=== PATIENT | female | born 1940 | race Caucasian/White ===

== ENCOUNTER 2017-05-28 08:45 | Outpatient (CLI) | payer MEDICARE, OTHER ==
[~2017-05-28] VITALS: Ht 144.8 cm; Wt 45.4 kg
[~2017-05-28 08:45] MED LIST: ACHYD1T PO; CA C1TAB75 PO; DCS100C PO; GBPN100C PO; IBP800T PO; MELO-195 PO; NAPR-689 PO; OMEP20CA12 PO; SIMV20TA3 PO; SMV20T PO
[2017-05-28 08:55] VITALS: BP 135/74
[2017-05-28] MEDS ORDERED: CETI10TA17 PO (09:03)
[2017-05-28] MEDS ORDERED: MONT10TA24 PO (09:03)
[2017-05-28] MEDS ORDERED: LEVO25TA5 PO (09:03)
[2017-05-28 09:44] LABS: BASOPHILS # (AUTO) 0.1 10^3/uL (0.0-0.1); BASOPHILS % (AUTO) 1 % (0-10); EOSINOPHILS # (AUTO) 0.2 10^3/uL (0.0-0.3); EOSINOPHILS % (AUTO) 2 % (0-10); LYMPHOCYTES # (AUTO) 3.1 X 10^3 (1.0-4.0); LYMPHOCYTES % (AUTO) 31 % (12-44); MEAN CORPUSCULAR HEMOGLOBIN 30 PG (25-34); MEAN CORPUSCULAR HGB CONC 32 G/DL (32-36); MEAN CORPUSCULAR VOLUME 92 FL (80-99); MEAN PLATELET VOLUME 9.4 FL (7.4-10.4); MONOCYTES # (AUTO) 0.7 X 10^3 (0.0-1.0); MONOCYTES % (AUTO) 7 % (0-12); NEUTROPHILS % (AUTO) 60 % (42-75); PLATELET COUNT 308 10^3/uL (130-400); RED CELL DISTRIBUTION WIDTH 13.6 % (10.0-14.5)
[2017-05-28 09:55] LABS: BILIRUBIN,URINE NEGATIVE (NEGATIVE); KETONES,URINE NEGATIVE (NEGATIVE); LEUKOCYTE ESTERASE ,URINE NEGATIVE (NEGATIVE); NITRITE,URINE NEGATIVE (NEGATIVE); PH,URINE 6.5 (5-9); PROTEIN,URINE NEGATIVE (NEGATIVE); UROBILINOGEN,URINE NORMAL (NORMAL)
[2017-05-28 10:01] LABS: ANION GAP 12 MMOL/L (5-14); BLOOD UREA NITROGEN 13 MG/DL (7-18); BUN/CREATININE RATIO 17; CALCIUM 9.9 MG/DL (8.5-10.1); CARBON DIOXIDE 25 MMOL/L (21-32); CHLORIDE 104 MMOL/L (98-107); CREATININE SERUM 0.78 MG/DL (0.60-1.30); GFR ESTIMATED > 60; GLUCOSE 79 MG/DL (70-105); POTASSIUM 4.5 MMOL/L (3.6-5.0); SODIUM 141 MMOL/L (135-145)
[2017-05-28 10:08] LABS: SQUAMOUS EPITHELIAL CELL,UR 0-2 /HPF
[2017-05-28 10:26] LABS: PROTHROMBIN TIME PATIENT 13.6 SEC (12.2-14.7)
--- NOTE | 2017-05-28 10:40 | Diagnostic Imaging Report ---
INDICATION: Preop screening prior to hip arthroplasty. Comparison made with prior examination February 16, 2015. FINDINGS: The heart size is normal. There is some bibasilar atelectasis and/or pneumonitis left greater than right. There is no pleural effusion or pneumothorax. Mediastinum is unremarkable. IMPRESSION: Bibasilar scarring or atelectasis left greater than right. Unchanged scoliosis. Dictated by: Dictated on workstation # [id number]
== END 2017-05-28 09:45 | disposition home or self-care (01) ==
LOC: PREOP 08:45
PROVIDERS: ATTEND Orthopaedic Surgery
DX: Z01.812 Encounter for preprocedural laboratory examination (principal); Z01.811 Encounter for preprocedural respiratory examination; M16.11 Unilateral primary osteoarthritis, right hip; M79.661 Pain in right lower leg; R53.83 Other fatigue; Z22.322 Carrier or suspected carrier of Methicillin resistant Staphylococcus aureus; Z85.850 Personal history of malignant neoplasm of thyroid
CPT/HCPCS: 36415; 71020; 80048; 81000; 85025; 85610; 86850; 86900; 86901; 87081; 93005

== ENCOUNTER 2017-06-11 07:47 | Inpatient (IN) | payer MEDICARE, OTHER ==
[~2017-06-11] VITALS: Ht 147.3 cm; Wt 47.3 kg
[~2017-06-11 07:47] MED LIST changes: +CETI10TA17 PO; +LEVO25TA5 PO; +MONT10TA24 PO
[2017-06-11] MEDS ORDERED: ceFAZolin 2 GM/NS 50 ML IV ONE (08:00)
[2017-06-11] MEDS ORDERED: fentaNYL INJECTION 100 MCG/2 ML AMP ONE (08:17)
[2017-06-11] MEDS ORDERED: MIDAZOLAM 2 MG/2 ML (VERSED) VIAL ONE (08:18)
[2017-06-11] MEDS ORDERED: NEO/POLY/BAC (NEOSPORIN) OINT 15 GM TUBE ONE (08:23)
[2017-06-11] MEDS ORDERED: GENTAMICIN 40 MG/ML 2 ML INJ SDV ONE (08:23)
[2017-06-11] MEDS: LACTATED RINGERS 1,000 ML IV PRN ×2 (08:47→09:59)
[2017-06-11 08:58] VITALS: BP 140/87
--- NOTE | 2017-06-11 09:04 | Anesthesia-Peripheral Nerve Bl ---
Procedure Start/Stop Time Date of Procedure: Jun 11, 2017 Start Time: 08:40 Stop Time: 09:00 Peripheral Nerve Block Peripheral Nerve Blockade Risk/Benefits/Alternatives discussed, including IV injection leading to complications or seizures, nerve irritation or damage, pneumothorax, total spinal anesthesia, injection, and/or bleeding. Approach: femoral Side Confirmed: RIGHT Specifically requested for management of pain by: Patient Condition Patient Condition: Awake Procedure Prepartation: Chlorhexidine Position: Supine [place]: Short-bevel Needle (s) Size: 22g 2" Technique: Injection through needle If paresthesia, describe quali: quadricepts femoris response drop off at .6ma mA: 0.6 Depth (cm): 3 Sedation Given: Midazolam Dose (mg/mcg): 1 Injectate: ropivacaine Concentration %: 0.5 Volume (ml): 30 Narrative Injection was made incrementally with constant monitoring. Blood Aspirated: No Pain on injection noted: No Normal Resistance on injection: Yes Events Events: None:easy well tolerated Sucess: Full evaluation-pending Patient Conditon Post Peripheral Nerve Block Post Peripheral Nerve Block Vital Signs: Blood Pressure: Systolic Diastolic Heart Rate Blood Pressure Systolic: 140 Blood Pressure Diastolic: 87 Pulse Rate (adult): 101 NEEL CEDILLO CRNA Jun 11, 2017 09:04
[2017-06-11] MEDS ORDERED: TRANEXAMIC ACID 100 MG/ML 10 ML INJECTION IV ONE (09:44)
[2017-06-11] MEDS ORDERED: proPOfol 200 MG/20 ML (DIPRIVAN) VIAL IV ONE (09:45)
[2017-06-11] MEDS ORDERED: LACTATED RINGERS 2,000 ML IV ONE (09:45)
[2017-06-11] MEDS ORDERED: ONDANSETRON 4 MG/2 ML (SDV) Z0FRAN ONE (09:45)
[2017-06-11] MEDS ORDERED: LIDOCAINE PF 2% 5 ML (XYLOCAINE) VIAL ONE (09:45)
[2017-06-11] MEDS ORDERED: ROCURONIUM 50 MG/5 ML (ZEMURON) VIAL IV ONE (09:45)
[2017-06-11] MEDS ORDERED: SEVOFLURANE (ULTANE) 15 ML INHAL SOLN ONE ×2 (09:46→11:11)
[2017-06-11] MEDS ORDERED: PHENYLEPHRINE 100 MCG/ML 10 ML (ANESTHESIA) SYR ONE (10:12)
[2017-06-11] MEDS ORDERED: GLYCOPYRROLATE 0.2 MG/ML (ROBINUL) 2 ML VIAL ONE (11:10)
[2017-06-11] MEDS ORDERED: NEOSTIGMINE (BLOXIVERZ ) 1 MG/1ML 10 ML VIAL ONE (11:10)
[2017-06-11] MEDS ORDERED: morphine INJ 10 MG/ML 1ML (SYR OR VIAL) ONE (11:16)
--- NOTE | 2017-06-11 11:34 | Progress Note-Post Operative ---
Post-Operative Progess Note Surgeon (s)/Union Contract Representative (s) Surgeon DARIN WILEY DO Union Contract Representative: Misha Patel RESEARCH [employer] SUPERVISORJuan Pre-Operative Diagnosis Primary Osteoarthritis Right Hip Post-Operative Diagnosis same Procedure & Operative Findings Date of Procedure 06/11/17 Procedure Performed/Findings Right Total Hip Replacement Anesthesia Type General with femoral nerve block Estimated Blood Loss Estimated blood loss (mL): 100 ml Specimens/Packing Specimens Removed none DARIN WILEY DO Jun 11, 2017 11:34 am
[2017-06-11] MEDS: morphine INJ 10 MG/ML 1ML (SYR OR VIAL) IVP PRN ×3 (11:36→11:50)
[2017-06-11] MEDS ORDERED: BISACODYL 10 MG SUPP (DULCOLAX) PR PRN (11:45)
[2017-06-11] MEDS ORDERED: KETOROLAC 15 MG/ML VIAL IVP PRN (11:45)
[2017-06-11] MEDS ORDERED: ceFAZolin 2 GM/50 ML NS 50 ML IV SCH (11:45)
[2017-06-11] MEDS ORDERED: diphenhydrAMINE 50 MG/ML INJ (BENADRYL) IV PRN (11:45)
[2017-06-11] MEDS ORDERED: PROMETHAZINE INJ 25 MG/ML (PHENERGAN) AMP IVP PRN (11:45)
[2017-06-11 12:00] VITALS: BP 126/58
[2017-06-11] MEDS ORDERED: ONDANSETRON 4 MG/2 ML (SDV) Z0FRAN IVP PRN (12:15)
[2017-06-11] MEDS: ONDANSETRON 4 MG/2 ML (SDV) Z0FRAN IVP PRN ×2 (12:52→17:21)
--- NOTE | 2017-06-11 12:57 | Diagnostic Imaging Report ---
EXAMINATION: AP view of the pelvis. INDICATION: Postoperative baseline exam. FINDINGS: There is right hip replacement in good position. The left hip demonstrates mild degenerative change. IMPRESSION: Baseline post right hip replacement in good position. Dictated by: Dictated on workstation # [id number]
[2017-06-11] MEDS: BACLOFEN 10 MG (LIORESAL) TAB PO SCH ×2 (13:22→20:35)
[2017-06-11 13:30] VITALS: BP 126/58
[2017-06-11] MEDS ORDERED: OMEP20TA7 PO (14:25)
[2017-06-11] MEDS ORDERED: SIMV20TA3 PO (14:25)
[2017-06-11 16:00] VITALS: BP 126/59
[2017-06-11] MEDS: D5 1/2 NS 1000 ML IV SOLUTION 1,000 ML IV SCH (16:42)
[2017-06-11] MEDS: morphine INJ 4 MG/ML 1 ML (VIAL/SYRINGE) IVP PRN ×2 (17:16→20:35)
[2017-06-11] MEDS: ceFAZolin 2 GM/50 ML NS 50 ML IV SCH (17:23)
[2017-06-11 20:00] VITALS: BP 116/57
[2017-06-11] MEDS: HYDROcodone/APAP 10 MG/325 MG (LORTAB) TAB PO PRN (20:34)
[2017-06-11] MEDS: MONTELUKAST 10 MG (SINGULAIR) TAB PO SCH (20:35)
[2017-06-11 23:15] VITALS: BP 113/57
[2017-06-12] MEDS: ceFAZolin 2 GM/50 ML NS 50 ML IV SCH (00:42)
[2017-06-12] MEDS: morphine INJ 4 MG/ML 1 ML (VIAL/SYRINGE) IVP PRN (01:18)
[2017-06-12 04:42] VITALS: BP 129/60
[2017-06-12] MEDS: LEVOTHYROXINE 25 MCG (LEVOTHROID) TAB PO SCH (05:41)
[2017-06-12] MEDS: HYDROcodone/APAP 10 MG/325 MG (LORTAB) TAB PO PRN ×2 (05:42→09:21)
[2017-06-12] MEDS: D5 1/2 NS 1000 ML IV SOLUTION 1,000 ML IV SCH (05:45)
[2017-06-12 06:47] LABS: MEAN PLATELET VOLUME 9.4 FL (7.4-10.4); RED BLOOD COUNT 3.58 10^6/uL (4.35-5.85); RED CELL DISTRIBUTION WIDTH 13.7 % (10.0-14.5); WHITE BLOOD COUNT 13.9 10^3/uL (4.3-11.0)
[2017-06-12 07:10] LABS: ANION GAP 6 MMOL/L (5-14); BLOOD UREA NITROGEN 9 MG/DL (7-18); BUN/CREATININE RATIO 14; CALCIUM 8.2 MG/DL (8.5-10.1); CARBON DIOXIDE 24 MMOL/L (21-32); CHLORIDE 101 MMOL/L (98-107); CREATININE SERUM 0.66 MG/DL (0.60-1.30); GFR ESTIMATED > 60; GLUCOSE 127 MG/DL (70-105); POTASSIUM 3.7 MMOL/L (3.6-5.0); SODIUM 131 MMOL/L (135-145)
--- NOTE | 2017-06-12 07:30 | CONSULTATION REPORT ---
DATE OF SERVICE: 06/11/2017 PREOPERATIVE DIAGNOSIS: Primary osteoarthritis, right hip. POSTOPERATIVE DIAGNOSIS: Primary osteoarthritis, right hip. PROCEDURE: Right total hip arthroplasty. SURGEON: Drain Wiley DO ESTIMATOR: CAMELIA Whitlock. SURGICAL PANEL MONITOR DUTIES: Misha Patel surgical physician assistant was utilized throughout the entire procedure for patient positioning, retraction of soft tissues, placement of metallic implants, wound closure, dressing application and patient transfer. ANESTHESIA: General with femoral nerve block. INDICATIONS AND FINDINGS: The patient is a 76-year-old female seen with chief complaint of progressive right and left hip pain. She also has longstanding history of low back pain. She was actually treated with intraarticular steroid injections in both hips, both as a treatment and a test to determine her response to the injections. She had complete relief of her right hip pain with injections. She was taken to surgery where a total hip arthroplasty was performed on the right utilizing the Biomet Total Hip system with a 48 mm limited hole Regenerex Ringloc limited hole acetabular shell which was press fit into place, a 32 mm head, size 22 liner, size ArcomXL +3 High Wall Ringloc acetabular liner was utilized along with an 8 mm Taperloc porous coated press fit femoral stem, a -6 mm modular head component was utilized as well. This was 32 mm in diameter. This was performed without complication. ESTIMATED BLOOD LOSS: 100 mL. PROCEDURE IN DETAIL: The patient was seen by anesthesia preoperatively and under ultrasound guidance a femoral nerve block was performed on the right to decrease postop pain and decrease the amount of medication required during the surgical procedure. The patient was transported to the operating room where a general inhalation anesthetic was administered. The patient was placed in the left lateral decubitus position secured to the operating table with the peg board system. A ChloraPrep and sterile drape of the right hip and the right lower extremity was performed. A lateral longitudinal incision was then made over the right hip, centered over the greater trochanter and deepened through the iliotibial band. A Hardinge approach was then performed to the right hip with division of the vastus lateralis along with the gluteus medius and minimis tendons reflecting the capsule off the anterior aspect of the femoral head and neck. The hip was dislocated by external rotation and flexion. The acetabular minor was excised, acetabular retractors were placed, the acetabulum was reamed up to a 47 mm reaming. A 48 mm cup was then press fit into place and the provisional acetabular liner was inserted. The proximal femur was opened with a box chisel and a canal finder. The proximal femur was broached up to an 8 mm stem with the calcar reamed. The hip was reduced, taken through a range of motion with a -6 mm neck. The patient was noted to have balancing of the soft tissues at the hip with symmetric leg lengths. The provisional components were removed, the hip was irrigated extensively with normal saline solution and the ArcomXL High Wall liner was impacted into position with the buildup over the anterior superior aspect of the acetabular shell. The 8 mm Taperloc stem was impacted into position. The head was cold welded on the stem, the hip was reduced, taken through a range of motion and found to be stable. The vastus lateralis as well as the gluteus medius and minimis tendon were then closed with multiple interrupted [id number] sutures of #2 Ticron suture along with a running suture. The iliotibial band was closed with a running suture of #1 Vicryl. The subcutaneous tissues were closed with 0 and 2-0 Vicryl suture, the skin was closed with stainless steel sal and Adaptic, Neosporin and a bulky dressing was placed about the right hip. The patient was awakened, and was transported to the postop recovery with anesthesia personnel present, in satisfactory condition. Job ID: [id number] DocumentID: [id number] Dictated Date: 06/11/2017 15:39:51 Buckle Stringer Date: 06/12/2017 07:30:21 Dictated By: DARIN WILEY DO
[2017-06-12 08:00] VITALS: BP 115/65
[2017-06-12] MEDS: LORATADINE (CLARITIN) 10 MG TAB PO SCH (09:22)
[2017-06-12] MEDS: PANTOPRAZOLE 20 MG TABLET (PROTONIX) PO SCH (09:22)
[2017-06-12] MEDS: BACLOFEN 10 MG (LIORESAL) TAB PO SCH ×2 (09:22→14:58)
[2017-06-12] MEDS: ENOXAPARIN 40 MG/0.4 ML (LOVENOX) SYR SC SCH (09:22)
--- NOTE | 2017-06-12 09:25 | Physical Therapy Evaluation ---
PT Evaluation-General Medical Diagnosis Admission Date Jun 11, 2017 at 07:47 Medical Diagnosis: right VINOD Onset Date: Jun 11, 2017 Therapy Diagnosis Therapy Diagnosis: impaired mobility, strength, endurnace Height/Weight Height (Feet): 4 Height (Inches): 10.00 Weight (Pounds): 104 Weight (Ounces): 3.0 Precautions Precautions/Isolations: Fall Prevention, Standard Precautions Weight Bear Status Weight Bearing Restriction: Full Weight Bearing Location Restriction: R LE Referral Physician: Misha Patel APRN Reason for Referral: Evaluation/Treatment Medical History Pertinent Medical History: OA Additional Medical History surg (cataracts, ovarian cyst, right rotator cuff repair) Current History had right VINOD after longstanding OA Social History Home: Single Level Current Living Status: Spouse PT Steps Into Home: 1 Prior/Core FIM Prior Level of Function Functional [place] Measure 0=Not Assessed/NA 4=Minimal Assistance 1=Total Assistance 5=Supervision or Setup 2=Maximal Assistance 6=Modified [place] 3=Moderate Assistance 7=Complete [place] Bed Mobility: 7 Transfers (B,C,W/C) (FIM): 7 Gait: 7 PT Evaluation-Current Subjective Patient in bed pre tx, agrees to PT, has pain of 8/10 in right hip. Pt/Family Goals to be independent at home Objective Patient Orientation: Person, Place, Situation Attachments: Oxygen, Gentile Catheter, IV 2L of O2 nasal canula ROM/Strength ROM Lower Extremities NT due to recent surgery Strenght Lower Extremities NT due to recent surgery Integumentary/Posture Bladder Incontinence: Gentile Cath Sensory Vision: Functional Hearing: Functional Sensation Right Lower Extremit: Intact Sensation Left Lower Extremity: Intact Transfers Functional [place] Measure 0=Not Assessed/NA 4=Minimal Assistance 1=Total Assistance 5=Supervision or Setup 2=Maximal Assistance 6=Modified [place] 3=Moderate Assistance 7=Complete [place] Transfers (B, C, W/C) (FIM): 3 Scootin Rollin Supine to/from Sit: 3 Sit to/from Stand: 4 Patient performs bed mobility with mod assist, supine to sit with mod assist, sit to stand with min assist. Patient needs cues for safety and hand placement. Gait Mode of Locomotion: Walk Anticipated Mode of Locomotion: Walk Gait (FIM): 1 Distance: 3' Gait Level of Assist: 4 Gait Persons Needed: 1 Gait Assistive Device: FWW Comments/Gait Description Patient ambulated just a few feet from the bed to chair. Very antalgic, but she could advance her right leg well. Balance Sitting Static: Fair Sitting Dynamic: Fair Standing Static: Fair Standing Dynamic: Fair Treatment Right lower extremity exercises in a seated position x10 (AP, LAQ, GS) Assessment/Needs Patient has impaired mobility, strength, endurance, post right VINOD Rehab Potential: Fair PT Grain Spouter Goals Retirement Goals PT Retirement Goals Time Frame: Jun 19, 2017 Transfers (B,C,W/C) (FIM): 4 Gait (FIM): 2 Distance: 50' Gait Level of Assist: 4 Gait Assistive Device: FWW PT Plan Problem List Problem List: Activity Tolerance, Functional Strength, Safety, Balance, Gait, Transfer, Bed Mobility, ROM Treatment/Plan Treatment Plan: Continue Plan of Care Treatment Plan: Bed Mobility, Education, Functional Activity Samanta, Functional Strength, Gait, Therapeutic Exercise, Transfers Treatment Duration: Jun 19, 2017 Frequency: 11 times per week Estimated Hrs Per Day: .25 hour per day (15-30 min) Patient and/or Family Agrees t: Yes Safety Risks/Education Patient Education: Gait Training, Transfer Techniques, Reviewed Precautions, Correct Positioning, Safety Issues Teaching Recipient: Patient Teaching Methods: Demonstration, Discussion Response to Teaching: Reinforcement Needed Discharge Recommendations Plan Patient will perform bed mobility and transfer training, balance and endurance training, functional strengthening, stair training, gait training, and education , to improve functional mobility and independence at home. Therapy D/C Recommendations: Home w/ Family Support Time/GCodes Time In: 900 Time Out: 915 Total Billed Treatment Time: 15 Total Billed Treatment 1 visit AL 15' DELANEY HOUSTON PT Jun 12, 2017 09:25
--- NOTE | 2017-06-12 10:21 | Anesthesia-General Post-Op ---
General Patient Condition Mental Status/LOC: Same as Preop Cardiovascular: Satisfactory Nausea/Vomiting: Absent Respiratory: Satisfactory Pain: Controlled Complications: Absent Post Op Complications Complications None Follow Up Care/Instructions Patient Instructions None needed. Anesthesia/Patient Condition Patient Condition Patient is doing well, no complaints, stable vital signs, no apparent adverse anesthesia problems. Patient had good relief with FNB, no neuro-vascular complications. No complications reported per nursing. ELIZABETH TAVERAS CRNA Jun 12, 2017 10:21
--- NOTE | 2017-06-12 11:40 | Progress Note (SOAP) ---
Subjective Date Seen by Provider: Jun 12, 2017 Time Seen by Provider: 11:37 Subjective/Events-last exam c/o significant hip pain as well as nausea and vomiting. Escobar started this AM for urinary retention. Objective Exam Vital Signs Date Time Temp Pulse Resp B/P (MAP) Pulse Ox O2 Delivery O2 Flow Rate FiO2 06/12/17 08:25 98 Room Air 06/12/17 08:00 99.0 85 18 115/65 97 Room Air 06/12/17 04:42 99.0 102 16 129/60 97 Nasal Cannula 2.00 06/11/17 23:15 98.7 92 16 113/57 93 Room Air 06/11/17 20:00 97.2 92 20 116/57 96 Room Air 06/11/17 16:00 97.2 81 20 126/59 98 Room Air 06/11/17 13:32 Room Air 06/11/17 13:30 96.5 69 18 126/58 99 06/11/17 13:27 98 Room Air 06/11/17 12:00 96.5 69 18 126/58 Capillary Refill : Less Than 3 Seconds General Appearance: No Apparent Distress Extremity: Normal Capillary Refill, Normal Inspection, No Calf Tenderness, No Pedal Edema Neurologic/Psychiatric: Alert, Oriented x3, No Motor/Sensory Deficits, Normal Mood/Affect Skin: Normal Color, Warm/Dry (Dressing to right hip clean Dry and intact) Results Lab Laboratory Tests 06/12/17 06:30: White Blood Count 13.9H, Red Blood Count 3.58L, Hemoglobin 10.9L, Hematocrit 34L , Mean Corpuscular Volume 94, Mean Corpuscular Hemoglobin 30, Mean Corpuscular Hemoglobin Concent 33, Red Cell Distribution Width 13.7, Platelet Count 250, Mean Platelet Volume 9.4, Sodium Level 131L, Potassium Level 3.7, Chloride Level 101, Carbon Dioxide Level 24, Anion Gap 6, Blood Urea Nitrogen 9, Creatinine 0.66, Estimat Glomerular Filtration Rate > 60, BUN/Creatinine Ratio 14, Glucose Level 127H, Calcium Level 8.2L Assessment/Plan Assessment/Plan Assess & Plan/Chief Complaint A: s/p right VINOD, PONV, post op urinary retention, hyponatremia P: Zofran for nausea, DC hydrocodone and start percocet 5/325, start bladder training today and DC escobar this afternoon. increase activity level. May need admission to skilled swing or rehab. 1500cc fluid restriction. Sarah to manage IM issues. Clinical Quality Measures DVT/VTE Risk/Contraindication: Risk Factor Score Per Nursin RFS Level Per Nursing on Admit: 4+=Very High PATRICE CONNOR APRN Jun 12, 2017 11:39 am
[2017-06-12] MEDS: ONDANSETRON 4 MG/2 ML (SDV) Z0FRAN IVP PRN (11:50)
[2017-06-12 12:00] VITALS: BP 133/63
[2017-06-12] MEDS ORDERED: oxyCODONE/APAP 5/325MG (PERCOCET 5) TABLET PO PRN (12:15)
--- NOTE | 2017-06-12 13:08 | Occupational Therapy Eval ---
OT Evaluation-General/PLF Medical Diagnosis Admission Date Jun 11, 2017 at 07:47 Medical Diagnosis: right VINOD Onset Date: Jun 11, 2017 Therapy Diagnosis Therapy Diagnosis: Weakness, Decreased ADL skills Height/Weight Height (Feet): 4 Height (Inches): 10.00 Weight (Pounds): 104 Weight (Ounces): 3.0 Precautions Precautions/Isolations: Fall Prevention, Standard Precautions Safety Interventions: None Weight Bear Status Weight Bearing Restriction: Weight Bearing/Tolerated, Full Weight Bearing Location Restriction: R LE Referral Physician: Misha Patel APRN Referral Reason: Activity Tolerance, Self Care, Evaluation/Treatment, Strengthening/ROM Medical History Pertinent Medical History: OA Additional Medical History cataracts removed, Right RCR Reviewed History: Yes Social History Home: Single Level Current Living Status: Spouse Steps Into Home: 1 ADL-Prior Level of Function ADL PLOF Comments Pt. was independent with daily tasks previous to hip surgery. DME/Equipment: Tub/Shower Drive Self: Yes OT Current Status Subjective Pt. reports 10/10 pain in right hip. Pt. receives pain medication while OT in room. Appearance Pt. in midst of working with PT when OT walked in room. Assisted PT and pt. due to pt's fatigue level. See note below. Mental Status/Objective Patient Orientation: Person, Place Current Hand Dominance: Right Upper Extremity ROM WFL Upper Extremity Strength WFL ADL-Treatment Functional [place] Measure 0=Not Assessed/NA 4=Minimal Assistance 1=Total Assistance 5=Supervision or Setup 2=Maximal Assistance 6=Modified [place] 3=Moderate Assistance 7=Complete IndependenceIRFPAI Quality Coding Scale 6 Independent with activity with or without an assistive device 5 Patient requires set up or clean up by helper. Patient completes activity by themselves 4 Supervision or touching assist (CGA). [place] provide cues , steadying assist 3 The helper provides less than half the effort to complete the activity 2 The helper provides more than half the effort to complete the activity 1 Dependent. The helper does all the effort to complete an activity 7 Patient refused to complete or attempt activity 9 The patient did not perform the activity before the current illness or injury 88 Not attempted due to Medical conditions or safety concerns Lower Body Dressing (FIM): 1 (Pt. has hip precautions. Unable to reach feet.) Other Treatments Pt. required min assist x 2 for sit-stand from bed. Min x 1-2 people to transfer to chair with increased time. PT educated pt. on hip precautions and mobility and OT supported mobility assist and education regarding OT goals and ADLs with hip precautions. Pt. requires cues and encouragement. Once in chair , PT stepped out and OT took over. Completed education regarding hip precautions and OT goals. Pt. declines bathing at this time. OT to bring in AE tomorrow to educate pt. Education OT Patient Education: Correct positioning, Modified ADL techniques, Progress toward Goal/Update tx plan, Purpose of tx/functional activities, Reviewed precautions, Rehab process, Transfer techniques, Use of adapted equipment Teaching Recipient: Patient Teaching Methods: Demonstration, Discussion Response to Teaching: Verbalize Understanding, Return Demonstration OT Short Term Goals Short Term Goals Time Frame: Jun 19, 2017 Eating(FIM): 5 Grooming(FIM): 4 Bathing(FIM): 4 Upper Body Dressing(FIM): 5 Lower Body Dressing(FIM): 4 Toileting(FIM): 4 Transfers (B,C,W/C) (FIM): 4 Toilet/Commode Transfer(FIM): 4 Additional Short Term Goals: 1-Demonstrate ADL Tasks, 2-Verbalize Understanding , 3-ImproveStrength/Samanta 1=Demonstrate adherence to instructed precautions during ADL tasks. 2=Patient will verbalize/demonstrate understanding of assistive devices/ modifications for ADL. 3=Patient will improve strength/tolerance for activity to enable patient to perform ADL's. OT Sap Business Analyst Goals Sap Business Analyst Goals Time Frame: Jun 26, 2017 Eating (FIM): 6 Grooming(FIM): 6 Bathing(FIM): 5 Upper Body Dressing(FIM): 6 Lower Body Dressing(FIM): 6 Toileting(FIM): 6 Transfers (B,C,W/C) (FIM): 6 Toilet/Commode Transfer(FIM): 6 Shower Transfer(FIM): 5 Additional Goals: 1-Demonstrate ADL Tasks, 2-Verbalize Understanding, 3- ImproveStrength/Samanta 1=Demonstrate adherence to instructed precautions during ADL tasks. 2=Patient will verbalize/demonstrate understanding of assistive devices/ modifications for ADL. 3=Patient will improve strength/tolerance for activity to enable patient to perform ADL's. OT Education/Plan Problem List/Assessment Assessment: Decreased Activ Tolerance, Dependent Transfers, Impaired Bed Mobility, Impaired Funct Balance, Impaired I ADL's, Impaired Self-Care Skills Discharge Recommendations Plan/Recommendations: Continue POC Therapy D/C Recommendations: Home w/ Family Support, Occupational Therapy Home Care Equpiment Recommendations-D/C: Extended Bath Bench Target Placement Home with spouse assist. Treatment Plan/Plan of Care Treatment,Training & Education: Yes Patient would benefit from OT for education, treatment and training to promote independence in ADL's, mobility, safety and/or upper extremity function for ADL' s. Plan of Care: ADL Retraining Treatment Duration: Jun 26, 2017 Frequency: 5 times per week Estimated Hrs Per Day: .5 hour per day Agreement: Yes Rehab Potential: Good Time/GCodes Start Time: 09:05 Stop Time: 09:30 Total Time Billed (hr/min): 25 Billed Treatment Time 1, EVM x 10minutes, FA x 15minutes CHERYL ORO OT Jun 12, 2017 13:08
[2017-06-12] MEDS: ASPIRIN E.C. 325 MG (ECOTRIN) TABLET PO SCH (14:58)
--- NOTE | 2017-06-12 15:47 | Physical Therapy Daily Note ---
PT Daily Note-Current Subjective Pt asleep Supine in bed with Nurse present upon arrival. Pt agrees to PT. Pt receives pain med & muscle relaxer at beginning of tx. Pain Comment: Pt doesn't rate although displays facial grimace. Mental Status Patient Orientation: Person, Unable to Assess Attachments: Oxygen, Gentile Catheter Transfers Functional [place] Measure 0=Not Assessed/NA 4=Minimal Assistance 1=Total Assistance 5=Supervision or Setup 2=Maximal Assistance 6=Modified [place] 3=Moderate Assistance 7=Complete IndependenceIRFPAI Quality Coding Scale 6 Independent with activity with or without an assistive device 5 Patient requires set up or clean up by helper. Patient completes activity by themselves 4 Supervision or touching assist (CGA). [place] provide cues , steadying assist 3 The helper provides less than half the effort to complete the activity 2 The helper provides more than half the effort to complete the activity 1 Dependent. The helper does all the effort to complete an activity 7 Patient refused to complete or attempt activity 9 The patient did not perform the activity before the current illness or injury 88 Not attempted due to Medical conditions or safety concerns Scootin Rollin Supine to/from Sit: 3 Sit to/from Stand: 4 Weight Bearing Weight Bearing Restriction: Full Weight Bearing Location Restriction: LE Bilateral Gait Training Distance (FIM): 1=up to 49 ft Distance: 2' Gait Level of Assist: 3 Gait Persons Needed: 1 Gait Assistive Device: FWW Pt has difficulty staying awake during tx even with encouragement. PT tries to assist with physical cues. Pt returns to bed due to nausea and cannot stay awake. Exercises Supine Ex: Rolling Seated Therapy Exercises: Sit to stand Treatments Pt transfers from Supine to EOB at Mod A using bed pad then EOB to Standing using FWW at Min A. Pt ambulates just a few steps before returning to bed due to nausea and difficulty staying awake. Pt rests Supine in bed at end of tx with all needs met. Assessment Current Status: Fair Progress Pt has difficulty staying awake due to fatigue and meds given at beginning of tx. Sp reports that "it doesn't take much to put the pt to sleep". PT Short Term Goals Short Term Goals Transfers (B,C,W/C) (FIM): 4 PT Principal Software Architect Goals Senior Care Goals PT Principal Software Architect Goals Time Frame: Jun 19, 2017 Transfers (B,C,W/C) (FIM): 4 Gait (FIM): 2 Distance: 50' Gait Level of Assist: 4 Gait Assistive Device: FWW PT Plan Problem List Problem List: Activity Tolerance, Functional Strength, Safety, Balance, Gait, Transfer, Bed Mobility Treatment/Plan Treatment Plan: Continue Plan of Care Treatment Plan: Bed Mobility, Education, Functional Activity Samanta, Functional Strength, Gait, Therapeutic Exercise, Transfers Treatment Duration: Jun 19, 2017 Frequency: 11 times per week Estimated Hrs Per Day: .25 hour per day (15-30 min) Patient and/or Family Agrees t: Yes Safety Risks/Education Patient Education: Gait Training, Transfer Techniques, Correct Positioning, Safety Issues Teaching Recipient: Patient, Significant Other Teaching Methods: Discussion Response to Teaching: Verbalize Understanding, Reinforcement Needed Time/GCodes Time In: 1500 Time Out: 1525 Total Billed Treatment Time: 25 Total Billed Treatment visit, FA x2 (25m) SANTIAGO MENDES HIV/AIDS CARE NURSE Jun 12, 2017 15:47
[2017-06-12 16:45] VITALS: BP 125/66
--- NOTE | 2017-06-12 18:38 | Consultation ---
History of Present Illness History of Present Illness Patient Consulted On(carla/time) 06/12/17 18:33 Date Seen by Provider: Jun 12, 2017 Time Seen by Provider: 18:33 Reason for Visit: RIGHT HIP REPLACEMENT History of Present Illness PT IS A 76 Y/O FEMALE WHO IS KNOWN TO ME FROM CLINIC. SHE PRESENTED TO THE HOSPITAL FOR A HIP REPLACEMENT. DR. WILEY ADMITTED THE PATIENT FOR HIP REPLACEMENT PROCEDURE AND POST-OPERATIVE REHABILITATION. I HAVE BEEN CONSULTED MRS. LEE FOR MEDICAL MANAGEMENT. Allergies and Home Medications Allergies Coded Allergies: sulfamethoxazole (Verified Allergy, Unknown, RASH, 06/11/17) trimethoprim (Verified Allergy, Unknown, RASH, 06/11/17) Home Medications Aspirin 325 Mg Tablet., 325 MG PO DAILY, #30 Prescribed by: PATRICE CONNOR on 06/14/17 0708 Cetirizine HCl 10 Mg Tablet, 10 MG PO DAILY, (Reported) Levothyroxine Sodium 25 Mcg Tablet, 25 MCG PO DAILY, (Reported) Montelukast Sodium 10 Mg Tablet, 10 MG PO HS, (Reported) Omeprazole 20 Mg Tablet.dr, 20 MG PO DAILY, (Reported) Sennosides/Docusate Sodium 1 Each Tablet, 1 EA PO BID, #60 Prescribed by: PATRICE CONNOR on 06/14/17 0708 Simvastatin 20 Mg Tablet, 20 MG PO HS, (Reported) Tramadol HCl 50 Mg Tablet, 50 MG PO Q6H PRN for PAIN-MODERATE BREAKTHROUGH, #90 Prescribed by: PATRICE CONNOR on 06/14/17 0708 Past [id number] Hx Patient Social History Alcohol Use: Denies Use Recreational Drug Use: No Smoking Status: Never a Smoker Recent Foreign Travel: No Contact w/Someone Who Travel: No Recent Infectious Disease Expo: No Recent Hopitalizations: No Immunizations Up To Date Date of Influenza Vaccine: Jun 17, 2014 Seasonal Allergies Seasonal Allergies: Yes Surgeries History of Surgeries: Yes (ovarian cyst x2, R rotator cuff) Respiratory History of Respiratory Disorde: No Cardiovascular History of Cardiac Disorders: No Neurological History of Neurological Disord: No Reproductive System Hx Reproductive Disorders: Yes (VAGINAL PROLAPSE) Genitourinary History of Genitourinary Disor: No Gastrointestinal History of Gastrointestinal Di: No Musculoskeletal History of Musculoskeletal Dis: Yes Musculoskeletal Disorders: Arthritis, Scoliosis Endocrine History of Endocrine Disorders: Yes HEENT History of HEENT Disorders: Yes (cataracts removed) Cancer History of Cancer: No Psychosocial History of Psychiatric Problem: No Integumentary History of Skin or Integumenta: No Blood Transfusions History of Blood Disorders: No Reviewed Nursing Assessment Reviewed/Agree w Nursing PMH: Yes Family Medical History Significant Family History: Heart Disease, Stroke Family Medial History: Arthritis 19 MOTHER G8 BROTHER G8 SISTER Cardiovascular disease 19 MOTHER G8 BROTHER Completed stroke 19 MOTHER Dementia 19 MOTHER Review of Systems-General Constitutional: No chills, malaise, weakness Respiratory: No orthopnea, No short of breath, No wheezing Cardiovascular: No chest pain, No palpitations Gastrointestinal: No abdominal pain, No constipation, No diarrhea, No loss of appetite Genitourinary: incontinence Musculoskeletal: other (hip pain) Skin: no symptoms reported Psychiatric/Neurological: Denies Anxiety, Denies Depressed, Other (confusion) All Other Systems Reviewed Negative Unless Noted: Yes Physical Exam-General Problems Physical Exam Vital Signs Vital Sign - Last 12Hours 06/11/17 06/11/17 06/12/17 08:58 13:27 04:42 Temp 97.6 Pulse 101 Resp 18 B/P (MAP) 140/87 Pulse Ox 98 O2 Delivery Room Air O2 Flow Rate 2.00 Capillary Refill : Less Than 3 Seconds General Appearance: WD/WN, no apparent distress Eyes: Bilateral Eye Normal Inspection, Bilateral Eye PERRL, Bilateral Eye EOMI HEENT: PERRL/EOMI, pharynx normal Neck: non-tender, supple Respiratory: chest non-tender, lungs clear, normal breath sounds, no respiratory distress Cardiovascular: regular rate, rhythm, no edema Gastrointestinal: normal bowel sounds, non tender, soft, no organomegaly Rectal: deferred Back: normal inspection Extremities: normal inspection, no pedal edema, normal capillary refill 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 MILD LEUKOCYTOSIS - CHECK LABS IN MORNING - MAY BENEFIT FROM A URINALYSIS IF WHITE COUNT REMAINS SLIGHTLY ELEVATED. HYPONATREMIA - REPLACE WITH FLUID THROUGH IV AND MAY CONSIDER GATORADE WELL. HYPOTHYROID - -RESTART HOME MEDICATION. I APPRECIATE THE CONSULT Clinical Quality Measures DVT/VTE Risk/Contraindication: Risk Factor Score Per Nursin RFS Level Per Nursing on Admit: 4+=Very High CHERELLE HEIN MD Jun 12, 2017 18:38
[2017-06-12] MEDS ORDERED: DIAZEPAM 2 MG (VALIUM) TAB PO PRN (19:15)
[2017-06-12] MEDS ORDERED: diphenhydrAMINE 50 MG/ML INJ (BENADRYL) IV PRN (19:30)
[2017-06-12 20:15] VITALS: BP 121/62
[2017-06-12] MEDS: DICLOFENAC 1% GEL 100 GM (VOLTAREN) TUBE TOP SCH (21:03)
[2017-06-12] MEDS: NS IV 1000 ML 1,000 ML IV SCH (21:03)
[2017-06-12] MEDS: SIMvastatin 20 MG (ZOCOR) TAB PO SCH (21:07)
[2017-06-12] MEDS: MONTELUKAST 10 MG (SINGULAIR) TAB PO SCH (21:07)
[2017-06-12] MEDS: SENNA W/DOCUSATE (SENOKOT S) TABLET PO SCH (21:07)
[2017-06-13 00:23] VITALS: BP 146/65
[2017-06-13 04:00] VITALS: BP 118/59
[2017-06-13] MEDS: LEVOTHYROXINE 25 MCG (LEVOTHROID) TAB PO SCH (05:30)
[2017-06-13 06:17] LABS: MEAN PLATELET VOLUME 9.8 FL (7.4-10.4); RED BLOOD COUNT 3.67 10^6/uL (4.35-5.85); RED CELL DISTRIBUTION WIDTH 13.5 % (10.0-14.5); WHITE BLOOD COUNT 16.4 10^3/uL (4.3-11.0)
[2017-06-13 06:52] LABS: ALANINE AMINOTRANSFERASE 10 U/L (0-55); ALBUMIN 3.1 GM/DL (3.2-4.5); ANION GAP 9 MMOL/L (5-14); ASPARTATE AMINO TRANSFERASE 25 U/L (5-34); BILIRUBIN,TOTAL 0.6 MG/DL (0.1-1.0); BLOOD UREA NITROGEN 6 MG/DL (7-18); BUN/CREATININE RATIO 10; CALCIUM 8.7 MG/DL (8.5-10.1); CARBON DIOXIDE 24 MMOL/L (21-32); CHLORIDE 103 MMOL/L (98-107); GFR ESTIMATED > 60; GLUCOSE 112 MG/DL (70-105); MAGNESIUM 1.8 MG/DL (1.8-2.4); POTASSIUM 3.4 MMOL/L (3.6-5.0); SODIUM 136 MMOL/L (135-145); TOTAL PROTEIN 6.4 GM/DL (6.4-8.2)
--- NOTE | 2017-06-13 06:58 | Progress Note (SOAP) ---
Subjective Date Seen by Provider: Jun 13, 2017 Time Seen by Provider: 06:54 Subjective/Events-last exam Currently no complaints, very poor effort with physical therapy. Nurse reports she has been very drowsy all night and has not had any pain meds since yesterday. reports she has been slightly confused all night but states she acts this way at home sometimes as well. Objective Exam Vital Signs Date Time Temp Pulse Resp B/P (MAP) Pulse Ox O2 Delivery O2 Flow Rate FiO2 06/13/17 04:00 99.2 95 16 118/59 97 Nasal Cannula 1.00 06/13/17 00:23 98.2 102 16 146/65 92 Nasal Cannula 1.00 06/12/17 20:15 98.1 89 18 121/62 91 Room Air 06/12/17 20:00 Room Air 06/12/17 16:45 98.0 87 18 125/66 100 Nasal Cannula 1.00 06/12/17 12:00 98.4 86 20 133/63 100 Room Air 06/12/17 08:25 98 Room Air 06/12/17 08:00 99.0 85 18 115/65 97 Room Air Capillary Refill : Less Than 3 Seconds General Appearance: No Apparent Distress Peripheral Pulses: 2+ Dorsalis Pedis (R), 2+ Left Dors-Pedis (L) Extremity: Normal Capillary Refill, Normal Inspection, No Calf Tenderness Neurologic/Psychiatric: Alert, No Motor/Sensory Deficits, Abnormal Gait, Other (oriented to person and place, drowsy) Skin: Normal Color, Warm/Dry Results Lab Laboratory Tests 06/13/17 05:44: White Blood Count 16.4H, Red Blood Count 3.67L, Hemoglobin 11.0L, Hematocrit 34L , Mean Corpuscular Volume 93, Mean Corpuscular Hemoglobin 30, Mean Corpuscular Hemoglobin Concent 32, Red Cell Distribution Width 13.5, Platelet Count 272, Mean Platelet Volume 9.8, Sodium Level 136, Potassium Level 3.4L, Chloride Level 103, Carbon Dioxide Level 24, Anion Gap 9, Blood Urea Nitrogen 6L, Creatinine 0.60, Estimat Glomerular Filtration Rate > 60, BUN/Creatinine Ratio 10, Glucose Level 112H, Calcium Level 8.7, Magnesium Level 1.8, Total Bilirubin 0.6, Aspartate Amino Transf (AST/SGOT) 25, Alanine Aminotransferase (ALT/SGPT) 10, Alkaline Phosphatase 55, Total Protein 6.4, Albumin 3.1L Assessment/Plan Assessment/Plan Assess & Plan/Chief Complaint A: s/p right VINOD, dementia, resolving hyponatremia P: Plan for IRF tomorrow. Continue current treatment. Clinical Quality Measures DVT/VTE Risk/Contraindication: Risk Factor Score Per Nursin RFS Level Per Nursing on Admit: 4+=Very High PATRICE CONNOR APRN Jun 13, 2017 6:58 am
[2017-06-13 08:00] VITALS: BP 125/59
--- NOTE | 2017-06-13 08:19 | Progress Note (SOAP) ---
Subjective Date Seen by Provider: Jun 13, 2017 Time Seen by Provider: 08:16 Subjective/Events-last exam PT AND HER REPORT THAT SHE IS FEELING BETTER AND MUCH LESS CONFUSED THAN ON EVALUATION YESTERDAY EVENING.. PT REPORTS THAT SHE HAS BEEN UP WITH THERAPY AND FEELING STRONGER. Review of Systems General: Fatigue HEENT: No Head Aches Pulmonary: No Dyspnea, No Cough Cardiovascular: No: Chest Pain Gastrointestinal: No: Nausea, Abdominal Pain Musculoskeletal: leg pain Neurological: Weakness, No: Confusion Objective Exam Vital Signs Date Time Temp Pulse Resp B/P (MAP) Pulse Ox O2 Delivery O2 Flow Rate FiO2 06/13/17 04:00 99.2 95 16 118/59 97 Nasal Cannula 1.00 06/13/17 00:23 98.2 102 16 146/65 92 Nasal Cannula 1.00 06/12/17 20:15 98.1 89 18 121/62 91 Room Air 06/12/17 20:00 Room Air 06/12/17 16:45 98.0 87 18 125/66 100 Nasal Cannula 1.00 06/12/17 12:00 98.4 86 20 133/63 100 Room Air 06/12/17 08:25 98 Room Air Capillary Refill : Less Than 3 Seconds General Appearance: No Apparent Distress, WD/WN HEENT: PERRL/EOMI, Pharynx Normal Neck: Full Range of Motion, Supple Respiratory: Chest Non Tender, Lungs Clear, Normal Breath Sounds, No Accessory Muscle Use Cardiovascular: Regular Rate, Rhythm, No Edema Gastrointestinal: normal bowel sounds, non tender, soft Extremity: No Pedal Edema Neurologic/Psychiatric: Alert, Oriented x3, Normal Mood/Affect Skin: Warm/Dry Lymphatic: No Adenopathy Results Lab Laboratory Tests 06/13/17 05:44: White Blood Count 16.4H, Red Blood Count 3.67L, Hemoglobin 11.0L, Hematocrit 34L , Mean Corpuscular Volume 93, Mean Corpuscular Hemoglobin 30, Mean Corpuscular Hemoglobin Concent 32, Red Cell Distribution Width 13.5, Platelet Count 272, Mean Platelet Volume 9.8, Sodium Level 136, Potassium Level 3.4L, Chloride Level 103, Carbon Dioxide Level 24, Anion Gap 9, Blood Urea Nitrogen 6L, Creatinine 0.60, Estimat Glomerular Filtration Rate > 60, BUN/Creatinine Ratio 10, Glucose Level 112H, Calcium Level 8.7, Magnesium Level 1.8, Total Bilirubin 0.6, Aspartate Amino Transf (AST/SGOT) 25, Alanine Aminotransferase (ALT/SGPT) 10, Alkaline Phosphatase 55, Total Protein 6.4, Albumin 3.1L Assessment/Plan Assessment/Plan Assess & Plan/Chief Complaint RIGHT HIP REPLACEMENT MILD LEUKOCYTOSIS HYPONATREMIA HYPOTHYROIDISM RIGHT HIP REPLACEMENT - PHYSICAL THERAPY ORDERED - PT WOULD BENEFIT FROM AN INPATIENT REHAB STAY FOR STRENGTHENING AND THERAPY PRIOR TO PLANNED FURTHER REHAB AT HOME WITH HOME HEALTH VERSUS OUTPATIENT THERAPY. MILD LEUKOCYTOSIS - CHECK LABS IN MORNING -URINALYSIS ORDERED LAST NIGHT - HAS NOT YET BEEN COLLECTED. I HAVE DISCUSSED WITH STAFF AND INFORMED THEM OF NEED FOR UA STAT - AND CULTURE OF URINE. WE WILL START ROCEPHIN AFTER THE COLLECTION OF URINE HER WHITE COUNT WENT UP FROM 13 TO 16 THIS MORNING. HYPONATREMIA - REPLACE WITH FLUID THROUGH IV AND MAY CONSIDER GATORADE WELL. HYPOTHYROID - -RESTARTED HOME MEDICATION. CONFUSION IMPROVED LAST NIGHT - SLIGHTLY - BACLOFEN STOPPED LAST NIGHT DUE TO HER CONFUSION. I HAVE RECOMMENDED A LOW DOSE OF VALIUM IF NEEDED FOR MUSCLE SPASMS. I APPRECIATE THE CONSULT Clinical Quality Measures DVT/VTE Risk/Contraindication: Risk Factor Score Per Nursin RFS Level Per Nursing on Admit: 4+=Very High CHERELLE HEIN MD Jun 13, 2017 08:19
[2017-06-13 09:12] LABS: BILIRUBIN,URINE NEGATIVE (NEGATIVE); KETONES,URINE NEGATIVE (NEGATIVE); LEUKOCYTE ESTERASE ,URINE NEGATIVE (NEGATIVE); NITRITE,URINE NEGATIVE (NEGATIVE); PH,URINE 6 (5-9); PROTEIN,URINE NEGATIVE (NEGATIVE); UROBILINOGEN,URINE NORMAL (NORMAL)
[2017-06-13 09:20] LABS: WBC,URINE RARE /HPF
[2017-06-13] MEDS: cefTRIAXone INJECTION 1,000 MG in NS (IVPB) 50 ML IV SCH (10:31)
[2017-06-13] MEDS: ASPIRIN E.C. 325 MG (ECOTRIN) TABLET PO SCH (10:31)
[2017-06-13] MEDS: LORATADINE (CLARITIN) 10 MG TAB PO SCH (10:31)
[2017-06-13] MEDS: DICLOFENAC 1% GEL 100 GM (VOLTAREN) TUBE TOP SCH ×4 (10:32→20:25)
[2017-06-13] MEDS: SENNA W/DOCUSATE (SENOKOT S) TABLET PO SCH ×2 (10:32→20:25)
[2017-06-13] MEDS: PANTOPRAZOLE 20 MG TABLET (PROTONIX) PO SCH (10:32)
[2017-06-13] MEDS: ENOXAPARIN 40 MG/0.4 ML (LOVENOX) SYR SC SCH (10:32)
--- NOTE | 2017-06-13 11:29 | Physical Therapy Daily Note ---
PT Daily Note-Current Subjective Pt was sitting in chair prior to tx and agreeable to PT. Pt reports 4/10 pain in R hip. Pt was sitting in chair with nurse call, family in room, all needs met post tx. Pain Numeric Pain Scale: 4 Location Body Site: Hip (right) Pain Description: Ache Mental Status Patient Orientation: Normal For Age Transfers Functional [place] Measure 0=Not Assessed/NA 4=Minimal Assistance 1=Total Assistance 5=Supervision or Setup 2=Maximal Assistance 6=Modified [place] 3=Moderate Assistance 7=Complete IndependenceIRFPAI Quality Coding Scale 6 Independent with activity with or without an assistive device 5 Patient requires set up or clean up by helper. Patient completes activity by themselves 4 Supervision or touching assist (CGA). [place] provide cues , steadying assist 3 The helper provides less than half the effort to complete the activity 2 The helper provides more than half the effort to complete the activity 1 Dependent. The helper does all the effort to complete an activity 7 Patient refused to complete or attempt activity 9 The patient did not perform the activity before the current illness or injury 88 Not attempted due to Medical conditions or safety concerns Transfers (B, C, W/C) (FIM): 4 Sit to/from Stand: 4 Pt completes sit to stand with CGA for safety and verbal cues for hand placement. Weight Bearing Weight Bearing Restriction: Weight Bearing/Tolerated Location Restriction: R LE Gait Training Gait (FIM): 1 Distance (FIM): 1=up to 49 ft Distance: 8' Gait Level of Assist: 4 Gait Persons Needed: 1 Gait Assistive Device: FWW Pt ambulates 8' in room with FWW and CGA for safety. Exercises Seated Therapy Exercises: Ankle pumps, Long arc quads, Hamstring Curls, Glut set Seated Reps: 15 Treatments Pt completes gait training and seated exercises for functional mobility and strength training. Assessment Current Status: Fair Progress Pt is improving with mobility, slowly. PT Short Term Goals Short Term Goals Transfers (B,C,W/C) (FIM): 4 PT Hardwood Flooring Specialist Goals Hardwood Flooring Specialist Goals PT Longterm Goals Time Frame: Jun 19, 2017 Transfers (B,C,W/C) (FIM): 4 Gait (FIM): 2 Distance: 50' Gait Level of Assist: 4 Gait Assistive Device: FWW PT Plan Problem List Problem List: Activity Tolerance, Functional Strength, Safety, Balance, Gait, Transfer, Bed Mobility, ROM Treatment/Plan Treatment Plan: Continue Plan of Care Treatment Plan: Bed Mobility, Education, Functional Activity Samanta, Functional Strength, Gait, Therapeutic Exercise, Transfers Treatment Duration: Jun 19, 2017 Frequency: 11 times per week Estimated Hrs Per Day: .25 hour per day (15-30 min) Patient and/or Family Agrees t: Yes Safety Risks/Education Patient Education: Gait Training, Reviewed Precautions, Correct Positioning, Safety Issues Teaching Recipient: Patient Teaching Methods: Demonstration, Discussion Response to Teaching: Verbalize Understanding, Reinforcement Needed Time/GCodes Time In: 1100 Time Out: 1120 Total Billed Treatment Time: 20 Total Billed Treatment 1 visit 20 GT DELANEY HOUSTON PT Jun 13, 2017 11:29
[2017-06-13 12:00] VITALS: BP 125/62
--- NOTE | 2017-06-13 12:04 | Diagnostic Imaging Report ---
EXAMINATION: PA and lateral views of the chest. INDICATION: Shortness of breath. FINDINGS: The lungs demonstrate prominent interstitial thickening which appears to be chronic. No focal airspace consolidation. No effusion or pneumothorax. The heart size is at the upper limits of normal. The mediastinum and antionette appear unremarkable. IMPRESSION: Interstitial fibrotic changes seen with no focal consolidation. Dictated by: Dictated on workstation # [id number]
--- NOTE | 2017-06-13 14:47 | Physical Therapy Daily Note ---
PT Daily Note-Current Subjective Patient is alert and very agreeable to participate with PT. Pain Numeric Pain Scale: 5-Moderate Pain Location: Right Location Body Site: Hip Pain Description: Acute Mental Status Patient Orientation: Person, Place, Time, Situation Attachments: IV Transfers Functional [place] Measure 0=Not Assessed/NA 4=Minimal Assistance 1=Total Assistance 5=Supervision or Setup 2=Maximal Assistance 6=Modified [place] 3=Moderate Assistance 7=Complete IndependenceIRFPAI Quality Coding Scale 6 Independent with activity with or without an assistive device 5 Patient requires set up or clean up by helper. Patient completes activity by themselves 4 Supervision or touching assist (CGA). [place] provide cues , steadying assist 3 The helper provides less than half the effort to complete the activity 2 The helper provides more than half the effort to complete the activity 1 Dependent. The helper does all the effort to complete an activity 7 Patient refused to complete or attempt activity 9 The patient did not perform the activity before the current illness or injury 88 Not attempted due to Medical conditions or safety concerns Transfers (B, C, W/C) (FIM): 4 Scootin Rollin Supine to/from Sit: 4 Sit to/from Stand: 4 Weight Bearing Weight Bearing Restriction: Weight Bearing/Tolerated Location Restriction: R LE Gait Training Gait (FIM): 4 Distance (FIM): 3=150 ft Distance: 175' Gait Level of Assist: 4 Gait Persons Needed: 1 Gait Assistive Device: FWW steady, reciprocal pattern Exercises Supine Ex: Ankle pumps, Quad Set, Heel Slides Supine Reps: 15 Seated Therapy Exercises: Long arc quads Seated Reps: 25 Assessment Current Status: Excellent Progress Patient improving quickly with treatment plan. PT to increase activity as tolerated by patient. PT Short Term Goals Short Term Goals Transfers (B,C,W/C) (FIM): 4 PT Foundation Relations Manager Goals Foundation Relations Manager Goals PT Foundation Relations Manager Goals Time Frame: Jun 19, 2017 Transfers (B,C,W/C) (FIM): 4 Gait (FIM): 2 Distance: 50' Gait Level of Assist: 4 Gait Assistive Device: FWW PT Plan Treatment/Plan Treatment Plan: Continue Plan of Care Treatment Plan: Bed Mobility, Education, Functional Activity Samanta, Functional Strength, Gait, Therapeutic Exercise, Transfers Treatment Duration: Jun 19, 2017 Frequency: 11 times per week Estimated Hrs Per Day: .25 hour per day (15-30 min) Patient and/or Family Agrees t: Yes Time/GCodes Time In: 1420 Time Out: 1445 Total Billed Treatment Time: 25 Total Billed Treatment 1 visit EX 10 min GT 15 min CECIL HARRIS PT Jun 13, 2017 14:47
[2017-06-13 15:50] VITALS: BP 127/60
[2017-06-13] MEDS: NS IV 1000 ML 1,000 ML IV SCH (16:16)
--- NOTE | 2017-06-13 16:50 | Occupational Ther Daily Note ---
OT Current Status-Daily Note Subjective No pain reported. However, pt. states, "I am going to yell when it hurts." Appearance Pt. in bed. Agrees to work with OT. Has already had shower. Mental Status/Objective Patient Orientation: Person, Unable to Assess Functional [place] Measure 0=Not Assessed/NA 4=Minimal Assistance 1=Total Assistance 5=Supervision or Setup 2=Maximal Assistance 6=Modified [place] 3=Moderate Assistance 7=Complete [place] Once pt. was given skilled instruction, she seemed to have a difficult time following cues and return demonstrating. Attempted to put sock on foot that already had sock on it. Kept saying, "I just need to bend over" when she was instructed that she is not allowed to bend over at this time due to hip precautions. ADL-Treatment Lower Body Dressing (FIM): 2 (Pt. is educated on and instructed on use of adaptive equipment for LE dressing. Pt. demonstrated ability to doff/don socks using equipment with max cues and max assist.) Other Treatment Pt. required mod assist for supine to sit with increased time needed, and max assist for sit-supine with increased time needed. Education OT Patient Education: Correct positioning, Modified ADL techniques, Progress toward Goal/Update tx plan, Purpose of tx/functional activities, Reviewed precautions, Rehab process, Transfer techniques Teaching Recipient: Patient, Significant Other Teaching Methods: Demonstration, Discussion Response to Teaching: Verbalize Understanding, Return Demonstration OT Short Term Goals Short Term Goals Time Frame: Jun 19, 2017 Eating(FIM): 5 Grooming(FIM): 4 Bathing(FIM): 4 Upper Body Dressing(FIM): 5 Lower Body Dressing(FIM): 4 Toileting(FIM): 4 Transfers (B,C,W/C) (FIM): 4 Toilet/Commode Transfer(FIM): 4 Additional Short Term Goals: 1-Demonstrate ADL Tasks, 2-Verbalize Understanding , 3-ImproveStrength/Samanta 1=Demonstrate adherence to instructed precautions during ADL tasks. 2=Patient will verbalize/demonstrate understanding of assistive devices/ modifications for ADL. 3=Patient will improve strength/tolerance for activity to enable patient to perform ADL's. OT Longterm Goals Healthcare Administrative Assistant Goals Time Frame: Jun 26, 2017 Eating (FIM): 6 Grooming(FIM): 6 Bathing(FIM): 5 Upper Body Dressing(FIM): 6 Lower Body Dressing(FIM): 6 Toileting(FIM): 6 Transfers (B,C,W/C) (FIM): 6 Toilet/Commode Transfer(FIM): 6 Shower Transfer(FIM): 5 Additional Goals: 1-Demonstrate ADL Tasks, 2-Verbalize Understanding, 3- ImproveStrength/Samanta 1=Demonstrate adherence to instructed precautions during ADL tasks. 2=Patient will verbalize/demonstrate understanding of assistive devices/ modifications for ADL. 3=Patient will improve strength/tolerance for activity to enable patient to perform ADL's. OT Education/Plan Problem List/Assessment Assessment: Decreased Activ Tolerance, Decreased Safety Aware, Decreased UE Strength, Dependent Transfers, Impaired Bed Mobility, Impaired Cognition, Impaired Funct Balance, Impaired I ADL's, Impaired Self-Care Skills Discharge Recommendations Plan/Recommendations: Continue POC Therapy D/C Recommendations: Home w/ Family Support, Occupational Therapy Home Care Equpiment Recommendations-D/C: Hip Kit Treatment Plan/Plan of Care Treatment,Training & Education: Yes Patient would benefit from OT for education, treatment and training to promote independence in ADL's, mobility, safety and/or upper extremity function for ADL' s. Plan of Care: ADL Retraining Treatment Duration: Jun 26, 2017 Frequency: 5 times per week Estimated Hrs Per Day: .5 hour per day Agreement: Yes Rehab Potential: Good Time/GCodes Start Time: 13:35 Stop Time: 14:00 Total Time Billed (hr/min): 25 Billed Treatment Time 1, ADL x 2 CHERYL ORO OT Jun 13, 2017 16:50
[2017-06-13] MEDS ORDERED: ACETAMINOPHEN 500 MG TAB (TYLENOL) PO PRN (17:00)
[2017-06-13 19:15] VITALS: BP 107/53
[2017-06-13] MEDS: SIMvastatin 20 MG (ZOCOR) TAB PO SCH (20:25)
[2017-06-13] MEDS: MONTELUKAST 10 MG (SINGULAIR) TAB PO SCH (20:25)
[2017-06-14 00:20] VITALS: BP 113/64
[2017-06-14 04:26] VITALS: BP 109/51
[2017-06-14] MEDS: LEVOTHYROXINE 25 MCG (LEVOTHROID) TAB PO SCH (05:33)
--- NOTE | 2017-06-14 07:01 | Progress Note (SOAP) ---
Subjective Date Seen by Provider: Jun 14, 2017 Time Seen by Provider: 06:58 Subjective/Events-last exam No complaints. She is doing much better today. Setting up eating breakfast with Objective Exam Vital Signs Date Time Temp Pulse Resp B/P (MAP) Pulse Ox O2 Delivery O2 Flow Rate FiO2 06/14/17 04:26 98.2 88 18 109/51 99 Room Air 06/14/17 00:20 98.1 97 18 113/64 96 Room Air 06/13/17 20:00 Room Air 06/13/17 19:15 98.9 108 20 107/53 91 Room Air 06/13/17 15:50 99.1 105 22 127/60 94 Room Air 06/13/17 12:00 98.9 100 18 125/62 99 Room Air 06/13/17 08:00 98.9 107 20 125/59 96 Room Air 06/13/17 08:00 98 Room Air Capillary Refill : Less Than 3 Seconds General Appearance: No Apparent Distress Respiratory: Chest Non Tender, Lungs Clear Cardiovascular: Regular Rate, Rhythm, No Edema Gastrointestinal: non tender, soft Extremity: Normal Capillary Refill, Normal Inspection, No Calf Tenderness, No Pedal Edema Neurologic/Psychiatric: Alert, Oriented x3, No Motor/Sensory Deficits, Normal Mood/Affect Skin: Normal Color, Warm/Dry, Other (dressing CDI) Assessment/Plan Assessment/Plan Assess & Plan/Chief Complaint A: s/p right VINOD, dementia, post op urinary retention, resolved hyponatremia P: DC to IRF today Clinical Quality Measures DVT/VTE Risk/Contraindication: Risk Factor Score Per Nursin RFS Level Per Nursing on Admit: 4+=Very High PATRICE CONNOR APRN Jun 14, 2017 7:01 am
--- NOTE | 2017-06-14 07:05 | Discharge Inst-Skilled Nursing ---
Discharge Inst-Skilled NF Chief Complaint s/p right VINOD due to severe OA Patient Instructions Patient Problems: s/p right VINOD acute blood loss anemia urinary retention resolving hyponatremia dementia primary OA right hip Goal: improvement with ADL Patient Instructions: see Dr. Ariza's VINOD DC inst. Consult/Follow Up/Orders Follow Up Appt.: 2 weeks Skilled NF Admit to: Certification (SNF) I certify that SNF services are required to be given on an inpatient basis because of the above named patient's need for residential care on a continuing basis for the conditions(s) for which he/she was receiving inpatient hospital services prior to his/her transfer to the SNF. Care Home Facility Order: Physical Therapy-Evaluate & Treat Discharge Diet: No Restrictions New & Resume Previous Orders Other Instructions DC sal in 7 days and apply steri strips Patrice Connor Jun 14, 2017 07:03 Pneu Vac Indicated: Yes PATRICE CONNOR APRN Jun 14, 2017 7:05 am
[2017-06-14 07:06] LABS: MEAN PLATELET VOLUME 9.5 FL (7.4-10.4); RED BLOOD COUNT 3.45 10^6/uL (4.35-5.85); RED CELL DISTRIBUTION WIDTH 13.8 % (10.0-14.5); WHITE BLOOD COUNT 12.5 10^3/uL (4.3-11.0)
[2017-06-14] MEDS ORDERED: TRAM50TA2 PO (07:08)
[2017-06-14] MEDS ORDERED: SENN-20 PO (07:08)
[2017-06-14] MEDS ORDERED: ASPI325T32 PO (07:08)
--- NOTE | 2017-06-14 07:13 | Discharge Summary ---
Diagnosis/Chief Complaint Date of Admission Jun 11, 2017 at 07:47 Date of Discharge Discharge Date: Jun 14, 2017 Discharge Time: 1200 Admission Diagnosis Admission Diagnosis Primary OA right hip Discharge Diagnosis Primary OA right hip s/p right total hip arthroplasty hyponatremia acute blood loss anemia urinary retention dementia debility Reason Hospital Visit scheduled total hip arthroplasty Discharge Summary Procedures: Right Total Hip Arthroplasty Consultations Dr. Smith Discharge Physical Examination Allergies: Coded Allergies: sulfamethoxazole (Verified Allergy, Unknown, RASH, 06/11/17) trimethoprim (Verified Allergy, Unknown, RASH, 06/11/17) Vitals & I&Os Vital Signs Date Time Temp Pulse Resp B/P (MAP) Pulse Ox O2 Delivery O2 Flow Rate FiO2 06/14/17 04:26 98.2 88 18 109/51 99 Room Air 06/13/17 04:00 1.00 General Appearance: Alert, Oriented X3 HEENT: PERRLA Respiratory: Clear to Auscultation Cardiovascular: Regular Rate Abdominal: Soft, No Tenderness Extremities: No Clubbing Skin: No Rashes, Other (dressing right hip CDI) Neuro: Normal Tone Psych/Mental Status: Mental Status NL Hospital Course Patient was maintained on DVT prophylaxis as well as IV antibiotic prophylaxis after the VINOD. She had some issues with hyponatremia and urinary retention post op as well as confusion from medications and anesthesia. She was then Discharged to the IRF unit for further specialized therapy and care Pending Labs Laboratory Tests 06/14/17 06:40: Sodium Level [Pending], Potassium Level [Pending], Chloride Level [Pending], Carbon Dioxide Level [Pending], Anion Gap [Pending], Blood Urea Nitrogen [ Pending], Creatinine [Pending], BUN/Creatinine Ratio [Pending], Glucose Level [ Pending], Calcium Level [Pending] 06/14/17 06:55: White Blood Count 12.5, Red Blood Count 3.45, Hemoglobin 10.4, Hematocrit 32, Mean Corpuscular Volume 94, Mean Corpuscular Hemoglobin 30, Mean Corpuscular Hemoglobin Concent 32, Red Cell Distribution Width 13.8, Platelet Count 245, Mean Platelet Volume 9.5 Discharge Condition at discharge good Instructions to patient/family Please see electronic discharge instructions given to patient. Discharge Medications Reviewed and agree with Discharge Medication list on patient's Discharge Instruction sheet Clinical Quality Measures DVT/VTE Risk/Contraindication: Risk Factor Score Per Nursin RFS Level Per Nursing on Admit: 4+=Very High PATRICE CONNOR APRN Jun 14, 2017 07:13
[2017-06-14 07:31] LABS: ANION GAP 7 MMOL/L (5-14); BLOOD UREA NITROGEN 8 MG/DL (7-18); BUN/CREATININE RATIO 14; CALCIUM 8.5 MG/DL (8.5-10.1); CARBON DIOXIDE 26 MMOL/L (21-32); CHLORIDE 108 MMOL/L (98-107); CREATININE SERUM 0.56 MG/DL (0.60-1.30); GFR ESTIMATED > 60; GLUCOSE 90 MG/DL (70-105); SODIUM 141 MMOL/L (135-145)
[2017-06-14 08:33] VITALS: BP 113/60
[2017-06-14] MEDS: SENNA W/DOCUSATE (SENOKOT S) TABLET PO SCH (08:58)
[2017-06-14] MEDS: cefTRIAXone INJECTION 1,000 MG in NS (IVPB) 50 ML IV SCH (08:58)
[2017-06-14] MEDS: LORATADINE (CLARITIN) 10 MG TAB PO SCH (08:58)
[2017-06-14] MEDS: PANTOPRAZOLE 20 MG TABLET (PROTONIX) PO SCH (08:58)
[2017-06-14] MEDS: ASPIRIN E.C. 325 MG (ECOTRIN) TABLET PO SCH (08:58)
[2017-06-14] MEDS: ENOXAPARIN 40 MG/0.4 ML (LOVENOX) SYR SC SCH (08:59)
[2017-06-14] MEDS: DICLOFENAC 1% GEL 100 GM (VOLTAREN) TUBE TOP SCH (08:59)
--- NOTE | 2017-06-14 09:09 | Progress Note (SOAP) ---
Subjective Date Seen by Provider: Jun 14, 2017 Time Seen by Provider: 09:45 Subjective/Events-last exam PT REPORTS THAT SHE IS FEELING BETTER TODAY, HER THINKS THAT SHE IS COMPLETELY BACK TO NORMAL FROM A COGNITIVE STANDPOINT. PT REPORTS THAT SHE IS WALKING BETTER, HAS LESS PAIN THAN YESTERDAY. THERAPY IS WALKING HER DOWN TO GO TO THE INPATIENT REHAB UNIT. Review of Systems General: Fatigue HEENT: No Head Aches Pulmonary: No Dyspnea, No Cough Cardiovascular: No: Chest Pain, Edema Gastrointestinal: No: Nausea, Abdominal Pain Genitourinary: No Dysuria Musculoskeletal: leg pain Neurological: No: Weakness Objective Exam Vital Signs Date Time Temp Pulse Resp B/P (MAP) Pulse Ox O2 Delivery O2 Flow Rate FiO2 06/14/17 08:33 98.2 98 20 113/60 100 Room Air 06/14/17 04:26 98.2 88 18 109/51 99 Room Air 06/14/17 00:20 98.1 97 18 113/64 96 Room Air 06/13/17 20:00 Room Air 06/13/17 19:15 98.9 108 20 107/53 91 Room Air 06/13/17 15:50 99.1 105 22 127/60 94 Room Air 06/13/17 12:00 98.9 100 18 125/62 99 Room Air Capillary Refill : Less Than 3 Seconds General Appearance: No Apparent Distress, WD/WN HEENT: PERRL/EOMI, Pharynx Normal Neck: Full Range of Motion, Supple Respiratory: Chest Non Tender, Lungs Clear, Normal Breath Sounds, No Accessory Muscle Use Cardiovascular: Regular Rate, Rhythm, No Edema Gastrointestinal: normal bowel sounds, non tender, soft Extremity: No Pedal Edema Neurologic/Psychiatric: Alert, Oriented x3, No Motor/Sensory Deficits, Normal Mood/Affect Skin: Warm/Dry Lymphatic: No Adenopathy Results Lab Laboratory Tests 06/14/17 06:40: Sodium Level 141, Potassium Level 3.0L, Chloride Level 108H, Carbon Dioxide Level 26, Anion Gap 7, Blood Urea Nitrogen 8, Creatinine 0.56L, Estimat Glomerular Filtration Rate > 60, BUN/Creatinine Ratio 14, Glucose Level 90, Calcium Level 8.5 06/14/17 06:55: White Blood Count 12.5H, Red Blood Count 3.45L, Hemoglobin 10.4L, Hematocrit 32L , Mean Corpuscular Volume 94, Mean Corpuscular Hemoglobin 30, Mean Corpuscular Hemoglobin Concent 32, Red Cell Distribution Width 13.8, Platelet Count 245, Mean Platelet Volume 9.5 Assessment/Plan Assessment/Plan Assess & Plan/Chief Complaint RIGHT HIP REPLACEMENT MILD LEUKOCYTOSIS HYPONATREMIA HYPOTHYROIDISM RIGHT HIP REPLACEMENT - PHYSICAL THERAPY ORDERED - PT WOULD BENEFIT FROM AN INPATIENT REHAB STAY - TRANSFER TODAY - FOR STRENGTHENING AND THERAPY PRIOR TO PLANNED FURTHER REHAB AT HOME WITH HOME HEALTH VERSUS OUTPATIENT THERAPY. MILD LEUKOCYTOSIS - REPEAT LABS IMPROVED ON ANTIBIOTICS - WILL KEEP PATIENT ON IV ANTIBIOTICS X 5 TOTAL DAYS. HYPONATREMIA - IMPROVED - HYPOKALEMIA - START POTASSIUM 40MEQ DAILY X 2 DAYS. HYPOTHYROID - -RESTARTED HOME MEDICATION. CONFUSION IMPROVED LAST NIGHT - SLIGHTLY - BACLOFEN STOPPED DUE TO HER CONFUSION. I HAVE RECOMMENDED A LOW DOSE OF VALIUM IF NEEDED FOR MUSCLE SPASMS. I APPRECIATE THE CONSULT Clinical Quality Measures DVT/VTE Risk/Contraindication: Risk Factor Score Per Nursin RFS Level Per Nursing on Admit: 4+=Very High CHERELLE HEIN MD Jun 14, 2017 09:09
[2017-06-14] MEDS ORDERED: BETHANECHOL 10 MG (URECHOLINE) TAB PO NR (09:15)
[2017-06-14] MEDS ORDERED: BETHANECHOL 10 MG (URECHOLINE) TAB PO SCH (11:00)
[2017-06-14 11:47] VITALS: BP 113/60
[2017-06-18] MEDS ORDERED: BETH10TA PO (14:13)
[2017-06-18] MEDS ORDERED: ACET-77 PO (14:13)
[2017-06-18] MEDS ORDERED: ASPI325T32 PO (14:13)
== END 2017-06-14 09:25 | DRG 470 ==
LOC: 4TH 07:47 → SURG 07:48 → 4TH 13:18
PROVIDERS: ADMIT Orthopaedic Surgery; ATTEND Orthopaedic Surgery
PROC: 0SR902A Replacement of Right Hip Joint with Metal on Polyethylene Synthetic Substitute, Uncemented, Open Approach (ICD-10-PCS; principal; 2017-06-11 09:14)
DX: M16.11 Unilateral primary osteoarthritis, right hip (principal); R33.9 Retention of urine, unspecified; E87.1 Hypo-osmolality and hyponatremia; D62 Acute posthemorrhagic anemia; R11.2 Nausea with vomiting, unspecified; D72.829 Elevated white blood cell count, unspecified; E03.9 Hypothyroidism, unspecified; M41.9 Scoliosis, unspecified; J30.2 Other seasonal allergic rhinitis; N81.10 Cystocele, unspecified; F03.90 Unspecified dementia, unspecified severity, without behavioral disturbance, psychotic disturbance, mood disturbance, and anxiety; E78.5 Hyperlipidemia, unspecified; R41.0 Disorientation, unspecified; T42.8X5A Adverse effect of antiparkinsonism drugs and other central muscle-tone depressants, initial encounter; T41.205A Adverse effect of unspecified general anesthetics, initial encounter
CPT/HCPCS: 36415; 71020; 72170; 80048; 80053; 81000; 83735; 85027; 87040; 94664

== ENCOUNTER 2017-06-14 09:25 | Inpatient (IN) | payer MEDICARE, OTHER ==
[~2017-06-14] VITALS: Ht 142.2 cm; Wt 48.3 kg
[~2017-06-14 09:25] MED LIST changes: +ASPI325T32 PO; +OMEP20TA7 PO; +SENN-20 PO; +TRAM50TA2 PO
--- NOTE | 2017-06-14 10:18 | Physical Therapy Evaluation ---
PT Evaluation-General Medical Diagnosis Admission Date 06/14/17 Medical Diagnosis: OA right hip; post THR Onset Date: Jun 11, 2017 Therapy Diagnosis Therapy Diagnosis: weakness; abn gait Height/Weight Height (Feet): 4 Height (Inches): 10.00 Weight (Pounds): 104 Weight (Ounces): 3.0 Precautions Precautions/Isolations: Standard Precautions Weight Bear Status Weight Bearing Restriction: Weight Bearing/Tolerated Comments Right hip precautions. Referral Physician: Abhishek Reason for Referral: Evaluation/Treatment Medical History Pertinent Medical History: CABG, Dementia, OA Additional Medical History chronic LBP Current History Elective right THR after failed conservative treatment. Following surgery, has had light confusion and decreased urinary output. Both seem to be clearing. Reviewed History: Yes Social History Home: Single Level Current Living Status: Spouse Entry Into Home: Stairs With Railing Prior/Core FIM Prior Level of Function Functional [place] Measure 0=Not Assessed/NA 4=Minimal Assistance 1=Total Assistance 5=Supervision or Setup 2=Maximal Assistance 6=Modified [place] 3=Moderate Assistance 7=Complete [place] Bed Mobility: 7 Transfers (B,C,W/C) (FIM): 7 Gait: 7 community ambulator; still drives; active. PT Evaluation-Current Subjective Agreeable to PT. Reports she is anxious to get stronger and get home. Wants to transfer to ARU for continued therapy services. Pain Numeric Pain Scale: 0-No Pain Location: No Pain Reported Objective Patient Orientation: Person, Place, Time, Situation Problem Solving: Fair Attachments: IV ROM/Strength ROM Lower Extremities WFL; within confines of hip precautions right Strenght Lower Extremities Left LE grossly 4/5; right LE grossly 3/5 Integumentary/Posture Integumentary Refer to nursing notes. Bowel Incontinence: No Bladder Incontinence: No Posture Normal and symmetrical Neuromuscular (Tone, Coordination, Reflexes) WFL Sensory Vision: Functional Hearing: Functional Hand Dominance: Right Sensation Right Lower Extremit: Intact Sensation Left Lower Extremity: Intact Transfers Functional [place] Measure 0=Not Assessed/NA 4=Minimal Assistance 1=Total Assistance 5=Supervision or Setup 2=Maximal Assistance 6=Modified [place] 3=Moderate Assistance 7=Complete IndependenceIRFPAI Quality Coding Scale 6 Independent with activity with or without an assistive device 5 Patient requires set up or clean up by helper. Patient completes activity by themselves 4 Supervision or touching assist (CGA). [place] provide cues , steadying assist 3 The helper provides less than half the effort to complete the activity 2 The helper provides more than half the effort to complete the activity 1 Dependent. The helper does all the effort to complete an activity 7 Patient refused to complete or attempt activity 9 The patient did not perform the activity before the current illness or injury 88 Not attempted due to Medical conditions or safety concerns Transfers (B, C, W/C) (FIM): 3 Scootin Roll Left to Right (QC): 3 Supine to/from Sit: 3 (assist with both legs in and out of bed. ) Sit to/from Stand: 4 (skilled reminders for hand placement) Sit to Lying (QC): 3 Lying to Sitting/Side of Bed(Q: 3 Sit to Stand (QC): 4 Chair/[id number]-Ruwhz Xfer(QC): 4 Car Transfer (QC): 7 (does not feel ready to try) Requires extra time to complete transfer and to process the sequencing. Gait Does the Patient Walk?: Yes Mode of Locomotion: Walk Anticipated Mode of Locomotion: Walk Gait (FIM): 2 Distance (FIM): 1=730-21 ft Walk 10 feet (QC): 4 Walk 50 ft with 2 Turns(QC): 4 Walk 150 ft (QC): 88 Walking 10ft/uneven surface-QC: 4 Distance: 125 ft and 50 ft Gait Level of Assist: 4 Gait Assistive Device: FWW Comments/Gait Description Step to gait with the left foot; decreased speed and harmony with shortened step length. Wheelchair Training Does the Pt Use a Wheelchair?: No Stairs Plan to assess this pm Balance Sitting Static: Good Sitting Dynamic: Good Standing Static: Fair Standing Dynamic: Fair Picking up an Object (QC): 88 (hip precautions) Assessment/Needs Post elective right THR with limited functional mobility due to strength and balance deficits. she has decreased ability to transfer and ambulate at this time. She was indep at her PLOF and would beneift from skilled PT intervention to improve her functional mobility and return home at a mod [facility] level. Rehab Potential: Good PT Short Term Goals Short Term Goals Time Frame: Jun 21, 2017 Transfers (B,C,W/C) (FIM): 5 Gait (FIM): 5 PT Residential Goals Residential Goals PT Residential Goals Time Frame: Jun 28, 2017 Transfers (B,C,W/C) (FIM): 6 Sit to Lying (QC): 6 Lying-Sitting on Side/Bed(QC): 6 Sit to Stand (QC): 6 Roll Left to Right (QC): 6 Chair/Ujg-du-Qfutz Xfer(QC): 6 Car Transfer (QC): 5 Does the Patient Walk: Yes Gait (FIM): 6 Gait distance (FIM): 3=150 ft Walk 10 feet (QC): 6 Walk 10ft-Uneven Surface(QC): 6 Walk 50ft with 2 Turns (QC): 6 Walk 150 ft (QC): 6 Gait Assistive Device: FWW Does the Pt use WC or Scooter?: No Stairs (FIM): 5 (household) # of Steps: 8 1 Step (curb) (QC): 6 4 Steps (QC): 6 12 Steps (QC): 88 Picking up an Object (QC): 88 (hip precautions) All goals are set for pt to discharge home at a mod indep level and care for herself. PT Plan Problem List Problem List: Activity Tolerance, Functional Strength, Safety, Balance, Gait, Transfer, Bed Mobility Treatment/Plan Treatment Plan: Continue Plan of Care Treatment Plan: Bed Mobility, Education, Functional Activity Samanta, Functional Strength, Group Therapy, Gait, Safety, Therapeutic Exercise, Transfers Treatment Duration: Jun 28, 2017 Frequency: At least 5 of 7 days/Wk (IRF) Estimated Hrs Per Day: 1.5 hours per day Patient and/or Family Agrees t: Yes Safety Risks/Education Patient Education: Gait Training, Transfer Techniques, Safety Issues Teaching Recipient: Patient Teaching Methods: Demonstration, Discussion Response to Teaching: Reinforcement Needed Discharge Recommendations Therapy D/C Recommendations: Physical Therapy Home Care Time/GCodes Time In: 925 Time Out: 950 Total Billed Treatment Time: 25 Total Billed Treatment visit EVM 25 RUPA ROPER PT Jun 14, 2017 10:18
[2017-06-14] MEDS ORDERED: BISACODYL 10 MG SUPP (DULCOLAX) PR PRN (11:06)
[2017-06-14] MEDS ORDERED: DIAZEPAM 2 MG (VALIUM) TAB PO PRN (11:06)
[2017-06-14] MEDS: KCL 20 MEQ TAB (K-DUR) PO SCH (12:17)
--- NOTE | 2017-06-14 12:53 | ST Cognitive Linguistic Eval ---
Speech Evaluation-General Medical Diagnosis OA right hip; post THR Onset Date: Jun 11, 2017 Therapy Diagnosis Therapy Diagnosis: Cognitive Linguistic Skills Grossly WNL Precautions Precautions/Isolations: Standard Precautions Referral Referring Physician: Dr. Darryl Wiess Reason for Referral: Evaluation/Treatment Cognitive Evaluation Medical History Pertinent Medical History: CABG, Dementia, OA Reviewed History: Yes Social History Current Living Status: Spouse Speech PLF-Current Status Prior Level of Function The patient (and patient's who was present at bedside) denied prior challenges with cognition, speech, or languguage before hospitalization. Subjective The patient was recently admitted to [facility] Unit following a right hip procedure. The patient greeted the clinician appropriately and was agreeable to participation in the cognitive evaluation. Language Eval: Auditory Comprehends Simple Yes/No Ques: Functional Indent/Objects Multiple [place]: Functional Ident/Pics in Multiple [place]: Functional Follows 1-Step Commands: Functional Follows Complex Directions: Mild (Intermittent repetition was required for increased accuracy.) Follows General Conversations: Functional Language Eval: Verbal Language Completes Spontaneous Greeting: Functional Produces Auto, Serial Info: Functional Imitates Simple Words/Phrases: Functional Word Finding: Mild Requests Basic Needs: Functional States Basic Personal Info: Functional Expresses Complex Ideas: Functional Language Evaluation: Reading Comprehends Single Nouns: Functional Follows Simple Written Direct: Functional Cognitive Patient Orientation The patient was oriented to month, year, day of week, and date. Objective Cognitive Domain Attention: WNL Memory: Mild Problem Solving: Functional Objective Impression The patient displayed cognitive linguistic skills grossly within normal limits and appropriate for completion of ADL's. Communication/Social Cognition Comprehension: 5 Expression: 5 Social Interaction: 5 Problem Solvin Memory: 5 Speech Patient Assess Expression of Ideas/Wants: Expression (4) Understanding [place] Content: Understands (4) Brief Interview-Mental Status: Yes Repetition of Three Words: Three (3) Temporal Orientation: Year: Correct (3) Temporal Orientation: Month: Accurate within 5 days(2) Temporal Orientation: Day: Correct (1) Recall : Wear to say "Sock": Yes, no cue required (2) Recall : Color: Yes, no cue required (2) Recall : Bed: Yes, no cue required (2) Speech-Plan Treatment Plan Speech Therapy Treatment Plan: Discontinue ST Evaluation, only. Frequency: Modified Program (IRF) Estimated Hrs Per Day: Other Rehab Potential: Good Safety Risks/Education Teaching Recipient: Patient, Significant Other Teaching Methods: Discussion Response to Teaching: Verbalize Understanding Education Topics Provided: Results, Recommendations, Plan of Care Time Speech Therapy Time In: 11:49 Speech Therapy Time Out: 12:04 Total Billed Time: 15 Billed Treatment Time 1, GUICHO CISNEROS Jun 14, 2017 12:53
--- NOTE | 2017-06-14 13:00 | Occupational Therapy Eval ---
OT Evaluation-General/PLF Medical Diagnosis Admission Date Jun 14, 2017 at 09:25 Medical Diagnosis: OA right hip; post THR Onset Date: Jun 11, 2017 Therapy Diagnosis Therapy Diagnosis: decreased self care skills Height/Weight Height (Feet): 4 Height (Inches): 10.00 Weight (Pounds): 104 Weight (Ounces): 3.0 Precautions Precautions/Isolations: Standard Precautions Weight Bear Status Weight Bearing Restriction: Weight Bearing/Tolerated Referral Physician: Abhishek Medical History Pertinent Medical History: CABG, Dementia, OA Additional Medical History cataracts removed. right RCR Current History pt s/p right VINOD Reviewed History: Yes Social History Home: Single Level Current Living Status: Spouse Entry Into Home: Stairs With Railing Steps Into Home: 1 ADL-Prior Level of Function ADL PLOF Comments Pt reports being independent prior to surgery. Did not use any assistive devices for mobility. DME/Equipment: Tall Toilet, Tub/Shower OT Current Status Subjective Pt in bed, agrees to treatment. Pt reports pain in right hip,but doesn't rate. Mental Status/Objective Patient Orientation: Person, Place, Situation Current Glasses/Contacts: Yes Hearing Aids: No Dentures/Partials: No Hand Dominance: Right Upper Extremity ROM Grossly WFL Upper Extremity Coordination Intact Upper Extremity Sensation Intact per pt report Upper Extremity Strength Grossly 4/5 ADL-Treatment ADL-Current Pt supine to sit with assist for LE. Pt requests shower this morning. Sit to stand with minimal assistance. Gait to restroom with FWW and slow pace. Transfer to walk in shower with bench with minimal assistance and cues for safety. Pt able to wash/dry upper body with set up. Pt able to wash upper legs and chana area with SBA. Unable to wash lower legs and feet secondary to hip precautions. Pt was given a long handled sponge and was able to wash her feet. Pt stood with minimal assistance to wash buttocks. Don shirt with set up. Pt unable to reach feet to don underwear and pants secondary to hip precautions, assist for task. Pt stood with minimal assistance and was able to pull pants up over hips. Assist for socks secondary to precautions. Pt stood at sink for grooming tasks. Pt able to brush teeth with SBA. Pt transferred to toilet with minimal assistance. Pt able to pull pants down and complete toileting hygiene, but required assist to pull pants up. Washed hands at sink with SBA. Pt requires increased time for ADL tasks. Pt sitting EOB with PT and family present after session. Functional [place] Measure 0=Not Assessed/NA 4=Minimal Assistance 1=Total Assistance 5=Supervision or Setup 2=Maximal Assistance 6=Modified [place] 3=Moderate Assistance 7=Complete IndependenceIRFPAI Quality Coding Scale 6 Independent with activity with or without an assistive device 5 Patient requires set up or clean up by helper. Patient completes activity by themselves 4 Supervision or touching assist (CGA). [place] provide cues , steadying assist 3 The helper provides less than half the effort to complete the activity 2 The helper provides more than half the effort to complete the activity 1 Dependent. The helper does all the effort to complete an activity 7 Patient refused to complete or attempt activity 9 The patient did not perform the activity before the current illness or injury 88 Not attempted due to Medical conditions or safety concerns Eating (FIM): 5 (by report) Eating (QC): 5 Grooming (FIM): 5 Oral Hygiene (QC): 4 Bathing (FIM): 3 Bathing Location: L Arm, R Arm, L Upper Leg, R Upper Leg, Chest, Abdomen, Perineal Area Shower/Bathe Self (QC): 3 Upper Body Dressing (FIM): 5 Upper Body Dressing (QC): 4 Lower Body Dressing (FIM): 2 Lower Body Dressing (QC): 2 On/Off Footwear (QC): 1 Toileting (FIM): 3 Toileting Hygiene (QC): 3 Toilet/Commode Transfer (FIM): 4 Toilet Transfer (QC): 3 Shower Transfer (FIM): 4 Education OT Patient Education: Rehab process Teaching Recipient: Patient Teaching Methods: Discussion Response to Teaching: Verbalize Understanding, Reinforcement Needed OT Short Term Goals Short Term Goals Time Frame: Jun 21, 2017 Bathing(FIM): 4 Lower Body Dressing(FIM): 4 Toileting(FIM): 5 Toilet/Commode Transfer(FIM): 5 Additional Short Term Goals: 1-Demonstrate ADL Tasks, 2-Verbalize Understanding , 3-ImproveStrength/[place] 1=Demonstrate adherence to instructed precautions during ADL tasks. 2=Patient will verbalize/demonstrate understanding of assistive devices/ modifications for ADL. 3=Patient will improve strength/tolerance for activity to enable patient to perform ADL's. OT Molding And Trim Installer Goals Custodial Goals Time Frame: Jul 05, 2017 Eating (FIM): 6 Eating (QC): 6 Groomin Oral Hygiene (QC): 6 Bathing(FIM): 5 Shower/Bathe Self (QC): 5 Upper Body Dressing(FIM): 6 Upper Body Dressing (QC): 6 Lower Body Dressing(FIM): 5 Lower Body Dressing (QC): 5 On/Off Footwear (QC): 5 Toileting(FIM): 6 Toileting Hygiene (QC): 6 Toilet/Commode Transfer(FIM): 6 Toilet/Commode Transfer (QC): 6 Shower Transfer(FIM): 5 Additional Goals: 1-Demonstrate ADL Tasks, 2-Verbalize Understanding, 3- ImproveStrength/Samanta 1=Demonstrate adherence to instructed precautions during ADL tasks. 2=Patient will verbalize/demonstrate understanding of assistive devices/ modifications for ADL. 3=Patient will improve strength/tolerance for activity to enable patient to perform ADL's. OT Education/Plan Problem List/Assessment Assessment: Decreased Activ Tolerance, Decreased UE Strength, Dependent Transfers, Impaired Self-Care Skills Pt s/p right VINOD with decreased mobility, ADL functioning, strength, and activity tolerance. Pt to benefit from skilled OT intervention for ADL training , transfers, strengthening, adaptive equipment training, and home safety education to increase level of independence and allow safe return home with spouse. Discharge Recommendations Plan/Recommendations: Continue POC Treatment Plan/Plan of Care Treatment,Training & Education: Yes Patient would benefit from OT for education, treatment and training to promote independence in ADL's, mobility, safety and/or upper extremity function for ADL' s. Plan of Care: ADL Retraining, Functional Mobility, Group Exercise/Act as Ind, UE Funct Exercise/Act Treatment Duration: Jul 05, 2017 Frequency: At least 5 of 7 days/Wk (IRF) Estimated Hrs Per Day: 1.5 hours per day Agreement: Yes Rehab Potential: Good Time/GCodes Start Time: 10:00 Stop Time: 11:10 Total Time Billed (hr/min): 70 Billed Treatment Time 1 visit, EVM(15minutes), ADLx4(55minutes) MABEL WHITT OT Jun 14, 2017 13:00
[2017-06-14] MEDS: DICLOFENAC 1% GEL 100 GM (VOLTAREN) TUBE TOP SCH ×3 (13:05→20:24)
--- NOTE | 2017-06-14 14:18 | PM&R Post Admission Assessment ---
Post Admission Physician Asses The preadmission screen agrees with the post admission assessment that the patient is a good candidate for inpatient rehabilitation. The patient will have a comprehensive program of inpatient rehabilitation with a goal of maximizing level of functional independence prior to discharge home with spouse. The patient will have PT/OT ninety minutes per day, each discipline, five days a week for 2 weeks for gait, strengthening, conditioning , balance, ADLs, any patient/family/caregiver training as necessary. Speech therapy to do cognitive assessment and treat as indicated. Rehabilitation nursing to assist with bowel, bladder, skin, wound care, medication administration, pain management. [place] Skin Diver to assist with discharge planning, community reentry. SCD's for DVT prophylaxis. She appears to be well motivated to participate in three hours of therapy a day. She should be able to tolerate three hours of therapy a day from a medical and surgical standpoint. She should benefit from the three hours of therapy a day. She has a reasonable discharge plan, reasonable discharge rehabilitation goals and a supportive family. She has various comorbidities that need to be closely monitored with medications and treatments adjusted on a daily basis as needed. These include: Postop fever.postop urinary retention.postop anemia,postop electrolyte abnormality Barriers to discharge for this patient who had been independent prior to this are for her to be modified independent to supervision for ADLs and mobility skills prior to discharge home with spouse, so as to lessen the burden of the caregivers. Risks for this patient include: 1. Fall 2. Fracture 3. DVT 4. Pulmonary embolism 5. Wound infection 6. Skin breakdown 7. Contractures 8. Poorly controlled pain 9. Urinary retention 10. UTI 11. Respiratory infection 12. Aspiration 13, Recurrent fever 14. worsening electrolye abnormality Estimated Length of Stay: 14 days Prognosis: Rehab prognosis appears good for goal of discharge home with spouse modified independent to supervision for ADLs and mobility skills. BERNICE BLANCO MD Jun 14, 2017 14:18
--- NOTE | 2017-06-14 14:32 | HISTORY AND PHYSICAL ---
DATE OF SERVICE: 06/14/2017 CHIEF COMPLAINT: Difficulty walking. HISTORY OF PRESENT ILLNESS: The patient is a 76-year-old female who lives with family and has a longstanding history of low back and hip pain. She has developed increased pain in her right hip and x-ray showed peripheral osteophyte formation with narrowed joint space of the right hip. The patient elected for surgery intervention. On 06/11, the patient underwent right total hip arthroplasty with Dr. Ariza. Postoperatively she was admitted to the medical surgical unit. Her O2 sats dropped postoperatively. She was placed on O2 supplementation. She had urinary retention postoperatively, a Gentile catheter was placed. She had decline in her functional independence, therapies were begun. She was felt to be appropriate for inpatient rehabilitation. Her white count jumped to 16.4 and the patient was started on IV antibiotics for presumed UTI but urine culture was negative. Chest x-ray on 06/13 showed interstitial fibrotic changes with no local consolidation. The patient followed by Dr. Smith, PCP. The patient is now referred to inpatient rehabilitation unit for comprehensive orthopedic rehabilitation. She had been independent prior to this. Currently she requires assistance for ADLs and mobility skills.She is is setup for eating and grooming Min assist for Upper body dressing Mod assist for lower body dressing Min assist for bed mobility and transfers and gait with FWW PAST MEDICAL HISTORY: Hypothyroidism, arthritis. PAST SURGICAL HISTORY: As per above. She has had cataract extraction, ovarian cyst removal, right rotator cuff repair, hysterectomy and bladder surgery. ALLERGIES: SULFA. FAMILY HISTORY: Noncontributory. SOCIAL HISTORY: Lives with her spouse in [place], [place]. REVIEW OF SYSTEMS: A 10-point review of systems significant for hip pain, stress incontinence. MEDICATIONS: K-Dur 40 mEq p.o. b.i.d., Voltaren gel apply sparingly q.i.d., tramadol 50 mg p.o. q. 6 hours for moderate pain, Dulcolax suppository 10 mg p.r.n. constipation, Senokot S 1 tablet p.o. b.i.d., ASA 325 mg p.o. q. day, Synthroid 25 mcg p.o. q. day, Singulair 10 mg p.o. q. bedtime, Protonix 40 mg p.o. q. day, Claritin 10 mg p.o. q. day, simvastatin 20 mg p.o. q. bedtime, diazepam 0.5 mg p.o. t.i.d. and p.r.n. muscle spasm, ceftriaxone q. 24 hours IV, Tylenol 500 mg p.o. q. 4 hours p.r.n. mild pain or fever, urecholine 10 mg p.o. q.i.d. a.c. and bedtime for urinary retention. PHYSICAL EXAMINATION: GENERAL: Significant for a pleasant female appearing her stated age, lying in bed in no acute distress. VITAL SIGNS: Within normal limits. She is afebrile. LABS: Her serum sodium is 136 improved. She had been on a fluid restriction for hyponatremia. HEENT: Vision, speech, hearing grossly intact. No oral lesion is noted. NECK: Supple without mass. HEART: Regular rhythm. LUNGS: Clear. ABDOMEN: Soft, nontender. Bowel sounds present. EXTREMITIES: Right hip has island dressing clean and dry. Trace edema right ankle. No calf tenderness. MUSCULOSKELETAL: The patient has functional strength and active range of motion in both upper extremities and left lower extremity, right lower extremity limited to hip due to repair and some guarding. She is able to dorsi and plantar flex at the right ankle. Cognition grossly intact to touch. Sensation intact. IMPRESSION: 1. Ambulatory dysfunction secondary to osteoarthritis of the right hip status post right total hip replacement by Dr. Ariza, weightbearing as tolerated. 2. Postoperative urinary retention on medication. 3. Hyponatremia on fluid restriction, improved. 4. Postoperative respiratory insufficiency on O2 by nasal cannula. 5. Hypokalemia, replaced. 6. Hypothyroidism on replacement. 7. Hyperlipidemia. 8. Scoliosis. 9. Stress incontinence. PLAN: The patient will have a comprehensive program of inpatient orthopedic rehabilitation with goal of maximizing level of functional independence prior to discharge home with spouse. The patient will have PT and OT 90 minutes per day, each discipline 5 days a week for 2 weeks for gait, strengthening, conditioning, ADLs and patient and family care group training necessary, any adaptive equipment and training necessary. Speech therapy to do cognitive assessment, treat as indicated. Rehabilitation nursing to assist with bowel, bladder, skin, wound care, medication administration, pain management. oil well services field supervisor to assist with discharge planning, community reentry. Follow up with Dr. Smith and To as per their schedule. Estimated length of stay 7 days. PROGNOSIS: Rehab prognosis appears good for goal of discharging home with spouse, modified independent to supervision for ADLs and mobility skills with home health care to assist. DIET: Regular with fluid restriction. CODE STATUS: Full code. Job ID: [id number] DocumentID: [id number] Dictated Date: 06/14/2017 14:05:45 Acid Pumper Date: 06/14/2017 14:31:46 Dictated By: BERNICE BLANCO MD [facility]
--- NOTE | 2017-06-14 14:50 | Physical Therapy Daily Note ---
PT Daily Note-Current Subjective Pt was sitting at EOB, just finished with OT and agreeable to PT. Pt reports 4/ 10 pain in right hip. Pt was lying in bed with nurse call, phone, tray, all needs in reach post tx. Pain Numeric Pain Scale: 4 Location Body Site: Hip (right) Pain Description: Ache Mental Status Patient Orientation: Normal For Age Transfers Functional [place] Measure 0=Not Assessed/NA 4=Minimal Assistance 1=Total Assistance 5=Supervision or Setup 2=Maximal Assistance 6=Modified [place] 3=Moderate Assistance 7=Complete IndependenceIRFPAI Quality Coding Scale 6 Independent with activity with or without an assistive device 5 Patient requires set up or clean up by helper. Patient completes activity by themselves 4 Supervision or touching assist (CGA). [place] provide cues , steadying assist 3 The helper provides less than half the effort to complete the activity 2 The helper provides more than half the effort to complete the activity 1 Dependent. The helper does all the effort to complete an activity 7 Patient refused to complete or attempt activity 9 The patient did not perform the activity before the current illness or injury 88 Not attempted due to Medical conditions or safety concerns Transfers (B, C, W/C) (FIM): 4 Scootin Supine to/from Sit: 4 Sit to/from Stand: 4 Pt completes sit<>stand and sit<>supine with min assist. Gait Training Does the Patient Walk?: Yes Gait (FIM): 2 Distance (FIM): 5=427-83 ft Distance: 100'x2 Gait Level of Assist: 4 Gait Persons Needed: 1 Gait Assistive Device: FWW Pt ambulates with FWW and CGA for safety. Pt is encouraged to extend hip with left LE to facilitate a normalized gait pattern, tends to let knee buckle and hops. Stair Training Stair Training: Handrails/: uses walker Stairs (FIM): 1 #of Steps: 1 1 Step (curb) (QC): 4 4 Steps (QC): 88 12 Steps (QC): 88 Stairs: Pattern: Step to Level of Assist: 4 Pt completes one step using FWW for support and min assist. Pt needs verbal cues for sequencing and walker placement. Exercises NuStep Minutes: 10 NuStep Workload: 3 Treatments Pt completes gait and step training to increase functional mobility. Pt completes tx on Nustep to increase hip ROM and strength, careful attention was made to not have her hip flexion go past 90 degrees while on the stepper. Assessment Current Status: Good Progress Pt ambulation is improving and hip precautions were reviewed with pt. PT Short Term Goals Short Term Goals Time Frame: Jun 21, 2017 Gait (FIM): 5 PT Reinforcing Steel Erector Goals Assisted Goals PT Reinforcing Steel Erector Goals Time Frame: Jun 28, 2017 Transfers (B,C,W/C) (FIM): 6 Sit to Lying (QC): 6 Lying-Sitting on Side/Bed(QC): 6 Sit to Stand (QC): 6 Roll Left to Right (QC): 6 Chair/Zxa-eo-Khldw Xfer(QC): 6 Car Transfer (QC): 5 Does the Patient Walk: Yes Gait (FIM): 6 Gait distance (FIM): 3=150 ft Walk 10 feet (QC): 6 Walk 10ft-Uneven Surface(QC): 6 Walk 50ft with 2 Turns (QC): 6 Walk 150 ft (QC): 6 Gait Assistive Device: FWW Does the Pt use WC or Scooter?: No Stairs (FIM): 5 (household) # of Steps: 8 1 Step (curb) (QC): 6 4 Steps (QC): 6 12 Steps (QC): 88 Picking up an Object (QC): 88 (hip precautions) PT Plan Problem List Problem List: Activity Tolerance, Functional Strength, Safety, Balance, Gait, Transfer, Bed Mobility, ROM Treatment/Plan Treatment Plan: Continue Plan of Care Treatment Plan: Bed Mobility, Education, Functional Activity Samanta, Functional Strength, Group Therapy, Gait, Safety, Therapeutic Exercise, Transfers Treatment Duration: Jun 28, 2017 Frequency: At least 5 of 7 days/Wk (IRF) Estimated Hrs Per Day: 1.5 hours per day Patient and/or Family Agrees t: Yes Safety Risks/Education Patient Education: Gait Training, Transfer Techniques, Reviewed Precautions, Correct Positioning, Safety Issues Teaching Recipient: Patient Teaching Methods: Demonstration, Discussion Response to Teaching: Verbalize Understanding, Reinforcement Needed Time/GCodes Time In: 1110 Time Out: 1145 Total Billed Treatment Time: 35 Total Billed Treatment 1 visit 25 GT 10 DELANEY PARRISH PT Jun 14, 2017 14:50
[2017-06-14] MEDS: BETHANECHOL 10 MG (URECHOLINE) TAB PO SCH ×2 (15:02→20:24)
--- NOTE | 2017-06-14 15:04 | Therapy Group Daily Note ---
Therapy Daily Group Note Patient Education Topic Home Safety, Fall Prevention Exercises LE Seated Exercise, UE Exercise Other/Notes Pt was an active participant in OT/PT group. She introduced herself and talked about the first car that she drove. She contributed to education/discussion on ARU/rehab process and fall prevention, identifying ways to help prevent future falls. She also did seated UE and LE exercises, modifying them as needed for her impairment. She walked to and from group with CGA and FWW . Pt. toileted with mod assist for pants up down and cleaned herself, needing mod assist to TRF into bed, all needs met. Start Time: 13:00 Stop Time: 14:20 Total Billed Treatment Time: 80 Total Billed Treatment 1,GRP AMADO ZUNIGA EPIC DIRECTOR Jun 14, 2017 15:04
[2017-06-14 18:00] VITALS: BP 103/60
[2017-06-14] MEDS ORDERED: PNEUMOCOCCAL VACCINE 25 MCG/0.5 ML VIAL IM ONE (19:30)
[2017-06-14] MEDS: MONTELUKAST 10 MG (SINGULAIR) TAB PO SCH (20:23)
[2017-06-14] MEDS: SENNA W/DOCUSATE (SENOKOT S) TABLET PO SCH (20:23)
[2017-06-14] MEDS: SIMvastatin 20 MG (ZOCOR) TAB PO SCH (20:24)
[2017-06-15 05:00] VITALS: BP 123/64
[2017-06-15] MEDS: BETHANECHOL 10 MG (URECHOLINE) TAB PO SCH ×4 (05:51→21:17)
[2017-06-15] MEDS: LEVOTHYROXINE 25 MCG (LEVOTHROID) TAB PO SCH (05:52)
[2017-06-15] MEDS: SENNA W/DOCUSATE (SENOKOT S) TABLET PO SCH ×2 (08:16→21:18)
[2017-06-15] MEDS: PANTOPRAZOLE 20 MG TABLET (PROTONIX) PO SCH (08:16)
[2017-06-15] MEDS: LORATADINE (CLARITIN) 10 MG TAB PO SCH (08:16)
[2017-06-15] MEDS: KCL 20 MEQ TAB (K-DUR) PO SCH (08:16)
[2017-06-15] MEDS: ASPIRIN E.C. 325 MG (ECOTRIN) TABLET PO SCH (08:16)
[2017-06-15] MEDS: DICLOFENAC 1% GEL 100 GM (VOLTAREN) TUBE TOP SCH ×4 (08:16→21:19)
[2017-06-15] MEDS: ACETAMINOPHEN 500 MG TAB (TYLENOL) PO PRN (08:24)
[2017-06-15] MEDS: cefTRIAXone INJECTION 1,000 MG in NS (IVPB) 50 ML IV SCH (08:44)
--- NOTE | 2017-06-15 09:12 | Physical Therapy Daily Note ---
PT Daily Note-Current Subjective Pt. agrees to Rx. Happy to be making progress and to know she can go up down steps so well Pain Numeric Pain Scale: 5-Moderate Pain Location: Right Location Body Site: Hip Pain Description: Ache Mental Status Patient Orientation: Normal For Age Transfers Functional [place] Measure 0=Not Assessed/NA 4=Minimal Assistance 1=Total Assistance 5=Supervision or Setup 2=Maximal Assistance 6=Modified [place] 3=Moderate Assistance 7=Complete IndependenceIRFPAI Quality Coding Scale 6 Independent with activity with or without an assistive device 5 Patient requires set up or clean up by helper. Patient completes activity by themselves 4 Supervision or touching assist (CGA). [place] provide cues , steadying assist 3 The helper provides less than half the effort to complete the activity 2 The helper provides more than half the effort to complete the activity 1 Dependent. The helper does all the effort to complete an activity 7 Patient refused to complete or attempt activity 9 The patient did not perform the activity before the current illness or injury 88 Not attempted due to Medical conditions or safety concerns Transfers (B, C, W/C) (FIM): 3 Scootin Rollin Supine to/from Sit: 3 Sit to/from Stand: 5 needs assist RLE in out bed but improving quickly Exercises Supine Ex: Ankle pumps, Quad Set, Rolling, Glut sets, Heel Slides, Short Arc Quads, Scooting, Straight leg raise, Hip abd/add Supine Reps: 15 Treatments toileting with more and more indep, managing pants down and up while balance steady. Pt. struggling in bathroom at toilet. short BSC put over toilet providing hand rails both sides , toileting much easier Assessment Current Status: Good Progress PT Short Term Goals Short Term Goals Time Frame: Jun 21, 2017 Gait (FIM): 5 PT [facility] Goals Food Or Baggage Handling [place] Goals PT Food Or Baggage Handling [place] Goals Time Frame: Jun 28, 2017 Transfers (B,C,W/C) (FIM): 6 Sit to Lying (QC): 6 Lying-Sitting on Side/Bed(QC): 6 Sit to Stand (QC): 6 Roll Left to Right (QC): 6 Chair/Dag-px-Uqcjw Xfer(QC): 6 Car Transfer (QC): 5 Does the Patient Walk: Yes Gait (FIM): 6 Gait distance (FIM): 3=150 ft Walk 10 feet (QC): 6 Walk 10ft-Uneven Surface(QC): 6 Walk 50ft with 2 Turns (QC): 6 Walk 150 ft (QC): 6 Gait Assistive Device: FWW Does the Pt use WC or Scooter?: No Stairs (FIM): 5 (household) # of Steps: 8 1 Step (curb) (QC): 6 4 Steps (QC): 6 12 Steps (QC): 88 Picking up an Object (QC): 88 (hip precautions) PT Plan Treatment/Plan Treatment Plan: Continue Plan of Care Treatment Plan: Bed Mobility, Education, Functional Activity Samanta, Functional Strength, Group Therapy, Gait, Safety, Therapeutic Exercise, Transfers Treatment Duration: Jun 28, 2017 Frequency: At least 5 of 7 days/Wk (IRF) Estimated Hrs Per Day: 1.5 hours per day Patient and/or Family Agrees t: Yes Safety Risks/Education Patient Education: Gait Training, Transfer Techniques, Correct Positioning, Disease Process, Safety Issues Teaching Recipient: Patient Teaching Methods: Demonstration, Discussion Response to Teaching: Verbalize Understanding, Return Demonstration, Reinforcement Needed Time/GCodes Time In: 805 Time Out: 830 Total Billed Treatment Time: 25 Total Billed Treatment 1,GT10m,FA15m G Codes Necessary: AMADO Waters HYDRAULIC JACK ADJUSTER Jun 15, 2017 09:12
[2017-06-15] MEDS ORDERED: MILK OF MAGNESIA 400 MG/5 ML 30 ML UDC PO PRN (15:15)
[2017-06-15 17:48] VITALS: BP 125/72
[2017-06-15] MEDS: MONTELUKAST 10 MG (SINGULAIR) TAB PO SCH (21:18)
[2017-06-15] MEDS: SIMvastatin 20 MG (ZOCOR) TAB PO SCH (21:18)
[2017-06-16] MEDS: LEVOTHYROXINE 25 MCG (LEVOTHROID) TAB PO SCH (05:46)
[2017-06-16 05:47] VITALS: BP 127/72
[2017-06-16] MEDS: BETHANECHOL 10 MG (URECHOLINE) TAB PO SCH ×4 (06:44→20:10)
[2017-06-16] MEDS: DICLOFENAC 1% GEL 100 GM (VOLTAREN) TUBE TOP SCH ×4 (08:04→20:10)
[2017-06-16] MEDS: SENNA W/DOCUSATE (SENOKOT S) TABLET PO SCH ×2 (08:04→20:09)
[2017-06-16] MEDS: PANTOPRAZOLE 20 MG TABLET (PROTONIX) PO SCH (08:04)
[2017-06-16] MEDS: cefTRIAXone INJECTION 1,000 MG in NS (IVPB) 50 ML IV SCH (08:04)
[2017-06-16] MEDS: LORATADINE (CLARITIN) 10 MG TAB PO SCH (08:04)
[2017-06-16] MEDS: ASPIRIN E.C. 325 MG (ECOTRIN) TABLET PO SCH (08:04)
[2017-06-16] MEDS: ACETAMINOPHEN 500 MG TAB (TYLENOL) PO PRN (17:29)
[2017-06-16 18:11] VITALS: BP 135/64
[2017-06-16] MEDS: MONTELUKAST 10 MG (SINGULAIR) TAB PO SCH (20:09)
[2017-06-16] MEDS: SIMvastatin 20 MG (ZOCOR) TAB PO SCH (20:09)
[2017-06-17] MEDS: ACETAMINOPHEN 500 MG TAB (TYLENOL) PO PRN ×2 (05:35→21:05)
[2017-06-17] MEDS: LEVOTHYROXINE 25 MCG (LEVOTHROID) TAB PO SCH (05:35)
[2017-06-17] MEDS: BETHANECHOL 10 MG (URECHOLINE) TAB PO SCH ×4 (05:35→20:56)
[2017-06-17 06:00] VITALS: BP 135/75
[2017-06-17] MEDS: cefTRIAXone INJECTION 1,000 MG in NS (IVPB) 50 ML IV SCH (08:43)
[2017-06-17] MEDS: ASPIRIN E.C. 325 MG (ECOTRIN) TABLET PO SCH (08:44)
[2017-06-17] MEDS: PANTOPRAZOLE 20 MG TABLET (PROTONIX) PO SCH (08:44)
[2017-06-17] MEDS: LORATADINE (CLARITIN) 10 MG TAB PO SCH (08:44)
[2017-06-17] MEDS: SENNA W/DOCUSATE (SENOKOT S) TABLET PO SCH ×2 (08:44→20:52)
[2017-06-17] MEDS: DICLOFENAC 1% GEL 100 GM (VOLTAREN) TUBE TOP SCH ×4 (08:45→20:56)
--- NOTE | 2017-06-17 08:50 | Physical Therapy Daily Note ---
PT Daily Note-Current Subjective Pt. agrees to Rx. States she is ready to go home and that she is pleasantly surprised that she has made such progress so soon. Pt states she is trying to make plans with her daughter who will come to stay with her at [place]. Pt.hoping for [facility] Pain Numeric Pain Scale: 0-No Pain Mental Status Patient Orientation: Normal For Age Transfers Functional [place] Measure 0=Not Assessed/NA 4=Minimal Assistance 1=Total Assistance 5=Supervision or Setup 2=Maximal Assistance 6=Modified [place] 3=Moderate Assistance 7=Complete IndependenceIRFPAI Quality Coding Scale 6 Independent with activity with or without an assistive device 5 Patient requires set up or clean up by helper. Patient completes activity by themselves 4 Supervision or touching assist (CGA). [place] provide cues , steadying assist 3 The helper provides less than half the effort to complete the activity 2 The helper provides more than half the effort to complete the activity 1 Dependent. The helper does all the effort to complete an activity 7 Patient refused to complete or attempt activity 9 The patient did not perform the activity before the current illness or injury 88 Not attempted due to Medical conditions or safety concerns Transfers (B, C, W/C) (FIM): 6 Scootin Rollin Supine to/from Sit: 6 Sit to/from Stand: 6 Bed to/from Chair: 6 Weight Bearing Weight Bearing Restriction: Weight Bearing/Tolerated Location Restriction: R LE maintains THR precautions Gait Training Does the Patient Walk?: Yes Gait (FIM): 6 Distance (FIM): 3=150 ft (x2) Gait Level of Assist: 6 Gait Persons Needed: 0 Gait Assistive Device: FWW Stair Training Stair Training: Handrails/: 2 handrails Stairs (FIM): 5 #of Steps: 4 Stairs: Pattern: Step to Level of Assist: 5 household exception scoring. Pt. also went up down single step with FWW with SBA to CGA and instruction Exercises Supine Ex: Ankle pumps, Quad Set, Rolling, Glut sets, Heel Slides, Short Arc Quads, Scooting, Straight leg raise (x5 indep), Hip abd/add Supine Reps: 15 Seated Therapy Exercises: Ankle pumps, Sit to stand, Long arc quads Seated Reps: 12 Standing: Hip Abduction, Hamstring curls, Heel/toe raises, Marching, Mini squats Standing Reps: 12 NuStep Minutes: 10 NuStep Workload: 2 Treatments toilets Mod I observed Assessment Current Status: Good Progress possibly at up adlib status in PM PT Short Term Goals Short Term Goals Time Frame: Jun 21, 2017 Gait (FIM): 5 PT [facility] Goals Net Mobile Developer Goals PT [facility] Goals Time Frame: Jun 28, 2017 Transfers (B,C,W/C) (FIM): 6 Sit to Lying (QC): 6 Lying-Sitting on Side/Bed(QC): 6 Sit to Stand (QC): 6 Rollin Roll Left to Right (QC): 6 Chair/Xys-dt-Lbgyg Xfer(QC): 6 Car Transfer (QC): 5 Does the Patient Walk: Yes Gait (FIM): 6 Gait distance (FIM): 3=150 ft Walk 10 feet (QC): 6 Walk 10ft-Uneven Surface(QC): 6 Walk 50ft with 2 Turns (QC): 6 Walk 150 ft (QC): 6 Gait Assistive Device: FWW Does the Pt use WC or Scooter?: No Stairs (FIM): 5 (household) # of Steps: 8 1 Step (curb) (QC): 6 4 Steps (QC): 6 12 Steps (QC): 88 Picking up an Object (QC): 88 (hip precautions) PT Plan Treatment/Plan Treatment Plan: Continue Plan of Care Treatment Plan: Bed Mobility, Education, Functional Activity Samanta, Functional Strength, Group Therapy, Gait, Safety, Therapeutic Exercise, Transfers Treatment Duration: Jun 28, 2017 Frequency: At least 5 of 7 days/Wk (IRF) Estimated Hrs Per Day: 1.5 hours per day Patient and/or Family Agrees t: Yes Safety Risks/Education Patient Education: Gait Training, Transfer Techniques, Steps, Correct Positioning, Disease Process, Safety Issues Teaching Recipient: Patient Teaching Methods: Demonstration, Discussion Response to Teaching: Verbalize Understanding, Return Demonstration, Reinforcement Needed Time/GCodes Time In: 800 Time Out: 900 Total Billed Treatment Time: 60 Total Billed Treatment 1,EX30m,FA15m,GT15m G Codes Necessary: AMADO Waters SURVEILLANCE INVESTIGATOR Jun 17, 2017 08:50
--- NOTE | 2017-06-17 12:28 | Occupational Ther Daily Note ---
OT Current Status-Daily Note Subjective Pt sitting in chair, agrees to treatment. 3/10 right pain reported. Mental Status/Objective Functional [place] Measure 0=Not Assessed/NA 4=Minimal Assistance 1=Total Assistance 5=Supervision or Setup 2=Maximal Assistance 6=Modified [place] 3=Moderate Assistance 7=Complete [place] ADL-Treatment Pt sit to stand with modified independence. Gait to restroom with FWW. Transfer to [facility] over toilet with modified independence. Pt able to complete toileting hygiene without assistance. Supervision for balance during clothing management. Transfer to walk in shower with SBA. Pt doffed clothing with verbal cues for use of adaptive equipment when doffing socks and underwear. Pt able to bathe all areas with SBA. Cues for use of long handled sponge to wash lower legs and feet. Don pullover shirt with set up. Education provided regarding use of adaptive equipment for LE dressing. Pt donned underwear and pants with verbal cues using telemarketing manager. Dons socks with SBA using sock aid. Pt stood at sink to brush teeth and comb hair with modified independence, Pt sitting in chair with needs met after session. Functional [place] Measure 0=Not Assessed/NA 4=Minimal Assistance 1=Total Assistance 5=Supervision or Setup 2=Maximal Assistance 6=Modified [place] 3=Moderate Assistance 7=Complete IndependenceIRFPAI Quality Coding Scale 6 Independent with activity with or without an assistive device 5 Patient requires set up or clean up by helper. Patient completes activity by themselves 4 Supervision or touching assist (CGA). [place] provide cues , steadying assist 3 The helper provides less than half the effort to complete the activity 2 The helper provides more than half the effort to complete the activity 1 Dependent. The helper does all the effort to complete an activity 7 Patient refused to complete or attempt activity 9 The patient did not perform the activity before the current illness or injury 88 Not attempted due to Medical conditions or safety concerns Grooming (FIM): 6 Oral Hygiene (QC): 6 Bathing (FIM): 5 Shower/Bathe Self (QC): 4 Upper Body (FIM): 5 Upper Body Dressing (QC): 5 Lower Body Dressing (FIM): 5 On/Off Footwear (QC): 5 Toileting (FIM): 5 Toilet/Commode Transfer (FIM): 6 Education OT Patient Education: Modified ADL techniques Teaching Recipient: Patient Teaching Methods: Demonstration, Discussion Response to Teaching: Return Demonstration OT Short Term Goals Short Term Goals Time Frame: Jun 21, 2017 Bathing(FIM): 4 Lower Body Dressing(FIM): 4 Toileting(FIM): 5 Toilet/Commode Transfer(FIM): 5 Additional Short Term Goals: 1-Demonstrate ADL Tasks, 2-Verbalize Understanding , 3-ImproveStrength/Samanta 1=Demonstrate adherence to instructed precautions during ADL tasks. 2=Patient will verbalize/demonstrate understanding of assistive devices/ modifications for ADL. 3=Patient will improve strength/tolerance for activity to enable patient to perform ADL's. OT [facility] Goals Oil Transport Driver Goals Time Frame: Jul 05, 2017 Eating (FIM): 6 Eating (QC): 6 Groomin Oral Hygiene (QC): 6 Bathing(FIM): 5 Shower/Bathe Self (QC): 5 Upper Body Dressing(FIM): 6 Upper Body Dressing (QC): 6 Lower Body Dressing(FIM): 5 Lower Body Dressing (QC): 5 On/Off Footwear (QC): 5 Toileting(FIM): 6 Toileting Hygiene (QC): 6 Toilet/Commode Transfer(FIM): 6 Toilet/Commode Transfer (QC): 6 Shower Transfer(FIM): 5 Additional Goals: 1-Demonstrate ADL Tasks, 2-Verbalize Understanding, 3- ImproveStrength/Samanta 1=Demonstrate adherence to instructed precautions during ADL tasks. 2=Patient will verbalize/demonstrate understanding of assistive devices/ modifications for ADL. 3=Patient will improve strength/tolerance for activity to enable patient to perform ADL's. OT Education/Plan Problem List/Assessment Pt s/p right VINOD with decreased mobility, ADL functioning, strength, and activity tolerance. Pt to benefit from skilled OT intervention for ADL training , transfers, strengthening, adaptive equipment training, and home safety education to increase level of independence and allow safe return home with spouse. Discharge Recommendations Plan/Recommendations: Continue POC Treatment Plan/Plan of Care Patient would benefit from OT for education, treatment and training to promote independence in ADL's, mobility, safety and/or upper extremity function for ADL' s. Plan of Care: ADL Retraining, Functional Mobility, Group Exercise/Act as Ind, UE Funct Exercise/Act Treatment Duration: Jul 05, 2017 Frequency: At least 5 of 7 days/Wk (IRF) Estimated Hrs Per Day: 1.5 hours per day Agreement: Yes Rehab Potential: Good Time/GCodes Start Time: 09:00 Stop Time: 10:00 Total Time Billed (hr/min): 60 Billed Treatment Time 1 visit, ADLx4(60minutes) MABEL WHITT OT Jun 17, 2017 12:28
--- NOTE | 2017-06-17 14:41 | Physical Therapy Daily Note ---
PT Daily Note-Current Subjective Pt. states she continues to feel well. Feels she is strong enough to be up graded to ad lucia status Pain Numeric Pain Scale: 0-No Pain Mental Status Patient Orientation: Normal For Age Transfers Functional [place] Measure 0=Not Assessed/NA 4=Minimal Assistance 1=Total Assistance 5=Supervision or Setup 2=Maximal Assistance 6=Modified [place] 3=Moderate Assistance 7=Complete IndependenceIRFPAI Quality Coding Scale 6 Independent with activity with or without an assistive device 5 Patient requires set up or clean up by helper. Patient completes activity by themselves 4 Supervision or touching assist (CGA). [place] provide cues , steadying assist 3 The helper provides less than half the effort to complete the activity 2 The helper provides more than half the effort to complete the activity 1 Dependent. The helper does all the effort to complete an activity 7 Patient refused to complete or attempt activity 9 The patient did not perform the activity before the current illness or injury 88 Not attempted due to Medical conditions or safety concerns All TRFs mod I Gait Training Gait Assistive Device: FWW mod I all gait, up ad lucia status Exercises NuStep Minutes: 15 NuStep Workload: 2 Assessment Current Status: Excellent Progress PT Short Term Goals Short Term Goals Time Frame: Jun 21, 2017 Gait (FIM): 5 PT Senior Care Goals Cop Winder Goals PT Senior Care Goals Time Frame: Jun 28, 2017 Transfers (B,C,W/C) (FIM): 6 Sit to Lying (QC): 6 Lying-Sitting on Side/Bed(QC): 6 Sit to Stand (QC): 6 Rollin Roll Left to Right (QC): 6 Chair/Jxu-xn-Csimy Xfer(QC): 6 Car Transfer (QC): 5 Does the Patient Walk: Yes Gait (FIM): 6 Gait distance (FIM): 3=150 ft Walk 10 feet (QC): 6 Walk 10ft-Uneven Surface(QC): 6 Walk 50ft with 2 Turns (QC): 6 Walk 150 ft (QC): 6 Gait Assistive Device: FWW Does the Pt use WC or Scooter?: No Stairs (FIM): 5 (household) # of Steps: 8 1 Step (curb) (QC): 6 4 Steps (QC): 6 12 Steps (QC): 88 Picking up an Object (QC): 88 (hip precautions) PT Plan Treatment/Plan Treatment Plan: Continue Plan of Care Treatment Plan: Bed Mobility, Education, Functional Activity Samanta, Functional Strength, Group Therapy, Gait, Safety, Therapeutic Exercise, Transfers Treatment Duration: Jun 28, 2017 Frequency: At least 5 of 7 days/Wk (IRF) Estimated Hrs Per Day: 1.5 hours per day Patient and/or Family Agrees t: Yes Safety Risks/Education Patient Education: Gait Training, Transfer Techniques Time/GCodes Time In: 1300 Time Out: 1330 Total Billed Treatment Time: 30 Total Billed Treatment 1,EX15m,GT15m G Codes Necessary: AMADO Waters AVIATION SAFETY TECHNICIAN Jun 17, 2017 14:41
--- NOTE | 2017-06-17 14:43 | Occupational Ther Daily Note ---
OT Current Status-Daily Note Subjective Pt in bed, agrees to treatment. Mental Status/Objective Functional [place] Measure 0=Not Assessed/NA 4=Minimal Assistance 1=Total Assistance 5=Supervision or Setup 2=Maximal Assistance 6=Modified [place] 3=Moderate Assistance 7=Complete [place] ADL-Treatment Supine to sit with modified independence. Gait to shower room with FWW. Pt states she has a tub/shower combo at home. Education provided regarding types of shower chairs/benches. Pt performed tub transfer with SBA using shower chair and then using tub transfer bench. Pt has no questions at this time. Functional [place] Measure 0=Not Assessed/NA 4=Minimal Assistance 1=Total Assistance 5=Supervision or Setup 2=Maximal Assistance 6=Modified [place] 3=Moderate Assistance 7=Complete IndependenceIRFPAI Quality Coding Scale 6 Independent with activity with or without an assistive device 5 Patient requires set up or clean up by helper. Patient completes activity by themselves 4 Supervision or touching assist (CGA). [place] provide cues , steadying assist 3 The helper provides less than half the effort to complete the activity 2 The helper provides more than half the effort to complete the activity 1 Dependent. The helper does all the effort to complete an activity 7 Patient refused to complete or attempt activity 9 The patient did not perform the activity before the current illness or injury 88 Not attempted due to Medical conditions or safety concerns Other Treatment Gait to therapy gym with FWW. Arm bike [id number] to promote overall strength and activity tolerance needed for ADLs and transfers. Pt completed task with moderate resistance and slow pace. No rest breaks needed. Pt returned to room, sit to supine with modified independence. Pt in bed with needs met and spouse present after session. Education OT Patient Education: Transfer techniques Teaching Recipient: Patient Teaching Methods: Discussion Response to Teaching: Verbalize Understanding OT Short Term Goals Short Term Goals Time Frame: Jun 21, 2017 Bathing(FIM): 4 Lower Body Dressing(FIM): 4 Toileting(FIM): 5 Toilet/Commode Transfer(FIM): 5 Additional Short Term Goals: 1-Demonstrate ADL Tasks, 2-Verbalize Understanding , 3-ImproveStrength/Samanta 1=Demonstrate adherence to instructed precautions during ADL tasks. 2=Patient will verbalize/demonstrate understanding of assistive devices/ modifications for ADL. 3=Patient will improve strength/tolerance for activity to enable patient to perform ADL's. OT Snf Goals Claim Specialist Goals Time Frame: Jul 05, 2017 Eating (FIM): 6 Eating (QC): 6 Groomin Oral Hygiene (QC): 6 Bathing(FIM): 5 Shower/Bathe Self (QC): 5 Upper Body Dressing(FIM): 6 Upper Body Dressing (QC): 6 Lower Body Dressing(FIM): 5 Lower Body Dressing (QC): 5 On/Off Footwear (QC): 5 Toileting(FIM): 6 Toileting Hygiene (QC): 6 Toilet/Commode Transfer(FIM): 6 Toilet/Commode Transfer (QC): 6 Shower Transfer(FIM): 5 Additional Goals: 1-Demonstrate ADL Tasks, 2-Verbalize Understanding, 3- ImproveStrength/Samanta 1=Demonstrate adherence to instructed precautions during ADL tasks. 2=Patient will verbalize/demonstrate understanding of assistive devices/ modifications for ADL. 3=Patient will improve strength/tolerance for activity to enable patient to perform ADL's. OT Education/Plan Problem List/Assessment Pt s/p right VINOD with decreased mobility, ADL functioning, strength, and activity tolerance. Pt to benefit from skilled OT intervention for ADL training , transfers, strengthening, adaptive equipment training, and home safety education to increase level of independence and allow safe return home with spouse. Discharge Recommendations Plan/Recommendations: Continue POC Treatment Plan/Plan of Care Patient would benefit from OT for education, treatment and training to promote independence in ADL's, mobility, safety and/or upper extremity function for ADL' s. Plan of Care: ADL Retraining, Functional Mobility, Group Exercise/Act as Ind, UE Funct Exercise/Act Treatment Duration: Jul 05, 2017 Frequency: At least 5 of 7 days/Wk (IRF) Estimated Hrs Per Day: 1.5 hours per day Agreement: Yes Rehab Potential: Good Time/GCodes Start Time: 13:30 Stop Time: 14:00 Total Time Billed (hr/min): 30 Billed Treatment Time 1 visit, ADL(15minutes), EX(15minutes) MABEL WHITT OT Jun 17, 2017 14:43
[2017-06-17 18:01] VITALS: BP 136/77
--- NOTE | 2017-06-17 20:33 | PM & R (SOAP) Progress Note ---
Subjective Time Seen by Provider: 20:15 Subjective/Events-last exam Patient was seen in her room this evening Patient progressing well with therapies Patient Modified Independent for transfers Review of Systems Musculoskeletal: leg pain Objective Exam Last Set of Vital Signs Vital Signs Date Time Temp Pulse Resp B/P (MAP) Pulse Ox O2 Delivery O2 Flow Rate FiO2 06/17/17 18:01 97.9 98 18 136/77 96 Room Air Capillary Refill : I&O Intake and Output 06/18/17 00:00 Intake Total 1650 ml Balance 1650 ml Intake Oral 1650 ml # Voids 7 # Bowel Movements 3 General: Alert, Oriented X3, Cooperative, No Acute Distress HEENT: Atraumatic, PERRLA, EOMI, Mucous Memb Moist/[place] Neck: Supple, No JVD Lungs: Clear to Auscultation Heart: Regular Rate Abdomen: Normal Bowel Sounds, Soft, No Tenderness Extremities: Other (trace edema rt hip) Neuro: Other (Strength limited at rt hip due to recent surgery but otherwise good) Assessment/Plan Assessment OA rt hip s/p THR Hyponatremia improved Hypokalemia on replacement Postop urinary retention on med Plan Continue PT/OT F/u labs with DR Smith Discharge tentatively set for Saturday06/19/17 BERNICE BLANCO MD Jun 17, 2017 20:33
[2017-06-17] MEDS: SIMvastatin 20 MG (ZOCOR) TAB PO SCH (20:52)
[2017-06-17] MEDS: MONTELUKAST 10 MG (SINGULAIR) TAB PO SCH (20:52)
[2017-06-18] MEDS: LEVOTHYROXINE 25 MCG (LEVOTHROID) TAB PO SCH (06:20)
[2017-06-18] MEDS: BETHANECHOL 10 MG (URECHOLINE) TAB PO SCH ×4 (06:23→20:40)
[2017-06-18 06:25] VITALS: BP 131/73
[2017-06-18] MEDS: SENNA W/DOCUSATE (SENOKOT S) TABLET PO SCH ×3 (08:49→20:39)
[2017-06-18] MEDS: ASPIRIN E.C. 325 MG (ECOTRIN) TABLET PO SCH (08:49)
[2017-06-18] MEDS: LORATADINE (CLARITIN) 10 MG TAB PO SCH (08:49)
[2017-06-18] MEDS: PANTOPRAZOLE 20 MG TABLET (PROTONIX) PO SCH (08:49)
[2017-06-18] MEDS: DICLOFENAC 1% GEL 100 GM (VOLTAREN) TUBE TOP SCH ×4 (08:50→20:40)
--- NOTE | 2017-06-18 10:59 | Occupational Ther Daily Note ---
OT Current Status-Daily Note Subjective Pt in bed, agrees to treatment. Pt reports 2/10 right hip pain. Mental Status/Objective Functional [place] Measure 0=Not Assessed/NA 4=Minimal Assistance 1=Total Assistance 5=Supervision or Setup 2=Maximal Assistance 6=Modified [place] 3=Moderate Assistance 7=Complete [place] ADL-Treatment Pt supine to sit with modified independence. Sit to stand with modified independence. Pt retrieved clothing from closet with FWW for balance. Gait to restroom with FWW, no LOB noted. Transfer to walk in shower with modified independence using grab bars for safety. Pt doffed clothing without assistance, uses adaptive equipment for LE dressing. Bathing completed with modified independence. Pt able to wash all areas, uses long handled sponge for lower legs and feet. Don pullover shirt with modified independence. Pt required cues to use adaptive equipment for LE dressing due to precautions. Pt then able to don underwear and pants using telephone switchboard operator. Donned socks with modified independence using sock aid. Pt demonstrated ability to perform transfer [place] [facility] with modified independence. Pt states she has been getting up to restroom and completing toileting tasks without assistance. Pt stood at sink for grooming tasks. Able to complete oral care with modified independence. Pt sitting in chair with needs met after session. Functional [place] Measure 0=Not Assessed/NA 4=Minimal Assistance 1=Total Assistance 5=Supervision or Setup 2=Maximal Assistance 6=Modified [place] 3=Moderate Assistance 7=Complete IndependenceIRFPAI Quality Coding Scale 6 Independent with activity with or without an assistive device 5 Patient requires set up or clean up by helper. Patient completes activity by themselves 4 Supervision or touching assist (CGA). [place] provide cues , steadying assist 3 The helper provides less than half the effort to complete the activity 2 The helper provides more than half the effort to complete the activity 1 Dependent. The helper does all the effort to complete an activity 7 Patient refused to complete or attempt activity 9 The patient did not perform the activity before the current illness or injury 88 Not attempted due to Medical conditions or safety concerns Eating (FIM): 6 (by report) Eating (QC): 6 Grooming (FIM): 6 Oral Hygiene (QC): 6 Bathing (FIM): 6 Shower/Bathe Self (QC): 6 Upper Body (FIM): 6 Upper Body Dressing (QC): 6 Lower Body Dressing (FIM): 5 (cues for use of adaptive equipment) Lower Body Dressing (QC): 5 On/Off Footwear (QC): 6 Toileting (FIM): 6 Toileting Hygiene (QC): 6 Toilet/Commode Transfer (FIM): 6 Toilet Transfer (QC): 6 Shower Transfer(FIM): 6 OT Short Term Goals Short Term Goals Time Frame: Jun 21, 2017 Bathing(FIM): 4 Lower Body Dressing(FIM): 4 Toileting(FIM): 5 Toilet/Commode Transfer(FIM): 5 Additional Short Term Goals: 1-Demonstrate ADL Tasks, 2-Verbalize Understanding , 3-ImproveStrength/Samanta 1=Demonstrate adherence to instructed precautions during ADL tasks. 2=Patient will verbalize/demonstrate understanding of assistive devices/ modifications for ADL. 3=Patient will improve strength/tolerance for activity to enable patient to perform ADL's. OT Astrochemist Goals Astrochemist Goals Time Frame: Jul 05, 2017 Eating (FIM): 6 (met) Eating (QC): 6 (6-MET) Groomin (met 06/18/17) Oral Hygiene (QC): 6 (6-MET) Bathing(FIM): 5 (met) Shower/Bathe Self (QC): 5 (6-exceeded) Upper Body Dressing(FIM): 6 (met 06/18/17) Upper Body Dressing (QC): 6 (6-MET) Lower Body Dressing(FIM): 5 (met06/18/17) Lower Body Dressing (QC): 5 (5-MET) On/Off Footwear (QC): 5 (6-Exceeded) Toileting(FIM): 6 (met 06/18/17) Toileting Hygiene (QC): 6 (met 06/18/17) Toilet/Commode Transfer(FIM): 6 (met 06/18/17) Toilet/Commode Transfer (QC): 6 (6-MET) Shower Transfer(FIM): 5 (exceeded 06/18/17) Additional Goals: 1-Demonstrate ADL Tasks, 2-Verbalize Understanding, 3- ImproveStrength/Samanta 1=Demonstrate adherence to instructed precautions during ADL tasks. 2=Patient will verbalize/demonstrate understanding of assistive devices/ modifications for ADL. 3=Patient will improve strength/tolerance for activity to enable patient to perform ADL's. OT Education/Plan Problem List/Assessment Pt s/p right VINOD with decreased mobility, ADL functioning, strength, and activity tolerance. Pt to benefit from skilled OT intervention for ADL training , transfers, strengthening, adaptive equipment training, and home safety education to increase level of independence and allow safe return home with spouse. Discharge Recommendations Plan/Recommendations: Continue POC Treatment Plan/Plan of Care Patient would benefit from OT for education, treatment and training to promote independence in ADL's, mobility, safety and/or upper extremity function for ADL' s. Plan of Care: ADL Retraining, Functional Mobility, Group Exercise/Act as Ind, UE Funct Exercise/Act Treatment Duration: Jul 05, 2017 Frequency: At least 5 of 7 days/Wk (IRF) Estimated Hrs Per Day: 1.5 hours per day Agreement: Yes Rehab Potential: Good Time/GCodes Start Time: 08:15 Stop Time: 09:15 Total Time Billed (hr/min): 60 Billed Treatment Time 1 visit, ADLx4(60minutes) MABEL WHITT OT Jun 18, 2017 10:59
--- NOTE | 2017-06-18 11:19 | Physical Therapy Daily Note ---
PT Daily Note-Current Subjective Pt sitting in chair in room upon arrival. Pt agrees to PT to FIM so she can discharge. Pain Numeric Pain Scale: 3 Location: Right Location Body Site: Hip Pain Description: Ache Mental Status Patient Orientation: Person, Place, Time, Situation Transfers Functional [place] Measure 0=Not Assessed/NA 4=Minimal Assistance 1=Total Assistance 5=Supervision or Setup 2=Maximal Assistance 6=Modified [place] 3=Moderate Assistance 7=Complete IndependenceIRFPAI Quality Coding Scale 6 Independent with activity with or without an assistive device 5 Patient requires set up or clean up by helper. Patient completes activity by themselves 4 Supervision or touching assist (CGA). [place] provide cues , steadying assist 3 The helper provides less than half the effort to complete the activity 2 The helper provides more than half the effort to complete the activity 1 Dependent. The helper does all the effort to complete an activity 7 Patient refused to complete or attempt activity 9 The patient did not perform the activity before the current illness or injury 88 Not attempted due to Medical conditions or safety concerns Scootin Rollin Roll Left to Right (QC): 6 Supine to/from Sit: 6 Sit to/from Stand: 6 Sit to Lying (QC): 6 Sit to Stand (QC): 6 Chair/Gxd-jz-Micqr Xfer(QC): 6 Bed to/from Chair: 6 Car Transfer (QC): 88 Pt doesn't have car present for transfer but PT will score at discharge. Weight Bearing Right Lower Extremity: Right Full Weight Bearing Left Lower Extremity: Left Full Weight Bearing Gait Training Does the Patient Walk?: Yes Distance (FIM): 3=150 ft Distance: 275' Walk 10 feet (QC): 6 Walk 50 ft with 2 Turns(QC): 6 Walk 150 ft (QC): 6 Walking 10ft/uneven surface-QC: 6 Gait Level of Assist: 6 Gait Persons Needed: 1 Gait Assistive Device: FWW Pt walks with slow harmony but otherwise normalized gait. Wheelchair Training Does the Pt Use a Wheelchair?: No Stair Training Stair Training: Handrails/: 2 handrails #of Steps: 4 1 Step (curb) (QC): 5 4 Steps (QC): 5 Stairs: Pattern: Step to Level of Assist: 5 Balance Picking up an Object (QC): 88 Special Test Comments Unsafe to test due to pt is on Hip Precautions Treatments Pt transferred from chair to standing suing FWW at Mod I then transferred to bed to work on bed mobility. Pt completes transfers at Mod I including bed mobility. Pt ambulates using FWW at Mod I with slight antalgic gait due to R hip surgery. Pt completes ambulating across varying surface for at least 10' then 1 set of 4 steps. Pt doesn't complete picking up object due to hip precautions. Pt returns to room to rest in chair at end of tx with all needs met. Assessment Current Status: Good Progress Pt has gotten stronger as well as improves on independence and safety of transfers and ambulation. PT Short Term Goals Short Term Goals Time Frame: Jun 21, 2017 Gait (FIM): 5 PT Group Home Goals Group Home Goals PT Color Stripper Goals Time Frame: Jun 28, 2017 Transfers (B,C,W/C) (FIM): 6 Sit to Lying (QC): 6 Lying-Sitting on Side/Bed(QC): 6 Sit to Stand (QC): 6 Rollin Roll Left to Right (QC): 6 Chair/Rfd-fi-Hnmzr Xfer(QC): 6 Car Transfer (QC): 5 Does the Patient Walk: Yes Gait (FIM): 6 Gait distance (FIM): 3=150 ft Walk 10 feet (QC): 6 Walk 10ft-Uneven Surface(QC): 6 Walk 50ft with 2 Turns (QC): 6 Walk 150 ft (QC): 6 Gait Assistive Device: FWW Does the Pt use WC or Scooter?: No Stairs (FIM): 5 (household) # of Steps: 8 1 Step (curb) (QC): 6 4 Steps (QC): 6 12 Steps (QC): 88 Picking up an Object (QC): 88 (hip precautions) PT Plan Problem List Problem List: Activity Tolerance Treatment/Plan Treatment Plan: Continue Plan of Care Treatment Plan: Bed Mobility, Education, Functional Activity Smaanta, Functional Strength, Group Therapy, Gait, Safety, Therapeutic Exercise, Transfers Treatment Duration: Jun 28, 2017 Frequency: At least 5 of 7 days/Wk (IRF) Estimated Hrs Per Day: 1.5 hours per day Patient and/or Family Agrees t: Yes Safety Risks/Education Patient Education: Gait Training, Correct Positioning, Safety Issues Teaching Recipient: Patient Teaching Methods: Discussion Response to Teaching: Verbalize Understanding Time/GCodes Time In: 1015 Time Out: 1115 Total Billed Treatment Time: 60 Total Billed Treatment visit, GT x2 (30m) & FA x2 (30m) SANTIAGO MENDES ACID PURIFIER Jun 18, 2017 11:19
--- NOTE | 2017-06-18 14:05 | PM & R (SOAP) Progress Note ---
Subjective Time Seen by Provider: 07:55 Subjective/Events-last exam Patient was seen in her room this AM Patient Modified Independent for transfers Discussed case with SW and RN Patient all set for discharge tomorrow to home with spouse and HHC Objective Exam Last Set of Vital Signs Vital Signs Date Time Temp Pulse Resp B/P (MAP) Pulse Ox O2 Delivery O2 Flow Rate FiO2 06/18/17 09:16 Room Air 06/18/17 06:25 97.3 90 20 131/73 96 Capillary Refill : I&O Intake and Output 06/19/17 00:00 Intake Total 300 ml Balance 300 ml Intake Oral 300 ml # Voids 3 # Bowel Movements 2 General: Alert, Oriented X3, Cooperative, No Acute Distress HEENT: Atraumatic, PERRLA, EOMI, Mucous Memb Moist/[place] Neck: Supple, No JVD Lungs: Clear to Auscultation Heart: Regular Rate Abdomen: Normal Bowel Sounds, Soft, No Tenderness Extremities: Other (trace edema rt hip) Neuro: Other (Strength limited at rt hip due to recent surgery but otherwise good) Assessment/Plan Assessment OA rt hip s/p THR Hyponatremia improved Hypokalemia on replacement Postop urinary retention on med Plan Continue PT/OT F/u labs with DR Smith Discharge remians set for tomorrow 06/19/17 Recheck Labs -See orders. BERNICE BLANCO MD Jun 18, 2017 14:05
[2017-06-18] MEDS ORDERED: BETH10TA PO (14:13)
[2017-06-18] MEDS ORDERED: ASPI325T32 PO (14:13)
[2017-06-18] MEDS ORDERED: ACET-77 PO (14:13)
--- NOTE | 2017-06-18 14:23 | Individualized Plan of Care ---
Individualized Plan of Care Rehab Nursing IPOC Order Admission Date Jun 14, 2017 at 09:25 Current Orders Orders Admission-Acute Rehab Unit (06/14/17 09:25) Pt Evaluate/Treat Request (06/14/17 09:25) Request Ot Evaluate & Treat (06/14/17 09:25) Request For Cognitive Services (06/14/17 09:25) Admission Arrival Bed Request (06/14/17 09:25) Code/Resuscitation (06/14/17 10:11) Abduction Pillow: Apply (06/14/17 10:11) Dressing Order & Int (Surg/Med ONCE (06/14/17 10:11) Initiate Admission Nursing Pro .admission (06/14/17 10:11) Nursing Communication (Patient (06/14/17 10:11) Sequential Compression Device ,20 (06/14/17 10:11) Dieter Hose 09,21 (06/14/17 10:11) Weight Bearing Status (06/14/17 10:11) General/Regular (06/14/17 Lunch) Incentive Spirometryrt Initial (06/14/17 10:11) Social Service (06/14/17 10:11) Consult Physician (06/14/17 10:11) Incentive Spirometry (Nursing) Q2H (06/14/17 10:11) Tramadol Tablet (Ultram Tablet) (06/14/17 11:06) Bisacodyl Suppository (Dulcolax Supposit (06/14/17 11:06) Senna S Tablet (Senokot S Tablet) (06/14/17 11:06) Aspirin Enteric Coated Tablet (Ecotrin T (06/14/17 11:06) Levothyroxine Tablet (Synthroid Tablet) (06/14/17 11:06) Montelukast Tablet (Singulair Tablet) (06/14/17 11:06) Pantoprazole Tablet (Protonix Tablet) (06/14/17 11:06) Loratadine Tablet (Claritin Tablet) (06/14/17 11:06) Simvastatin Tablet (Zocor Tablet) (06/14/17 11:06) Diazepam Tablet (Valium Tablet) (06/14/17 11:06) Ceftriaxone Injection (Rocephin Injectio (06/14/17 11:06) Acetaminophen Tablet (Tylenol Tablet) (06/14/17 11:06) Bethanechol Tablet (Urecholine Tablet) (06/14/17 11:06) Potassium Chloride (Tablet) (K Dur Table (06/14/17 12:00) Diclofenac 1% Gel (Voltaren 1% Gel) (06/14/17 11:09) Nursing Communication (Patient (06/14/17 11:46) Patient Visit (06/14/17 ) Speech Sound Lang Comp (06/14/17 ) Patient Visit (06/14/17 ) Pt Eval Moderate Complexity (06/14/17 ) Patient Visit (06/14/17 ) Therapeutic, Group (06/14/17 ) Ambulate TID (06/14/17 16:31) Sequential Compression Device ,20 (06/14/17 16:31) Dvt/Vte Risk - Notifiy Physici (06/14/17 16:31) Influenza Vac Order Indicated (06/14/17 16:49) Pneumococcal Vaccine (Pnu-Imune 23 Vacci (06/14/17 19:30) Patient Visit (06/14/17 ) Gait Training, Ea 15 Min (06/14/17 ) Exercise Therap, Ea 15 Min (06/14/17 ) Patient Visit (06/15/17 ) Functional Activities, Ea 15 (06/15/17 ) Gait Training, Ea 15 Min (06/15/17 ) Magnesium Hydroxide Oral Susp (Mom Oral (06/15/17 15:15) Staple/Suture Removal (06/18/17 09:00) Patient Visit (06/17/17 ) Gait Training, Ea 15 Min (06/17/17 ) Functional Activities, Ea 15 (06/17/17 ) Exercise Therap, Ea 15 Min (06/17/17 ) Cbc With Automated Diff (06/19/17 06:00) Comprehensive Metabolic Panel (06/19/17 06:00) Attending D/C Order-Pending (06/18/17 14:08) Bowel Training: Monitor for any postop constipation Other Nursing Orders: Monitor for any further postop urinary retention - patient on Urecholine Intensity of Therapy to be met Patient to be seen: Min.3h per day/5 of 7d PT IPOC Problem List: Activity Tolerance, Functional Strength, Safety, Balance, Gait, Transfer, Bed Mobility, ROM Treatment Plan: Continue Plan of Care Bed Mobility, Education, Functional Activity Samanta, Functional Strength, Group Therapy, Gait, Safety, Therapeutic Exercise, Transfers Treatment Duration: Jun 28, 2017 Frequency: At least 5 of 7 days/Wk (IRF) Estimated Hrs Per Day: 1.5 hours per day OT IPOC Problems: Decreased Activ Tolerance, Decreased UE Strength, Dependent Transfers , Impaired Self-Care Skills OT Treatment, Training and Edu: Yes OT Problems Pt s/p right VINOD with decreased mobility, ADL functioning, strength, and activity tolerance. Pt to benefit from skilled OT intervention for ADL training , transfers, strengthening, adaptive equipment training, and home safety education to increase level of independence and allow safe return home with spouse. Plan of Care: ADL Retraining, Functional Mobility, Group Exercise/Act as Ind, UE Funct Exercise/Act Treatment Duration: Jul 05, 2017 Frequency: At least 5 of 7 days/Wk (IRF) Estimated Hrs Per Day: 1.[address] IPOC Speech Therapy Treatment Plan: Discontinue ST Treatment Duration: Jun 17, 2017 Frequency: Modified Program (IRF) Estimated Hrs Per Day: Other Health And Fitness Instructor/Case Mgmt Health And Fitness Instructor/Case Managemen: Discharge Planning, Patient/Family Counseling Physician IPOC Medical Issues being managed closely and that require the 24 hour availability of a physician:Postop UTI Postop Urinary retention Postop electrolye abnormailies repeat labs ordered,Postop resp insufficiency -weaned for supplemental 02 Medical Issues: Bowel/Bladder Function, DVT Prophylaxis, Falls Precautions, Fluid/Electrolyte/Nutrition Balance, Infection Protection, Pain Management, Wound Care, Other (List) (as per above) Brief Synthesis of Preadmission Screen, Post-Admission Evaluation, and Therapy Evaluations:76 yo female who had been Independent and living with spouse who had elective RT THR for painful OA refraactory to conservative care Had postop resp insufficiency and UTI and electrolyte abnormality Followed by PCP and orthopedics Reffer to IRU for ongoing care and therapies.Had postop urinary retention and placed on urecholine with improvement Medical Prognosis: good Anticipated Length of Stay: 06-19-17 Rehab Goals Modified Independent for ADL and Mobility skills with continence of Bowel and Bladder Anticipated discharge destinat: Home with spouse and [facility] BERNICE BLANCO MD Jun 18, 2017 14:23
--- NOTE | 2017-06-18 14:46 | Occupational Ther Daily Note ---
OT Current Status-Daily Note Subjective Pt in bed, agrees to treatment. Pt states she is ready to d/c home tomorrow. Mental Status/Objective Functional [place] Measure 0=Not Assessed/NA 4=Minimal Assistance 1=Total Assistance 5=Supervision or Setup 2=Maximal Assistance 6=Modified [place] 3=Moderate Assistance 7=Complete [place] ADL-Treatment Functional [place] Measure 0=Not Assessed/NA 4=Minimal Assistance 1=Total Assistance 5=Supervision or Setup 2=Maximal Assistance 6=Modified [place] 3=Moderate Assistance 7=Complete IndependenceIRFPAI Quality Coding Scale 6 Independent with activity with or without an assistive device 5 Patient requires set up or clean up by helper. Patient completes activity by themselves 4 Supervision or touching assist (CGA). [place] provide cues , steadying assist 3 The helper provides less than half the effort to complete the activity 2 The helper provides more than half the effort to complete the activity 1 Dependent. The helper does all the effort to complete an activity 7 Patient refused to complete or attempt activity 9 The patient did not perform the activity before the current illness or injury 88 Not attempted due to Medical conditions or safety concerns Other Treatment Supine to sit with modified independence. Sit to stand with modified independence. Gait to therapy gym with FWW, no LOB noted. Arm bike x10 minutes to increase overall strength and activity tolerance needed for ADLs and transfers. Pt completed activity with moderate resistance and steady pace. No rest breaks needed. Pt performed bilateral UE exercises to increase strength needed for functional tasks. Pt performed shoulder flexion, abduction, biceps curls, and triceps extension exercises x15 reps with moderate resistance (red) theraband. Rest breaks between exercises. Pt returned to room, sitting in chair with needs met after session. OT Short Term Goals Short Term Goals Time Frame: Jun 21, 2017 Bathing(FIM): 4 Lower Body Dressing(FIM): 4 Toileting(FIM): 5 Toilet/Commode Transfer(FIM): 5 Additional Short Term Goals: 1-Demonstrate ADL Tasks, 2-Verbalize Understanding , 3-ImproveStrength/Samanta 1=Demonstrate adherence to instructed precautions during ADL tasks. 2=Patient will verbalize/demonstrate understanding of assistive devices/ modifications for ADL. 3=Patient will improve strength/tolerance for activity to enable patient to perform ADL's. OT Care Home Goals Care Home Goals Time Frame: Jul 05, 2017 Eating (FIM): 6 (met) Eating (QC): 6 (6-MET) Groomin (met 06/18/17) Oral Hygiene (QC): 6 (6-MET) Bathing(FIM): 5 (met) Shower/Bathe Self (QC): 5 (6-exceeded) Upper Body Dressing(FIM): 6 (met 06/18/17) Upper Body Dressing (QC): 6 (6-MET) Lower Body Dressing(FIM): 5 (met06/18/17) Lower Body Dressing (QC): 5 (5-MET) On/Off Footwear (QC): 5 (6-Exceeded) Toileting(FIM): 6 (met 06/18/17) Toileting Hygiene (QC): 6 (met 06/18/17) Toilet/Commode Transfer(FIM): 6 (met 06/18/17) Toilet/Commode Transfer (QC): 6 (6-MET) Shower Transfer(FIM): 5 (exceeded 06/18/17) Additional Goals: 1-Demonstrate ADL Tasks, 2-Verbalize Understanding, 3- ImproveStrength/Samanta 1=Demonstrate adherence to instructed precautions during ADL tasks. 2=Patient will verbalize/demonstrate understanding of assistive devices/ modifications for ADL. 3=Patient will improve strength/tolerance for activity to enable patient to perform ADL's. OT Education/Plan Problem List/Assessment Pt s/p right VINOD with decreased mobility, ADL functioning, strength, and activity tolerance. Pt to benefit from skilled OT intervention for ADL training , transfers, strengthening, adaptive equipment training, and home safety education to increase level of independence and allow safe return home with spouse. Discharge Recommendations Plan/Recommendations: Continue POC Treatment Plan/Plan of Care Patient would benefit from OT for education, treatment and training to promote independence in ADL's, mobility, safety and/or upper extremity function for ADL' s. Plan of Care: ADL Retraining, Functional Mobility, Group Exercise/Act as Ind, UE Funct Exercise/Act Treatment Duration: Jul 05, 2017 Frequency: At least 5 of 7 days/Wk (IRF) Estimated Hrs Per Day: 1.5 hours per day Agreement: Yes Rehab Potential: Good Time/GCodes Start Time: 13:00 Stop Time: 13:30 Total Time Billed (hr/min): 30 Billed Treatment Time 1 visit, EXx2(30minutes) MABEL WHITT OT Jun 18, 2017 14:46
--- NOTE | 2017-06-18 14:47 | Physical Therapy Daily Note ---
PT Daily Note-Current Subjective Pt sitting in chair upon arrival visiting with SW. Pt agrees to PT. Pain Numeric Pain Scale: 3 Mental Status Patient Orientation: Person, Place, Time, Situation Transfers Functional [place] Measure 0=Not Assessed/NA 4=Minimal Assistance 1=Total Assistance 5=Supervision or Setup 2=Maximal Assistance 6=Modified [place] 3=Moderate Assistance 7=Complete IndependenceIRFPAI Quality Coding Scale 6 Independent with activity with or without an assistive device 5 Patient requires set up or clean up by helper. Patient completes activity by themselves 4 Supervision or touching assist (CGA). [place] provide cues , steadying assist 3 The helper provides less than half the effort to complete the activity 2 The helper provides more than half the effort to complete the activity 1 Dependent. The helper does all the effort to complete an activity 7 Patient refused to complete or attempt activity 9 The patient did not perform the activity before the current illness or injury 88 Not attempted due to Medical conditions or safety concerns Weight Bearing Right Lower Extremity: Right Full Weight Bearing Left Lower Extremity: Left Full Weight Bearing Treatments Pt, Sp & PT discuss AD, fall prevention and home set up. Pt & Sp report no questions at end of tx. Pt rests at end of tx with all needs met. Assessment Current Status: Good Progress Pt is excited about discharging tomorrow. PT Short Term Goals Short Term Goals Time Frame: Jun 21, 2017 Gait (FIM): 5 PT Retirement Goals Retirement Goals PT Client Engagement Specialist Goals Time Frame: Jun 28, 2017 Transfers (B,C,W/C) (FIM): 6 Sit to Lying (QC): 6 Lying-Sitting on Side/Bed(QC): 6 Sit to Stand (QC): 6 Rollin Roll Left to Right (QC): 6 Chair/Api-jm-Wjnrx Xfer(QC): 6 Car Transfer (QC): 5 Does the Patient Walk: Yes Gait (FIM): 6 Gait distance (FIM): 3=150 ft Walk 10 feet (QC): 6 Walk 10ft-Uneven Surface(QC): 6 Walk 50ft with 2 Turns (QC): 6 Walk 150 ft (QC): 6 Gait Assistive Device: FWW Does the Pt use WC or Scooter?: No Stairs (FIM): 5 (household) # of Steps: 8 1 Step (curb) (QC): 6 4 Steps (QC): 6 12 Steps (QC): 88 Picking up an Object (QC): 88 (hip precautions) PT Plan Problem List Problem List: Activity Tolerance Treatment/Plan Treatment Plan: Continue Plan of Care Treatment Plan: Bed Mobility, Education, Functional Activity Samanta, Functional Strength, Group Therapy, Gait, Safety, Therapeutic Exercise, Transfers Treatment Duration: Jun 28, 2017 Frequency: At least 5 of 7 days/Wk (IRF) Estimated Hrs Per Day: 1.5 hours per day Patient and/or Family Agrees t: Yes Safety Risks/Education Patient Education: Safety Issues Teaching Recipient: Patient, Significant Other Teaching Methods: Discussion Response to Teaching: Verbalize Understanding Time/GCodes Time In: 1330 Time Out: 1400 Total Billed Treatment Time: 30 Total Billed Treatment visit, FA x2 (30m) SANTIAGO MENDES GROCERY SACKER Jun 18, 2017 14:47
[2017-06-18 18:13] VITALS: BP 130/74
[2017-06-18] MEDS: SIMvastatin 20 MG (ZOCOR) TAB PO SCH (20:39)
[2017-06-18] MEDS: MONTELUKAST 10 MG (SINGULAIR) TAB PO SCH (20:39)
[2017-06-19 06:04] VITALS: BP 116/67
[2017-06-19 06:06] LABS: BASOPHILS # (AUTO) 0.1 10^3/uL (0.0-0.1); BASOPHILS % (AUTO) 1 % (0-10); EOSINOPHILS # (AUTO) 0.4 10^3/uL (0.0-0.3); EOSINOPHILS % (AUTO) 3 % (0-10); LYMPHOCYTES # (AUTO) 2.9 X 10^3 (1.0-4.0); LYMPHOCYTES % (AUTO) 23 % (12-44); MEAN CORPUSCULAR HEMOGLOBIN 30 PG (25-34); MEAN CORPUSCULAR HGB CONC 32 G/DL (32-36); MEAN CORPUSCULAR VOLUME 95 FL (80-99); MEAN PLATELET VOLUME 9.1 FL (7.4-10.4); MONOCYTES # (AUTO) 1.1 X 10^3 (0.0-1.0); MONOCYTES % (AUTO) 9 % (0-12); NEUTROPHILS # (AUTO) 8.1 X 10^3 (1.8-7.8); NEUTROPHILS % (AUTO) 64 % (42-75); PLATELET COUNT 508 10^3/uL (130-400); RED BLOOD COUNT 3.59 10^6/uL (4.35-5.85); RED CELL DISTRIBUTION WIDTH 14.7 % (10.0-14.5); WHITE BLOOD COUNT 12.6 10^3/uL (4.3-11.0)
[2017-06-19] MEDS: BETHANECHOL 10 MG (URECHOLINE) TAB PO SCH (06:16)
[2017-06-19] MEDS: LEVOTHYROXINE 25 MCG (LEVOTHROID) TAB PO SCH (06:16)
[2017-06-19 06:23] LABS: ALANINE AMINOTRANSFERASE 18 U/L (0-55); ALBUMIN 3.3 GM/DL (3.2-4.5); ANION GAP 8 MMOL/L (5-14); ASPARTATE AMINO TRANSFERASE 22 U/L (5-34); BILIRUBIN,TOTAL 0.4 MG/DL (0.1-1.0); BLOOD UREA NITROGEN 16 MG/DL (7-18); BUN/CREATININE RATIO 25; CALCIUM 9.1 MG/DL (8.5-10.1); CARBON DIOXIDE 26 MMOL/L (21-32); CHLORIDE 105 MMOL/L (98-107); CREATININE SERUM 0.64 MG/DL (0.60-1.30); GFR ESTIMATED > 60; GLUCOSE 106 MG/DL (70-105); POTASSIUM 4.3 MMOL/L (3.6-5.0); SODIUM 139 MMOL/L (135-145); TOTAL PROTEIN 6.9 GM/DL (6.4-8.2)
[2017-06-19] MEDS: SENNA W/DOCUSATE (SENOKOT S) TABLET PO SCH (08:08)
[2017-06-19] MEDS: PANTOPRAZOLE 20 MG TABLET (PROTONIX) PO SCH (08:08)
[2017-06-19] MEDS: LORATADINE (CLARITIN) 10 MG TAB PO SCH (08:09)
[2017-06-19] MEDS: ASPIRIN E.C. 325 MG (ECOTRIN) TABLET PO SCH (08:09)
[2017-06-19] MEDS: DICLOFENAC 1% GEL 100 GM (VOLTAREN) TUBE TOP SCH (08:10)
--- NOTE | 2017-06-19 09:12 | PM & R (SOAP) Progress Note ---
Subjective Time Seen by Provider: 08:10 Subjective/Events-last exam Patient was seen in her room this AM Has progressed well Todays labs noted Chem and Anemia improved Objective Exam Last Set of Vital Signs Vital Signs Date Time Temp Pulse Resp B/P (MAP) Pulse Ox O2 Delivery O2 Flow Rate FiO2 06/19/17 06:04 99.8 94 18 116/67 91 Room Air Capillary Refill : I&O Intake and Output 06/20/17 00:00 Intake Total 450 ml Balance 450 ml Intake Oral 450 ml # Voids 2 General: Alert, Oriented X3, Cooperative, No Acute Distress HEENT: Atraumatic, PERRLA, EOMI, Mucous Memb Moist/[place] Neck: Supple, No JVD Lungs: Clear to Auscultation Heart: Regular Rate Abdomen: Normal Bowel Sounds, Soft, No Tenderness Extremities: Other (trace edema rt hip) Neuro: Other (Strength limited at rt hip due to recent surgery but otherwise good) Results Lab Laboratory Tests 06/19/17 05:47: White Blood Count 12.6H, Red Blood Count 3.59L, Hemoglobin 10.8L, Hematocrit 34L , Mean Corpuscular Volume 95, Mean Corpuscular Hemoglobin 30, Mean Corpuscular Hemoglobin Concent 32, Red Cell Distribution Width 14.7H, Platelet Count 508H, Mean Platelet Volume 9.1, Neutrophils (%) (Auto) 64, Lymphocytes (%) (Auto) 23, Monocytes (%) (Auto) 9, Eosinophils (%) (Auto) 3, Basophils (%) (Auto) 1, Neutrophils # (Auto) 8.1H, Lymphocytes # (Auto) 2.9, Monocytes # (Auto) 1.1H, Eosinophils # (Auto) 0.4H, Basophils # (Auto) 0.1, Sodium Level 139, Potassium Level 4.3, Chloride Level 105, Carbon Dioxide Level 26, Anion Gap 8, Blood Urea Nitrogen 16, Creatinine 0.64, Estimat Glomerular Filtration Rate > 60, BUN/ Creatinine Ratio 25, Glucose Level 106H, Calcium Level 9.1, Total Bilirubin 0.4 , Aspartate Amino Transf (AST/SGOT) 22, Alanine Aminotransferase (ALT/SGPT) 18, Alkaline Phosphatase 62, Total Protein 6.9, Albumin 3.3 Assessment/Plan Assessment OA rt hip s/p THR Hyponatremia resolved Hypokalemia on replacement-resolved Postop urinary retention on med-improved Postop anemia -improving Plan Discharge today to home with spouse and HHC See orders F/U with DR Smith PCP and DR [facility] BERNICE BLANCO MD Jun 19, 2017 09:12
--- NOTE | 2017-06-19 09:13 | Therapy Team Discharge Summary ---
Therapy Discharge Summary Discharge Recommendations Date of Discharge 06/19/17 Therapy D/C Recommendations: Physical Therapy Home Care Physical Therapy This patient was transferred to ARU post elective THR. Upon admit, she required mod assist with transfers, ambulated 125 ft with FWW with min assist and went up/down 1 step with min assist. treatment focused on functional strength to improve transfers and gait as well as balance and safety. Education on safe mobility and hip precautions was implemented as well. She made quick and excellent progress and has achieved all goals set at evaluation. She is to discharge home with her spouse with [facility] PT to follow. Occupational Therapy Decreased Activ Tolerance, Decreased UE Strength, Dependent Transfers, Impaired Self-Care Skills PT Change Control Specialist Goals Senior Care Goals PT Senior Care Goals Time Frame: Jun 28, 2017 Transfers (B,C,W/C) (FIM): 6 (met) Roll Left to Right (QC): 6 Sit to Lying (QC): 6 Lying-Sitting on Side/Bed(QC): 6 Sit to Stand (QC): 6 Chair/Fkh-vx-Avzrb Xfer(QC): 6 Car Transfer (QC): 5 Does the Patient Walk: Yes Gait (FIM): 6 (met) Gait distance (FIM): 3=150 ft Walk 10 feet (QC): 6 Walk 10ft-Uneven Surface(QC): 6 Walk 50ft with 2 Turns (QC): 6 Walk 150 ft (QC): 6 Gait Assistive Device: FWW Does the Pt use WC or Scooter?: No Stairs (FIM): 5 (household) # of Steps: 8 1 Step (curb) (QC): 6 4 Steps (QC): 6 12 Steps (QC): 88 Picking up an Object (QC): 88 (hip precautions) OT Change Control Specialist Goals Senior Care Goals Time Frame: Jul 05, 2017 Eating (FIM): 6 (met) Eating (QC): 6 (6-MET) Oral Hygiene (QC): 6 (6-MET) Grooming(FIM): 6 (met 06/18/17) Bathing(FIM): 5 (met) Shower/Bathe Self (QC): 5 (6-exceeded) Upper Body Dressing(FIM): 6 (met 06/18/17) Upper Body Dressing (QC): 6 (6-MET) Lower Body Dressing(FIM): 5 (met06/18/17) Lower Body Dressing (QC): 5 (5-MET) On/Off Footwear (QC): 5 (6-Exceeded) Toileting(FIM): 6 (met 06/18/17) Toileting Hygiene (QC): 6 (met 06/18/17) Toilet/Commode Transfer(FIM): 6 (met 06/18/17) Toilet/Commode Transfer (QC): 6 (6-MET) Shower Transfer(FIM): 5 (exceeded 06/18/17) Additional Goals: 1-Demonstrate ADL Tasks, 2-Verbalize Understanding, 3- ImproveStrength/Samanta 1=Demonstrate adherence to instructed precautions during ADL tasks. 2=Patient will verbalize/demonstrate understanding of assistive devices/ modifications for ADL. 3=Patient will improve strength/tolerance for activity to enable patient to perform ADL's. RUPA ROPER PT Jun 19, 2017 09:13
[2017-06-19] MEDS ORDERED: TRAM50TA2 PO (09:22)
[2017-06-19] MEDS ORDERED: SENN-20 PO (09:22)
--- NOTE | 2017-06-19 11:10 | Therapy Team Discharge Summary ---
Therapy Discharge Summary Discharge Recommendations Date of Discharge Therapy D/C Recommendations: Physical Therapy Home Care Occupational Therapy Pt admitted to ARU following right IVNOD. On admission pt required minimal assistance with transfers, mod assist with toileting and bathing, and max assist with LE dressing. Skilled OT intervention focused on ADL training, transfers, strengthening, adaptive equipment training, and home safety education. Pt made good progress with therapy and by discharge is completing LE dressing with cues for use of adaptive equipment and all other ADLs and transfers with modified independence. Pt met all OT LTG. Pt discharging home this date with spouse. D/C ARU OT at this time. Decreased Activ Tolerance, Decreased UE Strength, Dependent Transfers, Impaired Self-Care Skills PT Assisted Goals Assisted Goals PT Assisted Goals Time Frame: Jun 28, 2017 Transfers (B,C,W/C) (FIM): 6 (met) Roll Left to Right (QC): 6 Sit to Lying (QC): 6 Lying-Sitting on Side/Bed(QC): 6 Sit to Stand (QC): 6 Chair/Rdw-jg-Adpti Xfer(QC): 6 Car Transfer (QC): 5 Does the Patient Walk: Yes Gait (FIM): 6 (met) Gait distance (FIM): 3=150 ft Walk 10 feet (QC): 6 Walk 10ft-Uneven Surface(QC): 6 Walk 50ft with 2 Turns (QC): 6 Walk 150 ft (QC): 6 Gait Assistive Device: FWW Does the Pt use WC or Scooter?: No Stairs (FIM): 5 (household) # of Steps: 8 1 Step (curb) (QC): 6 4 Steps (QC): 6 12 Steps (QC): 88 Picking up an Object (QC): 88 (hip precautions) OT Doctor Podiatric Medicine Goals Assisted Goals Time Frame: Jul 05, 2017 Eating (FIM): 6 (met) Eating (QC): 6 (6-MET) Oral Hygiene (QC): 6 (6-MET) Grooming(FIM): 6 (met 06/18/17) Bathing(FIM): 5 (met) Shower/Bathe Self (QC): 5 (6-exceeded) Upper Body Dressing(FIM): 6 (met 06/18/17) Upper Body Dressing (QC): 6 (6-MET) Lower Body Dressing(FIM): 5 (met06/18/17) Lower Body Dressing (QC): 5 (5-MET) On/Off Footwear (QC): 5 (6-Exceeded) Toileting(FIM): 6 (met 06/18/17) Toileting Hygiene (QC): 6 (met 06/18/17) Toilet/Commode Transfer(FIM): 6 (met 06/18/17) Toilet/Commode Transfer (QC): 6 (6-MET) Shower Transfer(FIM): 5 (exceeded 06/18/17) Additional Goals: 1-Demonstrate ADL Tasks, 2-Verbalize Understanding, 3- ImproveStrength/Samanta 1=Demonstrate adherence to instructed precautions during ADL tasks. 2=Patient will verbalize/demonstrate understanding of assistive devices/ modifications for ADL. 3=Patient will improve strength/tolerance for activity to enable patient to perform ADL's. MABEL WHITT OT Jun 19, 2017 11:10
--- NOTE | 2017-06-28 08:12 | DISCHARGE SUMMARY ---
DATE OF SERVICE: HISTORY OF PRESENT ILLNESS: The patient is a 76-year-old female who lives with family and has a longstanding history of low back and hip pain. She had an evaluation on an outpatient basis with orthopedics and patient was found to have DJD of the right hip. The patient was admitted on 06/11/2017 underwent right total hip arthroplasty with Dr. Ariza. Postoperatively, she was admitted to the medical surgical unit. Her O2 sats dropped postoperatively she required supplemental O2. She had urinary retention postoperatively and a Gentile catheter was placed. She had a decline in functional independence. Therapies were begun and she was felt to be appropriate for inpatient rehabilitation unit. Her white count jumped to 16.4 and the patient was started on IV antibiotics for presumed UTI, but a urine culture was negative. Chest x-ray on 06/13/2017 showed interstitial fibrotic changes with no local consolidation. The patient was followed by Dr. Smith as well as PCP. PAST MEDICAL HISTORY: Hypothyroidism, arthritis. She has had cataract extraction, ovarian cyst removal, right rotator cuff repair, hysterectomy and bladder surgery. She lives with her spouse in [place], [place]. She was also found to have hyponatremia and placed on a fluid restriction postoperatively with improvement. She had electrolyte replacement for hypokalemia as well. She does have a history of scoliosis and stress incontinence. MEDICAL COURSE: The patient was normotensive and afebrile during her stay. She was weaned from O2. O2 sats were 91% on room air on 06/19/2017. Her pulse was 94, respirations 18, blood pressure 116/67. T-max 06/19/2017 was 99.8. CBC on 06/19/2017 showed WBC 12.5, H and H 10.9/34. Platelet count 508k. Chemistry on 06/19/2017 showed normal electrolytes, BUN and creatinine. Blood glucose mildly elevated at 106, albumin 3.3, total protein 6.9, normal liver function tests. Serum potassium was 4.3 on 06/19/2017. Serum sodium 139. Her incision was healing well. Medication was provided for postop constipation. Her sal were removed and incision was healing well. She was provided with Voltaren gel for additional pain control. She completed a course of antibiotics for the UTI. Upon admission, she had a low grade fever of 100.3 on 06/14/2017. She received one dose of IV antibiotics and this resolved. REHABILITATION COURSE: She progressed well with therapy. She had increased strength and endurance, decreased pain. She was assessed by speech therapy upon admission to rehab unit, found to be cognitively intact and they signed off. PT notes upon admission, she required mod assist for transfers, could ambulate on 25 feet with a front wheel walker with min assist and went up and down one step with min assist. Education on safe mobility and hip precautions were provided. She made quick and excellent progress and upon discharge she is modified independent for bed mobility, transfers and ambulation with a walker. OT notes upon admission, she required min assist for transfers, mod assist for toileting and bathing and max assist for lower body dressing. She made good progress with therapy and by discharge was completing lower body dressing with cues for use of adaptive equipment and all other ADLs and transfers with modified independence. The patient discharged to home with spouse. DISCHARGE INSTRUCTIONS: The patient is discharged to home with home health services. The patient will follow up with Dr. Smith and orthopedics as per their schedule. Continue current diet. DISCHARGE MEDICATIONS: Tylenol 5 mg p.o. 4 hours p.r.n. fever, headache. ASA 325 mg p.o. daily. Bethanechol 10 mg p.o. q.i.d. AC and at bedtime. Senokot-S 1 tablet p.o. b.i.d. Tramadol 50 mg p.o. q. 6 hours. Cetirizine 10 mg p.o. daily. Levothyroxine 25 mcg p.o. daily. Singulair 10 mg p.o. at bedtime. Omeprazole 20 mg p.o. daily. Simvastatin 20 mg p.o. at bedtime. DISCHARGE DIAGNOSES: 1. Rehabilitation, ambulatory dysfunction secondary to degenerative joint disease of the right hip, osteoarthritis of the right hip status post right total hip replacement by Dr. Ariza. Weightbearing as tolerated. 2. Stress incontinence. 3. Urinary retention, improved with meds. 4. Postop fever, resolved. 5. Hyponatremia, resolved. 6. Postop respiratory insufficiency, weaned and resolved. 7. Hypokalemia, compensated. 8. Hypothyroidism, on replacement. 9. Hyperlipidemia, on statin. 10. Scoliosis. 11. O2 dependence, weaned. CONDITION AT DISCHARGE: Improved and stable. PROGNOSIS: Rehab prognosis appears good for continued improvement at home. Return to independent living with spouse to assist as needed. Job ID: [id number] DocumentID: [id number] Dictated Date: 06/27/2017 16:27:38 Program Project Manager Date: 06/28/2017 08:12:17 Dictated By: BERNICE BLANCO MD MTDD
== END 2017-06-19 09:45 | disposition home health service (06) | DRG 560 ==
PROVIDERS: ADMIT Physical Medicine & Rehabilitation; ATTEND Physical Medicine & Rehabilitation
DX: Z47.1 Aftercare following joint replacement surgery (principal); Z96.641 Presence of right artificial hip joint; N39.3 Stress incontinence (female) (male); R33.9 Retention of urine, unspecified; E87.1 Hypo-osmolality and hyponatremia; R06.89 Other abnormalities of breathing; E87.6 Hypokalemia; E03.9 Hypothyroidism, unspecified; E78.5 Hyperlipidemia, unspecified; M41.9 Scoliosis, unspecified; Z99.81 Dependence on supplemental oxygen
CPT/HCPCS: 36415; 80053; 85025

== ENCOUNTER → 2017-09-02 | Outpatient (CLI) | payer MEDICARE, OTHER ==
[~2017-09-02] MED LIST changes: +ACET-77 PO; +BETH10TA PO
--- NOTE | 2017-09-04 09:48 | Diagnostic Imaging Report ---
EXAMINATION: Bilateral screening mammogram 2D views with tomosynthesis. The current study was also evaluated with a Computer Aided Detection (CAD) system. INDICATION: Screening. PERSONAL HISTORY: No current complaints stated on the questionnaire. COMPARISON: 09/04/2016. FINDINGS: The breasts are composed of heterogeneously dense parenchyma which may decrease mammographic sensitivity. There is benign-appearing calcification without significant change from the previous exams. Allowing for technique and positional differences, no suspicious change is seen. IMPRESSION: Dense breasts with no definite change. ACR BI-RADS Category 2: Benign findings. Result letter will be mailed to the patient. Note: At least 10% of breast cancer is not imaged by mammography. Dictated by: Dictated on workstation # [id number]
== END ==
LOC: RAD 09:51
PROVIDERS: ATTEND Nurse Practitioner Family
DX: Z12.31 Encounter for screening mammogram for malignant neoplasm of breast (principal)

== ENCOUNTER → 2018-04-07 | Outpatient (CLI) | payer MEDICARE, OTHER ==
[~2018-04-07] MED LIST changes: +RT-ALBUTEROL SULF 2.5 MG/3 ML PRE-MIX VIAL INH ONE
== END ==
LOC: RT 15:07
PROVIDERS: ATTEND Family Medicine
DX: J98.4 Other disorders of lung (principal)
CPT/HCPCS: 94060; 94726; 94729

== ENCOUNTER → 2018-04-24 | Outpatient (CLI) | payer MEDICARE, OTHER ==
[~2018-04-24] MED LIST changes: -RT-ALBUTEROL SULF 2.5 MG/3 ML PRE-MIX VIAL INH ONE
[2018-04-24 09:08] LABS: BUN/CREATININE RATIO 20; CREATININE SERUM 0.82 MG/DL (0.60-1.30); GFR ESTIMATED > 60
--- NOTE | 2018-04-24 10:48 | Diagnostic Imaging Report ---
PROCEDURE: CT angiography of the chest with contrast. TECHNIQUE: Multiple contiguous axial images were obtained through the chest after uneventful bolus administration of intravenous contrast. Reconstructed CTA MIP acquisitions were also performed. INDICATION: Interstitial lung disease and cough. Comparison is made with prior CT chest from 01/12/2014. Evaluation of the pulmonary arterial system is without evidence of thromboembolism. No definite filling defects are seen within the central, lobar or segmental branches. The thoracic aorta is normal caliber. No dissection is seen. No pericardial or pleural fluid is identified. No axillary lymphadenopathy is detected. No definite hilar or mediastinal lymphadenopathy is identified. Subpleural interstitial fibrotic changes have progressed since prior CT from 2013. There has been some increase in subpleural cystic changes bilaterally in the upper and lower lobes. No parenchymal consolidation is seen. No discrete parenchymal mass is identified. IMPRESSION: 1. No evidence of pulmonary and embolism or thoracic aortic dissection. 2. Progression of the interstitial fibrotic changes when compared with exam from 2014. No parenchymal mass or thoracic lymphadenopathy is identified. Dictated by: Dictated on workstation # [id number]
== END ==
LOC: RAD 08:24
PROVIDERS: ATTEND Nurse Practitioner Family
DX: J84.9 Interstitial pulmonary disease, unspecified (principal); R94.2 Abnormal results of pulmonary function studies; R05 Cough
CPT/HCPCS: 36415; 71275; 82565; 84520

== ENCOUNTER 2018-06-04 06:13 | Outpatient (CLI) | payer MEDICARE, OTHER ==
[~2018-06-04] VITALS: Ht 142.2 cm; Wt 45.4 kg
[2018-06-04] MEDS ORDERED: CETI10TA17 PO (13:04)
== END 2018-06-04 13:12 | disposition home or self-care (01) ==
LOC: PREOP 06:13
PROVIDERS: ATTEND Internal Medicine Critical Care Medicine
DX: Z01.818 Encounter for other preprocedural examination (principal)

== ENCOUNTER → 2018-06-05 | Day surgery (SDC) | payer MEDICARE, OTHER ==
[~2018-06-05] VITALS: Ht 142.2 cm; Wt 45.4 kg
[~2018-06-05] MED LIST changes: +LIDOCAINE JELLY 2% (XYLOCAINE) 30 ML TUBE TOP ONE; +LIDOCAINE PF 1% 5 ML SYRINGE (ANLIKER/BAILEY ONLY) INJ ONE; +LIDOCAINE PF 2% 5 ML (XYLOCAINE) VIAL INJ ONE; +MIDAZOLAM 2 MG/2 ML (VERSED) VIAL IVP ONE; +MIDAZOLAM 2 MG/2 ML (VERSED) VIAL ONE; +NS IV 500 ML 500 ML IV PRN; +NS IV 500 ML 500 ML ONE; +fentaNYL INJECTION 100 MCG/2 ML AMP IVP ONE; +fentaNYL INJECTION 100 MCG/2 ML AMP ONE
[2018-06-05 09:15] VITALS: BP 146/91
--- NOTE | 2018-06-05 09:47 | Progress Note-Pre Operative ---
Pre-Operative Progress Note H&P Reviewed The H&P was reviewed, patient examined and no changes noted. Time Seen by Provider: 09:46 Date H&P Reviewed: Jun 05, 2018 Time H&P Reviewed: 09:46 Pre-Operative Diagnosis: ILD KING ANNE DO Jun 05, 2018 09:47
--- NOTE | 2018-06-05 09:47 | Pre-Op Note & Conscious Sedat ---
Pre-Operative Progress Note H&P Reviewed The H&P was reviewed, patient examined and no changes noted. Date H&P Reviewed: Jun 05, 2018 Time H&P Reviewed: 09:47 Conscious Sedation Pre-Proced Time Reviewed: 09:46 ASA Class: 3 Airway Mallampati Classification: (elem appropriate class) I. II. III, IV Lungs Heart ASA score ASA 1: a normal healthy patient ASA 2: a patient with a mild systemic disease (mid diabetes, controlled hypertension, obesity ASA 3: a patient with a severe systemic disease that limits activity (angina , COPD, prior Myocardial infarction) ASA 4: a patient with an incapacitating disease that is a constant threat to life (CHF, renal failure) ASA 5: a moribund patient not expected to survive 24 hrs. (ruptured aneurysm) ASA 6: a declared brain patient whose organs are being harvested. For emergent operations, add the letter E after the classification Grade 2 Sedation Plan: Analgesia, Amnesia, Plan communicated to team members, Discussed options with patient/fam, Discussed risks with patient/fam Note The patient is an appropriate candidate to undergo the planned procedure, sedation, and anesthesia. The patient immediately re-assessed prior to indication. KING ANNE DO Jun 05, 2018 09:47
--- NOTE | 2018-06-05 09:48 | Pulmonary Procedures ---
Pulmonary Procedures Date of Procedure Date of Service: Jun 05, 2018 Bronch Bronchoscopy with bronchoalveolar lavage (BAL), transbronchial washes and, transbronchial brushes all from RML using fluoroscopy . Preop DX ILD Postop DX: same (No endobronchial mass) Complications: none After informed consent obtained and formal time out pt was sedated using Fentanyl and Versed. Bronchoscope was advanced through the nare and vocal cords. 1% lidocaine was used to anesthetize vocal cords, epiglottis, trinity, and left/right main stem bronchus. An anatomical tour was undertaken down to the segmental bronchi bilaterally. No endobronchial lesions noted. From the RML a bronchoalveolar lavage (BAL), transbronchial washes and, transbronchial brushes all from RML using fluoroscopy were obtained. Pt tolerated procedure well. No complications noted. Stat CXR is pending. KING ANNE DO Jun 05, 2018 09:48
[2018-06-05 11:00] VITALS: BP 132/80
[2018-06-05 11:30] VITALS: BP 146/91
--- NOTE | 2018-06-05 11:50 | Diagnostic Imaging Report ---
INDICATION: Status post bronchoscopy. TIME OF EXAM: 11:30 a.m. Correlation is made with prior study from 06/13/2017. FINDINGS: No pneumothorax is identified, status post bronchoscopy. There are interstitial changes in both lungs. No effusion is seen. The heart size is stable. IMPRESSION: No evidence of pneumothorax. Dictated by: Dictated on workstation # [id number]
[2018-06-05 11:53] VITALS: BP 146/91
== END | disposition home or self-care (01) ==
LOC: ENDO 08:56
PROVIDERS: ATTEND Internal Medicine Critical Care Medicine
DX: J84.9 Interstitial pulmonary disease, unspecified (principal); R06.00 Dyspnea, unspecified; R05 Cough; R94.2 Abnormal results of pulmonary function studies; J30.9 Allergic rhinitis, unspecified; G47.10 Hypersomnia, unspecified; K21.9 Gastro-esophageal reflux disease without esophagitis; Z79.899 Other long term (current) drug therapy
CPT/HCPCS: 71045; 87070; 87101; 87116; 87205; 88112; 88305; 88312

== ENCOUNTER 2018-06-19 09:00 | Outpatient (RCR) | payer MEDICARE, OTHER ==
[2018-05-13 09:00] VITALS: BP 136/60
[2018-05-13 10:00] VITALS: BP 150/60
[2018-05-15 09:00] VITALS: BP 140/70
[2018-05-15 10:00] VITALS: BP 119/40
[2018-05-20 09:00] VITALS: BP 140/50
[2018-05-20 10:00] VITALS: BP 140/50
[2018-05-22 08:50] VITALS: BP 130/40
[2018-05-22 09:46] VITALS: BP 150/60
[2018-05-27 08:55] VITALS: BP 121/60
[2018-05-27 10:05] VITALS: BP 125/65
[2018-05-29 08:50] VITALS: BP 120/60
[2018-05-29 10:03] VITALS: BP 150/70
[2018-06-12 09:00] VITALS: BP 131/62
[2018-06-12 09:54] VITALS: BP 110/60
[2018-06-17 10:00] VITALS: BP 140/62
[2018-06-19 08:53] VITALS: BP 135/60
[~2018-06-19 09:00] MED LIST changes: -LIDOCAINE JELLY 2% (XYLOCAINE) 30 ML TUBE TOP ONE; -LIDOCAINE PF 1% 5 ML SYRINGE (ANLIKER/BAILEY ONLY) INJ ONE; -LIDOCAINE PF 2% 5 ML (XYLOCAINE) VIAL INJ ONE; -MIDAZOLAM 2 MG/2 ML (VERSED) VIAL IVP ONE; -MIDAZOLAM 2 MG/2 ML (VERSED) VIAL ONE; -NS IV 500 ML 500 ML IV PRN; -NS IV 500 ML 500 ML ONE; -fentaNYL INJECTION 100 MCG/2 ML AMP IVP ONE; -fentaNYL INJECTION 100 MCG/2 ML AMP ONE
[2018-06-19 09:59] VITALS: BP 140/50
== END 2018-07-27 | disposition home or self-care (01) ==
LOC: PULM 09:00
PROVIDERS: ATTEND Nurse Practitioner Family
DX: J84.9 Interstitial pulmonary disease, unspecified (principal); R94.2 Abnormal results of pulmonary function studies
CPT/HCPCS: 99211

== ENCOUNTER → 2018-07-11 | Outpatient (CLI) | payer MEDICARE, OTHER ==
[~2018-07-11] MED LIST changes: +RT-ALBUTEROL SULF 2.5 MG/3 ML PRE-MIX VIAL INH ONE; +RT-ALBUTEROL SULF 2.5 MG/3 ML PRE-MIX VIAL ONE
== END ==
LOC: RT 07:58
PROVIDERS: ATTEND Internal Medicine
DX: J84.9 Interstitial pulmonary disease, unspecified (principal)
CPT/HCPCS: 94060; 94726; 94729

== ENCOUNTER → 2019-02-09 | Outpatient (CLI) | payer MEDICARE, OTHER ==
[~2019-02-09] MED LIST changes: -RT-ALBUTEROL SULF 2.5 MG/3 ML PRE-MIX VIAL INH ONE; -RT-ALBUTEROL SULF 2.5 MG/3 ML PRE-MIX VIAL ONE
--- NOTE | 2019-02-09 15:53 | Diagnostic Imaging Report ---
INDICATION: Fall with back pain. Time of exam 1:03 p.m. FINDINGS: Three views of the lumbar spine were obtained. There is left convexity lumbar scoliotic curvature. Minimal anterolisthesis of L4 on L5 is noted. Vertebral body heights appear to be fairly well-maintained. No definite acute compression fracture is identified. There is generalized degenerative disc disease with variable disc space narrowing and marginal spurring. Aorta shows atherosclerotic calcifications. IMPRESSION: Lumbar spondylosis and scoliosis. No acute bony abnormality is detected. Dictated by: Dictated on workstation # [id number]
--- NOTE | 2019-02-09 16:02 | Diagnostic Imaging Report ---
INDICATION: Fall with right hip pain. Time of exam 1:05 p.m. FINDINGS: Two views of the right hip demonstrate postop changes of total hip arthroplasty. Prosthetic elements appear to be in good position. Femoral acetabular alignment is normal. No fractures are seen. IMPRESSION: No acute bony abnormality is detected. Dictated by: Dictated on workstation # [id number]
--- NOTE | 2019-02-09 16:08 | Diagnostic Imaging Report ---
INDICATION: Fall and tailbone pain. Time of exam 1:04 p.m. TECHNIQUE: Frontal and lateral views of the sacrum and coccyx were performed. FINDINGS: Sacrococcygeal alignment is normal. Sacrum is obscured on the frontal views due to overlying bowel gas. SI joints are non-widened. Symphysis is unremarkable. No fractures are seen. IMPRESSION: No acute abnormality is detected. Dictated by: Dictated on workstation # [id number]
== END ==
LOC: RAD 12:33
PROVIDERS: ATTEND Nurse Practitioner Family
DX: M47.816 Spondylosis without myelopathy or radiculopathy, lumbar region (principal); M41.86 Other forms of scoliosis, lumbar region; M53.3 Sacrococcygeal disorders, not elsewhere classified; M25.551 Pain in right hip; W19.XXXA Unspecified fall, initial encounter; Z96.641 Presence of right artificial hip joint
CPT/HCPCS: 72100; 72220; 73502

== ENCOUNTER → 2019-02-11 | Outpatient (CLI) | payer MEDICARE, OTHER ==
--- NOTE | 2019-02-11 12:48 | Diagnostic Imaging Report ---
EXAMINATION: Thoracic spine at 11:34 a.m. INDICATION: Back pain. Thoracic spine. AP, lateral, and swimmer's views were obtained. FINDINGS: There are no prior thoracic spine examinations available for comparison. The AP view does show mild dextroscoliosis of the lower thoracic spine. This finding seems similar to the prior chest exam of 06/13/2017. On the lateral view, there does seem to be a mild compression deformity of the superior endplate of one of the lower-most thoracic vertebrae, probably T12. This finding was not present on the previous chest exam nor was it visualized on the lumbar spine exam of 02/09/2019. There may also be mild compression deformities of L2 and L3. The osseous structures are demineralized and difficult to evaluate. I would recommend that MRI be performed for further study. No other fracture or acute bony abnormality is appreciated. There is no sign of a paraspinal mass. IMPRESSION: 1. The findings are suspicious for a mild acute/subacute compression deformity involving the superior endplate of T12. There may also be acute/subacute compression fractures of L2 and L3. Recommendations as above. 2. There is no acute bony abnormality noted otherwise. Dictated by: Dictated on workstation # [id number]
== END ==
LOC: RAD 11:11
PROVIDERS: ATTEND Family Medicine
DX: M41.84 Other forms of scoliosis, thoracic region (principal); M43.8X4 Other specified deforming dorsopathies, thoracic region; M81.0 Age-related osteoporosis without current pathological fracture; W19.XXXA Unspecified fall, initial encounter
CPT/HCPCS: 72072

== ENCOUNTER → 2019-02-19 | Outpatient (CLI) | payer MEDICARE, OTHER ==
--- NOTE | 2019-02-19 16:05 | Diagnostic Imaging Report ---
There is right convexity thoracic scoliotic curvature. There is normal kyphotic curvature. Abnormal marrow signal is identified throughout the T11 vertebral body. There appears to be an acute fracture through the superior endplate of the T11 vertebral body with slight anterior and central compression. Remaining thoracic vertebrae show normal height and signal intensity. No geographic marrow lesion is seen. There is generalized degenerative disc disease with variable disc space narrowing and desiccation. Thoracic cord demonstrates normal signal intensity. Small midline disc bulge T9-10 level is seen but no central canal or neural foraminal narrowing is detected. Some mild disc/osteophyte complex indenting the ventral thecal sac at the T10-11 level. T11 levels without evidence of retropulsed fragment. Paraspinous tissues are unremarkable. Impression: Acute T11 compression fracture without evidence of retropulsion. Dictated by: Dictated on workstation # [id number]
== END ==
LOC: RAD 13:06
PROVIDERS: ATTEND Nurse Practitioner Family
DX: S22.080A Wedge compression fracture of T11-T12 vertebra, initial encounter for closed fracture (principal)
CPT/HCPCS: 72146

== ENCOUNTER → 2019-02-24 | Outpatient (CLI) | payer MEDICARE, OTHER | LOC: PULM 08:35 | PROVIDERS: ATTEND Registered Nurse | DX: J84.9 Interstitial pulmonary disease, unspecified (principal) | CPT/HCPCS: 94621 ==

== ENCOUNTER → 2019-04-14 | Outpatient (CLI) | payer MEDICARE, OTHER ==
--- NOTE | 2019-04-14 12:17 | Diagnostic Imaging Report ---
INDICATION: Screening for osteoporosis. COMPARISON: 02/03/2010 FINDINGS: The previous DEXA scan of 02/03/2010 is not available for direct comparison at this time. That study noted that the total T score for the spine was -1.9 and that the T score for the right hip was -0.9 and for the left hip -1.4. On this study, the T score for the spine is now -2.4. This does indicate severe osteopenia. The T score for the left femoral neck is -2.1 and this indicates osteopenia as well. However, the total T score for the left hip is -2.9 and this value falls within the range of osteoporosis. The right hip was not evaluated as there is now a total hip prosthesis in place. AP Spine L1-L4: [BMD (g/cm2): 0.910] [T-Score: -2.4] [Z-Score: 0.2] [BMD Previous: 0.948] [BMD % Change: -4.0] LT Hip Neck: [BMD (g/cm2): 0.751] [T-Score: -2.1] [Z-Score: 0.6] LT Hip Total: [BMD (g/cm2):0.638] [T-Score:-2.9] [Z-Score: -0.4] [BMD Previous: 0.837] [BMD % Change: -23.8] RT Hip Neck: [BMD (g/cm2):N/A] [T-Score:N/A] [Z-Score:N/A] RT Hip Total: [BMD (g/cm2):N/A] [T-score:N/A] [Z-Score:N/A] [BMD Previous:N/A] [BMD % Change:N/A] *Indicates significant change from prior examination based on 95% confidence level. World Health Organization criteria for BMD interpretation classify patients as Normal (T-score at or above -1.0), Osteopenic (T-score between -1.0 and -2.5) or Osteoporotic (T-score at or below -2.5). LIMITATIONS AND MODIFICATION: None. FRACTURE RISK (FRAX SCORE): The ten year probability of (%): Major Osteoporotic Fracture: [N/A] Hip Fracture: [N/A] IMPRESSION: 1. The bone mineral density of the spine has decreased since the prior exam and the T score now indicates severe osteopenia. There is also osteopenia of the left femoral neck and osteoporosis of the left hip. 2. Bone mineral density of the right hip could not be calculated due to the presence of a total hip prosthesis. 3. See below National Osteoporosis Foundation guidelines on when to potentially initiate pharmacologic therapy. Based on the National Osteoporosis Foundation Guidelines, pharmacologic treatment should be initiated in any of the following, unless clinical conditions suggest otherwise: * Any patient with prior fragility fracture of the hip or vertebrae. A spine fracture indicates 5X risk for subsequent spine fracture and 2X risk for subsequent hip fracture. * Osteoporosis (T-score <-2.5). * Postmenopausal women and men age 50 and older with low bone mass/osteopenia (T-score between -1.0 and -2.5) by DXA and 10-year major osteoporotic fracture greater than 20% or a 10-year probability of hip fracture greater than 3%. These fracture risks are supplied above in the FRAX score, if applicable. * Clinician judgement and/or patient preferences may indicate treatment for people with 10-year fracture probabilities above or below these levels. Dictated by: Dictated on workstation # [id number]
== END ==
LOC: RAD 11:11
PROVIDERS: ATTEND Nurse Practitioner Family
DX: Z13.820 Encounter for screening for osteoporosis (principal); M81.0 Age-related osteoporosis without current pathological fracture; M85.88 Other specified disorders of bone density and structure, other site
CPT/HCPCS: 77080

== ENCOUNTER → 2019-06-18 | Outpatient (CLI) | payer MEDICARE, OTHER ==
[~2019-06-18] VITALS: Ht 152.4 cm; Wt 40.0 kg
[~2019-06-18] MED LIST changes: +DENOSUMAB 60 MG/1 ML (PROLIA) SQ ONE
[2019-06-18 15:34] VITALS: BP 148/84
== END ==
LOC: SDC 12:26
PROVIDERS: ATTEND Nurse Practitioner Family
DX: M81.0 Age-related osteoporosis without current pathological fracture (principal)
CPT/HCPCS: 96372

== ENCOUNTER → 2019-08-21 | Outpatient (CLI) | payer MEDICARE, OTHER ==
[~2019-08-21] MED LIST changes: -DENOSUMAB 60 MG/1 ML (PROLIA) SQ ONE; +GADOBUTROL 7.5 MMOL/7.5 ML (GADAVIST) VIAL IV ONE
--- NOTE | 2019-08-21 11:46 | Diagnostic Imaging Report ---
MRI brain with and without contrast Technique: Multiplanar, multisequence MRI of the brain was performed with and without contrast. Indication: Memory loss. Comparison: CT head, 09/08/2011. Findings: The diffusion series demonstrates no restriction to suggest acute ischemia. There is no MR evidence of acute intracranial hemorrhage. There is no evidence of intracranial mass effect or shift. Age-appropriate global cerebral volume loss is demonstrated. There are mild background chronic microvascular ischemic changes demonstrated within the subcortical and periventricular white matter. Bernardo and white matter signal characteristics are otherwise unremarkable. There is no abnormal extra-axial fluid collection. The ventricles are appropriate in size and configuration. The basilar cisterns are patent. Pituitary gland and pineal region appear normal. There is normal alignment of the craniocervical junction. No acute posterior fossa abnormality is demonstrated. The cerebellopontine angles are unremarkable. There is no evidence of pathologic intracranial enhancement. The mastoids are clear. The paranasal sinuses are clear. The orbital contents are unremarkable. Expected arterial and dural venous sinus flow voids appear preserved. Impression: 1. No MR evidence of an acute intracranial abnormality. There is no evidence of acute ischemia, hemorrhage, intracranial mass effect, hydrocephalus, or pathologic intracranial enhancement. 2. Age-appropriate global cerebral volume loss. Mild background chronic microvascular ischemic changes are demonstrated throughout the white matter. Dictated by: Dictated on workstation # [id number]
== END ==
LOC: RAD 10:42
PROVIDERS: ATTEND Family Medicine
DX: I67.82 Cerebral ischemia (principal); R90.82 White matter disease, unspecified; G93.89 Other specified disorders of brain
CPT/HCPCS: 70553

== ENCOUNTER → 2020-06-28 | Outpatient (CLI) | payer MEDICARE, OTHER ==
[~2020-06-28] MED LIST changes: -ACET-77 PO; +ACET-78 PO; -GADOBUTROL 7.5 MMOL/7.5 ML (GADAVIST) VIAL IV ONE; -MONT10TA24 PO; +MONT10TA26 PO; +SIMV20TA26 PO; -TRAM50TA2 PO; +TRM50T PO
--- NOTE | 2020-06-28 09:28 | Diagnostic Imaging Report ---
PROCEDURE: CT chest without contrast. TECHNIQUE: Multiple contiguous axial images were obtained through the chest without the use of intravenous contrast. Auto Exposure Controls were utilized during the CT exam to meet ALARA standards for radiation dose reduction. INDICATION: Cough COMPARISON: 04/24/2018 FINDINGS: No significant adenopathy within the chest, the evaluation is limited secondary to lack of intravenous contrast. Mild scattered vascular calcifications within the thoracic aorta and its branch vessels without aneurysmal dilatation of the thoracic aorta. The heart is mildly enlarged. No significant pericardial effusion. No pleural effusion. No pneumothorax. Advanced background interstitial lung changes are again noted with fibrotic changes noted throughout the lungs, particularly within the periphery of the lungs. No new focal pulmonary consolidation or pulmonary mass lesion. Mild bronchiectatic changes. The visualized upper abdomen is unremarkable. Vertebroplasty changes within the lower thoracic spine. Scattered osseous degenerative changes. Postsurgical changes within the right shoulder. No acute osseous abnormality. IMPRESSION: Advanced background interstitial lung disease with a peripheral distribution, slightly progressive since 2018. No superimposed acute cardiopulmonary abnormality. Additional chronic and postsurgical changes as above. Dictated by: Dictated on workstation # [id number]
--- NOTE | 2020-06-28 09:52 | Diagnostic Imaging Report ---
INDICATION: Postmenopausal state COMPARISON: 04/14/2019 FINDINGS: AP Spine L1-L4: [BMD (g/cm2): 1.047] [T-Score: -1.3] [Z-Score: 1.2] [BMD Previous: 0.910] [BMD % Change: 15.1] LT Hip Neck: [BMD (g/cm2): 0.784] [T-Score: -1.8] [Z-Score: 0.7] LT Hip Total: [BMD (g/cm2):0.705] [T-Score:-2.4] [Z-Score: 0.1] [BMD Previous: 0.638] [BMD % Change: 10.5] RT Hip Neck: [BMD (g/cm2):NA] [T-Score:NA] [Z-Score:NA] RT Hip Total: [BMD (g/cm2):NA] [T-score:NA] [Z-Score:NA] [BMD Previous:NA] [BMD % Change:NA] *Indicates significant change from prior examination based on 95% confidence level. World Health Organization criteria for BMD interpretation classify patients as Normal (T-score at or above -1.0), Osteopenic (T-score between -1.0 and -2.5) or Osteoporotic (T-score at or below -2.5). LIMITATIONS AND MODIFICATION: The right hip was not evaluated secondary to postsurgical changes. Significant apex left curvature of the lumbar spine. FRACTURE RISK (FRAX SCORE): The ten year probability of (%): Major Osteoporotic Fracture: [18.3] Hip Fracture: [4.9] IMPRESSION: 1. Osteopenia (Low bone mass). 2. No significant change in bone mineral density since prior examination. 3. See below National Osteoporosis Foundation guidelines on when to potentially initiate pharmacologic therapy. Based on the National Osteoporosis Foundation Guidelines, pharmacologic treatment should be initiated in any of the following, unless clinical conditions suggest otherwise: * Any patient with prior fragility fracture of the hip or vertebrae. A spine fracture indicates 5X risk for subsequent spine fracture and 2X risk for subsequent hip fracture. * Osteoporosis (T-score <-2.5). * Postmenopausal women and men age 50 and older with low bone mass/osteopenia (T-score between -1.0 and -2.5) by DXA and 10-year major osteoporotic fracture greater than 20% or a 10-year probability of hip fracture greater than 3%. These fracture risks are supplied above in the FRAX score, if applicable. * Clinician judgement and/or patient preferences may indicate treatment for people with 10-year fracture probabilities above or below these levels. Dictated by: Dictated on workstation # [id number]
== END ==
LOC: RAD 08:51
PROVIDERS: ATTEND Internal Medicine Critical Care Medicine
DX: Z13.820 Encounter for screening for osteoporosis (principal); J67.8 Hypersensitivity pneumonitis due to other organic dusts; Z78.0 Asymptomatic menopausal state
CPT/HCPCS: 71250; 77080

== ENCOUNTER 2020-10-31 12:09 | Outpatient (RCR) | payer MEDICARE, OTHER ==
[~2020-10-31 12:09] MED LIST changes: -MONT10TA26 PO; +MONT10TA32 PO
[2020-10-31 12:36] LABS: HEMOGLOBIN 13.8 g/dL (11.5-16.0); MEAN PLATELET VOLUME 8.9 fL (9.0-12.2); WHITE BLOOD COUNT 8.6 10^3/uL (4.3-11.0)
[2020-10-31 12:51] LABS: ALANINE AMINOTRANSFERASE 18 U/L (0-55); ALBUMIN 4.2 GM/DL (3.2-4.5); ALKALINE PHOSPHATASE 61 U/L (40-136); BILIRUBIN,TOTAL 0.2 MG/DL (0.1-1.0); BUN/CREATININE RATIO 13; CALCIUM 9.6 MG/DL (8.5-10.1); CARBON DIOXIDE 24 MMOL/L (21-32); CHLORIDE 103 MMOL/L (98-107); CREATININE SERUM 0.76 MG/DL (0.60-1.30); GFR ESTIMATED > 60; GLUCOSE 95 MG/DL (70-105); MAGNESIUM 2.2 MG/DL (1.6-2.4); POTASSIUM 4.4 MMOL/L (3.6-5.0); SODIUM 138 MMOL/L (135-145); TOTAL PROTEIN 7.6 GM/DL (6.4-8.2)
--- NOTE | 2020-10-31 13:07 | Diagnostic Imaging Report ---
INDICATION: Back pain Lumbar spine There is a scoliotic curvature of the lumbar spine convex to the left. There is grade 1 spondylolisthesis at L4-L5. There appears be some disc space narrowing at L2-L3 and L3-L4. There are no compression fractures. IMPRESSION: Scoliosis. Degenerative changes. Grade 1 spondylolisthesis L4-L5. No compression fractures seen. Dictated by: Dictated on workstation # [id number]
--- NOTE | 2020-10-31 13:56 | Diagnostic Imaging Report ---
INDICATION: Neck pain Cervical spine AP and lateral views of the cervical spine were obtained. There is a slight spondylolisthesis at C4-C5. There is slight retrolisthesis of C3 on C4 and C5 on C6. There is disc space narrowing at C3-C4, C5-C6 and slightly at C6-C7. There is no prevertebral soft tissue swelling. There are no fractures. The odontoid is intact. IMPRESSION: Severe degenerative disc changes from C3 through C6. At C4-C5, the disc space appears slightly widened with grade 1 spondylolisthesis. This could be compensatory but some ligamentous injury cannot be excluded given the history of trauma. Dictated by: Dictated on workstation # [id number]
--- NOTE | 2020-10-31 14:06 | Diagnostic Imaging Report ---
INDICATION: Back pain following a coughing episode. Thoracic spine There appears to be generalized osteopenia. Vertebral alignment is normal. There are no obvious compression fractures. Patient has had a kyphoplasty in the lower thoracic spine at T12. IMPRESSION: No acute abnormality seen in the thoracic spine. There is scoliosis of the thoracic spine convex to the right. Dictated by: Dictated on workstation # [id number]
== END 2021-01-29 | disposition home or self-care (01) ==
LOC: RAD 12:09 → EDSTATUS 12:10
PROVIDERS: ATTEND Family Medicine
DX: J67.8 Hypersensitivity pneumonitis due to other organic dusts (principal); M47.816 Spondylosis without myelopathy or radiculopathy, lumbar region; M50.31 Other cervical disc degeneration, high cervical region; M50.321 Other cervical disc degeneration at C4-C5 level; M50.322 Other cervical disc degeneration at C5-C6 level; M41.86 Other forms of scoliosis, lumbar region; M43.12 Spondylolisthesis, cervical region; R06.02 Shortness of breath
CPT/HCPCS: 36415; 72040; 72072; 72100; 80053; 83735; 85027

== ENCOUNTER → 2020-12-08 | Outpatient (CLI) | payer MEDICARE, OTHER ==
--- NOTE | 2020-12-08 13:04 | Diagnostic Imaging Report ---
Indication: Shortness of breath on exertion. Time of exam 9:44 AM Comparison is made with prior chest from 06/07/2018. Heart size stable. There are interstitial changes in the periphery of the lungs bilaterally, likely owing to fibrosis. There is no consolidation. No effusion or pneumothorax is detected. IMPRESSION: Interstitial fibrotic changes. No acute features detected. Dictated by: Dictated on workstation # [id number]
== END ==
LOC: RAD 09:24
PROVIDERS: ATTEND Internal Medicine Critical Care Medicine
DX: J67.8 Hypersensitivity pneumonitis due to other organic dusts (principal); J84.170 Interstitial lung disease with progressive fibrotic phenotype in diseases classified elsewhere; R91.8 Other nonspecific abnormal finding of lung field
CPT/HCPCS: 71046

== ENCOUNTER → 2021-07-25 | Outpatient (CLI) | payer MEDICARE, OTHER ==
--- NOTE | 2021-07-25 11:04 | Diagnostic Imaging Report ---
INDICATION: Chronic back pain. COMPARISON: 10/31/2020 thoracic spine. FINDINGS: There is moderate S type scoliosis. There is an old treated kyphoplasty compression fracture of T12. No acute fractures are demonstrated. The pedicles are intact throughout. Moderate degenerative changes are noted. IMPRESSION: Scoliosis with old treated compression fracture of T12. No acute fractures are seen. Dictated by: Dictated on workstation # [id number]
--- NOTE | 2021-07-25 11:10 | Diagnostic Imaging Report ---
INDICATION: Low back pain. EXAMINATION: Lumbar spine. FINDINGS: AP and lateral views of the lumbar spine show a very slight spondylolisthesis at L4-L5. There is a scoliotic curvature of the lumbar spine, convex to the left. There appears to be some disc space narrowing at L3-L4. There is some lateral disc space narrowing on the concave side of each of the lumbar disc spaces. IMPRESSION: Scoliosis. Degenerative disc changes related to the curvature, most pronounced at L3-L4. There is very slight spondylolisthesis at L4-L5. There is no acute abnormality seen. Dictated by: Dictated on workstation # [id number]
== END ==
LOC: RAD 10:14
PROVIDERS: ATTEND Family Medicine
DX: M47.816 Spondylosis without myelopathy or radiculopathy, lumbar region (principal); M51.36 Other intervertebral disc degeneration, lumbar region; M41.84 Other forms of scoliosis, thoracic region; M41.86 Other forms of scoliosis, lumbar region; Z87.311 Personal history of (healed) other pathological fracture
CPT/HCPCS: 72072; 72100

== ENCOUNTER → 2021-09-22 | Outpatient (CLI) | payer MEDICARE, OTHER ==
[~2021-09-22] MED LIST changes: +MONT-40 PO; -MONT10TA32 PO
--- NOTE | 2021-09-22 12:17 | Diagnostic Imaging Report ---
Digital mammogram bilateral screening COMPARISON: This study was compared to the prior exam of 09/02/2017. At this time, there are no current complaints. The current study was also evaluated with a Computer Aided Detection (CAD) system. FINDINGS: The fibroglandular tissue in both breasts is heterogeneously dense. This does limit the sensitivity of this exam. Overall, there does not appear to have been any significant change when compared to the prior study. No primary or secondary sign of malignancy is noted. IMPRESSION: There is no radiographic evidence for malignancy. ACR category 1 ACR BI-RADS Category 1: Negative. Result letter will be mailed to the patient. Note: At least 10% of breast cancer is not imaged by mammography. Dictated by: Dictated on workstation # [id number]
== END ==
LOC: RAD 09:24
PROVIDERS: ATTEND Nurse Practitioner Family
DX: Z12.31 Encounter for screening mammogram for malignant neoplasm of breast (principal)
CPT/HCPCS: 77063; 77067

== ENCOUNTER → 2021-11-07 | Outpatient (CLI) | payer MEDICARE, OTHER ==
[~2021-11-07] MED LIST changes: +RT-ALBUTEROL SULF 2.5 MG/3 ML PRE-MIX VIAL INH ONE
== END ==
LOC: RT 10:45
PROVIDERS: ATTEND Internal Medicine Critical Care Medicine
DX: J84.112 Idiopathic pulmonary fibrosis (principal)
CPT/HCPCS: 94060; 94726; 94729

== ENCOUNTER 2021-12-14 14:58 | Inpatient (IN) | payer MEDICARE, OTHER ==
[~2021-12-14] VITALS: Ht 152 cm; Wt 40.3 kg
[~2021-12-14 14:58] MED LIST changes: -RT-ALBUTEROL SULF 2.5 MG/3 ML PRE-MIX VIAL INH ONE
[2021-12-14 15:16] LABS: BASOPHILS % (AUTO) 0 % (0-10); EOSINOPHILS # (AUTO) 0.1 10^3/uL (0.0-0.3); EOSINOPHILS % (AUTO) 1 % (0-10); HEMATOCRIT 40 % (35-52); HEMOGLOBIN 12.9 g/dL (11.5-16.0); LYMPHOCYTES # (AUTO) 1.2 10^3/uL (1.0-4.0); LYMPHOCYTES % (AUTO) 15 % (12-44); MEAN CORPUSCULAR HEMOGLOBIN 30 pg (25-34); MEAN CORPUSCULAR HGB CONC 32 g/dL (32-36); MEAN CORPUSCULAR VOLUME 94 fL (80-99); MEAN PLATELET VOLUME 9.5 fL (9.0-12.2); MONOCYTES # (AUTO) 0.4 10^3/uL (0.0-1.0); MONOCYTES % (AUTO) 5 % (0-12); NEUTROPHILS % (AUTO) 78 % (42-75); PLATELET COUNT 244 10^3/uL (130-400); WHITE BLOOD COUNT 7.7 10^3/uL (4.3-11.0)
[2021-12-14] MEDS ORDERED: NS IV 1000 ML 1,000 ML ONE ×2 (15:16→19:37)
[2021-12-14] MEDS ORDERED: ACETAMINOPHEN 500 MG TAB (TYLENOL) ONE (15:16)
[2021-12-14] MEDS ORDERED: ACETAMINOPHEN 650 MG SUPP (TYLENOL) ONE (15:27)
[2021-12-14] MEDS ORDERED: ACETAMINOPHEN 325 MG SUPP (TYLENOL) ONE (15:27)
[2021-12-14 15:49] LABS: ALBUMIN 3.7 GM/DL (3.2-4.5)
[2021-12-14 15:50] LABS: POTASSIUM 4.3 MMOL/L (3.6-5.0)
[2021-12-14 15:51] LABS: CALCIUM 9.6 MG/DL (8.5-10.1)
[2021-12-14 15:51] LABS: BILIRUBIN,URINE NEGATIVE (NEGATIVE); CLARITY,URINE CLEAR; COLOR,URINE YELLOW; GLUCOSE, URINE (UA) NEGATIVE (NEGATIVE); KETONES,URINE NEGATIVE (NEGATIVE); LEUKOCYTE ESTERASE ,URINE TRACE (NEGATIVE); NITRITE,URINE NEGATIVE (NEGATIVE); PROTEIN,URINE NEGATIVE (NEGATIVE)
[2021-12-14 15:52] LABS: TOTAL PROTEIN 7.7 GM/DL (6.4-8.2)
[2021-12-14 15:54] LABS: BILIRUBIN,TOTAL 0.4 MG/DL (0.1-1.0); PROTHROMBIN TIME PATIENT 13.7 SEC (12.2-14.7)
[2021-12-14 15:56] LABS: CREATININE SERUM 0.72 MG/DL (0.60-1.30)
--- NOTE | 2021-12-14 15:59 | Diagnostic Imaging Report ---
INDICATION: Pulmonary fibrosis. COMPARISON: 12/08/2020. FINDINGS: Single frontal radiographic view of the chest was obtained and demonstrates interval progression of diffuse coarse interstitial thickening. Lungs show somewhat low inspiratory volumes. There is no large effusion or pneumothorax. Cardiac silhouette is mildly enlarged. Pulmonary vasculature is within normal limits. Osseous structures show no acute abnormalities. IMPRESSION: 1. Interval progression of diffuse coarse interstitial prominence. Findings could be on the basis of progression of chronic interstitial lung disease. Acute interstitial pneumonia or edema superimposed on background chronic lung disease is also consideration. Dictated by: Dictated on workstation # [id number]
[2021-12-14 16:01] LABS: BACTERIA,URINE NEGATIVE /HPF; RBC,URINE 0-2 /HPF; WBC,URINE 0-2 /HPF
--- NOTE | 2021-12-14 16:07 | ED General ---
General Chief Complaint: Fever-Adult/Adol Stated Complaint: LETHARGIC Nursing Triage Note: PT TO RM 7 BY WHEELCHAIR WITH COMPLAINT OF LOW OXYGEN, FEVER. PT WENT TO DR ANGEL LUIS CARRANZA AND THOUGHT TO HAVE SINUS INFECTION. PRESCRIBED ANTIBIOTIC. DAUGHTER STATES PT WAS BETTER YESTERDAY AND WORSE TODAY. STATES MORE CONFUSED. PT IS COMPLAINING OF HEADACHE. DENIES SICK CONTACTS. 74% ON RA ON ARRIVAL. (STEVEN SHELTON) History of Present Illness Date Seen by Provider: Dec 14, 2021 Time Seen by Provider: 15:00 Initial Comments 81-year-old female brought for worsening of symptoms. Earlier this week she was evaluated by her primary care provider and diagnosed with a sinus infection. She was started on cefdinir and given steroids. Her and daughter report that she has gotten worse and is lethargic with confusion at times. Patient has a history of pulmonary fibrosis and uses oxygen at all times. Timing/Duration: 3-4 Days Associated Systoms: Cough, Fever/Chills, Headaches (chronic); No Loss of Appetite; Malaise; No Nausea/Vomiting, No Rash, No Seizure; Shortness of Air (chronic); No Syncope; Weakness (STEVEN SHELTON) Allergies and Home Medications Allergies Coded Allergies: sulfamethoxazole (Verified Allergy, Mild, RASH, 06/04/18) trimethoprim (Verified Allergy, Mild, RASH, 06/04/18) Patient Home Medication List Home Medication List Reviewed: Yes (STEVEN SHELTON) Cetirizine HCl (Cetirizine HCl) 10 Mg Tablet, 10 MG PO DAILY, (Reported) Entered as Reported by: GUICHO SYED on 06/04/18 1304 Levothyroxine Sodium (Levothyroxine Sodium) 25 Mcg Tablet, 25 MCG PO DAILY, (Reported) Entered as Reported by: LOPEZ COBB on 05/28/17 09 Montelukast Sodium (Montelukast Sodium) 10 Mg Tablet, 10 MG PO HS, (Reported) Entered as Reported by: LOPEZ COBB on 05/28/17 09 Omeprazole (Omeprazole) 20 Mg Tablet.dr, 20 MG PO DAILY, (Reported) Entered as Reported by: AMANDA BRITO on 06/11/17 1425 Simvastatin (Simvastatin) 20 Mg Tablet, 20 MG PO HS, (Reported) Entered as Reported by: AMANDA BRITO on 06/11/17 8640 Review of Systems Review of Systems Constitutional: see HPI, fever, malaise, weakness Respiratory: see HPI, phlegm, short of breath (chronic) Cardiovascular: no symptoms reported, see HPI Genitourinary: no symptoms reported, see HPI Musculoskeletal: no symptoms reported, see HPI Skin: no symptoms reported, see HPI (STEVEN SHELTON) All Other Systems Reviewed Negative Unless Noted: Yes (STEVEN SHELTON) Past Sobsnga-Cojswc-Ibknvx Hx Patient Social History Tobacco Use?: No Use of E-Cig and/or Vaping dev: No Substance use?: No Alcohol Use?: No Pt feels they are or have been: No (STEVEN SHELTON) Immunizations Up To Date Tetanus Booster (TDap): Unknown Influenza Vaccine Up-to-Date: Yes; Up-to-Date First/Initial COVID19 Vaccinat: 2020 Second COVID19 Vaccination Manjeet: 2020 (STEVEN SHELTON) Seasonal Allergies Seasonal Allergies: Yes (STEVEN SHELTON) Past Medical History Surgeries: Yes (ovarian cyst x2, R rotator cuff) Hysterectomy Respiratory: No Currently Using CPAP: No Currently Using BIPAP: No Cardiac: No High Cholesterol Neurological: No Reproductive Disorders: No Sexually Transmitted Disease: No HIV/AIDS: No Genitourinary: No Gastrointestinal: No Gastroesophageal Reflux Musculoskeletal: Yes Arthritis, Scoliosis Endocrine: Yes HEENT: Yes (cataracts removed) Loss of Vision: Bilateral Hearing Impairment: Denies Cancer: No Psychosocial: No Integumentary: No Blood Disorders: No Adverse Reaction/Blood Tranf: No (N/A) (STEVEN SHELTON) Family Medical History Reviewed Nursing Family Hx (STEVEN SHELTON) Arthritis 19 MOTHER G8 BROTHER G8 SISTER Cardiovascular disease 19 MOTHER G8 BROTHER Completed stroke 19 MOTHER Dementia 19 MOTHER Physical Exam Vital Signs Vital Signs - First Documented (EDUARDO SNIDER MD) Vital Signs Capillary Refill : Less Than 3 Seconds (STEVEN SHELTON) Height, Weight, BMI Height: 4'8.00" Weight: 99lbs. 0.4oz. 45.942842pb; 17.00 BMI Method:Stated General Appearance: No Apparent Distress, WD/WN, Cachetic Eyes: Bilateral Eye Normal Inspection, Bilateral Eye PERRL, Bilateral Eye EOMI HEENT: PERRL/EOMI, TMs Normal, Normal ENT Inspection, Pharynx Normal Neck: Full Range of Motion, Normal Inspection, Non Tender, Supple Respiratory: Chest Non Tender, No Accessory Muscle Use, Decreased Breath Sounds Cardiovascular: No Edema, No JVD, No Murmur, Normal Peripheral Pulses, T achycardia Gastrointestinal: Normal Bowel Sounds, Non Tender, Soft Neurologic/Psychiatric: No Motor/Sensory Deficits, Normal Mood/Affect Skin: Normal Color, Warm/Dry (STEVEN SHELTON) Focused Exam Lactate Level 12/14/21 15:05: Lactic Acid Level 2.19*H (EDUARDO SNIDER MD) Time of Focused Exam: 18:00 Respiratory: Chest Non Tender, Lungs Clear, Normal Breath Sounds Cardiovascular: Regular Rate, Rhythm (86-92), No Edema Capillary Refill: Less Than 3 Seconds Skin: normal color, warm/dry (STEVEN SHELTON) Lactic Acid Level Laboratory Tests Test 12/14/21 15:05 Lactic Acid Level 2.19 MMOL/L (0.50-2.00) *H (EDUARDO SNIDER MD) Within 3hrs of presentation: Admin fluids, Admin 30ml/kg IBW due to BMI>30, Admin ABX, Blood cultures prior to ABX's, Focus exam, Lactate level (STEVEN SHELTON) Progress/Results/Core Measures Suspected Sepsis SIRS Temperature: Pulse: 130 Respiratory Rate: 25 Laboratory Tests 12/14/21 15:05: White Blood Count 7.7 Blood Pressure 148 /75 Mean: 99 12/14/21 15:05: Lactic Acid Level 2.19*H Laboratory Tests 12/14/21 15:05: Creatinine 0.72, INR Comment 1.0, Platelet Count 244, Total Bilirubin 0.4 (STEVEN SHELTON) Results/Orders Lab Results Laboratory Tests Test 12/14/21 15:05 12/14/21 15:33 Range/Units White Blood Count 7.7 4.3-11.0 10^3/uL Red Blood Count 4.25 3.80-5.11 10^6/uL Hemoglobin 12.9 11.5-16.0 g/dL Hematocrit 40 35-52 % Mean Corpuscular Volume 94 80-99 fL Mean Corpuscular Hemoglobin 30 25-34 pg Mean Corpuscular Hemoglobin Concent 32 32-36 g/dL Red Cell Distribution Width 12.6 10.0-14.5 % Platelet Count 244 130-400 10^3/uL Mean Platelet Volume 9.5 9.0-12.2 fL Immature Granulocyte % (Auto) 1 % Neutrophils (%) (Auto) 78 H 42-75 % Lymphocytes (%) (Auto) 15 12-44 % Monocytes (%) (Auto) 5 0-12 % Eosinophils (%) (Auto) 1 0-10 % Basophils (%) (Auto) 0 0-10 % Neutrophils # (Auto) 6.0 1.8-7.8 10^3/uL Lymphocytes # (Auto) 1.2 1.0-4.0 10^3/uL Monocytes # (Auto) 0.4 0.0-1.0 10^3/uL Eosinophils # (Auto) 0.1 0.0-0.3 10^3/uL Basophils # (Auto) 0.0 0.0-0.1 10^3/uL Immature Granulocyte # (Auto) 0.0 0.0-0.1 10^3/uL Prothrombin Time 13.7 12.2-14.7 SEC INR Comment 1.0 0.8-1.4 Activated Partial Thromboplast Time 33 24-35 SEC Sodium Level 131 L 135-145 MMOL/L Potassium Level 4.3 3.6-5.0 MMOL/L Chloride Level 98 98-107 MMOL/L Carbon Dioxide Level 20 L 21-32 MMOL/L Anion Gap 13 5-14 MMOL/L Blood Urea Nitrogen 9 7-18 MG/DL Creatinine 0.72 0.60-1.30 MG/DL Estimat Glomerular Filtration Rate 83 BUN/Creatinine Ratio 13 Glucose Level 132 H 70-105 MG/DL Lactic Acid Level 2.19 *H 0.50-2.00 MMOL/L Calcium Level 9.6 8.5-10.1 MG/DL Corrected Calcium 9.8 8.5-10.1 MG/DL Total Bilirubin 0.4 0.1-1.0 MG/DL Aspartate Amino Transf (AST/SGOT) 39 H 5-34 U/L Alanine Aminotransferase (ALT/SGPT) 19 0-55 U/L Alkaline Phosphatase 51 40-136 U/L C-Reactive Protein High Sensitivity 12.22 H 0.00-0.50 MG/DL Total Protein 7.7 6.4-8.2 GM/DL Albumin 3.7 3.2-4.5 GM/DL Urine Color YELLOW Urine Clarity CLEAR Urine pH 6.0 5-9 Urine Specific [place] 1.010 L 1.016-1.022 Urine Protein NEGATIVE NEGATIVE Urine Glucose (UA) NEGATIVE NEGATIVE Urine Ketones NEGATIVE NEGATIVE Urine Nitrite NEGATIVE NEGATIVE Urine Bilirubin NEGATIVE NEGATIVE Urine Urobilinogen 0.2 < = 1.0 MG/DL Urine Leukocyte Esterase TRACE H NEGATIVE Urine RBC (Auto) 1+ H NEGATIVE Urine RBC 0-2 /HPF Urine WBC 0-2 /HPF Urine Squamous Epithelial Cells NONE /HPF Urine Renal Epithelial Cells NONE /HPF Urine Crystals NONE /LPF Urine Bacteria NEGATIVE /HPF Urine Casts NONE /LPF Urine Mucus NEGATIVE /LPF Urine Culture Indicated NO Influenza Type A (RT-PCR) Not Detected Not Detecte Influenza Type B (RT-PCR) Not Detected Not Detecte SARS-CoV-2 RNA (RT-PCR) Not Detected Not Detecte (EDUARDO SNIDER MD) My Orders Orders - EDUARDO SNIDER MD Cbc With Automated Diff (12/14/21 15:10) Comprehensive Metabolic Panel (12/14/21 15:10) Hs C Reactive Protein (12/14/21 15:10) Ua Culture If Indicated (12/14/21 15:10) Ed Iv/Invasive Line Start (12/14/21 15:10) Covid 19 Inhouse Test (12/14/21 15:10) Influenza A And B By Pcr (12/14/21 15:10) (EDUARDO SNIDER MD) Medications Given in ED Current Medications Medications Dose Ordered Sig/Celine Route Start Time Stop Time Status Last Admin Dose Admin Acetaminophen 325 mg STK-MED ONCE .ROUTE 12/14/21 15:27 12/14/21 15:31 DC 12/14/21 15:30 325 MG Acetaminophen 650 mg STK-MED ONCE .ROUTE 12/14/21 15:27 12/14/21 15:31 DC 12/14/21 15:30 650 MG Sodium Chloride 1,000 ml @ ud STK-MED ONCE .ROUTE 12/14/21 15:16 12/14/21 15:19 DC 12/14/21 15:20 1,000 MLS/HR (EDUARDO SNIDER MD) Vital Signs/I&O 12/14/21 12/14/21 12/14/21 12/14/21 15:00 15:00 15:30 15:30 Temp 39.2 39.2 39.2 Pulse 130 Resp 25 B/P (MAP) 148/75 (99) Pulse Ox 98 O2 Delivery Nasal Cannula OxyMask O2 Flow Rate 2.00 10.00 (EDUARDO SNIDER MD) Vital Signs/I&O Capillary Refill : Less Than 3 Seconds (STEVEN SHELTON) Blood Pressure Mean: 99 Progress Note : Time: 15:00 Progress Note Patient seen and evaluated, will start the sepsis protocol. Tylenol rectal. Normal saline 1 L per IV. 1600 patient more alert after 1 L of IV fluid. 1615 temperature 100.9. Rocephin 1 g IV [address] Smith, would like CT head prior to determining admission status, to ascertain if abscess present. 1745 CT head negative, Dr. Smith agreeable with admission plans. Patient, and daughter agreeable with plan. No complaints at this time. (STEVEN SHELTON) Diagnostic Imaging Diagonstic Imaging: Xray Plain Films/CT/US/NM/MRI: chest Comments NAME: ODILON LEE [facility] REC#: [id number] PT STATUS: REG ER : 1940 PHYSICIAN: STEVEN SHELTON ADMIT DATE: 12/14/21/ER Draft Date of Exam:12/14/21 CHEST 1 VIEW, AP/PA ONLY INDICATION: Pulmonary fibrosis. COMPARISON: 12/08/2020. FINDINGS: Single frontal radiographic view of the chest was obtained and demonstrates interval progression of diffuse coarse interstitial thickening. Lungs show somewhat low inspiratory volumes. There is no large effusion or pneumothorax. Cardiac silhouette is mildly enlarged. Pulmonary vasculature is within normal limits. Osseous structures show no acute abnormalities. IMPRESSION: 1. Interval progression of diffuse coarse interstitial prominence. Findings could be on the basis of progression of chronic interstitial lung disease. Acute interstitial pneumonia or edema superimposed on background chronic lung disease is also consideration. Dictated on workstation # [id number] Dict: 12/14/21 1553 Trans: 12/14/21 1559 [id number] Interpreted by: MENDOZA CAMERON MD Electronically signed by: Reviewed: Reviewed by Me Diagonstic Imaging: CT Plain Films/CT/US/NM/MRI: head Comments NAME: ODILON LEE [facility] REC#: [id number] PT STATUS: REG ER : 1940 PHYSICIAN: STEVEN SHELTON ADMIT DATE: 12/14/21/ER Signed Date of Exam:12/14/21 CT HEAD WO PROCEDURE: CT head without contrast. TECHNIQUE: Multiple contiguous axial images were obtained through the brain without the use of intravenous contrast. Auto Exposure Controls were utilized during the CT exam to meet ALARA standards for radiation dose reduction. INDICATION: Headache. Sepsis. Sinusitis. Hypoxia. Altered mental status. COMPARISON: MRI brain without and with IV contrast 08/21/2019. FINDINGS: Moderate generalized parenchymal volume loss. No CT evidence of an acute territorial infarction. No intracranial hemorrhage, mass effect, hydrocephalus, or extra-axial fluid collections. The visualized paranasal sinuses are clear. The mastoids are clear. No acute osseous findings. IMPRESSION: 1. No acute intracranial CT findings. 2. Visualized paranasal sinuses are clear. The floor of the maxillary sinuses are not included on the [id number]-yr-bari. Dictated by: Dictated on workstation # [id number] Dict: 12/14/21 172 Trans: 12/14/21 172 [id number] Interpreted by: FANI RILEY MD Electronically signed by: FANI RILEY MD 12/14/211728 (STEVEN SHELTON) Departure Impression Primary Impression: Fever Qualified Codes: R50.81 - Fever presenting with conditions classified elsewhere Additional Impressions: Sinusitis Qualified Codes: J01.00 - Acute maxillary sinusitis, unspecified Pulmonary fibrosis Disposition: ADMITTED INPATIENT Condition: Stable Admissions Decision to Admit/Date: Dec 14, 2021 Time/Decision to Admit Time: 16:30 (STEVEN SHELTON) Departure-Patient Inst. Referrals: CHERELLE SMITH MD (PCP/Family) Primary Care Physician ATTENDING PHYSICIAN NOTE: I was physically present as attending physician in the emergency department simran ng the care of this patient, but I was not directly involved in the decision making or delivery of care for this patient. (EDUARDO SNIDER MD) Copy Copies To 1: CHERELLE SMITH MD, AMY ARNP Dec 14, 2021 16:07 EDUARDO SNIDER MD Dec 14, 2021 20:38
[2021-12-14] MEDS ORDERED: NS IV 1000 ML 1,000 ML IV SCH (16:15)
[2021-12-14] MEDS ORDERED: cefTRIAXone 1 GM PRE-MIX 50 ML IV ONE (16:45)
--- NOTE | 2021-12-14 17:26 | Diagnostic Imaging Report ---
PROCEDURE: CT head without contrast. TECHNIQUE: Multiple contiguous axial images were obtained through the brain without the use of intravenous contrast. Auto Exposure Controls were utilized during the CT exam to meet ALARA standards for radiation dose reduction. INDICATION: Headache. Sepsis. Sinusitis. Hypoxia. Altered mental status. COMPARISON: MRI brain without and with IV contrast 08/21/2019. FINDINGS: Moderate generalized parenchymal volume loss. No CT evidence of an acute territorial infarction. No intracranial hemorrhage, mass effect, hydrocephalus, or extra-axial fluid collections. The visualized paranasal sinuses are clear. The mastoids are clear. No acute osseous findings. IMPRESSION: 1. No acute intracranial CT findings. 2. Visualized paranasal sinuses are clear. The floor of the maxillary sinuses are not included on the [id number]-[id number]. Dictated by: Dictated on workstation # [id number]
[2021-12-14 19:33] VITALS: BP 114/58
[2021-12-14 20:58] VITALS: BP 148/75
[2021-12-14] MEDS ORDERED: RT-ALBUTEROL SULF 2.5 MG/3 ML PRE-MIX VIAL INH PRN (21:15)
[2021-12-14] MEDS ORDERED: ONDANSETRON 4 MG/2 ML (SDV) Z0FRAN IV PRN (22:00)
[2021-12-14] MEDS: ACETAMINOPHEN 325 MG TABLET PO PRN (22:06)
[2021-12-14] MEDS: NS IV 1000 ML 1,000 ML IV SCH (22:06)
[2021-12-15] VITALS (7 sets, daily range): BP systolic 104–162; BP diastolic 55–76
[2021-12-15 08:17] LABS: BASOPHILS % (AUTO) 0 % (0-10); EOSINOPHILS # (AUTO) 0.3 10^3/uL (0.0-0.3); EOSINOPHILS % (AUTO) 4 % (0-10); HEMATOCRIT 40 % (35-52); HEMOGLOBIN 12.5 g/dL (11.5-16.0); LYMPHOCYTES # (AUTO) 1.3 10^3/uL (1.0-4.0); LYMPHOCYTES % (AUTO) 19 % (12-44); MEAN CORPUSCULAR HEMOGLOBIN 30 pg (25-34); MEAN CORPUSCULAR HGB CONC 32 g/dL (32-36); MEAN CORPUSCULAR VOLUME 96 fL (80-99); MEAN PLATELET VOLUME 9.3 fL (9.0-12.2); MONOCYTES # (AUTO) 0.5 10^3/uL (0.0-1.0); MONOCYTES % (AUTO) 7 % (0-12); NEUTROPHILS % (AUTO) 71 % (42-75); PLATELET COUNT 187 10^3/uL (130-400); WHITE BLOOD COUNT 7.1 10^3/uL (4.3-11.0)
[2021-12-15] MEDS: RT-ALBUTEROL SULF 2.5 MG/3 ML PRE-MIX VIAL INH SCH ×2 (08:20→21:29)
[2021-12-15 08:25] LABS: POTASSIUM 3.6 MMOL/L (3.6-5.0)
[2021-12-15 08:31] LABS: CREATININE SERUM 0.58 MG/DL (0.60-1.30)
[2021-12-15] MEDS: NS IV 1000 ML 1,000 ML IV SCH (08:48)
--- NOTE | 2021-12-15 08:55 | History & Physical ---
History of Present Illness History of Present Illness Reason for visit/HPI PT IS AN 81 Y/O FEMALE WHO IS KNOWN TO ME FROM CLINIC. SHE HAS HX OF PULMONARY FIBROSIS AND HAS BEEN ON MAINTENANCE THERAPY FROM DR. PATEL. SHE WAS CHANGED FROM HER PREVIOUS MEDICATION IN THE PAST FEW MONTHS DUE TO PERSISTENT HEADACHES WHICH HAVE NOT IMPROVED SINCE MEDICATIONS WERE ADJUSTED. SHE HAS A COUGH WHICH HAS BEEN WORSENING OVER THE PAST FEW WEEKS, HOWEVER WHAT BROUGHT HER INTO THE HOSPITAL WAS SEVERE CONFUSION AND WEAKNESS. Date of Admission Dec 14, 2021 at 16:40 Date Seen by a Provider: Dec 15, 2021 Time Seen by a Provider: 09:45 I consulted on this patient on 12/15/21 08:55 Attending Physician Cherelle Smith MD Admitting Physician Cherelle Smith MD Consult Allergies and Home Medications Allergies Coded Allergies: sulfamethoxazole (Verified Allergy, Mild, RASH, 06/04/18) trimethoprim (Verified Allergy, Mild, RASH, 06/04/18) Patient Home Medication List Home Medication List Reviewed: Yes Cetirizine HCl (Cetirizine HCl) 10 Mg Tablet, 10 MG PO DAILY, (Reported) Entered as Reported by: GUICHO SYED on 06/04/18 1304 Last Action: Held Levothyroxine Sodium (Levothyroxine Sodium) 25 Mcg Tablet, 25 MCG PO DAILY, (Reported) Entered as Reported by: LOPEZ COBB on 05/28/17902 Montelukast Sodium (Montelukast Sodium) 10 Mg Tablet, 10 MG PO HS, (Reported) Entered as Reported by: LOPEZ COBB on 05/28/17902 Omeprazole (Omeprazole) 20 Mg Tablet., 20 MG PO DAILY, (Reported) Entered as Reported by: AMANDA BRITO on 06/11/17 142 Discontinued Medications Simvastatin (Simvastatin) 20 Mg Tablet, 20 MG PO HS, (Reported) Entered as Reported by: AMANDA BRITO on 06/11/17 142 Last Action: Discontinued Past Opzcefs-Cppaau-Kylykd Hx Patient Social History Marrital Status: Living Status: LIVES AT HOME WITH SPOUSE Employed/Student: retired Tobacco Use?: No Use of E-Cig and/or Vaping dev: No Substance use?: No Alcohol Use?: No Pt feels they are or have been: No Immunizations Up To Date Date of Influenza Vaccine: Jul 08, 2017 First/Initial COVID19 Vaccinat: OCT 2020 Second COVID19 Vaccination Manjeet: NOV 2020 Tetanus Booster (TDap): More Than 5 Years Hepatitis A: No Hepatitis B: No Date of Pneumonia Vaccine: Jul 09, 2016 Seasonal Allergies Seasonal Allergies: Yes Current Status status: No status: No Advance Directives: Yes Advance Directive Location: Home Communicates: Verbally Primary Language: Frisian Preferred Spoken Language: Frisian Is interpretation needed?: No Sensory deficits: Vision impairment Implanted or Applied Medical D: Orthopedic hardware Past Medical History Surgeries: Hysterectomy Pulmonary Fibrosis Currently Using CPAP: No Currently Using BIPAP: No High Cholesterol Dementia Sexually Transmitted Disease: No HIV/AIDS: No Gastroesophageal Reflux Arthritis, Scoliosis Loss of Vision: Denies Hearing Impairment: Denies Blood Disorders: No Adverse Reaction/Blood Tranf: No (N/A) Family Medical History Reviewed and Corrections made Arthritis 19 MOTHER G8 BROTHER G8 SISTER Cardiovascular disease 19 MOTHER G8 BROTHER Completed stroke 19 MOTHER Dementia 19 MOTHER Heart Disease, Lung Disease (TWIN SISTER WITH PULMONARY FIBROSIS), Stroke, Vascular Disease Review of Systems Constitutional: chills; No dizziness; fever, malaise, weakness, weight loss EENTM: No hoarseness, No throat pain Respiratory: cough, dyspnea on exertion, short of breath Cardiovascular: No chest pain, No edema, No palpitations Gastrointestinal: No abdominal pain, No constipation, No diarrhea, No nausea, No vomiting Genitourinary: incontinence (stress) Musculoskeletal: muscle weakness Skin: no symptoms reported Psychiatric/Neurological: Anxiety, Weakness All Other Systems Reviewed Negative Unless Noted: Yes Physical Exam Vital Signs Vital Signs - First Documented 12/14/21 20:58 FiO2 28 Capillary Refill : Less Than 3 Seconds Height, Weight, BMI Height: 4'8.00" Weight: 99lbs. 0.4oz. 45.473836ra; 17.44 BMI Method:Stated General Appearance: Mild Distress (WITH COUGHING), Thin HEENT: PERRL/EOMI Neck: Full Range of Motion, Non Tender, Supple Respiratory: Chest Non Tender, Crackles (DIFFUSELY); No Rhonci, No Stridor, No Wheezing Cardiovascular: Regular Rate, Rhythm, No Murmur, Normal Peripheral Pulses Gastrointestinal: Normal Bowel Sounds, No Pulsatile Mass, Non Tender, Soft Rectal: Deferred Extremity: Normal Capillary Refill, Normal Inspection, Normal Range of Motion, Non Tender, No Calf Tenderness, No Pedal Edema Neurologic/Psychiatric: Alert, Oriented x3, Normal Mood/Affect Skin: Normal Color, Warm/Dry Lymphatic: No Adenopathy Assessment/Plan Assessment and Plan PNEUMONIA PULMONARY FIBROSIS HYPOTHYROIDISM CHRONIC COUGH HEADACHE UNDERWEIGHT DEMENTIA PNEUMONIA WITH PULMONARY FIBROSIS WITH CHRONIC COUGH - CT SCAN OF CHEST TO BE PERFORMED TODAY - WILL ATTEMPT TO GET AHOLD OF DR. PATEL TO DISCUSS THIS PATIENT'S CASE. - ADD AZITHROMYCIN TO CURRENT ROCEPHIN REGIMEN - ADD SOLUMEDROL - ADD PHENERGAN WITH CODEINE AT 2.5ML PRN FOR HER COUGH. HYPOTHYROIDISM - WAIT ON MEDICATION RECONCILIATION, THEN CAN RESTART MEDICATION. HEADACHE - HOPEFULLY WILL IMPROVE WITH IMPROVED COUGH AND USE OF PHENERGAN WITH CODEINE. UNDERWEIGHT - ENCOURAGE INCREASE CALORIC INTAKE, IF PT STILL HERE ON SATURDAY WILL CONSULT DIETARY. DEMENTIA - SUPPORTIVE CARE AT THIS TIME. DVT PROPHYLAXIS WITH SCD'S AND LOVENOX GI PROPHYLAXIS WITH PPI THERAPY Admission Diagnosis PNEUMONIA PULMONARY FIBROSIS HYPOTHYROIDISM CHRONIC COUGH HEADACHE UNDERWEIGHT DEMENTIA Admission Status: Inpatient Order (span 2 midnights) Reason for Inpatient Admission: INPATIENT ADMISSION WITH ANTICIPATION OF AT LEAST 48 HOURS TO 72 HOURS IN THE HOSPITAL FOR PNEUMONIA CHERELLE SMITH MD Dec 15, 2021 08:55
[2021-12-15] MEDS ORDERED: CATHETER FLUSH 10 ML SYR IV PRN (11:00)
[2021-12-15] MEDS ORDERED: PROMETHAZINE/ CODEINE SYRUP 5 ML UDC PO ONE (11:00)
[2021-12-15] MEDS ORDERED: NS 100 ML (IVPB) BAG IV ONE (11:00)
[2021-12-15] MEDS ORDERED: HOLD METFORMIN - RECEIVED CONTRAST 20 ML VIAL IV SCH (11:00)
[2021-12-15] MEDS ORDERED: IOHEXOL 350 MG/ML 100 ML (OMNIPAQUE 350) VIAL IV ONE (11:00)
[2021-12-15] MEDS ORDERED: AZITHROMYCIN INJECTION 500 MG in NS (IVPB) 250 ML IV NR (11:15)
[2021-12-15] MEDS ORDERED: ENOXAPARIN 40 MG/0.4 ML (LOVENOX) SYR SC SCH (11:15)
[2021-12-15] MEDS: methylPREDNISolone 40 MG/ML (Solu-MEDROL) VIAL IV SCH ×2 (11:45→18:14)
[2021-12-15] MEDS: LACTOBACILLUS ACIDOPHILUS (PROBIOTIC) CAPSULE PO SCH ×2 (11:45→18:14)
[2021-12-15] MEDS: PANTOPRAZOLE 40 MG (PROTONIX) TAB PO SCH (11:46)
[2021-12-15] MEDS: ENOXAPARIN INJECTION 30 MG/0.3 ML SYR SC SCH (11:46)
--- NOTE | 2021-12-15 12:56 | Diagnostic Imaging Report ---
PROCEDURE: CT chest with contrast only. TECHNIQUE: Multiple contiguous axial images were obtained through the chest after administration of intravenous contrast. Auto Exposure Controls were utilized during the CT exam to meet ALARA standards for radiation dose reduction. INDICATION: Worsening fibrosis and cough COMPARISON: 06/28/2020 Coarse predominantly peripheral interstitial lung disease has worsened when compared to previous study. Subpleural areas of groundglass density have also developed. There is no significant pericardial fluid. Small amount of left pleural fluid is noted. Mildly prominent mediastinal lymph nodes are again noted with slight overall increase in conspicuity. IMPRESSION: Significant worsening peripheral interstitial lung disease likely due to progressive fibrosis and small airway disease. There is a small amount of left pleural fluid and mediastinal lymph nodes have shown mild interval increase without other acute abnormality appreciated. Dictated by: Dictated on workstation # [id number]
[2021-12-15] MEDS: ACETAMINOPHEN 325 MG TABLET PO PRN (13:29)
[2021-12-15] MEDS ORDERED: MTP25TSR PO (14:52)
[2021-12-15] MEDS ORDERED: TIOT4MIS2 INH (14:52)
[2021-12-15] MEDS ORDERED: GUAI600T43 PO (14:52)
[2021-12-15] MEDS ORDERED: PROM473S9 PO (14:52)
[2021-12-15] MEDS ORDERED: CALC-939 PO (14:52)
[2021-12-15] MEDS ORDERED: CEFD300C3 PO (14:52)
[2021-12-15] MEDS ORDERED: L GA1CAP2 PO (14:52)
[2021-12-15] MEDS ORDERED: FAMO20TA5 PO (14:52)
[2021-12-15] MEDS ORDERED: ALBU2.5V4 NEB (14:52)
[2021-12-15] MEDS ORDERED: BENZ200C51 PO (14:52)
[2021-12-15] MEDS ORDERED: AZAT50TA16 PO (14:52)
[2021-12-15] MEDS ORDERED: ALBU6.7H8 INH (14:52)
[2021-12-15] MEDS ORDERED: ESCI5TAB16 PO (14:52)
[2021-12-15] MEDS ORDERED: CHOL10004 PO (14:54)
[2021-12-15] MEDS: cefTRIAXone 1 GM/50 ML (PRE-MIX) IV SCH (18:14)
[2021-12-15] MEDS: PROMETHAZINE/ CODEINE SYRUP 5 ML UDC PO PRN (18:19)
[2021-12-16] MEDS: methylPREDNISolone 40 MG/ML (Solu-MEDROL) VIAL IV SCH ×5 (00:18→23:43)
[2021-12-16] MEDS: NS IV 1000 ML 1,000 ML IV SCH (00:18)
[2021-12-16 04:06] VITALS: BP 150/72
[2021-12-16 05:05] LABS: HEMATOCRIT 40 % (35-52); HEMOGLOBIN 12.8 g/dL (11.5-16.0); MEAN CORPUSCULAR HEMOGLOBIN 30 pg (25-34); MEAN CORPUSCULAR HGB CONC 32 g/dL (32-36); MEAN CORPUSCULAR VOLUME 94 fL (80-99); MEAN PLATELET VOLUME 9.8 fL (9.0-12.2); PLATELET COUNT 206 10^3/uL (130-400); WHITE BLOOD COUNT 6.7 10^3/uL (4.3-11.0)
[2021-12-16 05:19] LABS: ALBUMIN 3.5 GM/DL (3.2-4.5)
[2021-12-16 05:20] LABS: POTASSIUM 3.6 MMOL/L (3.6-5.0)
[2021-12-16 05:21] LABS: CALCIUM 9.2 MG/DL (8.5-10.1)
[2021-12-16 05:22] LABS: TOTAL PROTEIN 6.9 GM/DL (6.4-8.2)
[2021-12-16 05:24] LABS: BILIRUBIN,TOTAL 0.3 MG/DL (0.1-1.0)
[2021-12-16 05:26] LABS: CREATININE SERUM 0.57 MG/DL (0.60-1.30)
[2021-12-16 08:18] VITALS: BP 154/74
[2021-12-16] MEDS: PANTOPRAZOLE 40 MG (PROTONIX) TAB PO SCH (08:40)
[2021-12-16] MEDS: LACTOBACILLUS ACIDOPHILUS (PROBIOTIC) CAPSULE PO SCH ×3 (08:42→17:17)
[2021-12-16] MEDS: ACETAMINOPHEN 325 MG TABLET PO PRN (08:43)
[2021-12-16] MEDS ORDERED: AZITHROMYCIN INJECTION 250 MG in NS (IVPB) 250 ML IV SCH (09:00)
[2021-12-16] MEDS: PROMETHAZINE/ CODEINE SYRUP 5 ML UDC PO PRN ×3 (10:07→21:42)
[2021-12-16] MEDS: RT-ALBUTEROL SULF 2.5 MG/3 ML PRE-MIX VIAL INH SCH ×2 (10:52→21:47)
[2021-12-16] MEDS: ENOXAPARIN INJECTION 30 MG/0.3 ML SYR SC SCH (11:24)
[2021-12-16 11:26] VITALS: BP 136/68
--- NOTE | 2021-12-16 13:06 | Progress Note ---
Subjective Date Seen by a Provider: Dec 16, 2021 Time Seen by a Provider: 12:57 Subjective/Events-last exam Fwup worsening pulmonary fibrosis--oxygen dependant, weakness, cachexia, cephalgia. Sitting up in chair eating lunch. Daughter at bedside. No complaints. Discussed CT scan results with both daughter and patient. Focused Exam Lactate Level 12/14/21 15:05: Lactic Acid Level 2.19*H 12/14/21 17:35: Lactic Acid Level 1.02 Time of Focused Exam: 18:00 Objective Exam Vital Signs Date Time Temp Pulse Resp B/P (MAP) Pulse Ox O2 Delivery O2 Flow Rate FiO2 12/16/21 11:26 36.2 85 18 136/68 (90) 94 Nasal Cannula 3.00 12/16/21 10:59 Nasal Cannula 3.00 12/16/21 10:53 97 Nasal Cannula 4.00 12/16/21 08:18 35.9 70 20 154/74 (100) 90 Nasal Cannula 5.00 12/16/21 08:00 Nasal Cannula 5.00 12/16/21 04:06 36.3 68 18 150/72 (98) 99 Nasal Cannula 5.00 12/15/21 23:55 35.7 65 18 148/74 (98) 100 Nasal Cannula 5.00 12/15/21 21:29 100 Nasal Cannula 6.00 12/15/21 20:25 Nasal Cannula 6.00 12/15/21 20:06 37.0 69 18 112/55 (74) 100 Nasal Cannula 6.00 12/15/21 16:34 37.1 82 20 120/63 (82) 100 Nasal Cannula 6.00 I & O 12/16/21 07:00 Intake Total 3060 ml Output Total 2850 ml Balance 210 ml Capillary Refill : Less Than 3 Seconds General Appearance: No Apparent Distress Neck: Supple Respiratory: Crackles (bibasilar), Decreased Breath Sounds Cardiovascular: Regular Rate, Rhythm Gastrointestinal: normal bowel sounds, non tender, soft Extremity: Non Tender, No Calf Tenderness, No Pedal Edema Neurologic/Psychiatric: Alert, Oriented x3 Skin: Warm/Dry Results Lab Laboratory Tests 12/16/21 04:53: White Blood Count 6.7, Red Blood Count 4.29, Hemoglobin 12.8, Hematocrit 40, Mean Corpuscular Volume 94, Mean Corpuscular Hemoglobin 30, Mean Corpuscular Hemoglobin Concent 32, Red Cell Distribution Width 12.6, Platelet Count 206, Mean Platelet Volume 9.8, Sodium Level 139, Potassium Level 3.6, Chloride Level 106, Carbon Dioxide Level 18L, Anion Gap 15H, Blood Urea Nitrogen 6L, Creatinine 0.57L, Estimat Glomerular Filtration Rate 91, BUN/Creatinine Ratio 11, Glucose Level 136H, Calcium Level 9.2, Corrected Calcium 9.6, Total Bilirubin 0.3, Aspartate Amino Transf (AST/SGOT) 27, Alanine Aminotransferase (ALT/SGPT) 15, Al kaline Phosphatase 58, Total Protein 6.9, Albumin 3.5 Microbiology 12/14/21 Blood Culture - Preliminary, Resulted No growth Assessment/Plan Assessment/Plan Assess & Plan/Chief Complaint 1. Worsening Pulmonary Fibrosis with Oxygen Dependence--will increase activity--up to chair and start PT, continue IV solumedrol, IS hourly while awake 2. Weakness--start PT 3. Cachexia--patient eating about 50% 4. Cephalgia--daughter states is frequent complaint JOSE J PLEITEZ DO Dec 16, 2021 13:06
[2021-12-16] MEDS: IBUPROFEN 600 MG (MOTRIN) TAB PO PRN (13:33)
[2021-12-16 16:00] VITALS: BP 154/71
[2021-12-16] MEDS: cefTRIAXone 1 GM/50 ML (PRE-MIX) IV SCH (17:23)
[2021-12-16] MEDS ORDERED: NON-FORMULARY MEDICATION 1 EA EA (Escitalopram Oxalate 5 MG) PO SCH (18:00)
[2021-12-16 19:48] VITALS: BP 169/95
[2021-12-17] VITALS (8 sets, daily range): BP systolic 148–178; BP diastolic 55–92
[2021-12-17] MEDS: LEVOTHYROXINE 25 MCG (LEVOTHROID) TAB PO SCH (06:13)
[2021-12-17] MEDS: FERROUS SULF 325 MG (IRON) TAB PO SCH (06:13)
[2021-12-17] MEDS: methylPREDNISolone 40 MG/ML (Solu-MEDROL) VIAL IV SCH ×2 (06:13→11:25)
[2021-12-17] MEDS: IBUPROFEN 600 MG (MOTRIN) TAB PO PRN (06:43)
[2021-12-17] MEDS: PROMETHAZINE/ CODEINE SYRUP 5 ML UDC PO PRN ×2 (06:59→18:41)
[2021-12-17] MEDS ORDERED: PATIENT MAY USE OWN MED,SINGLE MED PO SCH (08:00)
[2021-12-17] MEDS: AZATHIOPRINE 50 MG TAB PO SCH (08:47)
[2021-12-17] MEDS: AZITHROMYCIN INJECTION 250 MG in NS (IVPB) 250 ML IV SCH (08:47)
[2021-12-17] MEDS: LACTOBACILLUS ACIDOPHILUS (PROBIOTIC) CAPSULE PO SCH ×3 (08:47→17:45)
[2021-12-17] MEDS: PANTOPRAZOLE 40 MG (PROTONIX) TAB PO SCH (08:47)
[2021-12-17] MEDS: guaiFENesin (MUCINEX) 600 MG TAB PO SCH (08:47)
[2021-12-17] MEDS ORDERED: NON-FORMULARY MEDICATION 1 EA EA (Tiotropium Bromide (Spiriva Respimat 2.5MCG/ACTUATION) 2 INH SCH (09:00)
[2021-12-17] MEDS ORDERED: AZATHIOPRINE PO SCH (09:00)
[2021-12-17] MEDS: UMECLIDINIUM BROMIDE (INCRUSE ELLIPTA) 7'S IH SCH (09:21)
[2021-12-17] MEDS: RT-ALBUTEROL SULF 2.5 MG/3 ML PRE-MIX VIAL INH SCH ×2 (09:21→21:42)
[2021-12-17] MEDS: ENOXAPARIN INJECTION 30 MG/0.3 ML SYR SC SCH (11:25)
[2021-12-17] MEDS: ACETAMINOPHEN 325 MG TABLET PO PRN ×2 (11:26→18:48)
--- NOTE | 2021-12-17 11:40 | Progress Note ---
Subjective Date Seen by a Provider: Dec 17, 2021 Time Seen by a Provider: 11:37 Subjective/Events-last exam Fwup worsening pulmonary fibrosis--oxygen dependant, weakness, cachexia, cephalgia, HTN, dementia. Sitting up in chair--breathing improved but complains of EMANUEL. Focused Exam Lactate Level 12/14/21 15:05: Lactic Acid Level 2.19*H 12/14/21 17:35: Lactic Acid Level 1.02 Time of Focused Exam: 18:00 Objective Exam Vital Signs Date Time Temp Pulse Resp B/P (MAP) Pulse Ox O2 Delivery O2 Flow Rate FiO2 12/17/21 11:21 36.7 76 20 166/75 (105) 96 Nasal Cannula 3.00 12/17/21 09:26 Nasal Cannula 3.00 12/17/21 09:21 97 Nasal Cannula 3.00 12/17/21 08:45 Nasal Cannula 12/17/21 07:35 36.8 86 20 178/92 (120) 96 Nasal Cannula 3.00 12/17/21 03:39 36.4 79 18 149/79 (102) 94 Nasal Cannula 3.00 12/17/21 00:06 36.0 94 18 148/82 (104) 94 Nasal Cannula 3.00 12/16/21 21:47 96 Nasal Cannula 3.00 12/16/21 20:00 Nasal Cannula 3.00 12/16/21 19:48 36.3 70 18 169/95 (119) 98 Nasal Cannula 3.00 12/16/21 16:00 36.6 76 18 154/71 (98) 91 Nasal Cannula 3.00 I & O 12/17/21 07:00 Intake Total 3270 ml Output Total 3800 ml Balance -530 ml Capillary Refill : Less Than 3 Seconds General Appearance: No Apparent Distress Respiratory: Crackles, Decreased Breath Sounds (better air movement than yesterday) Cardiovascular: Regular Rate, Rhythm, Systolic Murmur Gastrointestinal: normal bowel sounds, non tender, soft Extremity: Non Tender, No Calf Tenderness, No Pedal Edema Neurologic/Psychiatric: Alert, Oriented x3 Results Lab Microbiology 12/14/21 Blood Culture - Preliminary, Resulted No growth Assessment/Plan Assessment/Plan Assess & Plan/Chief Complaint 1. Worsening Pulmonary Fibrosis with Oxygen Dependence--will increase activity--up to chair and PT ordered, wean IV solumedrol, IS hourly while awake 2. Weakness--PT ordered 3. Cachexia--patient eating about 50% 4. Cephalgia--tylenol now, patient thought she had just had some this morning but according to the nurses she has not had anything since overnight 5. Hypertension--increase metoprolol to 25mg po BID JOSE J PLEITEZ DO Dec 17, 2021 11:40
[2021-12-17] MEDS: cefTRIAXone 1 GM/50 ML (PRE-MIX) IV SCH (17:45)
[2021-12-17] MEDS ORDERED: methylPREDNISolone 40 MG/ML (Solu-MEDROL) VIAL IV SCH (21:00)
[2021-12-18 04:43] VITALS: BP 155/77
[2021-12-18] MEDS: FERROUS SULF 325 MG (IRON) TAB PO SCH (06:03)
[2021-12-18] MEDS: LEVOTHYROXINE 25 MCG (LEVOTHROID) TAB PO SCH (06:03)
[2021-12-18 07:29] VITALS: BP 143/68
[2021-12-18] MEDS: UMECLIDINIUM BROMIDE (INCRUSE ELLIPTA) 7'S IH SCH (07:50)
[2021-12-18] MEDS: RT-ALBUTEROL SULF 2.5 MG/3 ML PRE-MIX VIAL INH SCH ×2 (07:50→21:01)
--- NOTE | 2021-12-18 09:14 | Progress Note ---
Subjective All Other Systems Reviewed All Other Systems Reviewed: Yes Objective Exam Vital Signs Vital Signs Date Time Temp Pulse Resp B/P (MAP) Pulse Ox O2 Delivery O2 Flow Rate FiO2 12/18/21 07:29 35.8 73 18 143/68 (93) 93 Nasal Cannula 3.00 12/18/21 04:43 36.6 74 20 155/77 (103) 97 Nasal Cannula 3.00 12/17/21 23:50 36.2 82 18 170/84 (112) 96 Nasal Cannula 3.00 12/17/21 21:42 97 Nasal Cannula 3.00 12/17/21 20:46 36.7 83 18 164/80 (108) 96 Nasal Cannula 3.00 12/17/21 20:35 Nasal Cannula 3.00 12/17/21 16:15 36.6 74 17 152/55 (87) 96 Nasal Cannula 3.00 12/17/21 13:44 36.7 76 96 12/17/21 11:21 36.7 76 20 166/75 (105) 96 Nasal Cannula 3.00 12/17/21 09:26 Nasal Cannula 3.00 12/17/21 09:21 97 Nasal Cannula 3.00 I & O 12/18/21 06:59 Intake Total 2270 ml Output Total 2115 ml Balance 155 ml General Appearance: No Apparent Distress Eyes: Bilateral Eye Normal Inspection, Bilateral Eye PERRL, Bilateral Eye EOMI HEENT: PERRL/EOMI Neck: Supple Respiratory: Crackles, Decreased Breath Sounds (better air movement than yesterday) Cardiovascular: Regular Rate, Rhythm, Systolic Murmur Gastrointestinal: Normal Bowel Sounds, No Pulsatile Mass, Non Tender, Soft Rectal: Deferred Extremity: Non Tender, No Calf Tenderness, No Pedal Edema Neurologic/Psychiatric: Alert, Oriented x3 Skin: Warm/Dry Lymphatic: No Adenopathy Results Lab Microbiology 12/14/21 Blood Culture - Preliminary, Resulted No growth Assessment/Plan Assessment/Plan Admission Dx PNEUMONIA PULMONARY FIBROSIS HYPOTHYROIDISM CHRONIC COUGH HEADACHE UNDERWEIGHT DEMENTIA Admission Dx PNEUMONIA PULMONARY FIBROSIS HYPOTHYROIDISM CHRONIC COUGH HEADACHE UNDERWEIGHT DEMENTIA Clinical Quality Measures Admission Status Admission Dx PNEUMONIA PULMONARY FIBROSIS HYPOTHYROIDISM CHRONIC COUGH HEADACHE UNDERWEIGHT DEMENTIA CHERELLE HEIN MD Dec 18, 2021 09:14
[2021-12-18] MEDS: AZITHROMYCIN INJECTION 250 MG in NS (IVPB) 250 ML IV SCH (09:32)
[2021-12-18] MEDS: guaiFENesin (MUCINEX) 600 MG TAB PO SCH (09:33)
[2021-12-18] MEDS: amLODIPine 5 MG (NORVASC) TAB PO SCH (09:33)
[2021-12-18] MEDS: PANTOPRAZOLE 40 MG (PROTONIX) TAB PO SCH (09:33)
[2021-12-18] MEDS: LACTOBACILLUS ACIDOPHILUS (PROBIOTIC) CAPSULE PO SCH ×3 (09:34→17:25)
[2021-12-18] MEDS: AZATHIOPRINE 50 MG TAB PO SCH (09:34)
[2021-12-18] MEDS ORDERED: predniSONE 20 MG TAB PO NR (10:11)
[2021-12-18 11:13] VITALS: BP 146/71
--- NOTE | 2021-12-18 11:34 | Physical Therapy Evaluation ---
PT Evaluation-General Medical Diagnosis Admission Date Dec 14, 2021 at 16:40 Medical Diagnosis: sinusitis, fever, pulmonary fibrosis Onset Date: Dec 14, 2021 Therapy Diagnosis Therapy Diagnosis: debility/weakness Height/Weight Height (Feet): 4 Height (Inches): 8.00 Weight (Pounds): 99 Weight (Ounces): 0.4 Precautions Precautions/Isolations: Fall Prevention, Standard Precautions Referral Physician: Kimberly Reason for Referral: Evaluation/Treatment Medical History Pertinent Medical History: Dementia, HTN, OA Additional Medical History pulmonary fibrosis Current History ER secondary to decreased SAO2 and increase confusion Reviewed History: Yes Social History Home: Single Level Current Living Status: Spouse Entry Into Home: Level Entry Prior Prior Level of Function SCALE: Activities may be completed with or without assistive devices. 9-Mtmxghnojo-iccrrsc completes the activity by him/herself with no assistance from a helper. 5-Set-up or Clean-up Assistance-helper sets up or cleans up; patient completes activity. Sumas assists only prior to or following the activity. 4-Supervision or Touching Assistance-helper provides verbal cues and/or touching/steadying and/or contact guard assistance as patient completes activity. Assistance may be provided throughout the activity or intermittently. 3-Partial/Moderate Assistance-helper does LESS THAN HALF the effort. Sumas lifts, holds or supports trunk or limbs, but provides less than half the effort. 2-Substantial/Maximal Assistance-helper does MORE THAN HALF the effort. Sumas lifts or holds trunk or limbs and provides more than half the effort. 6-Dgtbsfhow-aprjhm does ALL the effort. Patient does none of the effort to complete the activity. Or, the assistance of 2 or more helpers is required for the patient to complete the activity. If activity was not attempted, code reason: 7-Patient Refused. 9-Not Applicable-not attempted and the patient did not perform the activity before the current illness, exacerbation or injury. 10-Not Attempted due to Environmental Limitations-(lack of equipment, weather restraints, etc.). 88-Not Attempted due to Medical Conditions or Safety Concerns. Bed Mobility: 6 Transfers (B,C,W/C): 6 Gait: 6 Stairs: 6 Indoor Mobility (Ambulation): Independent Stairs: Independent Prior Devices Use: None PT Evaluation-Current Subjective Patient agrees to PT. No c/o at this time. Reports she wants to go home. Objective Patient Orientation: Normal For Age Attachments: Oxygen, IV ROM/Strength ROM Lower Extremities bilateral LE WFL Strength Lower Extremities 4/5 grossly bilateral LE Integumentary/Posture Integumentary refer to nursing notes Bowel Incontinence: No Bladder Incontinence: No Posture WFL Neuromuscular (Tone, Coordination, Reflexes) grossly intact Sensory Vision: Functional Hearing: Functional Transfers Lying to Sitting/Side of Bed(Q: 6 Sit to Stand (QC): 4 (SBA) Chair/Rms-kn-Rkvgv Xfer(QC): 4 (SBA) Toilet Transfer (QC): 4 (SBA) Gait Does the Patient Walk?: Yes Mode of Locomotion: Walk Anticipated Mode of Locomotion: Walk Walk 10 feet (QC): 4 (SBA) Walk 50 ft with 2 Turns(QC): 4 (SBA) Walk 150 ft (QC): 4 (SBA) Distance: 275' Gait Assistive Device: FWW Comments/Gait Description slow, steady, functional gait sequence Balance Sitting Static: Normal Sitting Dynamic: Normal Standing Static: Good Standing Dynamic: Good Assessment/Needs Noted increase SOA with activity with good recovery. Patient motivated with progress and hopes to go home tomorrow. Spouse present. Rehab Potential: Fair PT Short Term Goals Short Term Goals Time Frame: Dec 23, 2021 Roll Left & Right: 6 Sit to lyin Lying to sitting on side of be: 6 Sit to stand: 6 Chair/zdf-or-fsxzc transfer: 6 Toilet transfer: 6 Walk 10 feet: 6 Walk 50 feet with two turns: 6 Walk 150 feet: 6 PT Plan Problem List Problem List: Activity Tolerance Treatment/Plan Treatment Plan: Continue Plan of Care Treatment Plan: Education, Functional Activity Samanta, Functional Strength, Gait, Safety, Therapeutic Exercise, Transfers Treatment Duration: Dec 23, 2021 Frequency: 6 times per week Estimated Hrs Per Day: .25 hour per day Patient and/or Family Agrees t: Yes Time/GCodes Time In: 1050 Time Out: 1101 Total Billed Treatment Time: 11 Total Billed Treatment 1 visit EVMod 11 min CECIL HARRIS PT Dec 18, 2021 11:34
[2021-12-18] MEDS: ENOXAPARIN INJECTION 30 MG/0.3 ML SYR SC SCH (11:46)
[2021-12-18] MEDS: predniSONE 20 MG TAB PO SCH (15:27)
[2021-12-18 15:33] VITALS: BP 142/71
[2021-12-18] MEDS: cefTRIAXone 1 GM/50 ML (PRE-MIX) IV SCH (17:25)
[2021-12-18 19:12] VITALS: BP 134/65
[2021-12-18] MEDS: ACETAMINOPHEN 325 MG TABLET PO PRN (19:46)
[2021-12-18] MEDS: PROMETHAZINE/ CODEINE SYRUP 5 ML UDC PO PRN (19:55)
[2021-12-18] MEDS ORDERED: SALIVA STIMULANT MOUTH SPRAY (BIOTENE) 1.5 OZ MM PRN (20:15)
[2021-12-18 23:38] VITALS: BP 156/81
[2021-12-19 03:56] VITALS: BP 144/72
[2021-12-19] MEDS: FERROUS SULF 325 MG (IRON) TAB PO SCH (07:00)
[2021-12-19] MEDS: LEVOTHYROXINE 25 MCG (LEVOTHROID) TAB PO SCH (07:00)
[2021-12-19] MEDS: predniSONE 20 MG TAB PO SCH (07:00)
[2021-12-19 07:38] VITALS: BP 148/72
[2021-12-19] MEDS: RT-ALBUTEROL SULF 2.5 MG/3 ML PRE-MIX VIAL INH SCH (07:43)
[2021-12-19] MEDS: UMECLIDINIUM BROMIDE (INCRUSE ELLIPTA) 7'S IH SCH (07:43)
[2021-12-19] MEDS: guaiFENesin (MUCINEX) 600 MG TAB PO SCH (08:31)
[2021-12-19] MEDS: amLODIPine 5 MG (NORVASC) TAB PO SCH (08:31)
[2021-12-19] MEDS: PANTOPRAZOLE 40 MG (PROTONIX) TAB PO SCH (08:31)
[2021-12-19] MEDS: AZATHIOPRINE 50 MG TAB PO SCH (08:33)
[2021-12-19] MEDS: LACTOBACILLUS ACIDOPHILUS (PROBIOTIC) CAPSULE PO SCH (08:33)
[2021-12-19] MEDS: PROMETHAZINE/ CODEINE SYRUP 5 ML UDC PO PRN (08:40)
[2021-12-19] MEDS ORDERED: AZITHROMYCIN 250 MG TAB (ZITHROMAX) PO SCH (09:00)
--- NOTE | 2021-12-19 09:13 | Discharge Summary ---
Diagnosis/Chief Complaint Date of Admission Dec 14, 2021 at 16:40 Date of Discharge Reason Hospital Visit PT IS AN 81 Y/O FEMALE WHO IS KNOWN TO ME FROM CLINIC. SHE HAS HX OF PULMONARY FIBROSIS AND HAS BEEN ON MAINTENANCE THERAPY FROM DR. PATEL. SHE WAS CHANGED FROM HER PREVIOUS MEDICATION IN THE PAST FEW MONTHS DUE TO PERSISTENT HEADACHES WHICH HAVE NOT IMPROVED SINCE MEDICATIONS WERE ADJUSTED. SHE HAS A COUGH WHICH HAS BEEN WORSENING OVER THE PAST FEW WEEKS, HOWEVER WHAT BROUGHT HER INTO THE HOSPITAL WAS SEVERE CONFUSION AND WEAKNESS. Discharge Summary Discharge Physical Examination Allergies: Coded Allergies: sulfamethoxazole (Verified Allergy, Mild, RASH, 06/04/18) trimethoprim (Verified Allergy, Mild, RASH, 06/04/18) Vitals & I&Os Vital Signs Date Time Temp Pulse Resp B/P (MAP) Pulse Ox O2 Delivery O2 Flow Rate FiO2 12/19/21 07:48 Nasal Cannula 3.00 12/19/21 07:43 96 12/19/21 07:38 36.3 78 18 148/72 (97) 12/14/21 20:58 28 Discharge Instructions to patient/family Please see electronic discharge instructions given to patient. Discharge Medications Reviewed and agree with Discharge Medication list on patient's Discharge Instruction sheet CHERELLE HEIN MD Dec 19, 2021 09:13
[2021-12-19] MEDS ORDERED: PRD20T PO (09:18)
[2021-12-19] MEDS ORDERED: AMLO-250 PO (09:18)
[2021-12-19] MEDS ORDERED: FERR325T24 PO (09:18)
[2021-12-19] MEDS ORDERED: PROM473S9 PO (09:18)
[2021-12-19] MEDS ORDERED: MTP25TSR PO (09:18)
--- NOTE | 2021-12-19 09:21 | D/C HH Face to Face Order ---
D/C Face to Face Orders Reconcile Patient Problems Problems Reviewed?: Yes Instructions for Patient Via [employer], Patient Instructions/FollowUp: [facility] office for appt Physician to follow Patient: sukumar Discharge Diet for Home: Regular Diet Patient Problems: PNEUMONIA PULMONARY FIBROSIS HYPOTHYROIDISM CHRONIC COUGH HEADACHE UNDERWEIGHT DEMENTIA Patient Data-Allergies,Ht & Wt Patient Allergies: Coded Allergies: sulfamethoxazole (Verified Allergy, Mild, RASH, 06/04/18) trimethoprim (Verified Allergy, Mild, RASH, 06/04/18) Height (Feet): 4 Height (Inches): 8.00 Weight (Pounds): 99 Weight (Ounces): 0.4 Home Health Need/Face to Face Date of Face to Face: Dec 19, 2021 Clinical Findings: Generalized weakness and fatigue, Muscle weakness, Shortness of breath I have seen Pt [id number]: Yes Discharged To: Home Diagnosis/Conditions: PNEUMONIA PULMONARY FIBROSIS HYPOTHYROIDISM CHRONIC COUGH HEADACHE UNDERWEIGHT DEMENTIA Patient is Homebound due to: CognItive deficits, Elijah fall risk due to instabilty, Muscle weakness, Shortness of breath/distress Homebound Status Due to the above stated illness, injury or surgical procedure (medical condition or diagnosis) and associated clinical findings, the patient is homebound because of his/her inability to leave home except with aid of a supportive device and/or person AND leaving the home requires a considerable and taxing effort or is medically contraindicated. Pt req the following assistanc: Aid of another person, Cane Home Health Nursing Orders Home Health Services Order: Nursing Services, Svp Monetization-Evaluate & Treat, Physical Therapy-Evaluate & Treat Home Health Infusion Therapy Line Start Date: Dec 14, 2021 Therapy Orders Therapy Orders: PT to assess for OT Therapy Specific Orders: Eval assistive deivces, Teach enviro modifications/safety, Increase strength/endurance cbc and cmp in one wk from dc Certify Stmt I certify that this patient is under my care and that I, a nurse practitioner or a physician; a surgical assistant working with me, had a face to face encounter that - meets the physician face to face encounter requirements with this patient as dated. CHERELLE HEIN MD Dec 19, 2021 09:21
[2021-12-19] MEDS: IBUPROFEN 600 MG (MOTRIN) TAB PO PRN (09:27)
[2021-12-23] MEDS ORDERED: AZATHIOPRINE 50 MG TAB PO SCH (09:00)
== END 2021-12-19 11:53 | disposition home health service (06) | DRG 196 ==
LOC: EDUNIT# 14:58 → ER 14:59 → 4TH 16:40
PROVIDERS: ADMIT Family Medicine; ATTEND Family Medicine
DX: J84.10 Pulmonary fibrosis, unspecified (principal); J18.9 Pneumonia, unspecified organism; R64 Cachexia; Z68.1 Body mass index [BMI] 19.9 or less, adult; E03.9 Hypothyroidism, unspecified; R51.9 Headache, unspecified; R63.6 Underweight; F03.90 Unspecified dementia, unspecified severity, without behavioral disturbance, psychotic disturbance, mood disturbance, and anxiety; E78.00 Pure hypercholesterolemia, unspecified; K21.9 Gastro-esophageal reflux disease without esophagitis; M19.90 Unspecified osteoarthritis, unspecified site; M41.9 Scoliosis, unspecified; Z20.822 Contact with and (suspected) exposure to COVID-19; J01.00 Acute maxillary sinusitis, unspecified; Z99.81 Dependence on supplemental oxygen; R53.1 Weakness; I10 Essential (primary) hypertension
CPT/HCPCS: 36415; 51702; 70450; 71045; 71260; 80048; 80053; 81000; 83605; 85025; 85027; 85610; 85730; 86141; 87040; 87636; 94010; 94640; 94760

== ENCOUNTER 2022-03-29 09:46 | Inpatient (IN) | payer MEDICARE, OTHER ==
[~2022-03-29] VITALS: Ht 147.3 cm; Wt 41.4 kg
[~2022-03-29 09:46] MED LIST changes: +ALBU2.5V4 NEB; +ALBU6.7H8 INH; +AMLO-250 PO; +AZAT50TA16 PO; +BENZ200C51 PO; +CALC-939 PO; +CEFD300C3 PO; +CHOL10004 PO; +ESCI5TAB16 PO; +FAMO20TA5 PO; +FERR325T24 PO; +GUAI600T43 PO; +L GA1CAP2 PO; +MTP25TSR PO; +OMEP20TA56 PO; -OMEP20TA7 PO; +PRD20T PO; +PROM473S9 PO; +TIOT4MIS2 INH
[2022-03-29 10:06] VITALS: BP 124/67
[2022-03-29 10:09] LABS: BASOPHILS # (AUTO) 0.2 10^3/uL (0.0-0.1); BASOPHILS % (AUTO) 1 % (0-10); EOSINOPHILS # (AUTO) 0.4 10^3/uL (0.0-0.3); EOSINOPHILS % (AUTO) 2 % (0-10); HEMATOCRIT 42 % (35-52); HEMOGLOBIN 13.3 g/dL (11.5-16.0); LYMPHOCYTES # (AUTO) 3.5 10^3/uL (1.0-4.0); LYMPHOCYTES % (AUTO) 16 % (12-44); MEAN CORPUSCULAR HEMOGLOBIN 32 pg (25-34); MEAN CORPUSCULAR HGB CONC 32 g/dL (32-36); MEAN CORPUSCULAR VOLUME 101 fL (80-99); MEAN PLATELET VOLUME 9.3 fL (9.0-12.2); MONOCYTES # (AUTO) 2.1 10^3/uL (0.0-1.0); MONOCYTES % (AUTO) 10 % (0-12); NEUTROPHILS # (AUTO) 15.9 10^3/uL (1.8-7.8); NEUTROPHILS % (AUTO) 71 % (42-75); PLATELET COUNT 356 10^3/uL (130-400); WHITE BLOOD COUNT 22.3 10^3/uL (4.3-11.0)
[2022-03-29] MEDS ORDERED: methylPREDNISolone 125 MG (Solu-MEDROL) VIAL IVP ONE (10:15)
[2022-03-29 10:20] LABS: POTASSIUM 4.2 MMOL/L (3.6-5.0)
[2022-03-29 10:21] LABS: CALCIUM 9.6 MG/DL (8.5-10.1)
[2022-03-29 10:23] LABS: TOTAL PROTEIN 7.6 GM/DL (6.4-8.2)
[2022-03-29 10:24] LABS: BILIRUBIN,TOTAL 0.7 MG/DL (0.1-1.0)
[2022-03-29 10:26] LABS: CREATININE SERUM 0.76 MG/DL (0.60-1.30); PROTHROMBIN TIME PATIENT 13.5 SEC (12.2-14.7)
[2022-03-29 10:30] LABS: BAND NEUTROPHILS 1 %; EOSINOPHILS % (MANUAL) 1 %; LYMPHOCYTES % (MANUAL) 13 %; MONOCYTES % (MANUAL) 4 %; MYELOCYTES % 1 %; NEUTROPHILS % (MANUAL) 80 %
[2022-03-29 10:31] LABS: RBC MORPH NORMAL
--- NOTE | 2022-03-29 10:57 | Diagnostic Imaging Report ---
Indication: Shortness of air and chest heaviness. Time of Exam: 10:45 AM Correlation is made with prior chest 12/14/2021. Heart is enlarged. Interstitial changes throughout both lungs persist. This is largely owing to a chronic interstitial fibrotic changes but superimposed interstitial edema cannot be entirely excluded. No significant effusion is seen. No pneumothorax. IMPRESSION: Cardiomegaly and interstitial changes, as described. Dictated by: Dictated on workstation # [id number]
[2022-03-29] MEDS ORDERED: RT-ALBUTEROL/IPRATROPIUM 3 ML (DUONEB) VIAL ONE (11:06)
[2022-03-29] MEDS ORDERED: RT-ALBUTEROL/IPRATROPIUM 3 ML (DUONEB) VIAL INH ONE (11:15)
[2022-03-29 11:17] LABS: BILIRUBIN,URINE NEGATIVE (NEGATIVE); CLARITY,URINE CLEAR; COLOR,URINE YELLOW; GLUCOSE, URINE (UA) NEGATIVE (NEGATIVE); KETONES,URINE NEGATIVE (NEGATIVE); LEUKOCYTE ESTERASE ,URINE NEGATIVE (NEGATIVE); NITRITE,URINE NEGATIVE (NEGATIVE); PROTEIN,URINE NEGATIVE (NEGATIVE)
[2022-03-29 11:33] LABS: BACTERIA,URINE NEGATIVE /HPF; RBC,URINE RARE /HPF; SQUAMOUS EPITHELIAL CELL,UR RARE /HPF; WBC,URINE RARE /HPF
[2022-03-29] MEDS ORDERED: CEFEPIME INJECTION 1,000 MG in NS (IVPB) 50 ML IV ONE (11:45)
[2022-03-29] MEDS ORDERED: LACTATED RINGERS 1,000 ML IV ONE (11:45)
[2022-03-29 11:48] LABS: MAGNESIUM 1.9 MG/DL (1.6-2.4)
[2022-03-29 12:06] LABS: ABG BASE EXCESS 3.6 MMOL/L (-2.5-2.5); ABG OXYGEN SATURATION 98 % (94-100); ABG PCO2 45 MMHG (35-45); ABG PH 7.41 (7.37-7.43); ABG PO2 111 MMHG (79-93); ABG TCO2 29.1 MMOL/L (21.0-31.0)
[2022-03-29 12:09] LABS: ALLENS TEST YES-POS
[2022-03-29 12:10] LABS: INSPIRED O2 70%; PATIENT TEMP 37.7; VENTILATOR NO
--- NOTE | 2022-03-29 12:53 | ED General ---
General Chief Complaint: Respiratory Problems Stated Complaint: SOB, LOW 02 Nursing Triage Note: PT TO RM 9 BY WC WITH COMPLAINT OF SOA, CHEST HEAVINESS AND LOW O2. PT WAS 29% ON 5LNC HOME OXYGEN. DAUGHTER STATES PT HAS BEEN FLUCTUATING AT HOME. NORMALLY WEARS 3LNC AT HOME BUT CALLED [facility] OFFICE YESTERDAY AND UPPED TO 5LNC. PT IS ALERT BUT HAS SOME CONFUSION. DENIES SICK CONTACTS. Source of Information: Patient, Family Exam Limitations: No Limitations History of Present Illness Date Seen by Provider: Mar 29, 2022 Time Seen by Provider: 09:52 Initial Comments This 81-year-old woman with known pulmonary fibrosis presents to the emergency room in respiratory distress. She arrives via private vehicle. Upon my entering the room oxygen saturation is in the 50s on high flow mask. It is gradually improving. Patient is in respiratory distress and has paler. She is still alert and able to answer questions. Family is here as well and able to help with history. Dr. Smith is her primary care provider. She was started on azithromycin and cefdinir as well as a course of prednisone. She took the antibiotics yesterday. Today she has only had 10 mg of the 60 mg daily total. She does take prednisone 10 mg daily on a continual basis for her pulmonary fibrosis. Dr. Guerra is her medical lab technologist. Allergies and Home Medications Allergies Coded Allergies: sulfamethoxazole (Verified Allergy, Mild, RASH, 06/04/18) trimethoprim (Verified Allergy, Mild, RASH, 06/04/18) Patient Home Medication List Home Medication List Reviewed: Yes Albuterol Sulfate (Albuterol Sulfate) 2.5 Mg/3 Ml Vial.neb, 3 ML NEB TID PRN for SHORTNESS OF BREATH, (Reported) Entered as Reported by: EDWARD WATSON on 12/15/211451 Albuterol Sulfate (Proventil Hfa) 6.7 Gm Hfa.aer.ad, 2 PUFF INH Q6H PRN for SHORTNESS OF BREATH, (Reported) Entered as Reported by: EDWARD WATSON on 12/15/211451 Amlodipine Besylate (Amlodipine Besylate) 5 Mg Tablet, 5 MG PO DAILY Prescribed by: CHERELLE SMITH on 12/19/21917 Last Action: Held Azathioprine (Imuran) 50 Mg Tablet, 25 MG PO DAILY, (Reported) Entered as Reported by: EDWARD WATSON on 12/15/21 145 Benzonatate (Benzonatate) 200 Mg Capsule, 200 MG PO TID PRN for COUGH, (Reported) Entered as Reported by: EDWARD WATSON on 12/15/211451 Calcium Phosphate Trib/Vit D3 (Caltrate Gummy Bites) 1 Each Tab.chew, 1 EACH PO 1200, (Reported) Entered as Reported by: EDWARD WATSON on 12/15/21 145 Cefdinir (Cefdinir) 300 Mg Capsule, 300 MG PO BID, (Reported) Entered as Reported by: EDWARD WATSON on 12/15/211451 Last Action: Held Cholecalciferol (Vitamin D3) (Vitamin D3) 25 Mcg Tablet, 25 MCG PO DAILY, (Reported) Entered as Reported by: EDWARD WATSON on 12/15/21 145 Escitalopram Oxalate (Escitalopram Oxalate) 5 Mg Tablet, 5 MG PO 1800, (Reported) Entered as Reported by: EDWARD WATSON on 12/15/211451 Famotidine (Famotidine) 20 Mg Tablet, 20 MG PO BID, (Reported) Entered as Reported by: EDWARD WATSON on 12/15/21 145 Ferrous Sulfate (Ferosul) 325 Mg Tablet, 325 MG PO DAILY@0700 Prescribed by: CHERELLE SMITH on 12/19/21917 Last Action: Held Guaifenesin (Mucinex) 600 Mg Tab.er.12h, 600 MG PO DAILY, (Reported) Entered as Reported by: EDWARD WATSON on 12/15/211451 Levothyroxine Sodium (Levothyroxine Sodium) 25 Mcg Tablet, 25 MCG PO DAILY, (Reported) Entered as Reported by: LOPEZ COBB on 05/28/17 0903 Metoprolol Succinate (Metoprolol Succinate) 25 Mg Tab.er.24h, 25 MG PO BID Prescribed by: CHERELLE SMITH on 12/19/21917 Prednisone (Prednisone) 20 Mg Tab, 20 MG PO UD Prescribed by: CHERELLE SMITH on 12/19/21917 Last Action: Held Promethazine HCl/Codeine (Promethazine-Codeine Solution) 473 Ml Syrup, 2.5 ML PO Q4H PRN for COUGH Prescribed by: CHERELLE SMITH on 12/19/21 0919 Tiotropium [place] (Spiriva Respimat 2.5MCG/ACTUATION) 4 Gm Mist.inhal, 2 PUFF INH DAILY, (Reported) Entered as Reported by: EDWARD AWTSON on 12/15/21 145 l Gasseri/B Bifidum/B Longum ([employer] Capsule) 1 Each Capsule, 1 EACH PO DAILY, (Reported) Entered as Reported by: EDWARD WATSON on 12/15/21 145 Review of Systems Review of Systems Constitutional: no symptoms reported EENTM: no symptoms reported Respiratory: see HPI Cardiovascular: see HPI Gastrointestinal: no symptoms reported Genitourinary: no symptoms reported : No Musculoskeletal: no symptoms reported Skin: no symptoms reported Psychiatric/Neurological: No Symptoms Reported Hematologic/Lymphatic: No Symptoms Reported Immunological/Allergic: no symptoms reported Past Whttfsr-Ryribl-Wmcesv Hx Patient Social History Tobacco Use?: No Use of E-Cig and/or Vaping dev: No Substance use?: No Alcohol Use?: No Pt feels they are or have been: No Immunizations Up To Date Tetanus Booster (TDap): Unknown Influenza Vaccine Up-to-Date: Yes; Up-to-Date First/Initial COVID19 Vaccinat: OCT 2020 Second COVID19 Vaccination Manjeet: NOV 2020 Third COVID19 Vaccination Date: APR 2021 Seasonal Allergies Seasonal Allergies: Yes Past Medical History Surgery/Hospitalization HX: SEE CHART Surgeries: Yes (ovarian cyst x2, R rotator cuff) Hysterectomy Respiratory: Yes Pulmonary Fibrosis Currently Using CPAP: No Currently Using BIPAP: No Cardiac: Yes High Cholesterol Neurological: Yes Dementia Reproductive Disorders: No Sexually Transmitted Disease: No HIV/AIDS: No Genitourinary: No Gastrointestinal: Yes Gastroesophageal Reflux Musculoskeletal: Yes Arthritis, Scoliosis Endocrine: Yes HEENT: Yes (cataracts removed) Loss of Vision: Denies Hearing Impairment: Denies Cancer: No Psychosocial: No Integumentary: No Blood Disorders: No Adverse Reaction/Blood Tranf: No (N/A) Family Medical History Arthritis 19 MOTHER G8 BROTHER G8 SISTER Cardiovascular disease 19 MOTHER G8 BROTHER Completed stroke 19 MOTHER Dementia 19 MOTHER Heart Disease, Lung Disease, Stroke, Vascular Disease Physical Exam Vital Signs Vital Signs - First Documented 03/29/22 09:50 Temp 35.8 Pulse 120 Resp 49 B/P (MAP) 155/77 (103) Pulse Ox 29 O2 Delivery Nasal Cannula O2 Flow Rate 5.00 Capillary Refill : Greater Than 3 Seconds Height, Weight, BMI Height: 4'8.00" Weight: 99lbs. 0.4oz. 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 Norm as Tested Skin: Normal Color, Warm/Dry Focused Exam Lactate Level 03/29/22 09:58: Lactic Acid Level 7.33*H 03/29/22 12:23: Lactic Acid Level 1.45 Lactic Acid Level Laboratory Tests Test 03/29/22 09:58 03/29/22 12:23 Lactic Acid Level 7.33 MMOL/L (0.50-2.00) *H 1.45 MMOL/L (0.50-2.00) Progress/Results/Core Measures Suspected Sepsis SIRS Temperature: Pulse: 116 Respiratory Rate: 36 Laboratory Tests 03/29/22 09:58: White Blood Count 22.3H Blood Pressure 124 /67 Mean: 103 03/29/22 09:58: Lactic Acid Level 7.33*H 03/29/22 12:23: Lactic Acid Level 1.45 Laboratory Tests 03/29/22 09:58: Creatinine 0.76, INR Comment 1.0, Platelet Count 356, Total Bilirubin 0.7 Results/Orders Lab Results Laboratory Tests Test 03/29/22 09:58 03/29/22 11:00 03/29/22 11:57 03/29/22 12:23 Range/Units White Blood Count 22.3 H 4.3-11.0 10^3/uL Red Blood Count 4.17 3.80-5.11 10^6/uL Hemoglobin 13.3 11.5-16.0 g/dL Hematocrit 42 35-52 % Mean Corpuscular Volume 101 H 80-99 fL Mean Corpuscular Hemoglobin 32 25-34 pg Mean Corpuscular Hemoglobin Concent 32 32-36 g/dL Red Cell Distribution Width 13.7 10.0-14.5 % Platelet Count 356 130-400 10^3/uL Mean Platelet Volume 9.3 9.0-12.2 fL Immature Granulocyte % (Auto) 1 % Neutrophils (%) (Auto) 71 42-75 % Lymphocytes (%) (Auto) 16 12-44 % Monocytes (%) (Auto) 10 0-12 % Eosinophils (%) (Auto) 2 0-10 % Basophils (%) (Auto) 1 0-10 % Neutrophils # (Auto) 15.9 H 1.8-7.8 10^3/uL Lymphocytes # (Auto) 3.5 1.0-4.0 10^3/uL Monocytes # (Auto) 2.1 H 0.0-1.0 10^3/uL Eosinophils # (Auto) 0.4 H 0.0-0.3 10^3/uL Basophils # (Auto) 0.2 H 0.0-0.1 10^3/uL Immature Granulocyte # (Auto) 0.2 H 0.0-0.1 10^3/uL Neutrophils % (Manual) 80 % Lymphocytes % (Manual) 13 % Monocytes % (Manual) 4 % Eosinophils % (Manual) 1 % Myelocytes % 1 % Band Neutrophils 1 % Blood Morphology Comment NORMAL Prothrombin Time 13.5 12.2-14.7 SEC INR Comment 1.0 0.8-1.4 Activated Partial Thromboplast Time 30 24-35 SEC Sodium Level 135 135-145 MMOL/L Potassium Level 4.2 3.6-5.0 MMOL/L Chloride Level 96 L 98-107 MMOL/L Carbon Dioxide Level 20 L 21-32 MMOL/L Anion Gap 19 H 5-14 MMOL/L Blood Urea Nitrogen 9 7-18 MG/DL Creatinine 0.76 0.60-1.30 MG/DL Estimat Glomerular Filtration Rate 78 BUN/Creatinine Ratio 12 Glucose Level 200 H 70-105 MG/DL Lactic Acid Level 7.33 *H 1.45 0.50-2.00 MMOL/L Calcium Level 9.6 8.5-10.1 MG/DL Corrected Calcium 9.6 8.5-10.1 MG/DL Magnesium Level 1.9 1.6-2.4 MG/DL Total Bilirubin 0.7 0.1-1.0 MG/DL Aspartate Amino Transf (AST/SGOT) 25 5-34 U/L Alanine Aminotransferase (ALT/SGPT) 11 0-55 U/L Alkaline Phosphatase 58 40-136 U/L Myoglobin 35.3 10.0-92.0 NG/ML Troponin I < 0.028 <0.028 NG/ML C-Reactive Protein High Sensitivity 8.57 H 0.00-0.50 MG/DL Total Protein 7.6 6.4-8.2 GM/DL Albumin 4.0 3.2-4.5 GM/DL Procalcitonin 0.07 <0.10 NG/ML Influenza Type A (RT-PCR) Not Detected Not Detecte Influenza Type B (RT-PCR) Not Detected Not Detecte SARS-CoV-2 RNA (RT-PCR) Not Detected Not Detecte Urine Color YELLOW Urine Clarity CLEAR Urine pH 6.0 5-9 Urine Specific [place] 1.015 L 1.016-1.022 Urine Protein NEGATIVE NEGATIVE Urine Glucose (UA) NEGATIVE NEGATIVE Urine Ketones NEGATIVE NEGATIVE Urine Nitrite NEGATIVE NEGATIVE Urine Bilirubin NEGATIVE NEGATIVE Urine Urobilinogen 0.2 < = 1.0 MG/DL Urine Leukocyte Esterase NEGATIVE NEGATIVE Urine RBC (Auto) NEGATIVE NEGATIVE Urine RBC RARE /HPF Urine WBC RARE /HPF Urine Squamous Epithelial Cells RARE /HPF Urine Crystals NONE /LPF Urine Bacteria NEGATIVE /HPF Urine Casts NONE /LPF Urine Mucus NEGATIVE /LPF Urine Culture Indicated NO Blood Gas Puncture Site R RAD Blood Gas Patient Temperature 37.7 Arterial Blood pH 7.41 7.37-7.43 Arterial Blood Partial Pressure CO2 45 35-45 MMHG Arterial Blood Partial Pressure O2 111 H 79-93 MMHG Arterial Blood HCO3 28 H 23-27 MMOL/L Arterial Blood Total CO2 29.1 21.0-31.0 MMOL/L Arterial Blood Oxygen Saturation 98 94-100 % Arterial Blood Base Excess 3.6 H -2.5-2.5 MMOL/L Sony Test YES-POS Blood Gas Ventilator Setting NO Blood Gas Inspired Oxygen 70% My Orders Orders - EDUARDO SNIDER MD Covid 19 Inhouse Test (03/29/22 10:00) Influenza A And B By Pcr (03/29/22 10:00) Albuterol Inhaler (Albuterol) (03/29/22 14:00) Methylprednisolone Sod Succ (Solu-Medrol (03/29/22 10:15) Bipap (Bilevel) Set Up (03/29/22 10:01) Cbc With Automated Diff (03/29/22 10:01) Comprehensive Metabolic Panel (03/29/22 10:01) Blood Culture (03/29/22 10:01) Sputum Culture (03/29/22 10:01) Urinalysis (03/29/22 10:01) Urine Culture (03/29/22 10:01) Protime With Inr (03/29/22 10:01) Partial Thromboplastin Time (03/29/22 10:01) Chest 1 View, Ap/Pa Only (03/29/22 10:01) Ed Iv/Invasive Line Start (03/29/22 10:01) Vital Signs Adult Sepsis Patie Q15M (03/29/22 10:01) O2 (03/29/22 10:01) Remove Rings In Anticipation O (03/29/22 10:01) Lactic Acid Analyzer (03/29/22 10:01) Hs C Reactive Protein (03/29/22 10:01) Procalcitonin (Pct) (03/29/22 10:01) Manual Differential (03/29/22 09:58) Albuterol/Ipra Inhalation Soln (Duoneb I (03/29/22 11:06) Albuterol/Ipra Inhalation Soln (Duoneb I (03/29/22 11:15) Svn Small Volume Nebulizer (03/29/22 11:15) Magnesium (03/29/22 11:30) Ekg Tracing (03/29/22 11:30) Myoglobin Serum (03/29/22 11:30) Monitor-Rhythm Ecg Trace Only (03/29/22 11:30) Lipid Panel (03/30/22 06:00) Troponin I [place] (03/29/22 11:30) Arterial Blood Gas (03/29/22 11:31) Lactated Ringers (Lr 1000 Ml Iv Solution (03/29/22 11:45) Cefepime Injection (Maxipime Injection) (03/29/22 11:45) Code/Resuscitation (03/29/22 12:40) Medications Given in ED Current Medications Medications Dose Ordered Sig/Celine Route Start Time Stop Time Status Last Admin Dose Admin Cefepime HCl 1000 mg/Sodium Chloride 50 ml @ 100 mls/hr ONCE ONCE IV 03/29/22 11:45 03/29/22 12:14 DC 03/29/22 11:50 100 MLS/HR Lactated Ringer's 1,000 ml @ 0 mls/hr Q0M ONCE IV 03/29/22 11:45 03/29/22 11:46 DC 03/29/22 11:50 0 MLS/HR Methylprednisolone Sodium Succinate 125 mg ONCE ONCE IVP 03/29/22 10:15 03/29/22 10:16 DC 03/29/22 10:08 125 MG Vital Signs/I&O 03/29/22 03/29/22 03/29/22 09:50 09:50 10:06 Temp 35.8 Pulse 120 116 Resp 49 36 B/P (MAP) 155/77 (103) Pulse Ox 29 98 O2 Delivery Nasal Cannula Nasal Cannula O2 Flow Rate 5.00 5.00 70.00 Capillary Refill : Greater Than 3 Seconds Blood Pressure Mean: 103 Progress Note : Time: 13:27 Progress Note Patient is now comfortable and conversing freely on BiPAP. Her speech is somewhat confused as she has mild dementia but she is comfortable and conversa tional. On arrival her oxygen saturation was in the 50s on nasal cannula. This did improve to around 80% on high flow mask. BiPAP was initiated and saturations rapidly recovered into the 90s. I did confirm with both the patient and family that she has a DNR status. She was treated with Solu-Medrol 125 mg IV. Cefepime was also initiated as a precaution as she is immunocompromised on prednisone and Imuran in the context of pulmonary fibrosis. She has a very small body habitus, so cefepime 1 g was used instead of the 2 g dose. We are also continuing azithromycin that was initiated yesterday for outpatient treatment. A DuoNeb treatment was additionally administered. She has had a marked improvement since arrival. Case was discussed with both Dr. Smith and the eICU. Antibiotics will be continued as a precaution due to her immunocompromise status. Her lactic acid is most likely elevated due to the respiratory failure. ECG Initial ECG Impression Date: Mar 29, 2022 Initial ECG Impression Time: 11:41 Initial ECG Rate: 107 Initial ECG Rhythm: S.Tach Comment Sinus tachycardia with no ST elevation or depression. No abnormal intervals or axis deviation. Diagnostic Imaging Diagonstic Imaging: Xray Plain Films/CT/US/NM/MRI: chest Comments Chest x-ray viewed by me and report reviewed. See report below: NAME: [facility] REC#: [id number] PT STATUS: ADM IN : 1940 PHYSICIAN: EDUARDO SNIDER MD ADMIT DATE: 03/29/22/ICU Signed Date of Exam:03/29/22 CHEST 1 VIEW, AP/PA ONLY Indication: Shortness of air and chest heaviness. Time of Exam: 10:45 AM Correlation is made with prior chest 12/14/2021. Heart is enlarged. Interstitial changes throughout both lungs persist. This is largely owing to a chronic interstitial fibrotic changes but superimposed interstitial edema cannot be entirely excluded. No significant effusion is seen. No pneumothorax. IMPRESSION: Cardiomegaly and interstitial changes, as described. Dictated by: Dictated on workstation # [id number] Dict: 03/29/22 1051 Trans: 03/29/22 1551 [facility] [id number] Interpreted by: ROBYN GREEN MD Electronically signed by: ROBYN GREEN MD 03/29/22 1551 Departure Communication (Admissions) Time/Spoke to Admitting Phy: 12:40 Dr. Smith Time/Spoke to Consulting Phy: 13:05 eICU consult Impression Primary Impression: Acute and chronic respiratory failure Additional Impression: Pulmonary fibrosis Disposition: ADMITTED INPATIENT Condition: Improved Admissions Decision to Admit Reason: Admit from ER (General) Decision to Admit/Date: Mar 29, 2022 Time/Decision to Admit Time: 12:40 Departure-Patient Inst. Referrals: CHERELLE SMITH MD (PCP/Family) Primary Care Physician EDUARDO SNIDER MD Mar 29, 2022 12:52
[2022-03-29] MEDS ORDERED: RT-ALBUTEROL HFA 8.5 GM INHALER IH ONE (14:00)
[2022-03-29 15:28] VITALS: BP 102/57
[2022-03-29] MEDS ORDERED: ENOXAPARIN INJECTION 30 MG/0.3 ML SYR SC SCH (15:30)
--- NOTE | 2022-03-29 15:41 | Tele-ICU Consult ---
History of Present Illness History of Present Illness Date Seen by Provider: Mar 29, 2022 Time Seen by Provider: 15:39 Date of Admission (Tele-ICU Physician , consultation) Available chart/ vitals / labs / Images reviewed H&P is from ER notes Patient's information available about PMH, Shx, Fhx allergy reviewed in EMR. ROS as per chart and RN report Now in ICU, hemodynamically stable Video assessment done using teleICU camera, rest of exam as per RN Discussed with RN. Consultants: Hospital course: (03/29) 81 y/o female hx of pulmonary fibrosis admitted in ED with c/o of low sat, sob & chest heaviness. DX: Acute respiratory failutre, pulmonary fibrosis. A/P Acute on chronic hypoxic resp failure - Cont NIPPV prn , BIPAP 07/05 60% rr 36 tv 360 MV 12L - wean as tolerates DNI / DNR Possible PNA with elev WBC - no h/o MRO , will cont HAP coverage Elevated lactate of 7 on admission is due to severe hypoxia Sao2 50s - improved significantly with correcting hypoxia - lactate DOES NOT represent severity of sepsis - will not follow fluid bundle protocol with possible pulm HTN Chronic hypoxic res failure with h/o pulm fibrosis - followed with pulmonary in other hospital - will hold imuran now , cont steroids IV high dose Dementia - h/o - monitor - might need precedex Lines : (Central Line Necessity Reviewed) Gentile: Nutrition: VTE Prophylaxis: yareli 30 Stress Ulcer Prophylaxis: PPI IV Glycemic Control: ISS Plans in collaboration with bedside consultants and IM MDs. Discussed with RN to reach out if any questions or concerns A total of 35 minutes of critical care time was devoted to this patient today, required to treat and/or prevent further deterioration of critical care condition ( as above ) . Allergies and Home Medications Allergies Coded Allergies: sulfamethoxazole (Verified Allergy, Mild, RASH, 06/04/18) trimethoprim (Verified Allergy, Mild, RASH, 06/04/18) Home Medications Albuterol Sulfate 2.5 Mg/3 Ml Vial.neb, 3 ML NEB TID PRN for SHORTNESS OF BREATH, (Reported) Albuterol Sulfate 6.7 Gm Hfa.aer.ad, 2 PUFF INH Q6H PRN for SHORTNESS OF BREATH, (Reported) Amlodipine Besylate 5 Mg Tablet, 5 MG PO DAILY Prescribed by: CHERELLE HEIN on 12/19/21917 Azathioprine 50 Mg Tablet, 25 MG PO DAILY, (Reported) TAKES OF A 50MG TAB Benzonatate 200 Mg Capsule, 200 MG PO TID PRN for COUGH, (Reported) Calcium Phosphate Trib/Vit D3 1 Each Tab.chew, 1 EACH PO 1200, (Reported) Cefdinir 300 Mg Capsule, 300 MG PO BID, (Reported) FILLED 12-12-2021 #14/7 DAY SUPPLY Cholecalciferol (Vitamin D3) 25 Mcg Tablet, 25 MCG PO DAILY, (Reported) Escitalopram Oxalate 5 Mg Tablet, 5 MG PO 1800, (Reported) Famotidine 20 Mg Tablet, 20 MG PO BID, (Reported) Ferrous Sulfate 325 Mg Tablet, 325 MG PO DAILY@0700 Prescribed by: CHERELLE HEIN on 12/19/21917 Guaifenesin 600 Mg Tab.er.12h, 600 MG PO DAILY, (Reported) Levothyroxine Sodium 25 Mcg Tablet, 25 MCG PO DAILY, (Reported) Metoprolol Succinate 25 Mg Tab.er.24h, 25 MG PO BID Prescribed by: CHERELLE HEIN on 12/19/21917 Prednisone 20 Mg Tab, 20 MG PO UD one tab at 0700 and 1400 x 5 days then one tab at 0700 x 5 days then 1/2 tab at 0700 x 5 days then 1/2 tab every other day x 5 doses then stop Prescribed by: CHERELLE HEIN on 12/19/21917 Promethazine HCl/Codeine 473 Ml Syrup, 2.5 ML PO Q4H PRN for COUGH use 2.5mL in the morning and at 1pm and bedtime and then prn for cough that is uncontrolled Prescribed by: CHERELLE HEIN on 12/19/21918 Tiotropium [place] 4 Gm Mist.inhal, 2 PUFF INH DAILY, (Reported) l Gasseri/B Bifidum/B Longum 1 Each Capsule, 1 EACH PO DAILY, (Reported) Past Medical/Social/Family Hx Patient Social History Tobacco Use?: No Smoking Status: Never a Smoker Smokeless Tobacco Frequency: Never a User Use of E-Cig and/or Vaping dev: No Substance use?: No Alcohol Use?: No Pt stated abuse/neglect: No Immunizations Up To Date Influenza Vaccine Up-to-Date: Yes; Up-to-Date First/Initial COVID19 Vaccinat: OCT 2020 Second COVID19 Vaccination Manjeet: NOV 2020 Tetanus Booster (TDap): More Than 5 Years Hepatitis A: No Hepatitis B: No TB Skin Test: None Date of Pneumonia Vaccine: Jul 09, 2016 Current Status status: No status: No Advance Directives: Yes Advance Directive Location: Family to bring in copy Communicates: Verbally Primary Language: Guyanese Preferred Spoken Language: Guyanese Is interpretation needed?: No Review of Systems Constitutional: see HPI Focused Exam Lactate Level 03/29/22 09:58: Lactic Acid Level 7.33*H 03/29/22 12:23: Lactic Acid Level 1.45 Height, Weight, BMI Height: 4'8.00" Weight: 99lbs. 0.4oz. 45.285419li; 20.55 BMI Method:Stated Lactic Acid Level Laboratory Tests Test 03/29/22 12:23 Lactic Acid Level 1.45 MMOL/L (0.50-2.00) Exam Exam Patient acknowledged, consented, and participated in this virtual visit which was conducted using real time audio/video Vital Signs Date Time Temp Pulse Resp B/P (MAP) Pulse Ox O2 Delivery O2 Flow Rate FiO2 03/29/22 14:32 36.3 96 24 102/57 97 NIV Bilevel 60.00 03/29/22 14:14 100 03/29/22 14:07 100 18 118/62 92 03/29/22 10:06 116 36 98 70.00 03/29/22 09:50 35.8 120 49 155/77 (103) 29 Nasal Cannula 5.00 03/29/22 09:50 Nasal Cannula 5.00 Height & Weight Height: 4'8.00" Weight: 99lbs. 0.4oz. 45.164098hg; 20.55 BMI Method:Stated General Appearance: Mild Distress, Moderate Distress Capillary Refill: Greater Than 3 Seconds Results Lab Laboratory Tests 03/29/22 09:58 Assessment/Plan Assessment/Plan 1 NORA GUAMAN MD Mar 29, 2022 15:41
[2022-03-29 15:42] VITALS: BP 106/62
[2022-03-29] MEDS: methylPREDNISolone 40 MG/ML (Solu-MEDROL) VIAL IV SCH (16:30)
[2022-03-29] MEDS: inSUlin ASPART (NovoLOG) 1 UNIT/0.01 ML (CHARGE PER UNIT) SC SCH ×2 (16:31→21:16)
[2022-03-29] MEDS ORDERED: ONDANSETRON 4 MG/2 ML (SDV) Z0FRAN IV PRN (18:00)
[2022-03-29] MEDS ORDERED: CATHETER FLUSH 10 ML SYR IVP PRN (18:00)
--- NOTE | 2022-03-29 18:22 | History & Physical ---
History of Present Illness History of Present Illness Reason for visit/HPI Pt is an 81 y/o female who was admitted to the hospital for acute respiratory distress. Yvonne has history of pulmonary fibrosis, she has been managed as an outpatient by Dr. Howell for the past few years. She has been through several medications without benefit due to various side effects. She usually is on 2-3 liters of oxygen and stays in the mid 90's, however for the past few days she has been feeling poorly, her family had reported oxygen in the 89% range, they were instructed to increase predisone to 60mg daily, given cefdinir, zpack, and told to call if not improving (Pt was getting albuterol nebs qid, and bid albuterol inhaler as well.). Pt was having more distress, so her DTR and brought her to the hospital by private car, during which they were using her portable oxygen and her O2 sats dropped to the 50% range on the ride from their home to the ER. She was in severe distress from the ride, and was placed on BIPAP in the ER, with rapid improvement in her symptoms. Date of Admission Mar 29, 2022 at 13:06 Date Seen by a Provider: Mar 29, 2022 Time Seen by a Provider: 18:20 Attending Physician Cherelle Smith MD Admitting Physician Admitting Physician: Cherelle Smith MD Attending Physician: Cherelle Smith MD Consult Critical Care ICU Allergies and Home Medications Allergies Coded Allergies: sulfamethoxazole (Verified Allergy, Mild, RASH, 06/04/18) trimethoprim (Verified Allergy, Mild, RASH, 06/04/18) Patient Home Medication List Home Medication List Reviewed: Yes Albuterol Sulfate (Albuterol Sulfate) 2.5 Mg/3 Ml Vial.neb, 3 ML NEB TID PRN for SHORTNESS OF BREATH, (Reported) Entered as Reported by: EDWARD WATSON on 12/15/211451 Albuterol Sulfate (Proventil Hfa) 6.7 Gm Hfa.aer.ad, 2 PUFF INH Q6H PRN for SHORTNESS OF BREATH, (Reported) Entered as Reported by: EDWARD WATSON on 12/15/211451 Amlodipine Besylate (Amlodipine Besylate) 5 Mg Tablet, 5 MG PO DAILY Prescribed by: CHERELLE SMITH on 12/19/21917 Last Action: Held Azathioprine (Imuran) 50 Mg Tablet, 25 MG PO DAILY, (Reported) Entered as Reported by: EDWARD WATSON on 12/15/211451 Benzonatate (Benzonatate) 200 Mg Capsule, 200 MG PO TID PRN for COUGH, (Rep orted) Entered as Reported by: EDWARD WATSON on 12/15/211451 Calcium Phosphate Trib/Vit D3 (Caltrate Gummy Bites) 1 Each Tab.chew, 1 EACH PO 1200, (Reported) Entered as Reported by: EDWARD WATSON on 12/15/211451 Cefdinir (Cefdinir) 300 Mg Capsule, 300 MG PO BID, (Reported) Entered as Reported by: EDWARD WATSON on 12/15/211451 Last Action: Held Cholecalciferol (Vitamin D3) (Vitamin D3) 25 Mcg Tablet, 25 MCG PO DAILY, (Reported) Entered as Reported by: EDWARD WATSON on 12/15/211453 Escitalopram Oxalate (Escitalopram Oxalate) 5 Mg Tablet, 5 MG PO 1800, (Reported) Entered as Reported by: EDWARD WATSON on 12/15/211451 Famotidine (Famotidine) 20 Mg Tablet, 20 MG PO BID, (Reported) Entered as Reported by: EDWARD WATSON on 12/15/211451 Ferrous Sulfate (Ferosul) 325 Mg Tablet, 325 MG PO DAILY@0700 Prescribed by: CHERELLE SMITH on 12/19/21917 Last Action: Held Guaifenesin (Mucinex) 600 Mg Tab.er.12h, 600 MG PO DAILY, (Reported) Entered as Reported by: EDWARD WATSON on 12/15/211451 Levothyroxine Sodium (Levothyroxine Sodium) 25 Mcg Tablet, 25 MCG PO DAILY, (Reported) Entered as Reported by: LOPEZ COBB on 05/28/17 09 Metoprolol Succinate (Metoprolol Succinate) 25 Mg Tab.er.24h, 25 MG PO BID Prescribed by: CHERELLE SMITH on 12/19/21917 Prednisone (Prednisone) 20 Mg Tab, 20 MG PO UD Prescribed by: CHERELLE SMITH on 12/19/21917 Last Action: Held Promethazine HCl/Codeine (Promethazine-Codeine Solution) 473 Ml Syrup, 2.5 ML PO Q4H PRN for COUGH Prescribed by: CHERELLE SMITH on 12/19/21 0919 Tiotropium Reading (Spiriva Respimat 2.5MCG/ACTUATION) 4 Gm Mist.inhal, 2 PUFF INH DAILY, (Reported) Entered as Reported by: EDWARD WATSON on 12/15/21 1452 l Gasseri/B Bifidum/B Longum (Apptentive Health Capsule) 1 Each Capsule, 1 EACH PO DAILY, (Reported) Entered as Reported by: EDWARD WATSON on 12/15/21 1452 Past Equaumm-Efrioa-Ezqbrj Hx Patient Social History Marrital Status: Living Status: lives at home with in [facility] Employed/Student: retired Tobacco Use?: No Smoking Status: Never a Smoker Smokeless Tobacco Frequency: Never a User Use of E-Cig and/or Vaping dev: No Substance use?: No Alcohol Use?: No Pt feels they are or have been: No Immunizations Up To Date Date of Influenza Vaccine: Jul 08, 2017 First/Initial COVID19 Vaccinat: OCT 2020 Second COVID19 Vaccination Manjeet: NOV 2020 Tetanus Booster (TDap): More Than 5 Years Hepatitis A: No Hepatitis B: No Date of Pneumonia Vaccine: Jul 09, 2016 Seasonal Allergies Seasonal Allergies: Yes Current Status status: No status: No Advance Directives: Yes Advance Directive Location: Family to bring in copy Communicates: Verbally Primary Language: Cypriot Preferred Spoken Language: Cypriot Is interpretation needed?: No Sensory deficits: Hearing impairment Implanted or Applied Medical D: Other (chronic oxygen therapy) Past Medical History Surgeries: Hysterectomy, Orthopedic (right total hip 2016) Pulmonary Fibrosis Currently Using CPAP: No Currently Using BIPAP: No High Cholesterol Dementia Sexually Transmitted Disease: No HIV/AIDS: No Gastroesophageal Reflux Arthritis, Scoliosis Loss of Vision: Denies Hearing Impairment: Denies Blood Disorders: No Adverse Reaction/Blood Tranf: No (N/A) Family Medical History Reviewed Nursing Family Hx Arthritis 19 MOTHER G8 BROTHER G8 SISTER Cardiovascular disease 19 MOTHER G8 BROTHER Completed stroke 19 MOTHER Dementia 19 MOTHER Heart Disease, Hypertension, Lung Disease, Stroke, Vascular Disease, Other Conditions/Hx (twin sister with pulmonary fibrosis) Review of Systems Constitutional: No chills, No dizziness, No fever; malaise, weakness EENTM: No hoarseness, No throat pain Respiratory: cough (chronic), dyspnea on exertion, short of breath Cardiovascular: No chest pain, No palpitations Gastrointestinal: No abdominal pain, No constipation, No diarrhea, No nausea, No vomiting Genitourinary: incontinence Musculoskeletal: No back pain, No joint pain, No muscle pain, No muscle stiffness, No muscle weakness Skin: no symptoms reported Psychiatric/Neurological: Anxiety, Headache, Other (dementia/confusion) All Other Systems Reviewed Negative Unless Noted: Yes Physical Exam Vital Signs Vital Signs - First Documented 03/29/22 03/29/22 09:50 20:00 Temp 35.8 Pulse 120 Resp 49 B/P (MAP) 155/77 (103) Pulse Ox 29 O2 Delivery Nasal Cannula O2 Flow Rate 5.00 FiO2 45 Capillary Refill : Greater Than 3 Seconds Height, Weight, BMI Height: 4'8.00" Weight: 99lbs. 0.4oz. 45.154158kx; 20.55 BMI Method:Stated General Appearance: Mild Distress, Thin HEENT: PERRL/EOMI Neck: Supple Respiratory: Chest Non Tender, Decreased Breath Sounds (coarse crackles left mid lobe, diffuse fine crackles) Cardiovascular: Regular Rate, Rhythm, Normal Peripheral Pulses Gastrointestinal: Normal Bowel Sounds, No Organomegaly, Non Tender, Soft Rectal: Deferred Extremity: Normal Capillary Refill, No Calf Tenderness, No Pedal Edema Neurologic/Psychiatric: Alert, Normal Mood/Affect, Other (oriented to person, place not time) Skin: Normal Color, Warm/Dry Lymphatic: No Adenopathy Assessment/Plan Assessment and Plan Acute respiratory distress Suspect pneumonia Chronic Pulmonary fibrosis End Stage lung disease Advanced Age Frailty Dementia Headache - Chronic Chronic Steroid use Hypothyroidism Acute respiratory distress due to Suspect pneumonia with Chronic Pulmonary fibrosis - pt has End Stage lung disease - Pt was started on Bipap, consult placed to [facility], critical Care pulmonology group. - pt on IV steroids, Iv antibiotics, breathing treatments - will wean steroids as quickly as possible due to pt's jittery sensation and already compromised mental status. - pt is DNR DNI - hopefully we can wean back down to oxygen via [place] over the weekend. Advanced Age with Frailty - pt resides at home with spouse, will see about outpatient therapy for s trengthening on DC Dementia - supportive care, wean down any medication which can lead to delirium clive. Headache - Chronic - supportive care, prn tylenol. Chronic Steroid use - will wean down to oral steroids as soon as able. Hypothyroidism - continue home regimen Admission Diagnosis Acute respiratory distress Suspect pneumonia Chronic Pulmonary fibrosis End Stage lung disease Advanced Age Frailty Dementia Headache - Chronic Chronic Steroid use Hypothyroidism Admission Status: Inpatient Order (span 2 midnights) Reason for Inpatient Admission: respiratory distress will require 3-4 days in hospital CHERELLE SMITH MD Mar 29, 2022 18:22
[2022-03-29] MEDS: RT-ALBUTEROL/IPRATROPIUM 3 ML (DUONEB) VIAL INH SCH ×2 (19:08→23:57)
[2022-03-29 19:09] VITALS: BP 88/72
[2022-03-29] MEDS: CEFEPIME 1,000 MG/NS 50 ML IVPB IV SCH ×2 (20:38)
[2022-03-29] MEDS ORDERED: CEFEPIME INJECTION 2,000 MG in NS (IVPB) 50 ML IV SCH (21:00)
[2022-03-29] MEDS ORDERED: PROMETHAZINE/ CODEINE SYRUP 5 ML UDC PO ONE (21:15)
[2022-03-29] MEDS ORDERED: PROMETHAZINE/ CODEINE SYRUP 5 ML UDC ONE (21:35)
[2022-03-29 23:58] VITALS: BP 88/72
[2022-03-30] MEDS: CATHETER FLUSH 10 ML SYR IVP SCH ×4 (00:58→21:35)
[2022-03-30] MEDS: methylPREDNISolone 40 MG/ML (Solu-MEDROL) VIAL IV SCH ×5 (00:58→23:15)
[2022-03-30] MEDS: RT-ALBUTEROL/IPRATROPIUM 3 ML (DUONEB) VIAL INH SCH ×6 (01:43→22:56)
[2022-03-30 02:10] VITALS: BP 112/62
[2022-03-30] MEDS: CEFEPIME 1,000 MG/NS 50 ML IVPB IV SCH ×6 (05:07→20:07)
[2022-03-30] MEDS: KCL 20 MEQ TAB (K-DUR) PO SCH (05:23)
[2022-03-30] MEDS: POTASSIUM CL 10MEQ/50ML IVPB 50 ML IV SCH (05:23)
[2022-03-30] MEDS: MAGNESIUM 1 GM/100 ML IVPB 100 ML IV SCH (05:23)
[2022-03-30 06:14] LABS: POTASSIUM 3.6 MMOL/L (3.6-5.0)
[2022-03-30 06:16] LABS: CALCIUM 9.3 MG/DL (8.5-10.1)
[2022-03-30 06:20] LABS: CREATININE SERUM 0.62 MG/DL (0.60-1.30); PHOSPHORUS 3.3 MG/DL (2.3-4.7)
[2022-03-30 06:23] LABS: MAGNESIUM 2.2 MG/DL (1.6-2.4)
[2022-03-30] MEDS: inSUlin ASPART (NovoLOG) 1 UNIT/0.01 ML (CHARGE PER UNIT) SC SCH ×5 (06:39→21:35)
[2022-03-30 06:41] LABS: BASOPHILS % (AUTO) 0 % (0-10); EOSINOPHILS % (AUTO) 0 % (0-10); HEMATOCRIT 36 % (35-52); HEMOGLOBIN 11.4 g/dL (11.5-16.0); LYMPHOCYTES # (AUTO) 0.8 10^3/uL (1.0-4.0); LYMPHOCYTES % (AUTO) 7 % (12-44); MEAN CORPUSCULAR HEMOGLOBIN 32 pg (25-34); MEAN CORPUSCULAR HGB CONC 32 g/dL (32-36); MEAN CORPUSCULAR VOLUME 101 fL (80-99); MEAN PLATELET VOLUME 9.6 fL (9.0-12.2); MONOCYTES # (AUTO) 0.4 10^3/uL (0.0-1.0); MONOCYTES % (AUTO) 3 % (0-12); NEUTROPHILS # (AUTO) 11.2 10^3/uL (1.8-7.8); NEUTROPHILS % (AUTO) 89 % (42-75); PLATELET COUNT 303 10^3/uL (130-400); WHITE BLOOD COUNT 12.6 10^3/uL (4.3-11.0)
[2022-03-30] MEDS ORDERED: POTASSIUM CL 10MEQ/50ML IVPB 50 ML IV SCH (07:00)
--- NOTE | 2022-03-30 07:03 | Progress Note ---
Subjective Subjective Date Seen by Provider: Mar 30, 2022 Time Seen by Provider: 06:21 Yvonne Miranda is an 81y/o F being seen for follow up for acute on chronic respiratory failure. Pt was only alert to person this morning when I talked with her. Nursing reports that pt was on BIPAP but had developed anxiety when she was on it. Switched to Vapotherm and she has tolerated that well. Had some complaints of nausea and was given Zofran. Nausea improved. Did have 5 diarrhea stools over the course of the night. Pt states that her breathing is better today. But does have an occasional cough. Review of Systems General: No Chills, No Other (fever) Pulmonary: No Dyspnea, No Cough Cardiovascular: No: Chest Pain, Palpitations Gastrointestinal: Nausea (improved), Diarrhea; No: Abdominal Pain Genitourinary: No Dysuria, No Frequency Musculoskeletal: other (left knee pain) Neurological: Confusion Objective Exam Vital Signs Vital Signs Date Time Temp Pulse Resp B/P (MAP) Pulse Ox O2 Delivery O2 Flow Rate FiO2 03/30/22 06:00 86 19 108/64 96 Vapotherm 30.00 50.00 03/30/22 05:00 85 17 89/68 96 Vapotherm 30.00 50.00 03/30/22 04:00 37.0 03/30/22 04:00 92 18 103/62 95 Vapotherm 30.00 50.00 03/30/22 04:00 Vapotherm 30.00 50 03/30/22 03:00 98 27 115/68 91 Vapotherm 30.00 50.00 03/30/22 02:10 92 22 96 40.00 03/30/22 02:00 89 28 101/54 92 Vapotherm 30.00 50.00 03/30/22 01:48 Vapotherm 30.00 50.00 03/30/22 01:43 95 Vapotherm 30.00 50 03/30/22 01:00 83 03/30/22 01:00 83 18 106/83 98 NIV Bilevel 50.00 03/30/22 00:00 NIV Bilevel 45 03/30/22 00:00 36.6 03/30/22 00:00 87 16 104/68 99 NIV Bilevel 50.00 03/29/22 23:58 92 21 98 50.00 03/29/22 23:08 NIV Bilevel 50.00 03/29/22 23:00 90 17 106/63 93 NIV Bilevel 55.00 03/29/22 22:00 87 24 95/59 98 NIV Bilevel 55.00 03/29/22 21:00 92 38 102/65 96 NIV Bilevel 55.00 03/29/22 20:15 NIV Bilevel 55.00 03/29/22 20:00 37.0 03/29/22 20:00 NIV Bilevel 45 03/29/22 20:00 98 25 100/61 92 NIV Bilevel 45.00 03/29/22 19:09 88 21 94 45.00 03/29/22 19:00 90 03/29/22 19:00 99 25 108/64 95 NIV Bilevel 45.00 03/29/22 19:00 NIV Bilevel 45.00 03/29/22 18:00 92 20 97/60 96 NIV Bilevel 60.00 03/29/22 17:00 96 25 115/62 89 NIV Bilevel 60.00 03/29/22 16:45 96 28 119/79 94 NIV Bilevel 60.00 03/29/22 16:30 90 25 102/57 95 NIV Bilevel 60.00 03/29/22 16:15 93 32 111/58 95 NIV Bilevel 60.00 03/29/22 16:00 94 28 101/60 97 NIV Bilevel 60.00 03/29/22 16:00 36.8 03/29/22 15:45 95 28 106/62 96 NIV Bilevel 60.00 03/29/22 15:42 95 24 96 45.00 03/29/22 15:28 36.3 96 97 03/29/22 15:15 96 22 106/58 97 NIV Bilevel 60.00 03/29/22 15:11 97 31 97/59 99 NIV Bilevel 60.00 03/29/22 15:09 96 26 83/69 99 NIV Bilevel 60.00 03/29/22 14:45 97 24 101/71 98 NIV Bilevel 60.00 03/29/22 14:32 36.3 96 24 102/57 97 NIV Bilevel 60.00 03/29/22 14:30 96 28 102/57 97 NIV Bilevel 60.00 03/29/22 14:15 96 26 103/61 96 NIV Bilevel 60.00 03/29/22 14:14 100 03/29/22 14:07 100 18 118/62 92 03/29/22 10:06 116 36 98 70.00 03/29/22 09:50 35.8 120 49 155/77 (103) 29 Nasal Cannula 5.00 03/29/22 09:50 Nasal Cannula 5.00 I & O 03/30/22 07:00 Intake Total 1825 ml Output Total 1875 ml Balance -50 ml General Appearance: No Apparent Distress, Thin HEENT: PERRL/EOMI; No Photophobia Neck: Non Tender, Supple; No JVD Respiratory: No Respiratory Distress, Crackles (best heard over lower lung bruno) Cardiovascular: No Edema, No Murmur, Normal Peripheral Pulses, Tachycardia Gastrointestinal: Non Tender, Soft; No Distended Extremity: Normal Inspection, No Pedal Edema Neurologic/Psychiatric: Alert; No Oriented x3 (only orientated to person); No Motor/Sensory Deficits Skin: Normal Color, Warm/Dry Lymphatic: No Adenopathy Results Lab Laboratory Tests 03/29/22 09:58: White Blood Count 22.3H, Red Blood Count 4.17, Hemoglobin 13.3, Hematocrit 42, Mean Corpuscular Volume 101H, Mean Corpuscular Hemoglobin 32, Mean Corpuscular Hemoglobin Concent 32, Red Cell Distribution Width 13.7, Platelet Count 356, Mean Platelet Volume 9.3, Immature Granulocyte % (Auto) 1, Neutrophils (%) (Auto) 71, Lymphocytes (%) (Auto) 16, Monocytes (%) (Auto) 10, Eosinophils (%) (Auto) 2, Basophils (%) (Auto) 1, Neutrophils # (Auto) 15.9H, Lymphocytes # (Auto) 3.5, Monocytes # (Auto) 2.1H, Eosinophils # (Auto) 0.4H, Basophils # (Auto) 0.2H, Immature Granulocyte # (Auto) 0.2H, Neutrophils % (Manual) 80, Lymphocytes % (Manual) 13, Monocytes % (Manual) 4, Eosinophils % (Manual) 1, Myelocytes % 1, Band Neutrophils 1, Blood Morphology Comment NORMAL, Prothrombin Time 13.5, INR Comment 1.0, Activated Partial Thromboplast Time 30, Sodium Level 135, Potassium Level 4.2, Chloride Level 96L, Carbon Dioxide Level 20L, Anion Gap 19H, Blood Urea Nitrogen 9, Creatinine 0.76, Estimat Glomerular Filtration Rate 78, BUN/Creatinine Ratio 12, Glucose Level 200H, Lactic Acid Level 7.33*H, Calcium Level 9.6, Corrected Calcium 9.6, Magnesium Level 1.9, Total Bilirubin 0.7, Aspartate Amino Transf (AST/SGOT) 25, Alanine Aminotransferase (ALT/SGPT) 11, Alkaline Phosphatase 58, Myoglobin 35.3, Troponin I < 0.028, C-Reactive Protein High Sensitivity 8.57H, Total Protein 7.6, Albumin 4.0, Procalcitonin 0.07, Influenza Type A (RT-PCR) Not Detected, Influenza Type B (RT-PCR) Not Detected, SARS-CoV-2 RNA (RT-PCR) Not Detected 03/29/22 11:00: Urine Color YELLOW, Urine Clarity CLEAR, Urine pH 6.0, Urine Specific [place] 1.015L, Urine Protein NEGATIVE, Urine Glucose (UA) NEGATIVE, Urine Ketones NEGATIVE, Urine Nitrite NEGATIVE, Urine Bilirubin NEGATIVE, Urine Urobilinogen 0.2, Urine Leukocyte Esterase NEGATIVE, Urine RBC (Auto) NEGATIVE, Urine RBC RARE, Urine WBC RARE, Urine Squamous Epithelial Cells RARE, Urine Crystals NONE, Urine Bacteria NEGATIVE, Urine Casts NONE, Urine Mucus NEGATIVE, Urine Culture Indicated NO 03/29/22 11:57: Blood Gas Puncture Site R RAD, Blood Gas Patient Temperature 37.7, Arterial Blood pH 7.41, Arterial Blood Partial Pressure CO2 45, Arterial Blood Partial Pressure O2 111H, Arterial Blood HCO3 28H, Arterial Blood Total CO2 29.1, Arterial Blood Oxygen Saturation 98, Arterial Blood Base Excess 3.6H, Sony Test YES-POS, Blood Gas Ventilator Setting NO, Blood Gas Inspired Oxygen 70% 03/29/22 12:23: Lactic Acid Level 1.45 03/29/22 16:26: Glucometer 177H 03/29/22 20:52: Glucometer 141H 03/30/22 05:16: White Blood Count 12.6H, Red Blood Count 3.59L, Hemoglobin 11.4L, Hematocrit 36, Mean Corpuscular Volume 101H, Mean Corpuscular Hemoglobin 32, Mean Corpuscular Hemoglobin Concent 32, Red Cell Distribution Width 13.3, Platelet Count 303, Mean Platelet Volume 9.6, Immature Granulocyte % (Auto) 1, Neutrophils (%) (Auto) 89H, Lymphocytes (%) (Auto) 7L, Monocytes (%) (Auto) 3, Eosinophils (%) (Auto) 0, Basophils (%) (Auto) 0, Neutrophils # (Auto) 11.2H, Lymphocytes # (Auto) 0.8L, Monocytes # (Auto) 0.4, Eosinophils # (Auto) 0.0, Basophils # (Auto) 0.0, Immature Granulocyte # (Auto) 0.1, Sodium Level 141, Potassium Level 3.6, Chloride Level 104, Carbon Dioxide Level 25, Anion Gap 12, Blood Urea Nitrogen 13, Creatinine 0.62, Estimat Glomerular Filtration Rate 89, BUN/Creatinine Ratio 21, Glucose Level 119H, Calcium Level 9.3, Phosphorus Level 3.3, Magnesium Level 2.2, Triglycerides Level 104, Cholesterol Level 188, LDL Cholesterol Direct 132H, VLDL Cholesterol 21, HDL Cholesterol 46 Assessment/Plan Assessment/Plan Assessment and Plan Acute respiratory distress Suspect pneumonia Chronic Pulmonary fibrosis End Stage lung disease Advanced Age Frailty Dementia Headache - Chronic Chronic Steroid use Hypothyroidism Diabetes mellitus Acute respiratory distress due to Suspect pneumonia with Chronic Pulmonary fibrosis - pt has End Stage lung disease - pt was started on Bipap, consult placed to [facility], critical Care pulmonology group. Stopped BIPAP last night due to tachypnea due to anxiety - pt on IV steroids (Solu-Medrol), Iv antibiotics (Azithromycin and Cefepime), breathing treatments - will wean steroids as quickly as possible due to pt's jittery sensation and already compromised mental status. - pt is DNR DNI - hopefully we can wean back down as tolerated to oxygen via [place] over the weekend. Currently on Vapotherm 30LPM with 90% FiO2 - improving leukocytosis, WBC improved today at 12.6 down from 22.3 yesterday -CXR done yesterday, showed, according to radiology, Heart is enlarged. Interstitial changes throughout both lungs persist. This is largely owing to a chronic interstitial fibrotic changes but superimposed interstitial edema cannot be entirely excluded. No significant effusion is seen. No pneumothorax. Advanced Age with Frailty - pt resides at home with spouse, will see about outpatient therapy for strengthening on DC Dementia - supportive care, wean down any medication which can lead to delirium clive. - continue promethazine w/ codenine PRN Headache - Chronic - supportive care, prn tylenol. Chronic Steroid use - will wean down to oral steroids as soon as able. Hypothyroidism - continue home regimen Diabetes -Continue sliding scale insulin -Continue diabetic diet DVT prophylaxis -continue Lovenonx GI prophylaxis -continue Protonix -continue Zofran prn Can be transferred to 4th floor when bed is available Supervisory-Addendum Brief Verification & Attestation Participated in pt care: history, MDM, physical Personally performed: exam, history, MDM, supervision of care Care discussed with: Medical Student Procedures: n/a Results interpretation: Verified all documentation Agree with student note as documented. Pt seen in ICU with nurse at bedside. Yvonne did recognize this bid writer but did not remember our visit last night with her and DTR - Barbara at the bedside. When prompted as to who would have been at her bedside, Yvonne stated her and his mother, then when this bid writer asked her how old she was, she stated 81, this bid writer asked if it would be normal for an 81 y/o person to have a living [id number], she stated no that her husbands mother was and it was her DTR Barbara at the bedside. Pt is admitted for respiratory distress due to possible pneumonia superimposed on pulmonary fibrosis, she is on appropriate treatment, appears improved, on vapotherm, plan to move her down to 4th floor since her acute respiratory distress is improved. discussed with her DTR Barbara today on the phone, will plan on 4th floor today, wean vapotherm as able, try to keep pt off of bipap if possible due to her confusion, and pulling at her bipap device GENESIS ADAMS Mar 30, 2022 07:03 CHERELLE HEIN MD Mar 30, 2022 12:50
--- NOTE | 2022-03-30 08:34 | Tele-ICU Progress Note ---
Subjective Date Seen by a Provider: Mar 30, 2022 Time Seen by a Provider: 08:34 Subjective/Events-last exam Available chart/vitals/labs/images reviewed. Video assessment done using telemetry ICU camera, rest of exam as per RN. Discussion with the RN, exam as per RN. Hospital course Patient currently on nasal canula. States her breathing is much better when compared to yesterday. Denies any chest pain. No fever present. She is being transferred to medical surgical floor Sepsis Event Evaluation Height, Weight, BMI Height: 4'8.00" Weight: 99lbs. 0.4oz. 45.229093ic; 20.55 BMI Method:Stated Focused Exam Lactate Level 03/29/22 09:58: Lactic Acid Level 7.33*H 03/29/22 12:23: Lactic Acid Level 1.45 Exam Exam Patient acknowledged, consented, and participated in this virtual visit which was conducted using real time audio/video Vital Signs Date Time Temp Pulse Resp B/P (MAP) Pulse Ox O2 Delivery O2 Flow Rate FiO2 03/30/22 07:49 Vapotherm 30.00 90.00 03/30/22 07:25 96 Vapotherm 35.00 100 03/30/22 07:19 36.1 03/30/22 07:00 Vapotherm 35.00 100.00 03/30/22 06:00 86 19 108/64 96 Vapotherm 30.00 50.00 03/30/22 05:00 85 17 89/68 96 Vapotherm 30.00 50.00 03/30/22 04:00 37.0 03/30/22 04:00 92 18 103/62 95 Vapotherm 30.00 50.00 03/30/22 04:00 Vapotherm 30.00 50 03/30/22 03:00 98 27 115/68 91 Vapotherm 30.00 50.00 03/30/22 02:10 92 22 96 40.00 03/30/22 02:00 89 28 101/54 92 Vapotherm 30.00 50.00 03/30/22 01:48 Vapotherm 30.00 50.00 03/30/22 01:43 95 Vapotherm 30.00 50 03/30/22 01:00 83 03/30/22 01:00 83 18 106/83 98 NIV Bilevel 50.00 03/30/22 00:00 NIV Bilevel 45 03/30/22 00:00 36.6 03/30/22 00:00 87 16 104/68 99 NIV Bilevel 50.00 03/29/22 23:58 92 21 98 50.00 03/29/22 23:08 NIV Bilevel 50.00 03/29/22 23:00 90 17 106/63 93 NIV Bilevel 55.00 03/29/22 22:00 87 24 95/59 98 NIV Bilevel 55.00 03/29/22 21:00 92 38 102/65 96 NIV Bilevel 55.00 03/29/22 20:15 NIV Bilevel 55.00 03/29/22 20:00 37.0 03/29/22 20:00 NIV Bilevel 45 03/29/22 20:00 98 25 100/61 92 NIV Bilevel 45.00 03/29/22 19:09 88 21 94 45.00 03/29/22 19:00 90 03/29/22 19:00 99 25 108/64 95 NIV Bilevel 45.00 03/29/22 19:00 NIV Bilevel 45.00 03/29/22 18:00 92 20 97/60 96 NIV Bilevel 60.00 03/29/22 17:00 96 25 115/62 89 NIV Bilevel 60.00 03/29/22 16:45 96 28 119/79 94 NIV Bilevel 60.00 03/29/22 16:30 90 25 102/57 95 NIV Bilevel 60.00 03/29/22 16:15 93 32 111/58 95 NIV Bilevel 60.00 03/29/22 16:00 94 28 101/60 97 NIV Bilevel 60.00 03/29/22 16:00 36.8 03/29/22 15:45 95 28 106/62 96 NIV Bilevel 60.00 03/29/22 15:42 95 24 96 45.00 03/29/22 15:28 36.3 96 97 03/29/22 15:15 96 22 106/58 97 NIV Bilevel 60.00 03/29/22 15:11 97 31 97/59 99 NIV Bilevel 60.00 03/29/22 15:09 96 26 83/69 99 NIV Bilevel 60.00 03/29/22 14:45 97 24 101/71 98 NIV Bilevel 60.00 03/29/22 14:32 36.3 96 24 102/57 97 NIV Bilevel 60.00 03/29/22 14:30 96 28 102/57 97 NIV Bilevel 60.00 03/29/22 14:15 96 26 103/61 96 NIV Bilevel 60.00 03/29/22 14:14 100 03/29/22 14:07 100 18 118/62 92 03/29/22 10:06 116 36 98 70.00 03/29/22 09:50 35.8 120 49 155/77 (103) 29 Nasal Cannula 5.00 03/29/22 09:50 Nasal Cannula 5.00 I & O 03/30/22 07:00 Intake Total 1825 ml Output Total 1875 ml Balance -50 ml Height & Weight Height: 4'8.00" Weight: 99lbs. 0.4oz. 45.196505av; 20.55 BMI Method:Stated General Appearance: Mild Distress, Thin HEENT: PERRL/EOMI Neck: Supple Respiratory: Chest Non Tender, Decreased Breath Sounds (coarse crackles left mid lobe, diffuse fine crackles) Cardiovascular: Regular Rate, Rhythm, Normal Peripheral Pulses Capillary Refill: Greater Than 3 Seconds Extremity: Normal Capillary Refill, No Calf Tenderness, No Pedal Edema Neurologic/Psychiatric: Alert, Normal Mood/Affect, Other (oriented to person, place not time) Skin: Normal Color, Warm/Dry Lymphatic: No Adenopathy Results Lab Laboratory Tests 03/29/22 09:58 03/30/22 05:16 Assessment/Plan Assessment/Plan 1. Acute on chronic hypoxic respiratory failure currently she is on a nasal cannula. 2. Possible underlying pneumonia 3. Underlying chronic pulmonary fibrosis on immunosuppressive therapy with Imuran and steroids. The Remeron has been held. 4. History of dementia. Recommendations 1. Continue to wean oxygen as tolerated 2. IV antibiotics per primary care 3. Continue steroid and hold Imuran for at least a 1 week. 4. From critical care point of view she may be transferred to medical surgical floor. 5. DVT ppx with lovenox Critical Care: Critically Ill Patient Time spent with patient (mins): 15 FRANCISCO BECK MD Mar 30, 2022 08:34
[2022-03-30] MEDS: PANTOPRAZOLE 40 MG (PROTONIX) VIAL IV SCH (08:47)
[2022-03-30] MEDS ORDERED: AZITHROMYCIN INJECTION 250 MG in NS (IVPB) 250 ML IV ONE (09:00)
[2022-03-30] MEDS: AZITHROMYCIN 250 MG/NS 250 ML IVPB IV SCH ×2 (09:28)
[2022-03-30] MEDS: ACETAMINOPHEN 500 MG TAB (TYLENOL) PO PRN ×2 (10:22→17:39)
[2022-03-30 11:03] VITALS: BP 118/67
[2022-03-30] MEDS ORDERED: PROMETHAZINE/ CODEINE SYRUP 5 ML UDC PO PRN (12:15)
[2022-03-30] MEDS ORDERED: NON-FORMULARY MEDICATION 1 EA EA (Benzonatate 200 MG) PO PRN (12:15)
[2022-03-30] MEDS ORDERED: BENZONATATE 100 MG (TESSALON) CAPSULE PO PRN (12:30)
[2022-03-30] MEDS ORDERED: AMLO-250 PO (14:16)
[2022-03-30] MEDS ORDERED: PRD10T PO (14:16)
[2022-03-30] MEDS ORDERED: MTP25TSR PO (14:16)
[2022-03-30] MEDS ORDERED: FERR325T18 PO (14:16)
[2022-03-30] MEDS ORDERED: AZIT250T12 PO (14:16)
[2022-03-30] MEDS ORDERED: PROM5SYR PO (14:16)
[2022-03-30] MEDS: ENOXAPARIN 40 MG/0.4 ML (LOVENOX) SYR SC SCH (15:00)
[2022-03-30] MEDS: CHLORASEPTIC SPRAY 177 ML LIQUID MC PRN ×3 (18:07→21:31)
[2022-03-30] MEDS: PROMETHAZINE/ CODEINE SYRUP 5 ML UDC PO PRN (21:32)
[2022-03-30] MEDS ORDERED: amLODIPine 2.5MG (NORVASC) TAB PO ONE (23:00)
[2022-03-30] MEDS ORDERED: NS IV 1000 ML 1,000 ML ONE (23:02)
[2022-03-30] MEDS ORDERED: amLODIPine 2.5MG (NORVASC) TAB ONE (23:02)
[2022-03-30] MEDS: NS IV 1000 ML 1,000 ML IV SCH (23:15)
[2022-03-31] MEDS ORDERED: NS (IVPB) 250 ML IV ONE (01:00)
[2022-03-31] MEDS: RT-ALBUTEROL/IPRATROPIUM 3 ML (DUONEB) VIAL INH SCH ×6 (02:07→22:38)
[2022-03-31] MEDS: PROMETHAZINE/ CODEINE SYRUP 5 ML UDC PO PRN ×3 (02:28→20:39)
[2022-03-31] MEDS ORDERED: LORazepam INJ 2 MG/ML (ATIVAN) VIAL IVP ONE (03:00)
[2022-03-31] MEDS ORDERED: LORazepam INJ 2 MG/ML (ATIVAN) VIAL ONE (03:13)
[2022-03-31] MEDS: CEFEPIME 1,000 MG/NS 50 ML IVPB IV SCH ×2 (03:25)
[2022-03-31] MEDS: methylPREDNISolone 40 MG/ML (Solu-MEDROL) VIAL IV SCH ×3 (05:38→17:22)
[2022-03-31] MEDS: inSUlin ASPART (NovoLOG) 1 UNIT/0.01 ML (CHARGE PER UNIT) SC SCH ×4 (05:38→20:45)
[2022-03-31] MEDS: LEVOTHYROXINE 25 MCG (LEVOTHROID) TAB PO SCH (05:38)
[2022-03-31] MEDS: CATHETER FLUSH 10 ML SYR IVP SCH ×3 (05:39→20:45)
[2022-03-31 06:20] LABS: CALCIUM 8.6 MG/DL (8.5-10.1)
[2022-03-31 06:24] LABS: PHOSPHORUS 2.1 MG/DL (2.3-4.7)
[2022-03-31 06:25] LABS: CREATININE SERUM 0.59 MG/DL (0.60-1.30)
[2022-03-31 06:27] LABS: MAGNESIUM 2.2 MG/DL (1.6-2.4)
[2022-03-31] MEDS: POTASSIUM CL 10MEQ/50ML IVPB 50 ML IV SCH ×6 (06:27→11:18)
[2022-03-31] MEDS: KCL 20 MEQ TAB (K-DUR) PO SCH (06:27)
[2022-03-31] MEDS: MAGNESIUM 1 GM/100 ML IVPB 100 ML IV SCH (06:32)
--- NOTE | 2022-03-31 07:11 | Progress Note ---
Subjective Subjective Date Seen by Provider: Mar 31, 2022 Time Seen by Provider: 08:40 Yvonne Miranda is an 81y/o F being seen for follow up for acute on chronic respiratory failure. Pt was awake and alert when I entered the room. She appeared tired. According to nursing pt was restless over the course of the night. She had to be given phenergan w/ codeine and ativan. No diarrhea stools or complaints of headache over the course of the night. Pt complains of SOB and a cough. Vapotherm increased to 35LPM w/ FiO2 of 85%. Nursing states that anytime the pt is active she her SpO2 levels tend to decrease. Review of Systems General: No Chills; Fatigue; No Other (fever) HEENT: No Head Aches, No Visual Changes Pulmonary: Dyspnea, Cough Cardiovascular: No: Chest Pain, Palpitations Gastrointestinal: Nausea (improved); No: Abdominal Pain, Diarrhea Genitourinary: No Dysuria, No Frequency Musculoskeletal: No: neck pain, back pain All Other Systems Reviewed All Other Systems Reviewed: Yes Objective Exam Vital Signs Vital Signs Date Time Temp Pulse Resp B/P (MAP) Pulse Ox O2 Delivery O2 Flow Rate FiO2 03/31/22 04:41 112 18 120/62 96 Vapotherm 35.00 85.00 03/31/22 03:23 95 Vapotherm 35.00 85 03/31/22 03:18 36.6 129 28 115/56 93 Non Rebreather 15.00 03/31/22 03:16 95 Vapotherm 40.00 80 03/31/22 02:55 94 Vapotherm 40.00 100 03/31/22 02:36 143 18 132/60 100 Vapotherm 40.00 100.00 03/31/22 02:12 78 Vapotherm 40.00 100 03/31/22 00:57 120 18 105/53 94 Vapotherm 30.00 60.00 03/31/22 00:42 125 18 102/51 92 Vapotherm 30.00 60.00 03/31/22 00:02 36.5 132 16 111/49 93 Vapotherm 30.00 60.00 03/30/22 23:43 131 20 108/51 93 Vapotherm 30.00 60.00 03/30/22 22:56 90 Vapotherm 30.00 60 03/30/22 22:41 112 20 118/59 94 Vapotherm 30.00 60.00 03/30/22 21:00 Vapotherm 30.00 60 03/30/22 20:13 36.6 128 20 120/57 93 Vapotherm 30.00 60.00 03/30/22 18:28 91 Vapotherm 30.00 60 03/30/22 16:01 36.7 123 22 120/60 92 Vapotherm 30.00 60.00 03/30/22 15:36 92 Vapotherm 30.00 60 03/30/22 15:28 98 Vapotherm 30.00 70 03/30/22 12:13 Vapotherm 30.00 70.00 03/30/22 12:11 97 Vapotherm 30.00 70 03/30/22 11:45 37.3 117 20 91/45 96 03/30/22 11:03 109 30 95 40.00 03/30/22 10:55 93 Vapotherm 30.00 90 03/30/22 08:45 Vapotherm 30.00 50 03/30/22 07:49 Vapotherm 30.00 90.00 03/30/22 07:25 96 Vapotherm 35.00 100 03/30/22 07:19 36.1 I & O 03/31/22 07:00 Intake Total 1030 ml Output Total 1850 ml Balance -820 ml General Appearance: Mild Distress, Moderate Distress, Thin HEENT: PERRL/EOMI; No Photophobia Neck: Non Tender, Supple; No JVD Respiratory: Crackles (best heard over lower lung bruno, worse on left), Other (increased respiratory effort) Cardiovascular: No Edema, No Murmur, Normal Peripheral Pulses, Tachycardia Gastrointestinal: Non Tender, Soft; No Distended Rectal: Deferred Extremity: Normal Inspection, No Pedal Edema Neurologic/Psychiatric: Alert, Oriented x3 (orientated to person and time), No Motor/Sensory Deficits Skin: Normal Color, Warm/Dry Lymphatic: No Adenopathy Results Lab Laboratory Tests 03/30/22 10:08: Glucometer 124H 03/30/22 16:08: Glucometer 164H 03/30/22 17:55: Glucometer 300H 03/30/22 20:16: Glucometer 266H 03/31/22 05:21: Glucometer 163H 03/31/22 05:28: Sodium Level 141, Potassium Level 3.0L, Chloride Level 109H, Carbon Dioxide Level 22, Anion Gap 10, Blood Urea Nitrogen 11, Creatinine 0.59L, Estimat Glome rular Filtration Rate 90, BUN/Creatinine Ratio 19, Glucose Level 165H, Calcium Level 8.6, Phosphorus Level 2.1L, Magnesium Level 2.2 Microbiology 03/29/22 Urine Culture - Final, Complete NO GROWTH 03/29/22 Blood Culture - Preliminary, Resulted No growth Assessment/Plan Assessment/Plan Assessment and Plan Acute respiratory distress Suspect pneumonia Chronic Pulmonary fibrosis End Stage lung disease Advanced Age Frailty Dementia Headache - Chronic Chronic Steroid use Hypothyroidism Diabetes mellitus Acute respiratory distress due to Suspect pneumonia with Chronic Pulmonary fibrosis - pt has End Stage lung disease - pt was started on Bipap, consult placed to [facility], critical Care pulmonology group. Stopped BIPAP last night due to tachypnea due to anxiety - pt on IV steroids (Solu-Medrol), Iv antibiotics (Azithromycin and Cefepime), breathing treatments - will wean steroids as quickly as possible due to pt's jittery sensation and already compromised mental status. - pt is DNR DNI - hopefully we can wean back down as tolerated to oxygen via NC over the weekend. Currently on Vapotherm 35LPM with 85% FiO2, yesterday she was on 30LPM at 90% FiO2 - improving leukocytosis, WBC improved yesterday at 12.6 down from 22.3 on 03/29/22 -CXR done on 03/29/22, showed, according to radiology, Heart is enlarged. Interstitial changes throughout both lungs persist. This is largely owing to a chronic interstitial fibrotic changes but superimposed interstitial edema cannot be entirely excluded. No significant effusion is seen. No pneumothorax. -CXR done today showed, according to radiology, Bibasilar pulmonary consolidations appear superimposed on pulmonary fibrosis and suspicious for pneumonia -continue to monitor for worsening respiratory function, if worsens she may need to be moved back up to ICU Advanced Age with Frailty - pt resides at home with spouse, will see about outpatient therapy for strengthening on DC Dementia - supportive care, wean down any medication which can lead to delirium clive. - continue promethazine w/ codenine PRN -dose of ativan given last night Tachycardia -pt had episodes of tachycardia last night with rate getting into the 140s at max. Given amlodipine and metoprolol over the course of the night. HR on last check was 112. -continue to monitor Headache - Chronic - supportive care, prn tylenol. Chronic Steroid use - will wean down to oral steroids as soon as able. Hypothyroidism - continue home regimen Diabetes -Continue sliding scale insulin -Continue diabetic diet DVT prophylaxis -continue Lovenonx GI prophylaxis -continue Protonix -continue Zofran prn Supervisory-Addendum Brief Verification & Attestation Participated in pt care: history, MDM, physical Personally performed: exam, history, MDM, supervision of care Care discussed with: Medical Student Procedures: n/a Results interpretation: Verified all documentation AGREE WITH STUDENT NOTE PT HAD A ROUGH NIGHT LAST NIGHT - TACHYCARDIA, DYSPNEA, RECEIVED ATIVAN IN LOW DOSE, RESPIRATORY RATE SLOWED DOWN, PT'S OXYGEN IMPROVED AND PT WAS LEFT ON VAPOTHERM OVERNIGHT. THIS MORNING SHE IS INCREASINGLY SHORT OF BREATH, OXYGEN IN THE 89% RANGE WITH PT BECOMING INCREASINGLY TACHYPNEIC. PT'S AT BEDSIDE THIS MORNING. HE REPORTS THAT SHE WAS DOING FAIRLY WELL WITH OXYGEN IN THE MID 90'S UNTIL SHE ATE AND TOOK HER PILLS. PT'S NURSE REPORTS THAT WITH ANXIOLYTICS SHE APPEARED TO BE MORE COMFORTABLE. TACHYCARDIA - IMPROVED WITH METOPROLOL. PULMONARY FIBROSIS WITH PNEUMONIA - ADJUST ANTIBIOTICS TODAY DUE TO ELEVATION OF WBC'S, REPEAT XRAY IN MORNING (ONE VIEW DUE TO HER VAPOTHERM OR BIPAP REQUIREMENT), BREATHING TREATMENT TO CONTINUE, STEROIDS TO CONTINUE BUT AT LOWER DOSE. GENESIS ADAMS Mar 31, 2022 07:11 CHERELLE HEIN MD Mar 31, 2022 10:59
[2022-03-31 07:38] VITALS: BP 105/55
--- NOTE | 2022-03-31 08:00 | Diagnostic Imaging Report ---
CHEST 1 VIEW, AP/PA ONLY Indication: Respiratory distress Comparison: 03/29/2022 Findings: Diffuse bilateral heterogeneous pulmonary opacities are similar and most confluent in the lung bases. No pleural effusion or pneumothorax. Normal heart size. Impression: 1. Bibasilar pulmonary consolidations appear superimposed on pulmonary fibrosis and suspicious for pneumonia. Dictated by: Dictated on workstation # [id number]
[2022-03-31] MEDS: PANTOPRAZOLE 40 MG (PROTONIX) VIAL IV SCH (08:01)
[2022-03-31] MEDS: guaiFENesin (MUCINEX) 600 MG TAB PO SCH (08:01)
[2022-03-31] MEDS: AZITHROMYCIN 250 MG/NS 250 ML IVPB IV SCH ×2 (08:52)
[2022-03-31 09:03] LABS: HEMATOCRIT 31 % (35-52); HEMOGLOBIN 9.8 g/dL (11.5-16.0); MEAN CORPUSCULAR HEMOGLOBIN 32 pg (25-34); MEAN CORPUSCULAR HGB CONC 32 g/dL (32-36); MEAN CORPUSCULAR VOLUME 101 fL (80-99); MEAN PLATELET VOLUME 9.7 fL (9.0-12.2); PLATELET COUNT 296 10^3/uL (130-400); WHITE BLOOD COUNT 19.1 10^3/uL (4.3-11.0)
[2022-03-31] MEDS: meTOprolol TARTRATE 25 MG (LOPRESSOR) TABLET PO SCH ×2 (09:05→18:59)
[2022-03-31] MEDS ORDERED: LORazepam 0.5 MG (ATIVAN) TABLET PO ONE (09:15)
[2022-03-31] MEDS ORDERED: FUROSEMIDE 40 MG/4 ML INJ (LASIX) IVP ONE (09:15)
[2022-03-31] MEDS ORDERED: PIPERACILLIN SODIUM/TAZOBACTAM 4.5 GM in NS (IVPB) 100 ML IV NR (12:00)
[2022-03-31] MEDS: ENOXAPARIN 40 MG/0.4 ML (LOVENOX) SYR SC SCH (14:21)
[2022-03-31] MEDS: NS IV 1000 ML 1,000 ML IV SCH (14:21)
[2022-03-31 15:18] VITALS: BP 124/58
[2022-03-31] MEDS: PIPERACILLIN SODIUM/TAZOBACTAM 4.5 GM in NS (IVPB) 100 ML IV SCH (17:22)
[2022-03-31] MEDS: ACETAMINOPHEN 500 MG TAB (TYLENOL) PO PRN (18:59)
[2022-03-31] MEDS: LORazepam 0.5 MG (ATIVAN) TABLET PO PRN (18:59)
[2022-03-31 19:32] VITALS: BP 133/65
[2022-04-01] VITALS (7 sets, daily range): BP systolic 120–149; BP diastolic 61–76
[2022-04-01] MEDS: PIPERACILLIN SODIUM/TAZOBACTAM 4.5 GM in NS (IVPB) 100 ML IV SCH ×3 (01:28→16:55)
[2022-04-01] MEDS: methylPREDNISolone 40 MG/ML (Solu-MEDROL) VIAL IV SCH ×4 (01:28→21:02)
[2022-04-01] MEDS: RT-ALBUTEROL/IPRATROPIUM 3 ML (DUONEB) VIAL INH SCH ×6 (03:03→21:16)
[2022-04-01] MEDS: LORazepam 0.5 MG (ATIVAN) TABLET PO PRN ×2 (05:34→19:17)
[2022-04-01] MEDS: LEVOTHYROXINE 25 MCG (LEVOTHROID) TAB PO SCH (05:35)
[2022-04-01] MEDS: ACETAMINOPHEN 500 MG TAB (TYLENOL) PO PRN ×4 (05:35→19:17)
[2022-04-01 05:36] LABS: HEMATOCRIT 33 % (35-52); HEMOGLOBIN 10.6 g/dL (11.5-16.0); MEAN CORPUSCULAR HEMOGLOBIN 32 pg (25-34); MEAN CORPUSCULAR HGB CONC 32 g/dL (32-36); MEAN CORPUSCULAR VOLUME 102 fL (80-99); MEAN PLATELET VOLUME 9.6 fL (9.0-12.2); PLATELET COUNT 287 10^3/uL (130-400); WHITE BLOOD COUNT 18.1 10^3/uL (4.3-11.0)
[2022-04-01 05:47] LABS: POTASSIUM 3.1 MMOL/L (3.6-5.0)
[2022-04-01 05:48] LABS: CALCIUM 8.6 MG/DL (8.5-10.1)
[2022-04-01 05:53] LABS: CREATININE SERUM 0.65 MG/DL (0.60-1.30)
[2022-04-01] MEDS: KCL 20 MEQ TAB (K-DUR) PO SCH (06:07)
[2022-04-01] MEDS: MAGNESIUM 1 GM/100 ML IVPB 100 ML IV SCH (06:07)
[2022-04-01] MEDS: CATHETER FLUSH 10 ML SYR IVP SCH ×3 (06:07→21:03)
[2022-04-01] MEDS: POTASSIUM CL 10MEQ/50ML IVPB 50 ML IV SCH ×5 (06:08→09:15)
[2022-04-01] MEDS: inSUlin ASPART (NovoLOG) 1 UNIT/0.01 ML (CHARGE PER UNIT) SC SCH ×4 (06:08→21:02)
--- NOTE | 2022-04-01 07:16 | Progress Note ---
Subjective Subjective Date Seen by Provider: Apr 01, 2022 Time Seen by Provider: 08:15 Yvonne Miranda is an 81y/o F being seen for follow up for acute on chronic respiratory failure. Pt was awake and alert when I entered the room. Currently on Vapotherm 30LPM at 80% FiO2. She reports that she still has a cough. Says that she feels better today than she did yesterday. Mouth is dry this morning according to pt. Complaining of a headache. Her two daughters are present in the room with her. - Yvonne's dtrs and are in the room, reporting that she has been hallucinating a little bit - thinking that she needs to make phone calls for the hospital. Her dtrs report that their dad is exhausted and they are worried about both of them when she goes home. They are wondering about help at home, how much oxygen she will need to be on upon discharge, etc. Review of Systems General: No Chills; Fatigue; No Other (fever) HEENT: No Head Aches, No Visual Changes Pulmonary: Dyspnea, Cough Cardiovascular: No: Chest Pain, Palpitations Gastrointestinal: No: Nausea (improved), Abdominal Pain, Diarrhea Genitourinary: No Dysuria, No Frequency; Other (escobar in place) Musculoskeletal: No: neck pain, back pain Neurological: Weakness, Confusion All Other Systems Reviewed All Other Systems Reviewed: Yes Objective Exam Vital Signs Vital Signs Date Time Temp Pulse Resp B/P (MAP) Pulse Ox O2 Delivery O2 Flow Rate FiO2 04/01/22 04:00 36.7 118 32 133/75 (94) 92 NIV Bilevel 50.00 04/01/22 03:03 111 50 95 50.00 04/01/22 01:34 36.4 118 24 120/61 (80) 93 NIV Bilevel 50.00 03/31/22 22:38 121 50 90 50.00 03/31/22 21:00 Vapotherm 30.00 90 03/31/22 19:32 37.0 114 24 133/65 (87) 93 Vapotherm 80.00 30.00 03/31/22 19:18 92 Vapotherm 35.00 92 03/31/22 16:01 37.7 123 22 124/58 95 NIV Bilevel 60.00 03/31/22 15:18 122 45 93 60.00 03/31/22 11:45 36.4 110 49 113/63 95 NIV Bilevel 60.00 03/31/22 11:04 110 45 95 60.00 03/31/22 09:16 104 40 94 60.00 03/31/22 09:00 Vapotherm 30.00 90 03/31/22 07:53 95 Vapotherm 30.00 80 03/31/22 07:47 36.7 132 28 105/55 96 Vapotherm 30.00 90.00 03/31/22 07:47 93 Vapotherm 30.00 90 03/31/22 07:46 96 Vapotherm 35.00 95 03/31/22 07:38 133 48 87 60.00 I & O 04/01/22 07:00 Intake Total 1330 ml Output Total 3050 ml Balance -1720 ml General Appearance: Mild Distress (working to breathe - but improved from yesterday), Thin HEENT: PERRL/EOMI; No Photophobia Neck: Non Tender, Supple; No JVD Respiratory: Crackles (best heard over lower lung bruno,), Decreased Breath Sounds, Other (increased respiratory effort) Cardiovascular: No Edema, No Murmur, Normal Peripheral Pulses, Tachycardia Gastrointestinal: Non Tender, Soft; No Distended Rectal: Deferred Extremity: Normal Inspection, No Pedal Edema Neurologic/Psychiatric: Alert, No Motor/Sensory Deficits, Other (oriented to person, place, not time) Skin: Normal Color, Warm/Dry Lymphatic: No Adenopathy Results Lab Laboratory Tests 03/31/22 11:51: Glucometer 134H 03/31/22 16:06: Glucometer 178H 03/31/22 20:13: Glucometer 207H 04/01/22 05:11: White Blood Count 18.1H, Red Blood Count 3.29L, Hemoglobin 10.6L, Hematocrit 33L , Mean Corpuscular Volume 102H, Mean Corpuscular Hemoglobin 32, Mean Corpuscular Hemoglobin Concent 32, Red Cell Distribution Width 13.8, Platelet Count 287, Mean Platelet Volume 9.6, Sodium Level 146H, Potassium Level 3.1L, Chloride Level 108H, Carbon Dioxide Level 24, Anion Gap 14, Blood Urea Nitrogen 14, Creatinine 0.65, Estimat Glomerular Filtration Rate 88, BUN/Creatinine Ratio 22, Glucose Level 143H, Calcium Level 8.6 Microbiology 7/7/22 Urine Culture - Final, Complete NO GROWTH 03/29/22 Blood Culture - Preliminary, Resulted No growth Assessment/Plan Assessment/Plan Assessment and Plan Acute respiratory distress Suspect pneumonia Chronic Pulmonary fibrosis End Stage lung disease Advanced Age Frailty Dementia Headache - Chronic Chronic Steroid use Hypothyroidism Diabetes mellitus Acute respiratory distress due to Suspect pneumonia with Chronic Pulmonary fibrosis - pt has End Stage lung disease - pt was started on Bipap, consult placed to [facility], critical Care pulmonology group. (on admission, now on 4th floor, [facility] no longer involved in pt's care) - pt started on IV steroids (Solu-Medrol), Iv antibiotics (Azithromycin and Cefepime), breathing treatments - started Zosyn (day10/31) yesterday and discontinued azithromycin and cefepime due to worsening leukocytosis - steroids weaned from 80mg to 40mg yesterday - (dosing time now changed from 40mg q6h down to 40mg q8h) - pt is DNR DNI - hopefully we can wean back down as tolerated to oxygen via NC over the weekend. Currently on Vapotherm 30LPM with 8% FiO2 to eat and take medications. She has been alternating between Vapotherm and BIPAP. On ativan Q8H PRN due to anxiety when on BIPAP - slightly improved leukocytosis today at 18.1 down from 19.1 yesterday. WBC on 03/30/22 was 12.6 and 22.3 on 03/29/22 -CXR done on 03/29/22, showed, according to radiology, Heart is enlarged. Interstitial changes throughout both lungs persist. This is largely owing to a chronic interstitial fibrotic changes but superimposed interstitial edema cannot be entirely excluded. No significant effusion is seen. No pneumothorax. -CXR done 03/31/22 showed, according to radiology, Bibasilar pulmonary consolidations appear superimposed on pulmonary fibrosis and suspicious for pneumonia -CXR to be repeated this morning. -continue to monitor for worsening respiratory function, if worsens she may need to be moved back up to ICU - discussed with pt, , dtrs - will look into swing bed status for further weaning of vapotherm. Advanced Age with Frailty - pt resides at home with spouse, will see about outpatient therapy for strengthening on DC Dementia - supportive care, wean down any medication which can lead to delirium clive. - continue promethazine w/ codenine PRN - Tachycardia -pt had episodes of tachycardia over the night on 03/30-03/31 with rate getting into the 140s at max. Given amlodipine and metoprolol over the course of the night. -metoprolol has been restarted, HR of 118 this morning -continue to monitor Hypokalemia -potassium level of 3.1 this AM. Potassium supplementation ordered -continue to monitor Headache - Chronic - supportive care, prn tylenol. Chronic Steroid use - will wean down to oral steroids as soon as able. Hypothyroidism - continue home regimen Diabetes -Continue sliding scale insulin -Continue diabetic diet DVT prophylaxis -continue Lovenonx GI prophylaxis -continue Protonix -continue Zofran prn Supervisory-Addendum Brief Verification & Attestation Participated in pt care: history, MDM, physical Personally performed: exam, history, MDM, supervision of care Care discussed with: Medical Student Procedures: n/a Results interpretation: Verified all documentation agree with student note as documented - see bold type where changes have been made. pt improving - very slowly - continue with supportive care, plan swing bed eval and will continue to adjust medications, check labs, and imaging later in the week. pt ill, frail, and has high risk of decline. GENESIS ADAMS Apr 01, 2022 07:16 CHERELLE HEIN MD Apr 01, 2022 10:39
[2022-04-01] MEDS: meTOprolol TARTRATE 25 MG (LOPRESSOR) TABLET PO SCH ×2 (07:38→19:17)
[2022-04-01] MEDS: PANTOPRAZOLE 40 MG (PROTONIX) VIAL IV SCH (07:39)
[2022-04-01] MEDS: guaiFENesin (MUCINEX) 600 MG TAB PO SCH (07:39)
[2022-04-01] MEDS: PROMETHAZINE/ CODEINE SYRUP 5 ML UDC PO PRN ×2 (07:43→19:15)
[2022-04-01] MEDS ORDERED: meTOprolol TARTRATE 25 MG (LOPRESSOR) TABLET PO ONE (08:15)
[2022-04-01] MEDS: ENOXAPARIN 40 MG/0.4 ML (LOVENOX) SYR SC SCH (13:55)
[2022-04-02] VITALS (7 sets, daily range): BP systolic 125–195; BP diastolic 63–104
[2022-04-02] MEDS: PIPERACILLIN SODIUM/TAZOBACTAM 4.5 GM in NS (IVPB) 100 ML IV SCH ×3 (01:20→17:20)
[2022-04-02] MEDS: RT-ALBUTEROL/IPRATROPIUM 3 ML (DUONEB) VIAL INH SCH ×6 (02:31→22:02)
[2022-04-02] MEDS: PROMETHAZINE/ CODEINE SYRUP 5 ML UDC PO PRN ×2 (02:43→13:30)
[2022-04-02] MEDS: LORazepam 0.5 MG (ATIVAN) TABLET PO PRN ×3 (02:43→19:29)
[2022-04-02] MEDS: ACETAMINOPHEN 500 MG TAB (TYLENOL) PO PRN ×5 (03:21→22:14)
[2022-04-02 05:38] LABS: HEMATOCRIT 35 % (35-52); HEMOGLOBIN 10.6 g/dL (11.5-16.0); MEAN CORPUSCULAR HEMOGLOBIN 32 pg (25-34); MEAN CORPUSCULAR HGB CONC 31 g/dL (32-36); MEAN CORPUSCULAR VOLUME 105 fL (80-99); MEAN PLATELET VOLUME 9.5 fL (9.0-12.2); PLATELET COUNT 291 10^3/uL (130-400); WHITE BLOOD COUNT 14.2 10^3/uL (4.3-11.0)
[2022-04-02 05:51] LABS: POTASSIUM 3.6 MMOL/L (3.6-5.0)
[2022-04-02 05:52] LABS: CALCIUM 8.4 MG/DL (8.5-10.1)
[2022-04-02 05:57] LABS: CREATININE SERUM 0.68 MG/DL (0.60-1.30)
[2022-04-02] MEDS: MAGNESIUM 1 GM/100 ML IVPB 100 ML IV SCH (05:57)
[2022-04-02] MEDS: KCL 20 MEQ TAB (K-DUR) PO SCH (05:57)
[2022-04-02] MEDS: CATHETER FLUSH 10 ML SYR IVP SCH ×3 (05:57→22:08)
[2022-04-02] MEDS: POTASSIUM CL 10MEQ/50ML IVPB 50 ML IV SCH (05:57)
[2022-04-02] MEDS: LEVOTHYROXINE 25 MCG (LEVOTHROID) TAB PO SCH (06:13)
[2022-04-02] MEDS: methylPREDNISolone 40 MG/ML (Solu-MEDROL) VIAL IV SCH ×3 (06:13→22:08)
[2022-04-02] MEDS: inSUlin ASPART (NovoLOG) 1 UNIT/0.01 ML (CHARGE PER UNIT) SC SCH ×4 (06:13→22:07)
--- NOTE | 2022-04-02 07:25 | Progress Note ---
Subjective Subjective Date Seen by Provider: Apr 02, 2022 Time Seen by Provider: 07:06 Yvonne Miranda is an 81y/o F being seen for follow up for acute on chronic respiratory failure. Pt was asleep when I entered the room this morning. She awoke easily. Pt reports that she is unsure if her breathing has improved from yesterday to today but says that she feels better than she did 2 days ago. Currently on vapotherm 30L at 80% FiO2. Any time she had a coughing spell or talked for an extended peroid of time her O2 saturation would decrease while I was in the room. Has been having mild to moderate headaches that seem to improve with tylenol use. Daughter reports that pt did sleep well until about 0300 last night until pt woke up due to a bad dream. Pt was able to get back to sleep. Pt's dtrs are in the room with Yvonne today. Barbara stayed overnight, reports that her mom woke up around 3am with hallucinations, was tearful and complained of headache with difficulty going back to sleep. This morning Yvonne reports that she is tired, would like something to help her rest and feels like her breathing is about the same as yesterday. appetite is a little low because "it needs salt". Review of Systems General: No Chills; Fatigue, Appetite (chronically decreased); No Other (fever) HEENT: No Head Aches, No Visual Changes Pulmonary: Dyspnea, Cough Cardiovascular: No: Chest Pain, Palpitations Gastrointestinal: Other (no bm since admission); No: Nausea (improved), Abdominal Pain, Diarrhea Genitourinary: No Dysuria, No Frequency Musculoskeletal: No: neck pain, back pain Neurological: Weakness, Confusion All Other Systems Reviewed All Other Systems Reviewed: Yes Objective Exam Vital Signs Vital Signs Date Time Temp Pulse Resp B/P (MAP) Pulse Ox O2 Delivery O2 Flow Rate FiO2 04/02/22 07:04 97 Vapotherm 30.00 80 04/02/22 04:35 36.0 115 26 127/63 (84) 95 Vapotherm 80.00 30.00 04/02/22 02:31 93 Vapotherm 30.00 70 04/01/22 23:42 36.6 111 28 124/64 (84) 90 Vapotherm 30.00 04/01/22 21:27 Vapotherm 30.00 80 04/01/22 21:16 95 Vapotherm 30.00 70 04/01/22 19:36 37.1 138 26 149/74 (99) 90 Vapotherm 40.00 04/01/22 18:25 91 Vapotherm 30.00 70 04/01/22 16:20 36.8 113 25 131/75 (93) 95 Vapotherm 80.00 30.00 04/01/22 15:50 Vapotherm 30.00 70 04/01/22 15:48 95 Vapotherm 30.00 80 04/01/22 12:00 36.4 107 18 133/69 (90) 95 NIV Bilevel 50.00 04/01/22 11:11 96 Vapotherm 30.00 80 04/01/22 09:00 Vapotherm 30.00 80 I & O 04/02/22 07:00 Intake Total 1690 ml Output Total 1550 ml Balance 140 ml General Appearance: Mild Distress (working to breath- seems about the same or slightly worse than yesterday), Thin HEENT: PERRL/EOMI; No Photophobia Neck: Non Tender, Supple; No JVD Respiratory: Accessory Muscle Use, Crackles (best heard over lower lung fi elds,), Decreased Breath Sounds, Other (increased respiratory effort) Cardiovascular: No Edema, No Murmur, Normal Peripheral Pulses, Tachycardia Gastrointestinal: Non Tender, Soft; No Distended Rectal: Deferred Extremity: Normal Inspection, No Pedal Edema Neurologic/Psychiatric: Alert, No Motor/Sensory Deficits, Other (talking about the "men in suits"who visited her last night) Skin: Normal Color, Warm/Dry Lymphatic: No Adenopathy Results Lab Laboratory Tests 04/01/22 10:49: Glucometer 168H 04/01/22 15:15: Glucometer 149H 04/01/22 20:46: Glucometer 188H 04/02/22 05:14: White Blood Count 14.2H, Red Blood Count 3.29L, Hemoglobin 10.6L, Hematocrit 35, Mean Corpuscular Volume 105H, Mean Corpuscular Hemoglobin 32, Mean Corpuscular Hemoglobin Concent 31L, Red Cell Distribution Width 13.6, Platelet Count 291, Mean Platelet Volume 9.5, Sodium Level 141, Potassium Level 3.6, Chloride Level 107, Carbon Dioxide Level 22, Anion Gap 12, Blood Urea Nitrogen 14, Creatinine 0.68, Estimat Glomerular Filtration Rate 87, BUN/Creatinine Ratio 21, Glucose Level 169H, Calcium Level 8.4L Microbiology 03/29/22 Urine Culture - Final, Complete NO GROWTH 03/29/22 Blood Culture - Preliminary, Resulted No growth Assessment/Plan Assessment/Plan Assessment and Plan Acute respiratory distress Suspect pneumonia Chronic Pulmonary fibrosis End Stage lung disease Advanced Age Frailty Dementia Headache - Chronic Chronic Steroid use Hypothyroidism Diabetes mellitus Acute respiratory distress due to Suspect pneumonia with Chronic Pulmonary fibrosis - pt has End Stage lung disease - pt was started on Bipap, consult placed to [facility], critical Care pulmonology group on admission, now on 4th floor, [facility] no longer involved in pt's care - pt started on IV steroids (Solu-Medrol), Iv antibiotics (Azithromycin and Cefepime), breathing treatments - continue Zosyn (day8), was discontinued on azithromycin and cefepime due to worsening leukocytosis - steroids weaned from 80mg to 40mg on 03/31/22 (dosing time now changed from 40mg q6h down to 40mg q8h) - pt is DNR DNI - hopefully we can wean back down as tolerated to oxygen via NC. Currently on Vapotherm 30LPM with 80% FiO2. She had been alternating between Vapotherm and BIPAP but according to documentation did not use it last night. On ativan Q8H PRN due to anxiety. -start incentive spirometer use - improved leukocytosis today at 14.2 down from 18.1 yesterday. WBC on 03/30/22 was 12.6 and 22.3 on 03/29/22 -CXR done on 03/29/22, showed, according to radiology, Heart is enlarged. Interstitial changes throughout both lungs persist. This is largely owing to a chronic interstitial fibrotic changes but superimposed interstitial edema cannot be entirely excluded. No significant effusion is seen. No pneumothorax. -CXR done 03/31/22 showed, according to radiology, Bibasilar pulmonary consolidations appear superimposed on pulmonary fibrosis and suspicious for pneumonia -continue to monitor for worsening respiratory function -discussed with pt, , daughters - will look into swing bed status for further weaning of vapotherm. Advanced Age with Frailty - pt resides at home with spouse, will see about outpatient therapy for strengthening on DC Dementia - supportive care, wean down any medication which can lead to delirium clive. - continue promethazine w/ codenine PRN - Tachycardia -pt had episodes of tachycardia over the night on 03/30-03/31 with rate getting i nto the 140s at max. Given amlodipine and metoprolol over the course of the night. -metoprolol has been restarted, has been having consistent tachycardia w/ HR of 111 this morning, possibly due to chronic steroid use -continue to monitor Hypokalemia (improving) -potassium level of 3.6 this AM, up from 3.1 yesterday. Potassium supplementation ordered -continue to monitor Headache - Chronic - supportive care, prn tylenol. Chronic Steroid use - will wean down to oral steroids as soon as able. Hypothyroidism - continue home regimen Diabetes -Continue sliding scale insulin DVT prophylaxis -continue Lovenonx GI prophylaxis -continue Protonix -continue Zofran prn Low sodium diet w/ Ensure supplementation Supervisory-Addendum Brief Verification & Attestation Participated in pt care: history, MDM, physical Personally performed: exam, history, MDM, supervision of care Care discussed with: Medical Student Procedures: n/a Results interpretation: Verified all documentation Pt seen with medical student - agree with note - pt with headache in addition to current health concerns, will change dosing time of tylenol to q4hr prn pain. anxiety - change prn ativan to q 4 hours so pt may have a dose now for symptoms of anxiety since that has helped so much over the past few days. constipation - one time dose of senna today, will add bid colace swing bed eval to be done today. we have discussed hospice in the past, they were not ready for that discussion, will re-discuss toward the end of the week with pt and family pending how pt does over the next few days. GENESIS ADAMS Apr 02, 2022 07:25 CHERELLE HEIN MD Apr 02, 2022 08:56
[2022-04-02] MEDS ORDERED: KCL 20 MEQ TAB (K-DUR) PO ONE (08:00)
[2022-04-02] MEDS: guaiFENesin (MUCINEX) 600 MG TAB PO SCH (08:15)
[2022-04-02] MEDS: meTOprolol TARTRATE 25 MG (LOPRESSOR) TABLET PO SCH ×2 (08:16→19:30)
[2022-04-02] MEDS: PANTOPRAZOLE 40 MG (PROTONIX) VIAL IV SCH (08:17)
[2022-04-02] MEDS ORDERED: meTOprolol TARTRATE 25 MG (LOPRESSOR) TABLET PO ONE (08:30)
[2022-04-02] MEDS ORDERED: SENNA W/DOCUSATE (SENOKOT S) TABLET PO ONE (08:45)
--- NOTE | 2022-04-02 14:36 | Physician Query Clarification ---
Physician Query-General Query to Physician: The medical record reflects the following clinical scenario: The patient, in the setting of History/Risk factors, Pneumonia, Pulmonary Fibrosis, Home O2 at 2-3 liters Clinical Findings respiratory rate on admission 49 with an O2 sat of 29% on 5L, short of air at rest and respirations labored on admission Treatment Supplemental 02 with vapotherm up to 90%, Bipap, Albuterol, methylprednisolone IV, cefepime IV, Question: Do you agree with the impression of Acute on Chronic Hypoxic Respiratory Failure per Dr. Lea Perez? 1. Yes; will document Acute on Chronic Hypoxic Respiratory Failure in the Progress Notes, Present on admission 2. No; will continue current documentation in the Progress Notes 3. Other; will document explanation of clinical findings 4. Clinically undetermined; no explanation for clinical findings Please clarify and document your clinical opinion in the Progress Notes and Discharge Summary including the definitive and/or presumptive diagnosis, (suspected or probable), related to the above clinical findings. Please include clinical findings supporting your diagnosis. In responding to this query, please exercise your independent professional judgment. The purpose of this communication is to more accurately reflect the complexity of your patients condition. The fact that a question is asked does not imply that any particular answer is desired or expected. Thank you for timely response to this clarification. Breann Cary RN, MSN Clinical Customs Entry Clerk [phone] [email or web address] PHYSICIAN RESPONSE: Based on the clinical findings in the record, please respond to the query above on this document as an addendum. Physician Response: YES Physician Response YES If you have questions please contact: Skoog Machine Operator: Ext: Thank you for your time and cooperation. Clinical Customs Entry Clerk/Skoog Machine Operator This is a permanent part of the medical record BREANN CARY Apr 02, 2022 14:36 CHERELLE HEIN MD Apr 04, 2022 08:48
--- NOTE | 2022-04-02 14:41 | Physician Query Clarification ---
Physician Query-General Query to Physician: The medical record reflects the following clinical evidence: Clinical Indicators: Admission VS/LABS: HR 120, RR 49, BP 155/77, SpO2 29% sat on 5 L T 35.8, WBC 22.3, Glucose 200, lactic acid 7.33 then 1.45, BC X 2 No growth Risk Factor(s): Hx: Immunocompromised, Current Dx of Pneumonia Treatment: lactated Ringer's 1 L, cefepime IV, Placed on BiPAP 70% FiO2 1. Sepsis, unspecified organism, present on admission 2. Other explanation of clinical findings 3. Unable to determine (no explanation for clinical findings) Please clarify and document your clinical opinion in the progress notes and discharge summary including the definitive and/or presumptive diagnosis, (suspected or probable), related to the above clinical findings. Please include clinical findings supporting your diagnosis. Breann Cary RN, MSN Clinical Ceramic Chemist [phone] [email or web address] PHYSICIAN RESPONSE: Based on the clinical findings in the record, please respond to the query above on this document as an addendum. Physician Response: Physician Response YES - SEPSIS DUE TO UNKNOWN ORGANISM If you have questions please contact: Ship Unloader: Ext: Thank you for your time and cooperation. Clinical Ceramic Chemist/Ship Unloader This is a permanent part of the medical record BREANN CARY Apr 02, 2022 14:41 CHERELLE HEIN MD Apr 04, 2022 08:49
[2022-04-02] MEDS: ENOXAPARIN 40 MG/0.4 ML (LOVENOX) SYR SC SCH (15:49)
[2022-04-02] MEDS: DOCUSATE SODIUM 100 MG (COLACE) CAP PO SCH (19:29)
[2022-04-03] VITALS (7 sets, daily range): BP systolic 125–146; BP diastolic 62–86
[2022-04-03] MEDS: LORazepam 0.5 MG (ATIVAN) TABLET PO PRN (00:44)
[2022-04-03] MEDS: RT-ALBUTEROL/IPRATROPIUM 3 ML (DUONEB) VIAL INH SCH ×6 (02:06→22:29)
[2022-04-03] MEDS: PIPERACILLIN SODIUM/TAZOBACTAM 4.5 GM in NS (IVPB) 100 ML IV SCH ×3 (02:14→18:10)
[2022-04-03] MEDS: CATHETER FLUSH 10 ML SYR IVP SCH ×3 (05:37→21:03)
[2022-04-03] MEDS: methylPREDNISolone 40 MG/ML (Solu-MEDROL) VIAL IV SCH ×3 (05:37→21:02)
[2022-04-03] MEDS: LEVOTHYROXINE 25 MCG (LEVOTHROID) TAB PO SCH (05:37)
[2022-04-03 05:53] LABS: POTASSIUM 4.1 MMOL/L (3.6-5.0)
[2022-04-03 05:55] LABS: CALCIUM 8.9 MG/DL (8.5-10.1)
[2022-04-03 05:59] LABS: CREATININE SERUM 0.67 MG/DL (0.60-1.30)
[2022-04-03] MEDS: POTASSIUM CL 10MEQ/50ML IVPB 50 ML IV SCH (06:05)
[2022-04-03] MEDS: inSUlin ASPART (NovoLOG) 1 UNIT/0.01 ML (CHARGE PER UNIT) SC SCH ×4 (06:05→21:03)
[2022-04-03] MEDS: KCL 20 MEQ TAB (K-DUR) PO SCH (06:06)
[2022-04-03] MEDS: MAGNESIUM 1 GM/100 ML IVPB 100 ML IV SCH (06:41)
--- NOTE | 2022-04-03 07:11 | Progress Note ---
Subjective Subjective Date Seen by Provider: Apr 03, 2022 Time Seen by Provider: 06:56 Yvonne Elliott is an 81y/o F being seen for follow up for acute on chronic respiratory failure. Pt was awake and alert this morning w/ her at the bedside when I entered the room. She is currently on BIPAP. Nursing reports that pt had a rough night. She was having episodes of anxiety last night. When she would have these episodes her HR, RR, and BP would elevate. When she would get her next dosage of Ativan her HR, RR, and BP would decrease again. Nursing states that happened multiple times last night. This morning pt says she is doing well besides a headache and a slight sore throat. Reports that her breathing is about the same as it was yesterday. says that pt had an episode where pt coughed up some blood yesterday. No BMs yesterday. Appetite was good yesterday according to pt. Review of Systems General: No Chills; Fatigue, Appetite (chronically decreased (improved today)), Other (fever) HEENT: No Head Aches, No Visual Changes Pulmonary: Dyspnea, Cough Cardiovascular: No: Chest Pain, Palpitations Gastrointestinal: Constipation (no BMs since admission); No: Nausea, Abdominal Pain, Diarrhea Genitourinary: No Dysuria, No Frequency Musculoskeletal: No: neck pain, back pain Neurological: Weakness, Confusion All Other Systems Reviewed All Other Systems Reviewed: Yes Objective Exam Vital Signs Vital Signs Date Time Temp Pulse Resp B/P (MAP) Pulse Ox O2 Delivery O2 Flow Rate FiO2 04/03/22 04:09 36.6 121 50 146/78 (100) 96 NIV Bilevel 04/03/22 02:07 109 43 94 100.00 04/02/22 23:37 37.4 111 49 125/79 (94) 96 NIV Bilevel 04/02/22 22:02 117 45 91 100.00 04/02/22 20:15 37.1 125 56 142/86 (104) 97 NIV Bilevel 04/02/22 19:39 151 45 89 100.00 04/02/22 19:30 NIV Bilevel 04/02/22 19:30 37.1 140 56 195/104 (134) 91 NIV Bilevel 04/02/22 18:22 91 Vapotherm 35.00 90 04/02/22 15:32 37.1 132 32 136/72 (93) 94 Vapotherm 80.00 30.00 04/02/22 14:51 96 Vapotherm 30.00 80 04/02/22 11:45 36.6 113 25 145/73 (97) 93 Vapotherm 80.00 30.00 04/02/22 10:53 94 Vapotherm 30.00 80 04/02/22 09:00 Vapotherm 30.00 80 04/02/22 07:48 36.7 125 23 146/78 (100) 91 Vapotherm 80.00 30.00 04/02/22 07:04 97 Vapotherm 30.00 80 I & O 04/03/22 06:59 Intake Total 1285 ml Output Total 4150 ml Balance -2865 ml General Appearance: Mild Distress (working to breath- seems about the same as yesterday), Thin HEENT: PERRL/EOMI; No Photophobia Neck: Non Tender, Supple; No JVD Respiratory: Accessory Muscle Use, Crackles (best heard over lower lung bruno, improved from yesterday), Decreased Breath Sounds Cardiovascular: No Edema, No Murmur, Normal Peripheral Pulses, Tachycardia Gastrointestinal: Soft; No Distended; Tenderness (over both lower quadrants) Rectal: Deferred Extremity: Normal Inspection, No Pedal Edema Neurologic/Psychiatric: Alert, No Motor/Sensory Deficits, Other (talking about the "men in suits"who visited her last night) Skin: Normal Color, Warm/Dry Lymphatic: No Adenopathy Results Lab Laboratory Tests 04/02/22 10:57: Glucometer 134H 04/02/22 15:35: Glucometer 180H 04/02/22 20:20: Glucometer 208H 04/03/22 05:03: Magnesium Level 2.1 04/03/22 05:13: Sodium Level 139, Potassium Level 4.1, Chloride Level 102, Carbon Dioxide Level 27, Anion Gap 10, Blood Urea Nitrogen 14, Creatinine 0.67, Estimat Glomerular Filtration Rate 87, BUN/Creatinine Ratio 21, Glucose Level 136H, Calcium Level 8.9 Microbiology 03/29/22 Urine Culture - Final, Complete NO GROWTH 03/29/22 Blood Culture - Preliminary, Resulted No growth Assessment/Plan Assessment/Plan Assessment and Plan Acute respiratory distress Suspect pneumonia Chronic Pulmonary fibrosis End Stage lung disease Advanced Age Frailty Dementia Headache - Chronic Chronic Steroid use Hypothyroidism Diabetes mellitus Acute respiratory distress due to Suspect pneumonia with Chronic Pulmonary fibrosis - pt has End Stage lung disease - pt was started on Bipap, consult placed to [facility], critical Care pulmonology group on admission, now on 4th floor, [facility] no longer involved in pt's care - pt started on IV steroids (Solu-Medrol), Iv antibiotics (Azithromycin and Cefepime), breathing treatments - continue Zosyn (day12/29), was discontinued on azithromycin and cefepime due to worsening leukocytosis - steroids weaned from 80mg to 40mg on 03/31/22 (dosing time now changed from 40mg q6h down to 40mg q8h) - pt is DNR DNI - hopefully we can wean back down as tolerated to oxygen via NC. Currently on BIPAP. Alternating between Vapotherm and BIPAP. On ativan Q4H PO PRN due to anxiety. - continue incentive spirometer use - improved leukocytosis yesterday at 14.2 down from 18.1 on 04/01. WBC on 03/30/22 was 12.6 and 22.3 on 03/29/22 -CXR done on 03/29/22, showed, according to radiology, Heart is enlarged. Interstitial changes throughout both lungs persist. This is largely owing to a chronic interstitial fibrotic changes but superimposed interstitial edema cannot be entirely excluded. No significant effusion is seen. No pneumothorax. -CXR done 03/31/22 showed, according to radiology, Bibasilar pulmonary consolidations appear superimposed on pulmonary fibrosis and suspicious for pneumonia -CXR done 04/03/22, awaiting radiology report -continue to monitor for worsening respiratory function -discussed with pt, , daughters - will look into swing bed status for further weaning of vapotherm. -swing bed evaluation done yesterday Advanced Age with Frailty - pt resides at home with spouse, will see about outpatient therapy for strengthening on DC Dementia - supportive care, wean down any medication which can lead to delirium clive. - continue promethazine w/ codenine PRN - Tachycardia -pt had episodes of tachycardia over the night on 03/30-03/31 with rate getting into the 140s at max. Given amlodipine and metoprolol over the course of the night. -metoprolol 12.5mg BID has been restarted -episodes of tachycardia last night w/ HR getting as high as 151, seemed to related to times of high anxiety. HR was around 110 when I was in room with pt this AM. -continue to monitor Hypokalemia (improving) -potassium level of 4.1 this AM, up from 3.6 yesterday, and 3.1 on 04/01. -continue to monitor Headache - Chronic -supportive care, prn tylenol -tylenol schedule changed from Q8H to Q4H yesterday Chronic Steroid use - will wean down to oral steroids as soon as able. Hypothyroidism - continue home regimen Diabetes -Continue sliding scale insulin DVT prophylaxis -continue Lovenonx GI prophylaxis -continue Protonix -continue Zofran prn Low sodium diet w/ Ensure supplementation Supervisory-Addendum Brief Verification & Attestation Participated in pt care: history, MDM, physical Personally performed: exam, history, MDM, supervision of care Care discussed with: Medical Student Procedures: n/a Results interpretation: Verified all documentation Agree with student note as documented. Discussed the case with Barbara - her DTR - with Yvonne having more decline cognitively - due to anxiety - we will schedule ativan to be given three times daily and PRN ativan will be liquid ativan instead of iv as initially ordered due to the IV ativan shortage. Pt reports that she does feel better off of the bipap this morning. Her dtr notes that some of the difficulty breathing appears to be when she is anxious and the anxiety is exacerbating her difficulty breathing and not the other way around from the family's perspective. pt was also distressed at the excessive stooling she has done since getting stool softeners yesterday. we discussed hospice with Barbara, she will discuss with her dad and we will then make a plan for meeting on Saturday to further discuss our plan for dc and how she can be taken care of outside of the hospital. GENESIS ADAMS Apr 03, 2022 07:11 CHERELLE HEIN MD Apr 03, 2022 16:46
--- NOTE | 2022-04-03 07:15 | Diagnostic Imaging Report ---
INDICATION: History of pulmonary fibrosis. Possible pneumonia. EXAMINATION: Chest 04/03/2022 COMPARISON: 03/31/2022 FINDINGS: There are coarsened interstitial markings throughout both lungs similar to previous imaging. Heart is stable. Pulmonary vasculature is congested. No effusions appreciated. There is no pneumothorax. IMPRESSION: 1. Chronic changes throughout the lungs likely due to interstitial lung disease. Superimposed infiltrate not excluded. Correlate with symptoms. 2. Pulmonary vascular congestion. Dictated by: Dictated on workstation # [id number]
[2022-04-03] MEDS: guaiFENesin (MUCINEX) 600 MG TAB PO SCH (07:53)
[2022-04-03] MEDS: PANTOPRAZOLE 40 MG (PROTONIX) VIAL IV SCH (07:54)
[2022-04-03] MEDS: DOCUSATE SODIUM 100 MG (COLACE) CAP PO SCH (07:54)
[2022-04-03] MEDS: meTOprolol TARTRATE 25 MG (LOPRESSOR) TABLET PO SCH ×2 (07:54→19:22)
[2022-04-03 08:17] LABS: HEMATOCRIT 37 % (35-52); HEMOGLOBIN 11.7 g/dL (11.5-16.0); MEAN CORPUSCULAR HEMOGLOBIN 32 pg (25-34); MEAN CORPUSCULAR HGB CONC 32 g/dL (32-36); MEAN CORPUSCULAR VOLUME 101 fL (80-99); MEAN PLATELET VOLUME 9.7 fL (9.0-12.2); PLATELET COUNT 358 10^3/uL (130-400); WHITE BLOOD COUNT 21.2 10^3/uL (4.3-11.0)
[2022-04-03] MEDS ORDERED: LORazepam INJ 2 MG/ML (ATIVAN) VIAL IVP PRN (09:00)
[2022-04-03] MEDS ORDERED: FLUCONAZOLE 100 MG/50 ML 50 ML IV ONE (09:00)
[2022-04-03] MEDS ORDERED: dilTIAZem120 MG (CARDIZEM CD) CAP PO ONE (09:00)
[2022-04-03] MEDS: LORazepam 0.5 MG (ATIVAN) TABLET PO SCH ×2 (10:32→13:57)
[2022-04-03] MEDS: NYSTATIN ORAL SUSP 5 ML UDC PO SCH ×3 (10:33→18:10)
[2022-04-03] MEDS: ENOXAPARIN 40 MG/0.4 ML (LOVENOX) SYR SC SCH (18:11)
[2022-04-03] MEDS: LORazepam ORAL CONCENTRATE 2 MG/ML 30 ML (ATIVAN) PO PRN (19:26)
[2022-04-03] MEDS: ACETAMINOPHEN 500 MG TAB (TYLENOL) PO PRN (19:28)
[2022-04-04] MEDS: LORazepam 0.5 MG (ATIVAN) TABLET PO SCH ×3 (01:18→16:50)
[2022-04-04] MEDS: NYSTATIN ORAL SUSP 5 ML UDC PO SCH ×4 (01:18→16:49)
[2022-04-04] MEDS: PIPERACILLIN SODIUM/TAZOBACTAM 4.5 GM in NS (IVPB) 100 ML IV SCH ×3 (01:18→16:50)
[2022-04-04] MEDS: RT-ALBUTEROL/IPRATROPIUM 3 ML (DUONEB) VIAL INH SCH ×6 (02:22→22:21)
[2022-04-04 04:05] LABS: CREATININE SERUM 0.7 MG/DL (0.60-1.30); POTASSIUM 4.1 MMOL/L (3.6-5.0)
[2022-04-04] MEDS: KCL 20 MEQ TAB (K-DUR) PO SCH (05:04)
[2022-04-04] MEDS: POTASSIUM CL 10MEQ/50ML IVPB 50 ML IV SCH (05:04)
[2022-04-04] MEDS: inSUlin ASPART (NovoLOG) 1 UNIT/0.01 ML (CHARGE PER UNIT) SC SCH ×4 (05:14→20:30)
[2022-04-04] MEDS: LEVOTHYROXINE 25 MCG (LEVOTHROID) TAB PO SCH (05:14)
[2022-04-04] MEDS: methylPREDNISolone 40 MG/ML (Solu-MEDROL) VIAL IV SCH ×3 (05:15→20:29)
[2022-04-04] MEDS: CATHETER FLUSH 10 ML SYR IVP SCH ×3 (05:15→22:08)
[2022-04-04] MEDS: MAGNESIUM 1 GM/100 ML IVPB 100 ML IV SCH (05:28)
[2022-04-04] MEDS: ACETAMINOPHEN 500 MG TAB (TYLENOL) PO PRN ×3 (06:27→20:30)
--- NOTE | 2022-04-04 07:27 | Progress Note ---
Subjective Subjective Date Seen by Provider: Apr 04, 2022 Time Seen by Provider: 07:11 Odilon Miranda is an 81y/o F being seen for follow up for acute on chronic respiratory failure. Pt was asleep this morning when I entered the room with her at bedside. She awoke easily. Pt reports that she feels that her breathing has improved from yesterday to today. On BIPAP when I was in the room. states that the pt had a much better night last night than the previous nights. Throat pain has improved from yesterday. PT'S STATES THAT HE CANNOT TAKE CARE OF ODILON AT HOME. HE HAS HOSPICE PAPERS IN HIS HANDS, AND STATES THAT HE WAS OVERWHELMED TAKING CARE OF ALL OF HER MEDICATION NEEDS WELL MAKING SURE SHE WAS ON HER OXYGEN AT HOME. Review of Systems General: No Chills; Fatigue, Appetite (chronically decreased) HEENT: No Head Aches, No Visual Changes Pulmonary: Dyspnea, Cough Cardiovascular: No: Chest Pain, Palpitations Gastrointestinal: No: Nausea, Abdominal Pain, Diarrhea, Constipation Genitourinary: No Dysuria, No Frequency Musculoskeletal: No: neck pain, back pain Neurological: Weakness, Confusion All Other Systems Reviewed All Other Systems Reviewed: Yes Objective Exam Vital Signs Vital Signs Date Time Temp Pulse Resp B/P (MAP) Pulse Ox O2 Delivery O2 Flow Rate FiO2 04/04/22 04:00 91 99 NIV Bilevel 04/04/22 02:22 92 35 98 90.00 04/03/22 23:33 36.1 98 37 132/86 (101) 99 NIV Bilevel 04/03/22 22:29 92 29 99 90.00 04/03/22 20:42 36.1 107 22 125/62 (83) 90 Vapotherm 100.00 40.00 04/03/22 19:36 107 40 94 100.00 04/03/22 19:30 Vapotherm 04/03/22 18:29 90 Vapotherm 40.00 100 04/03/22 15:45 36.0 106 26 138/72 (94) 99 NIV Bilevel 100.00 04/03/22 15:28 36.7 108 94 04/03/22 14:48 108 40 94 100.00 04/03/22 11:53 36.7 117 27 145/81 (102) 99 NIV Bilevel 04/03/22 10:29 105 32 98 100.00 04/03/22 08:34 Vapotherm 40.00 100 04/03/22 08:14 37.0 111 24 142/79 (100) 93 Vapotherm 100.00 40.00 04/03/22 07:23 92 Vapotherm 40.00 100 I & O 04/04/22 06:59 Intake Total 610 ml Output Total 2250 ml Balance -1640 ml General Appearance: Mild Distress (working to breath- seems to be slightly improved from yesterday), Thin HEENT: PERRL/EOMI; No Photophobia Neck: Non Tender, Supple; No JVD Respiratory: Accessory Muscle Use, Crackles (best heard over lower lung bruno), Decreased Breath Sounds, Other (PT ON BIPAP THIS MORNING) Cardiovascular: No Edema, No Murmur, Normal Peripheral Pulses, Tachycardia Gastrointestinal: Soft; No Distended; Tenderness (LLQ) Rectal: Deferred Extremity: Normal Inspection, No Pedal Edema Neurologic/Psychiatric: Alert, No Motor/Sensory Deficits, Other (talking about the "men in suits"who visited her last night) Skin: Normal Color, Warm/Dry Lymphatic: No Adenopathy Results Lab Laboratory Tests 04/03/22 11:19: Glucometer 127H 04/03/22 20:35: Glucometer 222H 04/04/22 03:35: Sodium Level 143, Potassium Level 4.1, Chloride Level 101, Carbon Dioxide Level 29, Anion Gap 13, Blood Urea Nitrogen 18, Creatinine 0.70, Estimat Glomerular Filtration Rate 86, BUN/Creatinine Ratio 26, Glucose Level 151H, Calcium Level 9.0, Magnesium Level 2.2 Microbiology 04/03/22 C. difficile GDH Antigen & Toxins - Final, Complete 03/29/22 Urine Culture - Final, Complete NO GROWTH 03/29/22 Blood Culture - Final, Complete No growth Assessment/Plan Assessment/Plan Assessment and Plan Acute respiratory distress Suspect pneumonia Chronic Pulmonary fibrosis End Stage lung disease Advanced Age Frailty Dementia Headache - Chronic Thrush Chronic Steroid use Hypothyroidism Diabetes mellitus Acute respiratory distress due to Suspect pneumonia with Chronic Pulmonary fibrosis - pt has End Stage lung disease - pt was started on Bipap, consult placed to [facility], critical Care pulmonology group on admission, now on 4th floor, [facility] no longer involved in pt's care - pt started on IV steroids (Solu-Medrol), Iv antibiotics (Azithromycin and Cefepime), breathing treatments - continue Zosyn (day8), was discontinued on azithromycin and cefepime due to worsening leukocytosis (ADDING VANC DUE TO INCREASED WBC'S) - steroids weaned from 80mg to 40mg on 03/31/22 (dosing time now changed from 40mg q6h down to 40mg q8h) - pt is DNR DNI - hopefully we can wean back down as tolerated to oxygen via NC. Currently on BIPAP. Alternating between Vapotherm and BIPAP. On ativan 0.5mg Q4H PO and 1mg oral concentration Q2H PRN due to anxiety. - continue incentive spirometer use - worsened leukocytosis at 21.2 yesterday, up from 14.2 04/02/22. WBC on 03/30/22 was 12.6 and 22.3 on 03/29/22 -CXR done on 03/29/22, showed, according to radiology, Heart is enlarged. I nterstitial changes throughout both lungs persist. This is largely owing to a chronic interstitial fibrotic changes but superimposed interstitial edema cannot be entirely excluded. No significant effusion is seen. No pneumothorax. -CXR done 03/31/22 showed, according to radiology, Bibasilar pulmonary consolidations appear superimposed on pulmonary fibrosis and suspicious for pneumonia -CXR done 04/03/22, according to radiology, showed chronic changes throughout the lungs likely due to interstitial lung disease, superimposed infiltrate not excluded, pulmonary vascular congestion. -continue to monitor for worsening respiratory function -discussed with pt, , daughters - will look into swing bed status for further weaning of vapotherm. -swing bed evaluation done yesterday Advanced Age with Frailty - pt resides at home with spouse, will see about outpatient therapy for strengthening on DC -will have discussion this afternoon with family about future care such as possible hospice Dementia - supportive care, wean down any medication which can lead to delirium clive. - continue promethazine w/ codenine PRN - Tachycardia -pt had episodes of tachycardia over the night on 03/30-03/31 with rate getting into the 140s at max. Given amlodipine and metoprolol over the course of the night. -metoprolol 12.5mg BID has been restarted -improved last night with HR max of 107, may be due to better control of pt's anxiety -continue to monitor Hypokalemia (improving) -potassium level of 4.1 for the last 2 days -continue to monitor Thrush -started on nystatin and given IV fluconazole yesterday -continue on nystatin and oral fluconazole today (day 09/28) Headache - Chronic -supportive care, prn tylenol -tylenol schedule changed from Q8H to Q4H yesterday Chronic Steroid use - will wean down to oral steroids as soon as able. Hypothyroidism - continue home regimen Diabetes -Continue sliding scale insulin DVT prophylaxis -continue Lovenonx GI prophylaxis -continue Protonix -continue Zofran prn normal diet diet w/ Ensure supplementation Supervisory-Addendum Brief Verification & Attestation Participated in pt care: history, MDM, physical Personally performed: exam, history, MDM, supervision of care Care discussed with: Medical Student Procedures: n/a Results interpretation: Verified all documentation AGREE WITH STUDENT NOTE DOCUMENTED PLAN WILL BE MEETING WITH FAMILY - PT'S SPOUSE AND DTRS THIS EVENING AROUND 4:30. WILL DISCUSS HOSPICE IN HOSPITAL WITH REMOVAL OF BIPAP AND VAPOTHERM VERSUS PT GOING TO [facility] HOSPICE. PT CURRENTLY SHOWING DECLINE, INCREASE IN WHITE COUNT, WILL CHECK UA, ADD VANC, AND FLUIDS. GENESIS ADAMS Apr 04, 2022 07:27 CHERELLE HEIN MD Apr 04, 2022 08:45
[2022-04-04 08:00] VITALS: BP 142/82
[2022-04-04] MEDS ORDERED: VANCOMYCIN INJECTION 0.1 MG in NS (IVPB) 250 ML IV SCH (08:45)
[2022-04-04 09:04] LABS: HEMATOCRIT 37 % (35-52); HEMOGLOBIN 11.5 g/dL (11.5-16.0); MEAN CORPUSCULAR HEMOGLOBIN 32 pg (25-34); MEAN CORPUSCULAR HGB CONC 31 g/dL (32-36); MEAN CORPUSCULAR VOLUME 103 fL (80-99); MEAN PLATELET VOLUME 9.8 fL (9.0-12.2); PLATELET COUNT 340 10^3/uL (130-400); WHITE BLOOD COUNT 14.6 10^3/uL (4.3-11.0)
[2022-04-04] MEDS: NS IV 1000 ML 1,000 ML IV SCH (09:31)
[2022-04-04] MEDS: VANCOMYCIN 750 MG/NS 250 ML IVPB IV SCH ×2 (09:33)
[2022-04-04] MEDS: meTOprolol TARTRATE 25 MG (LOPRESSOR) TABLET PO SCH ×2 (09:36→20:29)
[2022-04-04] MEDS: guaiFENesin (MUCINEX) 600 MG TAB PO SCH (09:36)
[2022-04-04] MEDS: fluCOnazole (DIFLUCAN) 100 MG TAB PO SCH (09:37)
[2022-04-04] MEDS: PANTOPRAZOLE 40 MG (PROTONIX) VIAL IV SCH (09:37)
[2022-04-04] MEDS: LORazepam ORAL CONCENTRATE 2 MG/ML 30 ML (ATIVAN) PO PRN (12:10)
[2022-04-04 12:13] VITALS: BP 137/65
[2022-04-04] MEDS: ENOXAPARIN 40 MG/0.4 ML (LOVENOX) SYR SC SCH (13:56)
[2022-04-04 15:19] LABS: BILIRUBIN,URINE NEGATIVE (NEGATIVE); CLARITY,URINE SL CLOUDY; COLOR,URINE YELLOW; GLUCOSE, URINE (UA) NEGATIVE (NEGATIVE); KETONES,URINE NEGATIVE (NEGATIVE); LEUKOCYTE ESTERASE ,URINE NEGATIVE (NEGATIVE); NITRITE,URINE NEGATIVE (NEGATIVE); PROTEIN,URINE NEGATIVE (NEGATIVE)
[2022-04-04 15:35] LABS: AMORPHOUS SEDIMENT,UR MOD AMOR PHOSPHATE /LPF; BACTERIA,URINE NEGATIVE /HPF
[2022-04-04 15:52] VITALS: BP 140/74
[2022-04-04 19:54] VITALS: BP 134/70
[2022-04-04 23:50] VITALS: BP 148/80
[2022-04-05] MEDS: LORazepam 0.5 MG (ATIVAN) TABLET PO SCH ×3 (00:08→17:12)
[2022-04-05] MEDS: NYSTATIN ORAL SUSP 5 ML UDC PO SCH ×5 (00:08→23:20)
[2022-04-05] MEDS: PIPERACILLIN SODIUM/TAZOBACTAM 4.5 GM in NS (IVPB) 100 ML IV SCH ×3 (01:36→17:10)
[2022-04-05] MEDS: RT-ALBUTEROL/IPRATROPIUM 3 ML (DUONEB) VIAL INH SCH ×6 (02:29→22:10)
[2022-04-05] MEDS: ACETAMINOPHEN 500 MG TAB (TYLENOL) PO PRN ×2 (02:39→08:49)
[2022-04-05 03:44] VITALS: BP 135/65
[2022-04-05 05:37] LABS: HEMATOCRIT 33 % (35-52); HEMOGLOBIN 10.6 g/dL (11.5-16.0); MEAN CORPUSCULAR HEMOGLOBIN 32 pg (25-34); MEAN CORPUSCULAR HGB CONC 32 g/dL (32-36); MEAN CORPUSCULAR VOLUME 100 fL (80-99); MEAN PLATELET VOLUME 9.5 fL (9.0-12.2); PLATELET COUNT 294 10^3/uL (130-400); WHITE BLOOD COUNT 13.5 10^3/uL (4.3-11.0)
[2022-04-05 05:55] LABS: POTASSIUM 2.9 MMOL/L (3.6-5.0)
[2022-04-05 05:56] LABS: CALCIUM 8.5 MG/DL (8.5-10.1)
[2022-04-05] MEDS ORDERED: KCL 20 MEQ TAB (K-DUR) PO ONE ×2 (06:00→08:00)
[2022-04-05 06:01] LABS: CREATININE SERUM 0.64 MG/DL (0.60-1.30)
[2022-04-05] MEDS: POTASSIUM CL 10MEQ/50ML IVPB 50 ML IV SCH (06:01)
[2022-04-05] MEDS: KCL 20 MEQ TAB (K-DUR) PO SCH (06:01)
[2022-04-05] MEDS: inSUlin ASPART (NovoLOG) 1 UNIT/0.01 ML (CHARGE PER UNIT) SC SCH ×4 (06:32→21:20)
[2022-04-05] MEDS: methylPREDNISolone 40 MG/ML (Solu-MEDROL) VIAL IV SCH ×3 (06:33→21:20)
[2022-04-05] MEDS: LEVOTHYROXINE 25 MCG (LEVOTHROID) TAB PO SCH (06:33)
[2022-04-05] MEDS: CATHETER FLUSH 10 ML SYR IVP SCH ×3 (06:34→21:21)
[2022-04-05] MEDS: MAGNESIUM 1 GM/100 ML IVPB 100 ML IV SCH (06:43)
[2022-04-05] MEDS: LORazepam ORAL CONCENTRATE 2 MG/ML 30 ML (ATIVAN) PO PRN ×4 (06:48→21:21)
--- NOTE | 2022-04-05 07:07 | Progress Note ---
Subjective Subjective Date Seen by Provider: Apr 05, 2022 Time Seen by Provider: 08:20 Yvonne Elliott is an 81y/o F being seen for follow up for acute on chronic respiratory failure. Pt was awake and alert this morning when I entered the room. and daughter were in the room with her She was complaining of a headache. Her daughter reports that the pt slept well last night. Pt has been taking fluids well. Has had 3 diarrhea stools this morning. Pt says her breathing feels about the same as it did yesterday. When asked pt and family had no other concerns. Review of Systems General: No Chills; Fatigue, Appetite (chronically decreased) HEENT: Head Aches; No Visual Changes Pulmonary: Dyspnea, Cough Cardiovascular: No: Chest Pain, Palpitations Gastrointestinal: Diarrhea; No: Nausea, Abdominal Pain, Constipation Genitourinary: No Dysuria, No Frequency Musculoskeletal: No: neck pain, back pain Neurological: Weakness, Confusion All Other Systems Reviewed All Other Systems Reviewed: Yes Objective Exam Vital Signs Vital Signs Date Time Temp Pulse Resp B/P (MAP) Pulse Ox O2 Delivery O2 Flow Rate FiO2 04/05/22 06:55 Vapotherm 90.00 30.00 04/05/22 03:44 36.4 120 12 135/65 (88) 98 Vapotherm 04/05/22 02:31 91 Vapotherm 35.00 100 04/05/22 01:37 Vapotherm 95.00 30.00 04/04/22 23:50 36.1 101 22 148/80 (102) 94 Vapotherm 04/04/22 22:22 97 Vapotherm 30.00 90 04/04/22 20:00 Vapotherm 30.00 90 04/04/22 19:54 36.3 102 20 134/70 (91) 96 Vapotherm 90.00 30.00 04/04/22 18:44 94 Vapotherm 30.00 90 04/04/22 15:52 36.5 22 140/74 (96) 96 Vapotherm 85.00 25.00 04/04/22 14:53 93 Vapotherm 30.00 85 04/04/22 12:13 36.3 79 23 137/65 (89) 94 Vapotherm 100.00 40.00 04/04/22 10:52 95 Vapotherm 30.00 75 04/04/22 10:39 92 Vapotherm 100.00 40.00 04/04/22 08:00 NIV Bilevel 80 04/04/22 08:00 36.4 91 25 142/82 (102) 98 NIV Bilevel 100.00 40.00 04/04/22 07:30 87 41 98 80.00 I & O 04/05/22 07:00 Intake Total 1280 ml Output Total 1850 ml Balance -570 ml General Appearance: Mild Distress (working to breath- seems to be the same as yesterday), Thin HEENT: PERRL/EOMI, Pharynx Normal (no signs of thrush); No Photophobia Neck: Non Tender, Supple; No JVD Respiratory: Accessory Muscle Use, Crackles (best heard over lower lung bruno), Decreased Breath Sounds Cardiovascular: No Edema, No Murmur, Normal Peripheral Pulses, Tachycardia Gastrointestinal: Soft; No Distended; Tenderness (on left side) Rectal: Deferred Extremity: Normal Inspection, No Pedal Edema Neurologic/Psychiatric: Alert, No Motor/Sensory Deficits, Other (talking about the "men in suits"who visited her last night) Skin: Normal Color, Warm/Dry Lymphatic: No Adenopathy Results Lab Laboratory Tests 04/04/22 09:05: Urine Color YELLOW, Urine Clarity SL CLOUDY, Urine pH 7.0, Urine Specific Grav ity 1.015L, Urine Protein NEGATIVE, Urine Glucose (UA) NEGATIVE, Urine Ketones NEGATIVE, Urine Nitrite NEGATIVE, Urine Bilirubin NEGATIVE, Urine Urobilinogen 0.2, Urine Leukocyte Esterase NEGATIVE, Urine RBC (Auto) NEGATIVE, Urine RBC NONE, Urine WBC NONE, Urine Squamous Epithelial Cells NONE, Urine Crystals PRESENTH, Urine Amorphous Sediment MOD ARIANE PHOSPHATEH, Urine Bacteria NEGATIVE, Urine Casts NONE, Urine Mucus NEGATIVE, Urine Culture Indicated YES 04/04/22 10:58: Glucometer 130H 04/04/22 15:58: Glucometer 133H 04/04/22 20:02: Glucometer 177H 04/05/22 05:21: White Blood Count 13.5H, Red Blood Count 3.34L, Hemoglobin 10.6L, Hematocrit 33L , Mean Corpuscular Volume 100H, Mean Corpuscular Hemoglobin 32, Mean Corpuscular Hemoglobin Concent 32, Red Cell Distribution Width 13.8, Platelet Count 294, Mean Platelet Volume 9.5, Sodium Level 141, Potassium Level 2.9L, Chloride Level 103, Carbon Dioxide Level 27, Anion Gap 11, Blood Urea Nitrogen 17, Creatinine 0.64, Estimat Glomerular Filtration Rate 88, BUN/Creatinine Ratio 27, Glucose Level 179H, Calcium Level 8.5, Magnesium Level 2.1 04/05/22 05:45: Glucometer 171H Microbiology 04/03/22 C. difficile GDH Antigen & Toxins - Final, Complete 03/29/22 Urine Culture - Final, Complete NO GROWTH 03/29/22 Blood Culture - Final, Complete No growth Assessment/Plan Assessment/Plan Assessment and Plan Acute respiratory distress Suspect pneumonia Chronic Pulmonary fibrosis End Stage lung disease Advanced Age Frailty Dementia Headache - Chronic Thrush Chronic Steroid use Hypothyroidism Diabetes mellitus Acute respiratory distress due to Suspect pneumonia with Chronic Pulmonary fibrosis - pt has End Stage lung disease - pt was started on Bipap, consult placed to [facility], critical Care pulmonology group on admission, now on 4th floor, [facility] no longer involved in pt's care - pt started on IV steroids (Solu-Medrol), Iv antibiotics (Azithromycin and Cefepime), breathing treatments - continue Zosyn (day01/28), was discontinued on azithromycin and cefepime due to worsening leukocytosis - started on vancomycin yesterday due to to increased WBC on 04/03, on day 2 - steroids weaned from 80mg to 40mg on 03/31/22 (dosing time now changed from 40mg q6h down to 40mg q8h) - pt is DNR DNI - hopefully we can wean back down as tolerated to oxygen via NC. Currently on Vapotherm 30L at 90% FiO2. Has been alternating between Vapotherm and BIPAP. On ativan 0.5mg Q4H PO and 1mg oral concentration Q2H PRN due to anxiety. - continue incentive spirometer use - improving leukocytosis at 13.5 today, down from 14.6 yesterday and 21.2 on 04/03. WBC on 03/30/22 was 12.6 and 22.3 on 03/29/22 -CXR done on 03/29/22, showed, according to radiology, Heart is enlarged. Interstitial changes throughout both lungs persist. This is largely owing to a chronic interstitial fibrotic changes but superimposed interstitial edema cannot be entirely excluded. No significant effusion is seen. No pneumothorax. -CXR done 03/31/22 showed, according to radiology, Bibasilar pulmonary consolidations appear superimposed on pulmonary fibrosis and suspicious for pneumonia -CXR done 04/03/22, according to radiology, showed chronic changes throughout the lungs likely due to interstitial lung disease, superimposed infiltrate not excluded, pulmonary vascular congestion. -continue to monitor for worsening respiratory function Advanced Age with Frailty - pt resides at home with spouse, will see about outpatient therapy for strengthening on DC - discussed with , daughters last night about future care of pt. They decided that they would prefer senior care home care first before deciding on hospice care. Dementia - supportive care, wean down any medication which can lead to delirium clive. - continue promethazine w/ codenine PRN - Tachycardia -pt had episodes of tachycardia over the night on 03/30-03/31 with rate getting into the 140s at max. Given amlodipine and metoprolol over the course of the night. -metoprolol 12.5mg BID has been restarted -HR around 115 this morning when I was in the room, she was due for her dose of ativan and had not gotten it yet as that may have been contributing to her elevated HR -continue to monitor Hypokalemia -potassium level of 2.9 this morning -potassium supplementation ordered for this morning -continue to monitor Thrush (improving) -started on nystatin and given IV fluconazole on 04/03 -on physical exam thrush appears to have improved -continue on nystatin and oral fluconazole today (day 2/) Headache - Chronic -supportive care, prn tylenol -tylenol schedule changed from Q8H to Q4H yesterday Chronic Steroid use - will wean down to oral steroids as soon as able. Hypothyroidism - continue home regimen Diabetes -Continue sliding scale insulin DVT prophylaxis -continue Lovenonx GI prophylaxis -continue Protonix -continue Zofran prn -start probiotic due to antibiotic use and diarrhea normal diet diet w/ Ensure supplementation Supervisory-Addendum Brief Verification & Attestation Participated in pt care: history, MDM, physical Personally performed: exam, history, MDM, supervision of care Care discussed with: Medical Student Procedures: n/a Results interpretation: Verified all documentation Agree with student note as documented Pt did not get her scheduled dose of ativan last night at family request due to excessive grogginess. Pt working hard to breathe this morning- oxygen saturation in the 97 % range at rest with respirations in the 40 - 50 range, but dropped to 91% with movement of patient's arms to listen posteriorly to her lungs. pt restless, pulling at covers, and lines on her hands. pt still having diarrheal stools - will order a one time dose of lomotil, montior GI symptoms. Will look at comfort care in hospital if things are not improving tomorrow. GENESIS ADAMS Apr 05, 2022 07:07 CHERELLE HEIN MD Apr 05, 2022 09:00
[2022-04-05 08:20] VITALS: BP 144/75
[2022-04-05] MEDS: NS IV 1000 ML 1,000 ML IV SCH (08:45)
[2022-04-05] MEDS: VANCOMYCIN 750 MG/NS 250 ML IVPB IV SCH ×2 (08:46)
[2022-04-05] MEDS: PANTOPRAZOLE 40 MG (PROTONIX) VIAL IV SCH (08:48)
[2022-04-05] MEDS: guaiFENesin (MUCINEX) 600 MG TAB PO SCH (08:49)
[2022-04-05] MEDS: meTOprolol TARTRATE 25 MG (LOPRESSOR) TABLET PO SCH ×2 (08:49→21:21)
[2022-04-05] MEDS: fluCOnazole (DIFLUCAN) 100 MG TAB PO SCH (08:49)
[2022-04-05] MEDS ORDERED: DIPHENOXYLATE/ATROPINE 2.5MG/0.025MG (LOMOTIL) TAB PO PRN (09:00)
[2022-04-05] MEDS ORDERED: DIPHENOXYLATE/ATROPINE 2.5MG/0.025MG (LOMOTIL) TAB PO ONE (09:00)
[2022-04-05] MEDS ORDERED: KCL 8 MEQ (MICRO K) TABLET PO ONE (10:00)
[2022-04-05 12:29] VITALS: BP 151/88
[2022-04-05] MEDS ORDERED: morphine INJ 10 MG/ML 1ML (SYR OR VIAL) IVP STA (15:35)
[2022-04-05] MEDS ORDERED: morphine INJ 4 MG/ML 1 ML (VIAL/SYRINGE) ONE (15:40)
[2022-04-05] MEDS: morphine INJ 4 MG/ML 1 ML (VIAL/SYRINGE) IV NR ×3 (15:42→18:43)
[2022-04-05 16:11] VITALS: BP 139/76
[2022-04-05] MEDS: ENOXAPARIN 40 MG/0.4 ML (LOVENOX) SYR SC SCH (17:10)
[2022-04-05 19:54] VITALS: BP 156/76
[2022-04-05 23:30] VITALS: BP 138/82
[2022-04-06] MEDS: LORazepam 0.5 MG (ATIVAN) TABLET PO SCH ×2 (00:46→03:07)
[2022-04-06] MEDS: NS IV 1000 ML 1,000 ML IV SCH ×2 (01:01→06:42)
[2022-04-06] MEDS: RT-ALBUTEROL/IPRATROPIUM 3 ML (DUONEB) VIAL INH SCH ×3 (02:33→09:45)
[2022-04-06] MEDS: morphine INJ 4 MG/ML 1 ML (VIAL/SYRINGE) IVP PRN ×4 (02:47→13:04)
[2022-04-06] MEDS: PIPERACILLIN SODIUM/TAZOBACTAM 4.5 GM in NS (IVPB) 100 ML IV SCH ×2 (02:59→09:44)
[2022-04-06 03:43] VITALS: BP 112/78
[2022-04-06] MEDS: CATHETER FLUSH 10 ML SYR IVP SCH ×2 (05:21→13:48)
[2022-04-06] MEDS: NYSTATIN ORAL SUSP 5 ML UDC PO SCH (05:21)
[2022-04-06] MEDS: inSUlin ASPART (NovoLOG) 1 UNIT/0.01 ML (CHARGE PER UNIT) SC SCH (05:26)
[2022-04-06] MEDS: methylPREDNISolone 40 MG/ML (Solu-MEDROL) VIAL IV SCH (05:31)
[2022-04-06] MEDS: LEVOTHYROXINE 25 MCG (LEVOTHROID) TAB PO SCH (05:31)
[2022-04-06 05:48] LABS: POTASSIUM 4.9 MMOL/L (3.6-5.0)
[2022-04-06 05:54] LABS: CREATININE SERUM 0.74 MG/DL (0.60-1.30)
[2022-04-06] MEDS: KCL 20 MEQ TAB (K-DUR) PO SCH (06:08)
[2022-04-06] MEDS: MAGNESIUM 1 GM/100 ML IVPB 100 ML IV SCH (06:18)
[2022-04-06] MEDS: POTASSIUM CL 10MEQ/50ML IVPB 50 ML IV SCH (06:18)
--- NOTE | 2022-04-06 07:05 | Progress Note ---
Subjective Subjective Date Seen by Provider: Apr 06, 2022 Time Seen by Provider: 06:47 Yvonne Elliott is an 81y/o F being seen for follow up for acute on chronic respiratory failure. Pt was asleep when I entered the room w/ family at bedside. She did wake up but was slightly somnolent during my visit. Family reports that the morphine has seemed to help decrease pt's distress. Pt did say that she has a headache this morning. Diarrhea has improved. When asked family declined having any other questions or concerns. Review of Systems General: No Chills; Fatigue, Appetite (chronically decreased) HEENT: Head Aches; No Visual Changes Pulmonary: Dyspnea, Cough Cardiovascular: No: Chest Pain, Palpitations Gastrointestinal: Diarrhea (improved); No: Nausea, Abdominal Pain, Constipation Genitourinary: No Dysuria, No Frequency Musculoskeletal: No: neck pain, back pain Neurological: Weakness, Confusion All Other Systems Reviewed All Other Systems Reviewed: Yes Objective Exam Vital Signs Vital Signs Date Time Temp Pulse Resp B/P (MAP) Pulse Ox O2 Delivery O2 Flow Rate FiO2 04/06/22 06:53 126 24 89 90.00 04/06/22 03:43 36.4 120 26 112/78 (89) 93 NIV Bilevel 100.00 04/06/22 02:34 105 22 93 90.00 04/05/22 23:30 37.0 128 26 138/82 (100) 96 NIV Bilevel 100.00 04/05/22 22:10 110 38 96 95.00 04/05/22 21:25 NIV Bilevel 100 04/05/22 19:54 36.6 111 30 156/76 (102) 94 NIV Bilevel 100.00 04/05/22 18:56 129 42 96 100.00 04/05/22 16:11 36.1 136 26 139/76 (97) 93 NIV Bilevel 100.00 04/05/22 15:10 143 56 95 100.00 04/05/22 12:29 36.2 118 25 151/88 (109) 96 Vapotherm 100.00 30.00 04/05/22 10:05 97 Vapotherm 35.00 100 04/05/22 08:20 36.4 113 23 144/75 (98) 98 Vapotherm 90.00 30.00 04/05/22 08:00 Vapotherm 30.00 90 04/05/22 07:50 91 Vapotherm 35.00 85 I & O 04/06/22 07:00 Intake Total 3925 ml Output Total 3475 ml Balance 450 ml General Appearance: Mild Distress (working to breath), Moderate Distress (with increase in heart rate, increase in respiratory rate), Thin HEENT: PERRL/EOMI, Pharynx Normal (no signs of thrush); No Photophobia Neck: Non Tender, Supple; No JVD Respiratory: Accessory Muscle Use, Crackles (best heard over lower lung bruno), Decreased Breath Sounds Cardiovascular: No Edema, No Murmur, Normal Peripheral Pulses, Tachycardia Gastrointestinal: Non Tender, Soft; No Distended Rectal: Deferred Extremity: Normal Inspection, No Pedal Edema Neurologic/Psychiatric: No Motor/Sensory Deficits Skin: Normal Color, Warm/Dry Lymphatic: No Adenopathy Results Lab Laboratory Tests 04/05/22 11:26: Glucometer 144H 04/05/22 16:07: Glucometer 197H 04/05/22 20:46: Glucometer 132H 04/06/22 05:21: Sodium Level 144, Potassium Level 4.9, Chloride Level 110H, Carbon Dioxide Level 23, Anion Gap 11, Blood Urea Nitrogen 22H, Creatinine 0.74, Estimat Glomerular Filtration Rate 81, BUN/Creatinine Ratio 30, Glucose Level 154H, Calcium Level 9.0, Magnesium Level 2.4 04/06/22 05:22: Glucometer 148H Microbiology 04/04/22 Urine Culture - Final, Complete YEAST 04/03/22 C. difficile GDH Antigen & Toxins - Final, Complete 03/29/22 Blood Culture - Final, Complete No growth Assessment/Plan Assessment/Plan Assessment and Plan Acute respiratory distress Suspect pneumonia Chronic Pulmonary fibrosis End Stage lung disease Advanced Age Frailty Dementia Headache - Chronic Thrush Chronic Steroid use Hypothyroidism Diabetes mellitus Acute respiratory distress due to Suspect pneumonia with Chronic Pulmonary fi brosis - pt has End Stage lung disease - pt was started on Bipap, consult placed to [facility], critical Care pulmonology group on admission, now on 4th floor, [facility] no longer involved in pt's care - pt started on IV steroids (Solu-Medrol), Iv antibiotics (Azithromycin and Cefepime), breathing treatments - continue Zosyn (day6/8), was discontinued on azithromycin and cefepime due to worsening leukocytosis - started on vancomycin yesterday due to to increased WBC on 04/03, on day 3/5 - steroids weaned from 80mg to 40mg on 03/31/22 (dosing time now changed from 40mg q6h down to 40mg q8h) - pt is DNR DNI - hopefully we can wean back down as tolerated to oxygen via NC. Currently on BIPAP. Has been alternating between Vapotherm and BIPAP. On ativan 0.5mg Q4H PO and 1mg oral concentration Q2H PRN due to anxiety. - started on morphine 2mg Q1H PRN yesterday - improving leukocytosis at 13.5 yesterday, down from 14.6 04/04 and 21.2 on 04/03. WBC on 03/30/22 was 12.6 and 22.3 on 03/29/22 -CXR done on 03/29/22, showed, according to radiology, Heart is enlarged. Interstitial changes throughout both lungs persist. This is largely owing to a chronic interstitial fibrotic changes but superimposed interstitial edema cannot be entirely excluded. No significant effusion is seen. No pneumothorax. -CXR done 03/31/22 showed, according to radiology, Bibasilar pulmonary consolidations appear superimposed on pulmonary fibrosis and suspicious for pneumonia -CXR done 04/03/22, according to radiology, showed chronic changes throughout the lungs likely due to interstitial lung disease, superimposed infiltrate not excluded, pulmonary vascular congestion. -continue to monitor for worsening respiratory function Advanced Age with Frailty - pt resides at home with spouse, will see about outpatient therapy for strengthening on DC - discussed with , daughters last night about future care of pt. They decided that they would prefer [facility] home care first before deciding on hospice care. Dementia - supportive care, wean down any medication which can lead to delirium clive. - continue promethazine w/ codenine PRN Tachycardia -pt had episodes of tachycardia over the night on 03/30-03/31 with rate getting into the 140s at max. Given amlodipine and metoprolol over the course of the night. -metoprolol 12.5mg BID has been restarted -HR around 115 this morning when I was in the room, she was due for her dose of ativan and had not gotten it yet as that may have been contributing to her elevated HR -continue to monitor Hypokalemia -potassium level of 4.9 this AM -continue to monitor Thrush (improving) -started on nystatin and given IV fluconazole on 04/03 -on physical exam thrush appears to have improved -continue on nystatin and oral fluconazole today (day 2/) Headache - Chronic -supportive care, prn tylenol -tylenol schedule changed from Q8H to Q4H yesterday Chronic Steroid use - will wean down to oral steroids as soon as able. Hypothyroidism - continue home regimen Diabetes -Continue sliding scale insulin DVT prophylaxis -continue Lovenonx GI prophylaxis -continue Protonix -continue Zofran prn normal diet diet w/ Ensure supplementation Supervisory-Addendum Brief Verification & Attestation Participated in pt care: history, MDM, physical Personally performed: exam, history, MDM, supervision of care Care discussed with: Medical Student Procedures: n/a Results interpretation: Verified all documentation Agree with student note - with changes as follows: planning on patient going comfort care today - discussed with patient's family at bedside, pt's spouse, two dtrs, her twin sister and later in the morning on re-eval of pt - two grandsons were in the room - Yvonne is physically exhausted from her struggle to breathe, her body is continuing to wear out and she has now developed atrial fibrillation with heart rate up to 160 while this aligner typewriter was in the room. dc all of patient's home medications and hospital medications except as for comfort. Her has declined any more lab draws, and has decided he wants to proceed with a withdrawal of her oxygen support. We will continue with morphine for comfort, ativan intensol liquid for comfort, and I have discussed with nursing staff the goal of slowly decreasing her vapotherm as we increase her comfort medications to keep Yvonne from having air hunger symptoms. Pt's family informed of signs/symptoms to look for when assessing to see if she appears comfortable. This aligner typewriter will be in contact again later today with pt and her family to reassess comfort. Anticipate decline rapidly as oxygen is decreased. GENESIS ADAMS Apr 06, 2022 07:05 CHERELLE HEIN MD Apr 06, 2022 11:07
[2022-04-06 07:31] VITALS: BP 145/77
[2022-04-06] MEDS ORDERED: TROUGH ORDER-PHARMACY XX ONE (08:00)
[2022-04-06] MEDS: LORazepam ORAL CONCENTRATE 2 MG/ML 30 ML (ATIVAN) PO PRN ×2 (08:29→11:03)
[2022-04-06] MEDS: PANTOPRAZOLE 40 MG (PROTONIX) VIAL IV SCH (09:45)
[2022-04-06] MEDS: VANCOMYCIN 750 MG/NS 250 ML IVPB IV SCH ×2 (09:45)
[2022-04-06] MEDS ORDERED: GLYCOPYRROLATE 0.2 MG/ML (ROBINUL) 2 ML VIAL IV PRN (11:00)
[2022-04-06] MEDS ORDERED: ACETAMINOPHEN 650 MG SUPP (TYLENOL) PR PRN (11:00)
[2022-04-06] MEDS ORDERED: SALIVA STIMULANT MOUTH SPRAY (BIOTENE) 1.5 OZ MM PRN (11:00)
[2022-04-06] MEDS ORDERED: ARTIFICAL TEARS 0.4 ML UNIT DOSE (REFRESH PLUS) OU PRN (11:00)
[2022-04-06] MEDS ORDERED: LORazepam ORAL CONCENTRATE 2 MG/ML 30 ML (ATIVAN) PO PRN (11:15)
[2022-04-06] MEDS ORDERED: LORazepam ORAL CONCENTRATE 2 MG/ML 30 ML (ATIVAN) PO SCH (12:00)
[2022-04-06] MEDS ORDERED: RT-ALBUTEROL/IPRATROPIUM 3 ML (DUONEB) VIAL INH PRN (13:30)
[2022-04-06] MEDS ORDERED: morphine INJ 4 MG/ML 1 ML (VIAL/SYRINGE) ONE (13:43)
[2022-04-06] MEDS ORDERED: morphine INJ 4 MG/ML 1 ML (VIAL/SYRINGE) IVP PRN (16:45)
== END 2022-04-06 15:54 | disposition expired | DRG 871 ==
LOC: EDUNIT# 09:46 → ER 09:49 → ICU 13:06 → 4TH 03-30 15:28
PROVIDERS: ADMIT Family Medicine; ATTEND Family Medicine
PROC: 5A09357 Assistance with Respiratory Ventilation, Less than 24 Consecutive Hours, Continuous Positive Airway Pressure (ICD-10-PCS; principal; 2022-03-29)
DX: A41.9 Sepsis, unspecified organism (principal); J18.9 Pneumonia, unspecified organism; J96.21 Acute and chronic respiratory failure with hypoxia; D84.9 Immunodeficiency, unspecified; Z66 Do not resuscitate; Z51.5 Encounter for palliative care; J84.10 Pulmonary fibrosis, unspecified; Z20.822 Contact with and (suspected) exposure to COVID-19; E78.00 Pure hypercholesterolemia, unspecified; F03.90 Unspecified dementia, unspecified severity, without behavioral disturbance, psychotic disturbance, mood disturbance, and anxiety; K21.9 Gastro-esophageal reflux disease without esophagitis; M19.90 Unspecified osteoarthritis, unspecified site; M41.9 Scoliosis, unspecified; Z79.899 Other long term (current) drug therapy; R51.9 Headache, unspecified; Z79.52 Long term (current) use of systemic steroids; E03.9 Hypothyroidism, unspecified; E11.9 Type 2 diabetes mellitus without complications; E87.6 Hypokalemia; B37.9 Candidiasis, unspecified
CPT/HCPCS: 36415; 51701; 71045; 80048; 80053; 80061; 81000; 82805; 82947; 83605; 83735; 83874; 84100; 84145; 84484; 85007; 85025; 85027; 85610; 85730; 86141; 87040; 87088; 87324; 87449; 87636; 93005; 93041; 94640; 94660; 94760; 96361; 96365; 96367; 96375; 99291